=== PATIENT | male | born 1965 | race Caucasian/White ===

== ENCOUNTER 2016-12-18 17:41 | Inpatient (IN) | payer MEDICARE, OTHER ==
[~2016-12-18] VITALS: Ht 193 cm; Wt 204.4 kg
--- NOTE | 2016-12-18 18:06 | ED.REPORT ---
HPI-General Illness Date of Service Dec 18, 2016 ED Provider: Dr. Chris Cotto 51 year old male with a history of COPD, CHF and HTN who presents to the ER via EMS due to increasing weakness and lower extremity edema. About 1 month ago the patient stopped taking his Lasix. After 2 weeks of not taking this, he started to take double his dose in an attempt to decrease the edema. Pt has had no change in symptoms since he did this. Additionally, in the last 2 days the patient complains of worsening lower extremity weakness, SOB and a few small black stools. Pt denies any CP. Nursing Notes Stated Complaint: WEAKNESS Chief Complaint: Respiratory Complaints Nursing Notes Reviewed: Yes Allergies: Coded Allergies: No Known Allergies (Unverified , 12/18/16) Scheduled Torsemide (Torsemide) 20 Mg Tablet 60 MG PO QAM Scheduled PRN Albuterol Neb Soln (Albuterol Neb Soln) 2.5 Mg/3 Ml Vial.neb 3 ML INHALATION Q4 PRN PRN For Shortness of Breath Albuterol Sulfate (Ventolin HFA Inhaler) 200 Puff/18 Gm Inhaler 1-2 PUFFS INHALATION Q4 PRN PRN For Shortness of Breath Metoprolol Tartrate (Metoprolol Tartrate) 25 Mg Tablet 25 MG PO DAILY PRN PRN HTN/tachycardia General Time Seen by MD: 18:05 Chief Complaint Breathing problem, Other (Lower extremity edema) Hx Obtained From: Patient, EMS Arrived By: Ambulance Sudden in Onset?: No Onset Occurred: More than a week ago... Symptom Duration: Since onset Severity: Current: No pain currently Associated with: Reports: Shortness of breath, Denies: Chest pain, Fever Pertinent Negative: Relieved by nothing Past Medical History Past Medical History Reports: COPD, Congestive heart failure, Hypertension Past Surgical History None Smoking History Former Smoker (states he quit 10/2016) Social History Other Social History: Review of Systems Full Review of Systems Constitutional: Denies: Fever Respiratory: Reports: Shortness of breath Cardiovascular: Reports: Edema, Denies: Chest pain GI: Reports: Melena, Denies: Abdominal pain Complete sys rev & neg: except as marked. Physical Exam Vital Signs Vital Signs Date Time Temp Pulse Resp B/P Pulse Ox O2 Delivery O2 Flow Rate FiO2 12/18/16 19:38 102 18 90 Nasal Cannula 2 12/18/16 18:08 36.8 105 18 110/73 92 Nasal Cannula 4 Initial VS: Reviewed Head / Eyes: Atraumatic, Normocephalic, PERRL ENT: Conjunctiva normal, No scleral icterus Psychiatric: Mood/affect normal, Behavior normal, Normal thought content General/Constitutional: Awake, Alert Appearance / Presentation: Positive: Pale (generalized) Vesicles to posterior pharynx Neck: Full range of motion Neck Vascular: Positive: JVD moderate Wheezing / Retractions: Positive: Wheezing expiratory (faint) Tachypneic Wheezing throughout hypoxic on RA at 84% Cardiovascular: Heart rate NL, Regular rhythm, Heart sounds NL Abdomen: Obese abdomen. Anasarca- edematous from toes to abdomen. Skin: Warm, Dry Neurologic: Oriented X3, Speech NL, No motor deficits Interpretation & Diagnostics Lab Results Interpretation Result Diagram: 12/19/16 0442 12/19/16 1325 Test 12/18/16 18:20 12/18/16 18:40 D-Dimer 7.8mg/L (<0.50) Hemoglobin A1c 5.9% (4.8-5.6) Troponin T < 0.010ug/L (0.0-0.011) Pro-B-Type Natriuretic Peptide 20311yk/mL (0-121) Hold [place] Top Tube Received (Received) General Lab Results Interp 1: Labs reviewed Pulse Oximetry Interpretation Pulse Oximetry: Pulse Ox low (92), On nasal cannula (4L) ECG Interpretation ECG Interpretation: 1st degree heart block No ST elevation or depression Time: 18:46 Interpreted by: ED physician Normal ECG Interpretation: Normal sinus rhythm Rhythm / Conduction: Tachycardia (105), Poor R wave progression Rhythm Strip Interpretation : Time: 18:46 Rhythm Strip Interpretation: Interpreted by me, Rate (105), Sinus tachycardia X-Ray Chest Interpretation Chest Xray Interpretation: IMPRESSION: Probable right lower lobe infiltrate with small effusion. Dictated by: Can Santana M.D. on 12/18/2016 at 19:03 View: Portable, 1 view Interpretation / Wet Read by: Interpret - Radiologist US Focused Lower Ext Venous Negative for DVT bilat Re-Eval/Medical Decision Med Decision/Clinical Course Very pleasant 51 year old male with a number of chronic diseases presents acutely ill. He is short of breath, hypoxic and has impressive leg edema. He was found to have diffuse wheeze as well. His current active problems list based on history and diagnostics. 1. Pneumonia with hypoxia: will rx with Rocephin and Zithromax for CAP. Oxygen has helped. 2.COPD with exacerbation: continue nebs and consider bipap 3.Renal insufficiency: Stand pat for now. Electrolytes look good. Avoid nephrotoxic agents. 4.CHF: needs and echo and probably IV lasix. Plan for PCU admission and speciality consultation. Time of Eval: 19:32 Re-Evaluation/Progress Note: Updated pt of labs, ECG and imaging results. Recommended admission. Pt understands and agrees with plan. All questions addressed. Consultation : Referral / Consult Name: Biju Montes De Oca MD Consulted With: Hospitalist Call Returned at: 19:32 Brim Pouncing Machine Operator: Will see patient, Agrees with eval, Agrees with plan, Accepts admit Counseled Regarding: Diagnosis, Lab results, Need for admission Discharge & Departure Primary Impression: Pneumonia Pneumonia type: due to unspecified organism Laterality: right Lung location : lower lobe of lung Qualified Code: J18.9 - Pneumonia, unspecified organism Additional Impressions: Hypoxia Acute exacerbation of chronic obstructive pulmonary disease (COPD) Acute renal insufficiency Anasarca Congestive cardiac failure Congestive heart failure type: unspecified congestive heart failure type Congestive heart failure chronicity: unspecified congestive heart failure chronicity Qualified Code: I50.9 - Heart failure, unspecified Disposition: ADMITTED TO HOSPITAL Discharge Condition All VS Reviewed: Yes Referrals: OTHER,PHYSICIAN (PCP) Montse Emerson MD Crit Care Except Billable Proc Time Spent: 30-74 minutes Services Performed: Patient management by me, Time spent at bedside, Reviewing test results, Reviewing imaging, Discussing patient care, Documentation in record Scribe Attestation Portions of this note were transcribed by Jane Harman. I, (Dr. Cotto) personally performed the history, physical exam and medical decision-making; I reviewed and confirmed the accuracy of the information in the transcribed note. Signed by: Jane Harman. Андрей, 12/18/2016, 2003 copies to: Montse Emerson MD, Todd P DO Dec 18, 2016 18:06 Jane Harman Dec 18, 2016 19:08 US Focused Lower Ext Venous Negative for DVT bilat Re-Eval/Medical Decision Time of Eval: 19:32 Re-Evaluation/Progress Note: Updated pt of labs, ECG and imaging results. Recommended admission. Pt understands and agrees with plan. All questions addressed. Consultation : Referral / Consult Name: Biju Montes De Oca MD Consulted With: Hospitalist Call Returned at: 19:32 Brim Pouncing Machine Operator: Will see patient, Agrees with eval, Agrees with plan, Accepts admit Counseled Regarding: Diagnosis, Lab results, Need for admission Discharge & Departure Primary Impression: Pneumonia Pneumonia type: due to unspecified organism Laterality: right Lung location : lower lobe of lung Qualified Code: J18.9 - Pneumonia, unspecified organism Additional Impressions: Hypoxia Acute exacerbation of chronic obstructive pulmonary disease (COPD) Acute renal insufficiency Anasarca Disposition: ADMITTED TO HOSPITAL Discharge Condition All VS Reviewed: Yes Referrals: OTHER,PHYSICIAN (PCP) Montse Emerson MD Crit Care Except Billable Proc Time Spent: 30-74 minutes Services Performed: Patient management by me, Time spent at bedside, Reviewing test results, Reviewing imaging, Discussing patient care, Documentation in record Scribe Attestation Portions of this note were transcribed by Jane Felton I (Dr. Cotto) personally performed the history, physical exam and medical decision-making; I reviewed and confirmed the accuracy of the information in the transcribed note. Signed by: Jane Chiang, 12/18/20162003 copies to: Montse Emerson MD, Todd P DO Dec 18, 2016 18:06 Jane Harman Dec 18, 2016 19:08 Discharge Condition All VS Reviewed: Yes Referrals: OTHER,PHYSICIAN (PCP) Montse Emerson MD Crit Care Except Billable Proc Time Spent: 30-74 minutes Services Performed: Patient management by me, Time spent at bedside, Reviewing test results, Reviewing imaging, Discussing patient care, Documentation in record Scribe Attestation Portions of this note were transcribed by Jane Felton I (Dr. Cotto) personally performed the history, physical exam and medical decision-making; I reviewed and confirmed the accuracy of the information in the transcribed note. Signed by: Jane Chiang, 12/18/20162003 copies to: Montse Emerson MD, Todd P DO Dec 18, 2016 18:06 Jane Harman Dec 18, 2016 19:08
[2016-12-18 18:08] VITALS: BP 110/73; PULSE 105; RESP 18; O2SAT 92
[2016-12-18 18:37] LABS: Mean Corpuscular Hemoglobin 27.4 pg (27.0-35.0); Mean Corpuscular Volume 90.4 fL (81-100)
--- NOTE | 2016-12-18 19:06 | DRSVH ---
PROCEDURE: X-RAY CHEST ONE VIEW, PORTABLE ([id number]) INDICATIONS: SOB TECHNIQUE: One view of the chest was acquired. COMPARISON: [facility], CR, CHEST 1VW (PORTABLE), 05/24/2014, 19:01. FINDINGS: Surgical changes and devices: hydraulics teacher leads are seen over the chest. Lungs and pleura: There is thought to be a small right-sided effusion and some patchy density at the right base suggestive of pneumonia. Left lung is grossly clear. Mediastinum: Mediastinal contours appear normal. Heart size is normal. Bones and chest wall: No suspicious bony lesions. Overlying soft tissues appear unremarkable. IMPRESSION: Probable right lower lobe infiltrate with small effusion. Dictated by: Can Santana M.D. on 12/18/2016 at 19:03 Approved by: Can Santana M.D. on 12/18/2016 at 19:04
[2016-12-18] MEDS ORDERED: Albuterol-Ipratropium 3 mL Inhalation Solution NEB ONE ×2 (19:20→19:25)
[2016-12-18] MEDS ORDERED: cefTRIAXone Inj 2,000 MG in Dextrose 5% Minibag Plus 50 ML IV ONE (19:25)
[2016-12-18] MEDS ORDERED: 0.9% Sodium Chloride 500 ML IV ONE (19:25)
[2016-12-18 19:38] VITALS: PULSE 102; RESP 18; O2SAT 90
[2016-12-18] MEDS ORDERED: TORS20TA3 PO (20:26)
[2016-12-18] MEDS ORDERED: METO25TA6 PO (20:26)
[2016-12-18] MEDS ORDERED: ALBU2.5V4 INHALATION (20:26)
[2016-12-18] MEDS ORDERED: ALBU18HF INHALATION (20:26)
[2016-12-18] MEDS ORDERED: Ondansetron 2 mg/mL 2 mL Inj IVPUSH PRN (20:40)
[2016-12-18] MEDS ORDERED: Polyethylene Glycol (PEG) 17 Gm Powder PO PRN (20:40)
[2016-12-18] MEDS ORDERED: Alum-Mag Hydrox-Simeth 30 mL Suspension PO PRN (20:40)
[2016-12-18] MEDS: Albuterol-Ipratropium 3 mL Inhalation Solution NEB SCH (21:10)
[2016-12-18] MEDS ORDERED: MethylprednisoLONE Sodium Succinate 62.5 mg/mL 2 mL Inj IVPUSH ONE (21:10)
[2016-12-18 21:20] VITALS: BP 127/86; PULSE 108; RESP 18; O2SAT 92
[2016-12-18 21:22] LABS: BASOPHILS % (AUTO) 0.1 % (0-3); EOSINOPHILS % (AUTO) 0.3 % (0-5); MONOCYTES % (AUTO) 12.9 % (4-12); Mean Corpuscular Hemoglobin 27.9 pg (27.0-35.0); Mean Corpuscular Volume 89.5 fL (81-100); NEUTROPHILS % (AUTO) 77.9 % (40-74); Platelet Count 124 bil/L (150-400)
[2016-12-18 21:52] VITALS: BP 127/89; RESP 18; O2SAT 87
--- NOTE | 2016-12-18 22:00 | DRSVH ---
PROCEDURE: US VENOUS LEG DUPLEX BILATERAL INDICATIONS: massive leg swelling, elevated ddimer TECHNIQUE: Real-time imaging, as well as color and pulse Doppler interrogation, were performed of the deep veins of both legs from the inguinal ligament to the popliteal fossa. COMPARISON: None. FINDINGS: The deep veins are normally compressible, and free of intraluminal thrombus. Color and pu lse Doppler demonstrate normal phasic intravascular flow. There is normal augmentation response to d istal compression maneuver. IMPRESSION: No evidence for deep venous thrombosis is found in the left lower extremity with this du plex venous Doppler study. No evidence for deep venous thrombosis is found in the right lower extremity with this duplex venous Doppler study. Dictated by: Can Santana M.D. on 12/18/2016 at 21:58 Approved by: Can Santana M.D. on 12/18/2016 at 21:58
[2016-12-18] MEDS: 0.9% Sodium Chloride 1,000 ML IV SCH (22:10)
[2016-12-18] MEDS: Azithromycin Inj 500 MG in Dextrose 5% w/Vial Mate 250 ML IV SCH (22:17)
--- NOTE | 2016-12-18 22:37 | PCM.HPMED ---
Subjective Date of Service Dec 18, 2016 Primary Provider: Admitting Physician: Biju Montes De Oca MD Primary Care Physician: Montse Emerson MD Attending Physician: Biju Montes De Oca MD Chief Complaint: Worsening shortness of breath and weakness History of Present Illness: 51-year-old male patient with a history of COPD and congestive heart failure presented to the ER with complaint of worsening dyspnea and weakness. Patient reports that over the past 4 weeks he has been noticing increasing edema in his lower extremities and worsening shortness of breath. He states that he began doubling the dose of his torsemide in an effort to decrease the edema and improve his shortness of breath with no effect. Patient reports that he continued to become weaker and at one point stopped eating because he was too weak to get up. He states that his shortness of breath continued to worsen even with minimal exercise such as going to the restroom. Patient denies having supplemental oxygen at home. Patient reports a productive cough with clear sputum, that is worse than baseline. He also reports worsening shortness of breath, sore throat, myalgias and decreased urination. Patient also reports hesitancy of urination and decreased output of urination. Patient denies any fevers, chills, nausea, vomiting, diarrhea. Vitals in the ER temperature 36.8, pulse 105, respiratory rate 18, blood pressure 110/73, pulse ox 92 on nasal cannula 4 L Review of Systems: A comprehensive review of systems was conducted with the patient and found to be negative except as above in the History of Present Illness. Allergies Coded Allergies: No Known Allergies (Unverified , 12/18/16) Home Medications Torsemide Albuterol Propranolol PMH COPD Congestive heart failure GERD Lower extremity edema History of collapsed/punctured lung at 21 years old Surgical History Bilateral knee surgery Family History Noncontributory Social History Hx Alcohol Use: No Hx Substance Use: No Hx Tobacco Use: Yes Smoking Status: Former Smoker (quit 3-1/2 months ago, smoked for 31 years, up to 2 packs per day) Years of Smokin Living Arrangement: Alone Exam Vital Signs Vital Sign - Last Date Time Temp Pulse Resp B/P Pulse Ox O2 Delivery O2 Flow Rate FiO2 12/18/16 19:38 102 18 90 Nasal Cannula 2 12/18/16 18:08 36.8 110/73 Exam General: Obese.Mild distress, well-developed, well-nourished, appropriately interactive HEENT: Nasal canula in place. Vesicular rash noted along oropharynx. Cobblestoning as well. Normocephalic, atraumatic. External ears without defect. Pupils equal, round, and reactive to light and accommodation. Moist conjunctivae. Oropharynx with moist mucosa. Neck: Supple with full range of motion.No lymphadenopathy Cardiovascular: Regular rate and rhythm with no murmurs, rubs, or gallops appreciated Pulmonary: Crackles in the bilateral bases. End-expiratory wheezes heard diffusely bilaterally. Pt sitting in tripod position. With conversational dyspnea at times. Abdomen: Obese. Pitting edema in the abdomen to the level of the umbilicus. Bowel tones present. Soft, nontender. Extremities: Pitting edema( 2+) bilateral lower extremities. Unable to palpate pulses due to edema. Skin: Normal temperature, turgor, and texture; no rash, ulcers, or subcutaneous nodules appreciated. Psychiatric: Normal mood and affect. Alert and oriented to person, place, and time. Lab and Diagnostics Result Diagram: 12/18/16181912/18/161819 X-Rays, CTs and MRIs PROCEDURE: X-RAY CHEST ONE VIEW, PORTABLE ([id number]) INDICATIONS: SOB TECHNIQUE: One view of the chest was acquired. COMPARISON: [facility], , CHEST 1VW (PORTABLE), 05/24/2014, 19: 01. FINDINGS: Surgical changes and devices: rack worker leads are seen over the chest. Lungs and pleura: There is thought to be a small right-sided effusion and some patchy density at the right base suggestive of pneumonia. Left lung is grossly clear. Mediastinum: Mediastinal contours appear normal. Heart size is normal. Bones and chest wall: No suspicious bony lesions. Overlying soft tissues appear unremarkable. IMPRESSION: Probable right lower lobe infiltrate with small effusion. Dictated by: Can Santana M.D. on 12/18/2016 at 19:03 Approved by: Can Santana M.D. on 12/18/2016 at 19:04 Additional Diagnostics: DateTimeAnalyzed 01:44:00 -_ pH ____7.227 - 7.350 7.450 pCO2 103 -mmHg 35.0 45.0 pO2 ___73.2__ -mmHg 69.0 116 HCO3- ___41.5__ -mmol/L 22.0 26.0 ABE ____8.6__ -mmol/L -2.0 2.0 tHb ___15.8__ -g/dL O2Hb ___87.1__ -% COHb ____1.9__ -% MetHb ____0.9__ -% sO2 ___89.6__ -% 25.0 FIO2 ___34.0__ -% Drawn By MK - Date/Time Notified____ 01:48:00 -_ Oxygen Device 1 __CANNULA - Notified By MK - Notified Whom _Dr Davidson - B 764 -mmHg tO2 ___19.3__ -Vol% Emeka test _Positive - Assessment & Plan Acute on chronic respiratory failure with hypoxia, present on admission, ongoing -Differential diagnosis includes COPD exacerbation, Community acquired pneumonia , CHF exacerbation -Unclear etiology at this time. -Patient is requiring supplemental oxygen which he does not require at home -Pt became somnolent, ABG obtained demonstrating pCO2 of 103 -Pt started on BiPAP Possible COPD exacerbation present on admission, ongoing -COPD exacerbation is possible given increased sputum production and worsening of cough and new supplemental oxygen requirement -Patient to be treated with 3 days of azithromycin -Dual nebs every 4 while awake, albuterol nebulizers every 2 when necessary -Supplemental oxygen, with O2 goals of 88-92% -125 mg of Solu-Medrol administered to the patient -Continue to monitor Possible Community acquired pneumonia, present on admission, ongoing -Patient has a leukocytosis of 14.5, neutrophil percentage 77.9 -Chest x-ray done in the ER demonstrating right lower lobe infiltrate -Patient treated with 2 g ceftriaxone in the ER, we will continue with this antibiotic -Procalcitonin 0.29 -Legionella and strep pneumoniae urine antigens pending -Consider viral PCR -Blood cultures ordered but taken after administration of ceftriaxone Possible CHF exacerbation, present on admission, ongoing -BNP in the ER 12,223 -Patient has significant lower extremity edema and anasarca up to the umbilicus -Lung exam demonstrating crackles in the bases -Echo ordered for the morning -Not administering diuretics currently due to patient's acute kidney injury, see below Acute kidney injury, present on admission, ongoing -Currently BUN of 98 and Creatinine of 2.12 We have no comparison records available and thus cannot determine chronicity Patient has reported decreased urine output over the past few days We are providing gentle hydration with NS at 100 mils per hour Continue to monitor Consider nephrology referral if not improving Transaminitis, present on admission, ongoing -No previous records for comparison -AST 300, ALT 256, T bili 3.6, alkaline phosphatase 119 -Continue to evaluate with a.m. labs Vesicular rash present on admission, ongoing -Vesicular rash noted on oropharynx, rapid strep test ordered Acutely elevated d-dimer, present on admission, ongoing -Patient has d-dimer of 7.8 -Ultrasound bilateral lower extremities ordered in the ER, no results currently Morbid obesity, present on admission, ongoing -BMI 61 -Heart healthy diet ordered PCP: Montse Emerson at [facility] in [place] CODE STATUS : Full code VTE Prophylaxis: Sub-Q Heparin (Unfractionated) Resuscitation Status: CPR: Attempt Resuscitation Attending Statement The patient was seen and examined together with Dr. Davidson on 12/18 and I agree with the history, exam and plan as outlined in the note above. copies to: Montse Emerson MD, Tara L DO Dec 18, 2016 22:12 Biju Montes De Oca MD Dec 18, 2016 22:52
[2016-12-18 22:42] LABS: APPEARANCE,URINE CLEAR (CLEAR,HAZY); COLOR,URINE DARK YELLOW (YELLOW); OCCULT BLOOD,URINE NEGATIVE (NEGATIVE)
[2016-12-18 22:57] LABS: ICTOTEST,URINE POSITIVE (Negative)
[2016-12-19] VITALS (15 sets, daily range): BP systolic 107–132; BP diastolic 73–85; PULSE 78–111; RESP 18–23; O2SAT 87–92
[2016-12-19] MEDS: Heparin 5,000 Unit/mL Inj SUBQ SCH ×3 (01:31→16:30)
--- NOTE | 2016-12-19 01:48 | ABG ---
DateTimeAnalyzed 01:44:00 -_ pH ____7.227 - 7.350 7.450 pCO2 103 -mmHg 35.0 45.0 pO2 ___73.2__ -mmHg 69.0 116 HCO3- ___41.5__ -mmol/L 22.0 26.0 ABE ____8.6__ -mmol/L -2.0 2.0 tHb ___15.8__ -g/dL O2Hb ___87.1__ -% COHb ____1.9__ -% MetHb ____0.9__ -% sO2 ___89.6__ -% 25.0 FIO2 ___34.0__ -% Drawn By MK - Date/Time Notified____ 01:48:00 -_ Oxygen Device 1 __CANNULA - Notified By MK - Notified Whom _Dr Nairs - B 764 -mmHg tO2 ___19.3__ -Vol% Emeka test _Positive -
--- NOTE | 2016-12-19 02:14 | NUR ---
Admit Pt arrived on unit at 2144 on [facility]. Pt ambulated to scale and bed using SBA. Pt A&Ox3, talkative and cooperative with care. Pt states his legs are very weak. agreeable to using call light for assistance to get OOB. VSS, denies pain. On 4L O2 NC, placed on tele and CPOx. IVF started, ABX administered.
--- NOTE | 2016-12-19 02:17 | NUR ---
LOC Change RN into room at 0130. Pt very difficult to arouse using loud voice and calling name. Sternal rub gets groggy response. Pt mumbles answers to questions, does not make eye contact, eyes unfocused. Call to laundry laborer. VS stable. Call to MD, orders received for ABG check. Reveals O2 level of 103, pt placed on Bipap per MD at bedside. Addendum: 12/19/16 at 0543 by MICHAEL VENTURA RN pCO2 level of 103
--- NOTE | 2016-12-19 04:24 | ABG ---
DateTimeAnalyzed 04:19:00 -_ pH ____7.341 - 7.350 7.450 pCO2 ___79.8__ -mmHg 35.0 45.0 pO2 ___62.2__ -mmHg 69.0 116 HCO3- ___42.0__ -mmol/L 22.0 26.0 ABE ___12.3__ -mmol/L -2.0 2.0 tHb ___14.9__ -g/dL O2Hb ___85.4__ -% COHb ____2.3__ -% MetHb ____0.9__ -% sO2 ___88.2__ -% 25.0 FIO2 ___35.0__ -% CPAP ___18.0__ -cmH2O PEEP ____8.0__ -cmH2O Set_RR ___18.0__ -b/min Drawn By AF - Date/Time Notified____ 04:23:00 -_ Oxygen Device 1 ____BIPAP - Notified By AF - Notified Whom _Sarah RN - B 764 -mmHg tO2 ___17.9__ -Vol% OrderingPhysicianInitials mf - Emeka test _Positive -
[2016-12-19 04:56] LABS: BASOPHILS % (AUTO) 0 % (0-3); EOSINOPHILS % (AUTO) 0.1 % (0-5); MONOCYTES % (AUTO) 2.4 % (4-12); Mean Corpuscular Hemoglobin 27.2 pg (27.0-35.0); Mean Corpuscular Volume 86.1 fL (81-100); NEUTROPHILS % (AUTO) 93.5 % (40-74); Platelet Count 136 bil/L (150-400)
[2016-12-19] MEDS: Albuterol-Ipratropium 3 mL Inhalation Solution NEB SCH ×4 (08:19→20:09)
[2016-12-19] MEDS: 0.9% Sodium Chloride 1,000 ML IV SCH (09:29)
[2016-12-19] MEDS ORDERED: Furosemide 10 mg/mL 4 mL Inj IVPUSH ONE (09:30)
--- NOTE | 2016-12-19 09:56 | ABG ---
DateTimeAnalyzed 09:50:00 -_ pH ____7.406 - 7.350 7.450 pCO2 ___67.9__ -mmHg 35.0 45.0 pO2 ___75.0__ -mmHg 69.0 116 HCO3- ___41.8__ -mmol/L 22.0 26.0 ABE ___13.7__ -mmol/L -2.0 2.0 tHb ___14.8__ -g/dL O2Hb ___91.5__ -% COHb ____2.2__ -% MetHb ____0.8__ -% sO2 ___94.3__ -% 25.0 FIO2 ___40.0__ -% CPAP ___20.0__ -cmH2O PEEP ____8.0__ -cmH2O Set_RR ___20.0__ -b/min Drawn By NB - Date/Time Notified____ 09:56:00 -_ Oxygen Device 1 ____BIPAP - Notified By nb - Notified Whom ___Dr. Price - B 763 -mmHg tO2 ___19.0__ -Vol% Emeka test _Positive -
--- NOTE | 2016-12-19 11:55 | DRSVH ---
[facility] [address] [place] [place] [address] Echocardiogram Report Name: KEN NORMAN TStudy Date : 12/19/2016 Height: 76 in Hospital Exam Location: [facility] Weight: 440 lb Gender: Male BSA: 3.1 m2 : 1965 Age: 51 yrs BP: 119/73 mmHg Reason For Study: CHF Ordering Physician: HOSPITALIST [facility] Performed By: Enrique Gooden Referring Physician: Montse Emerson Interpretation Summary Left ventricular systolic function is likely mildly reduced with the ejection fraction grossly estimated to be 45 +/- 5% without obvious focal wall motion abnormalities noted although poor endocardial definition reduces the sensitivity for the detection of such. However, there is a flattened septum consistent with a probable right ventricular pressure overload condition and a significant dyssynchronous contraction pattern, consistent with a conduction abnormality. The left ventricle is grossly normal in size and diastolic function could not be accurately assessed due to tachycardia. The right ventricle is moderate to severely dilated and right ventricular systolic function is moderate to severely reduced with a probable thrombus noted in the right ventricular apex entrapped by the moderator band, seen by use of echo contrast, and measuring approximately 2.5 cm x 3.0 cm. Right ventricular systolic pressure is at least 30 mmHg plus the clinically estimated CVP and likely is significantly higher based on other echo findings, but the weakTR jet limits the accuracy of the estimate on this exam. The left atrial size is normal and the right atrium is moderately dilated. There is mild tricuspid regurgitation but no other significant valvular heart disease. There is a small to moderate loculated pericardial effusion predominantly posteriorly but there are no echocardiographic or Doppler indications for cardiac tamponade. Procedure: A two-dimensional transthoracic echocardiogram with color flow and Doppler was performed. The study quality was technically difficult. There is no prior echocardiogram noted for this patient. A contrast injection of Definity was performed to improve assessment of LV function. The subcostal views were not obtained due to body habitus. The suprasternal notch views were difficult to obtain and are suboptimal in quality. The patient was in normal sinus rhythm during the exam. Left Ventricle: The left ventricle is normal in size. There is normal left ventricular wall thickness. Left ventricular systolic function is mildly reduced. Left ventricular ejection fraction is estimated to be 45 +/- 5%. There are no obvious focal wall motion abnormalities noted but poor endocardial definition reduces the sensitivity for the detection of such. Flattened septum is consistent with RV pressure overload. There is a significant dyssynchronous contraction pattern, consistent with a conduction abnormality. Diastolic function could not be accurately assessed due to tachycardia. Right Ventricle: The right ventricle is moderate to severely dilated. There is a probable thrombus noted in the right ventricular apex entrapped by the moderator band, seen by use of echo contrast, measuring approximately 2.5 cm x 3.0 cm. Right ventricular systolic function is moderate to severely reduced. Atria: The left atrial size is normal. The right atrium is moderately dilated. The interatrial septum is intact with no evidence for an atrial septal defect. Mitral Valve: The mitral valve is not well visualized. The mitral valve is grossly normal. There is trace mitral regurgitation. Aortic Valve: The aortic valve is not well visualized. The aortic valve is grossly normal. There is no aortic valve stenosis. No aortic regurgitation is present. Tricuspid Valve: The tricuspid valve is normal in structure and function. There is mild tricuspid regurgitation. Right ventricular systolic pressure is estimated to be at least 30 mmHg plus the clinically estimated CVP which cannot be estimated on this exam. Pulmonic Valve: The pulmonic valve is not well seen, but is grossly normal. There is no pulmonic valvular regurgitation. There is no other significant valvular heart disease. Great Vessels: The aortic root is normal size. The ascending aorta could not be visualized. The pulmonary artery is normal size. The inferior vena cava was not visualized. Pericardium/ Pleura There is a moderate loculated pericardial effusion. There are no echocardiographic or Doppler indications for cardiac tamponade. There is no pleural effusion. MMode/2D Measurements & Calculations LVIDd: 5.2 cm LA dimension: 4.2 cm RA long axis Ao root diam LVIDs: 4.0 cm FS: 22.6 % LA A2 area: 22.3 cm RA area Aortic Jxn EPSS: 0.35 cm LA A4 area: 21.4 cm : 2.3 cm IVSd: 1.0 cm LA length (vol): 5.9 cm : 30.8 cm LVPWd: 0.94 cm LA vol: 68.2 ml RA vol LA vol index : 135.ml RA : 22.0 ml/m2 : 43.6 mm2 LV mathias. diameter/BSA LV sys. diameter/BSA RVD2 (mid) (cm/m^2): 1.7 (cm/m^2): 1.3 : 5.0 cm Doppler Measurements & Calculations Ao V2 max MV E max nathan MV E/A: 65.4 TR max nathan : 118.4 cm/sec : 100.9 cm/sec Med Peak E' Nathan : 275.6 cm/sec Ao max PG MV A max nathan TR max PG : 5.6 mmHg : 1.5 cm/sec E/E' med: 19.2 : 30.4 mmHg Ao mean PG PA V2 max : 3.4 mmHg : 95.1 cm/sec PA mean PG PA Accel Time : 0.07 sec MV dec time Ao V2 mean PA V2 mean : 0.09 sec : 88.1 cm/sec : 60.2 cm/sec Ao V2 VTI: 20.0 cm PA pr(Accel) : 46.6 mmHg Reading Physician:11:53 AM
[2016-12-19] MEDS ORDERED: Heparin 1,000 Units/mL 10 mL DVT/PE Bolus Inj IVPUSH PRN (12:15)
[2016-12-19] MEDS ORDERED: Heparin 5,000 Unit/mL Inj IVPUSH ONE (12:15)
[2016-12-19] MEDS: Heparin 25K Unit/500mL 0.45 NS 25,000 UNIT in IV Premix 1 EACH IV SCH (13:23)
--- NOTE | 2016-12-19 13:54 | CONS ---
[address] [address] CONSULTATION REPORT PATIENT: KEN NORMAN : 1965 MR#: [id number] ADMIT: 12/18/2016 JOB ID: [id number] DATE OF SERVICE: 12/19/2016 PULMONARY CRITICAL CARE CONSULTATION NOTE: The patient is a 51-year-old man seen in consultation at the request of Dr. Lam Thrasher for right ventricular failure and possible right ventricular thrombus. HISTORY OF PRESENT ILLNESS: The patient is a 51-year-old man with a 30-40 pack year recent smoking history who presented to the hospital with worsening generalized weakness, shortness of breath. He is morbidly obese with a BMI over 50. He was reportedly hospitalized at [facility] in [place] with respiratory issues four years ago and started on torsemide at that time. He is supposed to take 60 mg daily but says that he sometimes misses this due to financial reasons. He has been taking it regularly recently until a few weeks ago. He developed worsening lower extremity edema at that point and his torsemide was "not working." He tried taking double the dose but it still was not working. After that he stopped taking it since it was not helping and his edema progressively worsened. He also had a cough that is stable, shortness of breath that also got worse over the last few weeks to the point that he could barely walk across the room to the bathroom without having to pause. He has had worsening generalized weakness in the last two weeks to the point that he could barely pick himself up off the toilet. He had some wheezing but no chest pain, palpitations. He had one episode of dizziness on standing from a sitting position but no other syncope or lightheadedness. He presented to the emergency department yesterday and was found to have an abnormal blood gas with pH of 7.2, pCO2 of 100 and placed on BiPAP. He also had a creatinine of 2.3 at that time. He has been on BiPAP since yesterday and his repeat blood gas this morning showed a normal pH and pCO2 in the 60s. When off the BiPAP, he is requiring about 6 L of oxygen to maintain sats above 90. He denies any history of blood clots. PAST MEDICAL HISTORY: 1. Hypertension. 2. Hospitalized at [facility] in [place] four years ago for respiratory issues and started on diuretics. 3. Morbid obesity. FAMILY HISTORY: Does not know. He is adopted. SOCIAL HISTORY: Smoked 1-1/2 packs a day for about 30 years and quit smoking August 2016. He has previously worked in a warehouse, manual labor. REVIEW OF SYSTEMS: As described above in HPI, positive for shortness of breath, generalized weakness, cough, wheezing, lower extremity edema. Negative for fever, chills, chest pain, palpitations, abdominal pain, nausea, vomiting, skin rashes, joint pain or swelling, dizziness or lightheadedness, lymphadenopathy, visual problems, etc. PHYSICAL EXAMINATION: Vital signs reviewed. T-max 36.3, pulse 96, respirations 22, BP 107/76, sats 91% on 40% BiPAP. General: Morbidly obese gentleman lying in bed. Alert, oriented, appropriately answering questions. Neck: No cervical lymphadenopathy. HEENT: Oral mucosa is moist. No ulcers or thrush. Pupils are equal. Chest: Clear to auscultation. No wheezes or crackles. Heart: Regular rate and rhythm but very difficult to hear. He does have 3+ bilateral lower extremity edema. Abdomen nontender. No organomegaly palpable. Extremities: No cyanosis or clubbing. Skin: No rashes. LABORATORIES: Reviewed. WBC down to 10.9 from 14.5, hemoglobin 14.7, platelets 136. Chemistry reviewed and shows BUN 98, unchanged compared to yesterday. Creatinine down to 1.7 from 2.1 yesterday. AST of 202, ALT of 201, total bilirubin of 3.1. Procalcitonin 0.3. ProBNP 12,200. Troponin T of less than 0.01. IMAGING: Chest x-ray reviewed. Chest x-ray shows possible right lower lobe infiltrate plus-minus effusion. Arterial blood gas on admission shows pH 7.22, pCO2 of 103, pO2 of 73, bicarbonate of 41. This morning at 9 p.m. the blood gas shows pH of 7.4, pCO2 of 67, pO2 of 75, bicarbonate of 41. Echocardiogram done this morning shows EF mildly reduced around 45%-50% without obvious focal wall motion abnormality. There is a flattened septum consistent with RV pressure overload. Significant dyssynchronous contraction pattern. Diastolic function could not be assessed accurately. Right ventricle is moderate to severely dilated and systolic function is moderate to severely reduced with probable thrombus noted in the RV apex. This was seen by the use of echo contrast and measured approximately 2.5 x 3 cm. RVSP estimated 30 mm plus CVP. Turzj-ti-eytaoeio loculated pericardial effusion posteriorly. No indications of tamponade. ASSESSMENT AND RECOMMENDATIONS: 1. Obesity hypoventilation syndrome. 2. Probable right ventricular thrombus. 3. Cor pulmonale and decompensated right heart failure. 4. Acute on chronic kidney injury. This super morbid obese gentleman with BMI of 53 is presenting with acute on chronic hypercarbic respiratory failure and decompensated right heart failure with probable right ventricular thrombus on echo. His creatinine today is 1.7 down from 2.1 yesterday but BUN remains almost 100. His blood gas shows significant improvement in hypercarbia with BiPAP and his pH is now normal. Of biggest concern right now is the right ventricular thrombus. We are going to start him on a heparin drip for this. Ideally I would like to see if there is any evidence of large PE associated with this. His D-dimer is elevated but with his creatinine we decided to hold off on doing a CT with contrast at this point. He has a lower extremity duplex that shows no DVT. Nephrology is seeing him and recommended repeating a creatinine now and if significantly improved. We could even do the CT pulmonary angiogram tonight. With regards to the primary team's question about a thrombectomy, frankly I am not aware of right ventricular thrombectomy as an option for treatment in this circumstance. On a brief review of literature, all I found was that RV thrombus with PE is associated with a higher mortality. Regardless the RV thrombus at this point was described as "probable" and we do not have confirmation of a pulmonary embolism either. Certainly all of his symptoms could be explained by decompensated, untreated obesity hypoventilation syndrome and cor pulmonale. At this point the final plan is to continue with the heparin drip for anticoagulation. Plan on getting a CT pulmonary angiogram, when acceptable, based on his renal function. Once we have this information, we could probably start diuresis with a Lasix drip based on my conversation with Nephrology. I am not here tomorrow but please contact me for any urgent questions regarding this patient. I will see him again on Wednesday.
--- NOTE | 2016-12-19 16:04 | DRSVH ---
PROCEDURE: CT ANGIO CHEST PULMONARY EMBOLISM ([id number]) INDICATIONS: possible PE, elevated d-dimer, dyspnea TECHNIQUE: After the administration of intravenous contrast, 2 mm thick sections acquired from the pulmonary api jeremy to the posterior costophrenic angles. 3-dimensional maximum intensity projection (MIP) coronal a nd sagittal reformats were then acquired through the thorax. For radiation dose reduction, the follo wing was used: automated exposure control, adjustment of mA and/or kV according to patient size. COMPARISON: [facility], CR, XR CHEST 1VW (PORTABLE), 12/18/2016, 18:26. FINDINGS: Image quality: Excellent. Pulmonary arteries: Pulmonary arteries are normal in size, and demonstrate no intraluminal filling d efects to suggest central pulmonary embolism. Lungs and pleura: Lungs are abnormal with a pneumonia pattern at the right lower lobe, with adjacent small pleural effusion. No pleural significant left-sided effusions or pneumothorax. Central and p eripheral airways are patent. Mediastinum: Heart size is normal, without pericardial effusion. No mediastinal or hilar adenopathy . Thoracic aorta is normal in caliber and enhancement. Esophagus is normal in caliber, without hiat al hernia. Bones and chest wall: No suspicious bony lesions. Ribs and thoracic spine appear intact throughout. Thyroid gland appears normal where well visualized. No axillary or supraclavicular adenopathy. Abdomen: Visualized upper abdominal solid organs appear normal in the early arterial phase of enhanc ement. IMPRESSION: 1. No pulmonary embolus seen. 2. Right lower lobe pneumonia pattern 3. Small right pleural effusion. Dictated by: Eladio Garcia M.D. on 12/19/2016 at 16:00 Approved by: Eladio Garcia M.D. on 12/19/2016 at 16:03
--- NOTE | 2016-12-19 16:35 | CONS ---
[address] [address] CONSULTATION REPORT PATIENT: KEN NORMAN : 1965 MR#: [id number] ADMIT: 12/18/2016 JOB ID: [id number] DATE OF SERVICE: 12/19/2016 REQUESTING PHYSICIAN: Dr. Thrasher REASON FOR CONSULTATION: Management of abnormal kidney function. CHIEF COMPLAINT: Shortness of breath. HISTORY OF PRESENT ILLNESS: This is a 51-year-old, male with significant past medical history of morbid obesity, hypertension, COPD, tobacco abuse, obesity hypoventilation syndrome, who presented to the emergency department with a complaint of shortness of breath and lower extremity swelling. The patient does have history of chronic lower extremity swelling in which he takes torsemide daily. However, the patient recently has not been compliant with the medication. He stated that he missed taking medication, especially over the past couple of weeks. The patient has noticed worsening lower extremity swelling over the past four weeks with dyspnea on exertion. The patient reported that he tried to double the dose of the torsemide, however he did not get a good response with the medication. The patient reports worsening shortness of breath, malaise, decreased urine output. The patient does not have any fever or chills. No nausea, vomiting, or diarrhea. He came to the emergency department for further investigation. His initial vitals were temperature of 36.8, pulse of 105, respiratory of 18, blood pressure 110/73, O2 sat 94% on 4 L nasal cannula. His initial BUN and creatinine were 98 and 2.12 respectively. His proBNP was over 12,000. He received diuretics x1 day this morning. So far he has made 675 mL. He remains having lower extremity swelling, however he is well rested at the moment. He is on the nasal cannula. The repeat serum creatinine later on today showed a creatinine of 1.52. His D-dimer is elevated at the level of 7.8. Echocardiogram showed ejection fraction of 45%. Moderate to severely dilated right ventricle. Moderate to severely reduced right ventricular systolic function. A probable thrombus noted in the right ventricular apex, measuring approximately 2.5 cm x 3.0 cm. Right ventricular systolic pressure is at least 30 mmHg plus the clinically estimated CVP is significantly higher based on the other echo findings. The patient is not aware of having chronic kidney disease. He takes xrsj-suj-[id number] pain medication, acetaminophen. He does not use any NSAIDs. Renal was consulted to manage on the acute kidney injury. PAST MEDICAL HISTORY: 1. Morbid obesity. 2. Obesity hypoventilation syndrome. 3. Hypertension. 4. CHF. PAST SURGICAL HISTORY: Bilateral knee surgery. SOCIAL HISTORY: The patient is a former smoker. He smoked for 31 years up to two packs per day. ALLERGIES: No known drug allergies. HOME MEDICATIONS: Albuterol, metoprolol, and torsemide. REVIEW OF SYSTEMS: Constitutional: Positive for generalized weakness. No fever, no chills. HEENT: No headaches. No blurred vision. Cardiovascular: No palpitation. No significant chest pain. Pulmonary: Positive for productive cough. No hemoptysis. GI: No nausea, vomiting. : Decreased urine output. Skin: No rashes. No excoriations. Hematology: No active bleeding. No bruises. Infectious: No history of HIV or TB exposure. PHYSICAL EXAMINATION: Vitals: Temperature 36.3, pulse 94, respiratory rate 20, blood pressure 123/80, pulse ox 90% with BiPAP 40%. General appearance: Obese, mild distress. Awake, alert. Cooperative. HEENT: Atraumatic. Moist mucous membranes. PERRLA. No pallor, no jaundice. JVD is difficult to assess due to the thick and short neck. Heart: Regular rhythm. Normal S1, S2. Distant heart sounds. Lungs: Fine crackles at the bases. Expiratory wheezing noted. Poor air entry bilaterally. Abdomen: Soft, obese. Active bowel sounds. Nontender. Nondistended. Extremities: 3+ edema on the lower extremities up to the sacral area. LABORATORY: WBC 10.9, hemoglobin 14.7, sodium 137, potassium 4.8, chloride 85, bicarb 42, BUN 94, creatinine 1.52. D-dimer 7.8. APTT 28.4. UA: Specific gravity 1.020, pH 5.0, 0-2 RBCs, 0-5 WBCs, more than 20 hyaline casts. Urine neutrophilia antigen negative. Lower extremity venous Doppler showed no evidence of deep venous thrombosis. Chest x-ray showed probable right lower lobe infiltrate with small effusion. Echocardiogram showed a probable right thrombus measured 2.5 cm x 3.0 cm, reduced right ventricular systolic function, ejection fraction 45%. ASSESSMENT: 1. Acute kidney injury, unknown baseline creatinine. The etiology is likely related to cardiorenal syndrome. 2. Worsening shortness of breath. 3. Decompensated right-sided heart failure. 4. Probable thrombus in right ventricle. 5. Morbid obesity with hypoventilation syndrome. 6. Chronic obstructive pulmonary disease exacerbation with underlying disease of tobacco abuse. 7. Suspected right-sided pneumonia. PLAN: 1. I have discussed with Dr. Mcadams and Dr. Thrasher. It seems like CTA with PE protocol is absolutely indicated in this patient. Indeed it will change our management, whether he will need thrombolytic agent or not. The patient will be started on the heparin drip treating for probable right thrombus. Fortunately his serum creatinine is now trending down. I agree with Dr. Mcadams to proceed with a CTA to rule out PE. I will put diuretics on hold at this point. We will monitor his volume status and kidney function closely. I would recommend to resume IV diuretics, prefer Lasix drip, treating for cardiorenal syndrome. 2. We will discontinue IV fluids. 3. We will order a kidney sonogram. 4. Avoid nephrotoxins. 5. Adjust medication by GFR. Thank you for the consultation. We will monitor along with you.
--- NOTE | 2016-12-19 16:50 | NUR ---
Social Work: Initial Assessment D: Per EMR review, pt is a 51 year old male admitted for pneumonia, hypoxia. Pt is Medicare with no supplement, LTC insurance or VA benefits. PCP is Montse Emerson MD. NOK Is Carolin Kruse, ex-s/o, . Advanced directives not completed- information provided by CHEMICAL MANAGER. Readmit score not entered at this time. CHEMICAL MANAGER met with pt at bedside. Sw role explained and contact information provided. See initial assessment. Pt lives in an apartment, alone in [place]. Pt states he is I with ADLs and owns no DME. Pt has never had HH or Skilled rehab. Pt continues to drive however has found it increasingly difficult due to his morbid obesity. Pt states that he has noticed a decline in his ability to ambulate and has resulted in some near falls. Pt has considered the need for DME however states that he does not own any due to finances. CHEMICAL MANAGER reviewed possible needs at discharge with pt considering his recent decline in functional mobility. Pt is guarded about going to skilled rehab and would like to discharge home with home health and some DME. Pt is willing to participate with PT when appropriate for formal recommendations. Pt provided with HH and SNF Choice List to review. Pt has no preference for HH at this time. A: Pt who was previously living I at home, alone. P: Evolving; CHEMICAL MANAGER to request PT evaluation when pt is medically appropriate for assessment. CHEMICAL MANAGER to follow pt closely as pt will, at minimum, require assistance acquiring DME and arranging home health; CHEMICAL MANAGER to r/o need for SNF and pt's respiratory needs. KENDRICK Sidhu Addendum: 12/19/16 at 1658 by BUTCH HERRMANN Amended: Links added.
[2016-12-19] MEDS: Furosemide Inj 100 MG in 0.9% Sodium Chloride 90 ML IVPUSH SCH (18:23)
--- NOTE | 2016-12-19 18:31 | NUR ---
improved LOC patient was discontinued from BiPAP this afternoon after speaking with pulmonology. changed to NC at 4L/min. Pulmonology instructed that patient be put back on BiPAP at night while sleeping. patient has remained alert and oriented on NC maintaining O2 sat 88-92% throughout the afternoon/evening. continue to monitor.
--- NOTE | 2016-12-19 19:34 | PCM.PNMED ---
Subjective Date of Service Dec 19, 2016 Subjective 51-year-old male patient with a history of COPD and congestive heart failure presented to the ER with complaint of worsening dyspnea and weakness. This morning, Mr. Kruse continues to have some dyspnea, weakness, and leg swelling. His dyspnea has improved. He is more tired than usual and has been napping more often today. He does not have fever, chills, chest pain, or abdominal pain. Exam Vital Signs Vital Sign - Last Date Time Temp Pulse Resp B/P Pulse Ox O2 Delivery O2 Flow Rate FiO2 12/19/16 12:31 94 20 123/80 90 BiPAP 40 12/19/16 07:43 36.3 12/19/16 01:49 4.00 Intake and Output 12/18/16 12/18/16 12/19/16 Cumulative From/Thru 15:00 23:00 07:00 12/18/16 18:08 - 12/19/16 05:56 Intake Total 500 ml 1301 ml 1801 ml Output Total 675 ml 675 ml Balance 500 ml 626 ml 1126 ml Intake Oral 400 ml 400 ml IV Total 500 ml 901 ml 1401 ml Output Urine Total 675 ml 675 ml # Bowel Movements 0 0 Exam General: Obese. No acute distress, well-developed, well-nourished, appropriately interactive HEENT: Nasal canula in place. Vesicular rash noted along oropharynx. Cobblestoning as well. Normocephalic, atraumatic. External ears without defect. Pupils equal, round, and reactive to light and accommodation. Moist conjunctivae. Oropharynx with moist mucosa. Neck: Supple with full range of motion.No lymphadenopathy Cardiovascular: Regular rate and rhythm with no murmurs, rubs, or gallops appreciated Pulmonary: Crackles in the bilateral bases. End-expiratory wheezes heard diffusely bilaterally. BiPAP in place. Abdomen: Obese. Pitting edema in the abdomen to the level of the umbilicus. Bowel tones present. Soft, nontender. Extremities: Pitting edema( 2+) bilateral lower extremities. Unable to palpate pulses due to edema. Skin: Normal temperature, turgor, and texture; no rash, ulcers, or subcutaneous nodules appreciated. Psychiatric: Normal mood and affect. Alert and oriented to person, place, and time. IVs and Medications Medications Reviewed: Medications were reviewed in detail Lab and Diagnostics Result Diagram: 2/25/17 0442 12/19/16 1325 X-Rays, CTs and MRIs PROCEDURE: X-RAY CHEST ONE VIEW, PORTABLE IMPRESSION: Probable right lower lobe infiltrate with small effusion. Approved by: Can Santana M.D. on 12/18/2016 at 19:04 PROCEDURE: CT ANGIO CHEST PULMONARY EMBOLISM IMPRESSION: 1. No pulmonary embolus seen. 2. Right lower lobe pneumonia pattern 3. Small right pleural effusion. Approved by: Eladio Garcia M.D. on 12/19/2016 at 16:03 Cardiac Echo Impressions Echocardiogram Report Interpretation Summary Left ventricular systolic function is likely mildly reduced with the ejection fraction grossly estimated to be 45 +/- 5% without obvious focal wall motion abnormalities noted although poor endocardial definition reduces the sensitivity for the detection of such. However, there is a flattened septum consistent with a probable right ventricular pressure overload condition and a significant dyssynchronous contraction pattern, consistent with a conduction abnormality. The left ventricle is grossly normal in size and diastolic function could not be accurately assessed due to tachycardia. The right ventricle is moderate to severely dilated and right ventricular systolic function is moderate to severely reduced with a probable thrombus noted in the right ventricular apex entrapped by the moderator band, seen by use of echo contrast, and measuring approximately 2.5 cm x 3.0 cm. Right ventricular systolic pressure is at least 30 mmHg plus the clinically estimated CVP and likely is significantly higher based on other echo findings, but the weakTR jet limits the accuracy of the estimate on this exam. The left atrial size is normal and the right atrium is moderately dilated. There is mild tricuspid regurgitation but no other significant valvular heart disease. There is a small to moderate loculated pericardial effusion predominantly posteriorly but there are no echocardiographic or Doppler indications for cardiac tamponade. Reading Physician:11:53 AM Additional Diagnostics DateTimeAnalyzed 09:50:00 -_ pH ____7.406 - 7.350 7.450 pCO2 ___67.9__ -mmHg 35.0 45.0 pO2 ___75.0__ -mmHg 69.0 116 HCO3- ___41.8__ -mmol/L 22.0 26.0 ABE ___13.7__ -mmol/L -2.0 2.0 tHb ___14.8__ -g/dL O2Hb ___91.5__ -% COHb ____2.2__ -% MetHb ____0.8__ -% sO2 ___94.3__ -% 25.0 FIO2 ___40.0__ -% CPAP ___20.0__ -cmH2O PEEP ____8.0__ -cmH2O Set_RR ___20.0__ -b/min Drawn By NB - Date/Time Notified____ 09:56:00 -_ Oxygen Device 1 ____BIPAP - Notified By nb - Notified Whom ___Dr. Price - B 763 -mmHg tO2 ___19.0__ -Vol% Emeka test _Positive - Assessment & Plan 1. Probable thrombus in right ventricle, acute, present on admission. Active. -Right ventricular apex entrapped by the moderator band, seen by use of echo contrast, and measuring approximately 2.5 cm x 3.0 cm -Consider contacting radiologist tomorrow to discuss if the thrombus would to be visible on CT scan -Pulmonology was consulted. Her time and recommendations were appreciated. -Heparin drip per protocol 2. Acute on chronic respiratory failure with hypoxia, present on admission, improving -Differential diagnosis includes COPD exacerbation, Community acquired pneumonia , and CHF exacerbation or is multifactorial and a combination of all three -Patient is requiring supplemental oxygen which he does not require at home -ABG obtained demonstrating pCO2 of 103, which has improved today to 67.9 -Pt started on BiPAP and will continue BiPAP at night -CT chest angiogram was negative for a pulmonary embolism 3. Possible COPD exacerbation present on admission, ongoing -COPD exacerbation is possible given increased sputum production and worsening of cough and new supplemental oxygen requirement -Patient to be treated with 3 days of azithromycin -Dual nebs every 4 while awake, albuterol nebulizers every 2 when necessary -Supplemental oxygen, with O2 goals of 88-92% -125 mg of Solu-Medrol administered to the patient -Continue to monitor 4. Possible Community acquired pneumonia, present on admission, ongoing -Patient had leukocytosis of 14.5, neutrophil percentage 77.9. Improved WBC 10.9 but neutrophil percentage 93.5% -Chest x-ray done in the ER demonstrating right lower lobe infiltrate and chest CT re-demonstrated right lower lobe infiltrate -Procalcitonin 0.36 -Legionella and strep pneumoniae urine antigens negative -Viral PCR negative -Blood cultures ordered but taken after administration of ceftriaxone -Patient treated with 2 g ceftriaxone in the ER, we will continue with this antibiotic. Azithromycin as above 5. Acute systolic CHF exacerbation, present on admission, ongoing -BNP in the ER 12,223 -Patient has significant lower extremity edema and anasarca up to the umbilicus -Lung exam demonstrating crackles in the bases -Echocardiogram as above, EF 40-50% -Lasix drip at 5 mg/h started 6. Acute kidney injury, present on admission, ongoing -Initially BUN of 98 and Creatinine of 2.12, today BUN 84, creatinine 1.5 to -We have no comparison records available and thus cannot determine chronicity. Records from [facility] in [place] requested but their are office is not open until Wednesday. -Patient has reported decreased urine output over the past few days -Discontinued normal saline -Nephrology consulted and following. Their time and recommendations are appreciated 7. Transaminitis, present on admission, ongoing -No previous records for comparison -AST 300, ALT 256, T bili 3.6, alkaline phosphatase 119 initially. Today, mild improvement. -Continue to evaluate with a.m. labs 8. Vesicular rash present on admission, ongoing -Vesicular rash noted on oropharynx, rapid strep test negative -Consider doing a viral swab if no improvement 9. Acutely elevated d-dimer, present on admission, ongoing -Patient has d-dimer of 7.8 -Ultrasound bilateral lower extremities ordered in the ER, no DVT -Chest CT angiogram shows no pulmonary embolism. -Echocardiogram shows thrombus in right ventricle 10. Morbid obesity, present on admission, ongoing -BMI 61 -Likely contributing to a chronic hypoventilation -Heart healthy diet ordered PCP: Montse Emerson at [facility] in [place] CODE STATUS : Full code VTE Prophylaxis: Sub-Q Heparin (Unfractionated) Resuscitation Status: CPR: Attempt Resuscitation Attending Statement The patient was seen and examined together with Dr. Duran on 12/19/2016 and I agree with the history, exam and plan as outlined in the note above. . Lisa Duran DO Dec 19, 2016 14:30 Lam Thrasher MD Dec 20, 2016 08:44
[2016-12-19] MEDS: cefTRIAXone Inj 2,000 MG in Dextrose 5% Minibag Plus 50 ML IV SCH (20:43)
[2016-12-19] MEDS ORDERED: Heparin 5,000 Unit/mL Inj IVPUSH PRN (21:32)
[2016-12-19] MEDS: Azithromycin Inj 500 MG in Dextrose 5% w/Vial Mate 250 ML IV SCH (21:48)
[2016-12-20] VITALS (14 sets, daily range): BP systolic 121–132; BP diastolic 74–84; PULSE 92–115; RESP 16–23; O2SAT 89–98
[2016-12-20] MEDS: Heparin 25K Unit/500mL 0.45 NS 25,000 UNIT in IV Premix 1 EACH IV SCH ×3 (00:30→22:10)
[2016-12-20 04:12] LABS: BASOPHILS % (AUTO) 0 % (0-3); EOSINOPHILS % (AUTO) 0 % (0-5); MONOCYTES % (AUTO) 11.8 % (4-12); Mean Corpuscular Hemoglobin 27.7 pg (27.0-35.0); Mean Corpuscular Volume 89.7 fL (81-100); NEUTROPHILS % (AUTO) 83.9 % (40-74); Platelet Count 87 bil/L (150-400)
--- NOTE | 2016-12-20 05:25 | NUR ---
BiPap/Agitation Pt placed on bipap for sleep, tolerated well maintaining sats 88-92% majority of night. One sustained dip to 85%, call to RT, pt woken up. Pt required multiple stimuli and mild sternal rub to awaken, was then drowsy but oriented. Pt awakens agitated multiple times during the night with urgent need to urinate. Pt complains that he has been waiting for help but no one comes, although he does not use the call light, despite multiple reminders. Pt uses the urinal with 1PA.
[2016-12-20] MEDS: Albuterol-Ipratropium 3 mL Inhalation Solution NEB SCH ×4 (08:03→20:53)
--- NOTE | 2016-12-20 09:20 | DRSVH ---
PROCEDURE: US RENAL SONOGRAM INDICATIONS: SHARMILA, decreased urine output TECHNIQUE: Real-time scanning was performed of the kidneys and bladder, with image documentation. COMPARISON: None. FINDINGS: Detail of findings limited because of body size. Kidneys: Kidneys are normal in size. Right kidney measures 11.0 cm long; left kidney measures 11.2 cm long. Right renal cortical thickness is 1.4 cm; left renal cortical thickness is 1.2 cm. . Bladder: Pre-void bladder volume is 138 mL. Post-void residual is 10.4 mL. Pre-void images demonst rate no intraluminal masses or stones. Miscellaneous: No free pelvic fluid. IMPRESSION: Detail limited because of body habitus. There is no hydronephrosis. There is no significa nt postvoid residual. Dictated by: Can Santana M.D. on 12/20/2016 at 9:16 Approved by: Can Santana M.D. on 12/20/2016 at 9:18
[2016-12-20] MEDS: Furosemide Inj 100 MG in 0.9% Sodium Chloride 90 ML IVPUSH SCH (10:38)
[2016-12-20] MEDS ORDERED: Potassium Chloride 20 mEq SR Tablet PO ONE (13:35)
--- NOTE | 2016-12-20 13:39 | PCM.PNMED ---
Subjective Date of Service Dec 20, 2016 Subjective CTA PE protocol was done yesterday, showed no acute PE, (+) RLL PNA. Serum cr 1.38, remains overloaded, LE swelling, SOB. Exam Vital Signs Vital Sign - Last Date Time Temp Pulse Resp B/P Pulse Ox O2 Delivery O2 Flow Rate FiO2 12/20/16 12:38 104 20 94 OxyMask 6.00 12/20/16 11:55 36.9 129/77 12/20/16 03:30 40 Intake and Output 12/19/16 12/19/16 12/20/16 Cumulative From/Thru 15:00 23:00 07:00 12/18/16 18:08 - 12/20/16 06:38 Intake Total 1311 ml 1342 ml 4454 ml Output Total 2075 ml 1465 ml 4215 ml Balance -764 ml -123 ml 239 ml Intake Oral 596 ml 400 ml 1396 ml IV Total 715 ml 942 ml 3058 ml Output Urine Total 2075 ml 1465 ml 4215 ml # Bowel Movements 0 Exam General appearance: Obese, mild distress. Awake, alert. Cooperative. HEENT: Atraumatic. Moist mucous membranes. PERRLA. No pallor, no jaundice. JVD is difficult to assess due to the thick and short neck. Heart: Regular rhythm. Normal S1, S2. Distant heart sounds. Lungs: Fine crackles at the bases. Poor air entry bilaterally. Abdomen: Soft, obese. Active bowel sounds. Nontender. Nondistended. Extremities: 3+ edema on the lower extremities up to the sacral area. Lab and Diagnostics Result Diagram: 12/20/16 0401 12/20/16 0401 X-Rays, CTs and MRIs PROCEDURE: X-RAY CHEST ONE VIEW, PORTABLE IMPRESSION: Probable right lower lobe infiltrate with small effusion. Approved by: Can Santana M.D. on 12/18/2016 at 19:04 PROCEDURE: CT ANGIO CHEST PULMONARY EMBOLISM IMPRESSION: 1. No pulmonary embolus seen. 2. Right lower lobe pneumonia pattern 3. Small right pleural effusion. Approved by: Eladio Garcia M.D. on 12/19/2016 at 16:03 Cardiac Echo Impressions Echocardiogram Report Interpretation Summary Left ventricular systolic function is likely mildly reduced with the ejection fraction grossly estimated to be 45 +/- 5% without obvious focal wall motion abnormalities noted although poor endocardial definition reduces the sensitivity for the detection of such. However, there is a flattened septum consistent with a probable right ventricular pressure overload condition and a significant dyssynchronous contraction pattern, consistent with a conduction abnormality. The left ventricle is grossly normal in size and diastolic function could not be accurately assessed due to tachycardia. The right ventricle is moderate to severely dilated and right ventricular systolic function is moderate to severely reduced with a probable thrombus noted in the right ventricular apex entrapped by the moderator band, seen by use of echo contrast, and measuring approximately 2.5 cm x 3.0 cm. Right ventricular systolic pressure is at least 30 mmHg plus the clinically estimated CVP and likely is significantly higher based on other echo findings, but the weakTR jet limits the accuracy of the estimate on this exam. The left atrial size is normal and the right atrium is moderately dilated. There is mild tricuspid regurgitation but no other significant valvular heart disease. There is a small to moderate loculated pericardial effusion predominantly posteriorly but there are no echocardiographic or Doppler indications for cardiac tamponade. Reading Physician:11:53 AM Additional Diagnostics DateTimeAnalyzed 09:50:00 -_ pH ____7.406 - 7.350 7.450 pCO2 ___67.9__ -mmHg 35.0 45.0 pO2 ___75.0__ -mmHg 69.0 116 HCO3- ___41.8__ -mmol/L 22.0 26.0 ABE ___13.7__ -mmol/L -2.0 2.0 tHb ___14.8__ -g/dL O2Hb ___91.5__ -% COHb ____2.2__ -% MetHb ____0.8__ -% sO2 ___94.3__ -% 25.0 FIO2 ___40.0__ -% CPAP ___20.0__ -cmH2O PEEP ____8.0__ -cmH2O Set_RR ___20.0__ -b/min Drawn By NB - Date/Time Notified____ 09:56:00 -_ Oxygen Device 1 ____BIPAP - Notified By nb - Notified Whom ___Dr. Price - B 763 -mmHg tO2 ___19.0__ -Vol% Emeka test _Positive - Assessment & Plan 1. Acute kidney injury, unknown baseline creatinine. The etiology is likely related to cardiorenal syndrome. 2. Decompensated right-sided heart failure. 3. Probable thrombus in right ventricle. 4. Morbid obesity with hypoventilation syndrome. 5. Chronic obstructive pulmonary disease exacerbation with underlying disease of tobacco abuse. 6. Suspected right-sided pneumonia. PLAN: 1. Increase lasix gtt 10 mg/hr, add metolazone 5 mg PO x1. 2. Continue heparin gtt. 3. Daily BMP, Mg, PO4. 4. Avoid nephrotoxins. 5. Daily weight, 2 gm Na per day. VTE Prophylaxis: Sub-Q Heparin (Unfractionated) Resuscitation Status: CPR: Attempt Resuscitation Kiki Flaherty MD Dec 20, 2016 13:38
--- NOTE | 2016-12-20 13:59 | NUR ---
Social Work: Continued Discharge Planning D: Pt discussed with MD. Pt will likely require a Trilogy machine at time of discharge and is requesting [employer] provide initial referral to [facility] to begin this process. [employer] spoke with Marcia Cam with [facility] who states that she can come today to begin this process. Pt continues to require high oxygen needs and shows limited insight into his 02 needs. [employer] requested PT order for pt to further assess ambulatory needs. MD signed script for FWW in anticipation pt will require FWW at d/c. A: Pt who is from home, alone. P: Evolving; [employer] to follow up with PT and MD recommendations to determine pt's discharge needs. R/o HH versus SNF and DME needs. KENDRICK Sidhu
[2016-12-20] MEDS ORDERED: Glucose 40% Oral Gel 15 Gm Tube PO PRN (14:40)
[2016-12-20 15:42] LABS: INR 1.25 ratio
--- NOTE | 2016-12-20 16:50 | PCM.PHAPRO ---
Progress Date of Service: Dec 20, 2016 Worsening shortness of breath and weakness Dx: thrombus right ventricle PMH: COPD, CHF, CAP, HTN DDI: ceftriaxone, azithromycin INR goal 2-3 INR 1.25 (below goal) give warfarin 5mg tonight draw INR AM labs on 12/21 per pharmacy Lance Walker PharmD Lance Walker Dec 20, 2016 16:50
--- NOTE | 2016-12-20 16:58 | PCM.PNMED ---
Subjective Date of Service Dec 20, 2016 Subjective Overnight: Patient was on Bipap for sleep, up and agitated multiple times over the night but otherwise uneventful. Today: He denies any shortness of breath and feels at his baseline at rest, but reports continuing shortness of breath on exertion. He reports mild chest pain with a cough, which is nonproductive, as well as wheezing. Denies fevers, chills , N/V/D. Exam Vital Signs Vital Sign - Last Date Time Temp Pulse Resp B/P Pulse Ox O2 Delivery O2 Flow Rate FiO2 12/20/16 16:25 115 20 96 OxyMask 6.00 12/20/16 15:58 36.7 128/77 12/20/16 03:30 40 Intake and Output 12/19/16 12/19/16 12/20/16 Cumulative From/Thru 14:59 22:59 06:59 12/18/16 18:08 - 12/20/16 06:38 Intake Total 1311 ml 1342 ml 4454 ml Output Total 2075 ml 1465 ml 4215 ml Balance -764 ml -123 ml 239 ml Intake Oral 596 ml 400 ml 1396 ml IV Total 715 ml 942 ml 3058 ml Output Urine Total 2075 ml 1465 ml 4215 ml # Bowel Movements 0 Exam General: Morbidly obese. No acute distress, well-developed, well-nourished, appropriately interactive HEENT: Nasal canula in place. Normocephalic, atraumatic. External ears without defect. Pupils equal, round, and reactive to light and accommodation. Moist conjunctivae. Neck: Supple with full range of motion.No lymphadenopathy Cardiovascular: Regular rate and rhythm with no murmurs, rubs, or gallops appreciated Pulmonary: End-expiratory wheezes heard diffusely bilaterally. Abdomen: Obese. Pitting edema in the abdomen to the level of the umbilicus. Bowel tones present. Soft, nontender. Extremities: Pitting edema( 2+) bilateral lower extremities. Unable to palpate pulses due to edema. Skin: Normal temperature, turgor, and texture; no rash, ulcers, or subcutaneous nodules appreciated. Psychiatric: Normal mood and affect. Alert and oriented to person, place, and time. Lab and Diagnostics Result Diagram: 12/20/16 0401 12/20/16 0401 X-Rays, CTs and MRIs PROCEDURE: X-RAY CHEST ONE VIEW, PORTABLE IMPRESSION: Probable right lower lobe infiltrate with small effusion. Approved by: Can Santana M.D. on 12/18/2016 at 19:04 PROCEDURE: CT ANGIO CHEST PULMONARY EMBOLISM IMPRESSION: 1. No pulmonary embolus seen. 2. Right lower lobe pneumonia pattern 3. Small right pleural effusion. Approved by: Eladio Garcia M.D. on 12/19/2016 at 16:03 Cardiac Echo Impressions Echocardiogram Report Interpretation Summary Left ventricular systolic function is likely mildly reduced with the ejection fraction grossly estimated to be 45 +/- 5% without obvious focal wall motion abnormalities noted although poor endocardial definition reduces the sensitivity for the detection of such. However, there is a flattened septum consistent with a probable right ventricular pressure overload condition and a significant dyssynchronous contraction pattern, consistent with a conduction abnormality. The left ventricle is grossly normal in size and diastolic function could not be accurately assessed due to tachycardia. The right ventricle is moderate to severely dilated and right ventricular systolic function is moderate to severely reduced with a probable thrombus noted in the right ventricular apex entrapped by the moderator band, seen by use of echo contrast, and measuring approximately 2.5 cm x 3.0 cm. Right ventricular systolic pressure is at least 30 mmHg plus the clinically estimated CVP and likely is significantly higher based on other echo findings, but the weakTR jet limits the accuracy of the estimate on this exam. The left atrial size is normal and the right atrium is moderately dilated. There is mild tricuspid regurgitation but no other significant valvular heart disease. There is a small to moderate loculated pericardial effusion predominantly posteriorly but there are no echocardiographic or Doppler indications for cardiac tamponade. Reading Physician:11:53 AM Additional Diagnostics DateTimeAnalyzed 09:50:00 -_ pH ____7.406 - 7.350 7.450 pCO2 ___67.9__ -mmHg 35.0 45.0 pO2 ___75.0__ -mmHg 69.0 116 HCO3- ___41.8__ -mmol/L 22.0 26.0 ABE ___13.7__ -mmol/L -2.0 2.0 tHb ___14.8__ -g/dL O2Hb ___91.5__ -% COHb ____2.2__ -% MetHb ____0.8__ -% sO2 ___94.3__ -% 25.0 FIO2 ___40.0__ -% CPAP ___20.0__ -cmH2O PEEP ____8.0__ -cmH2O Set_RR ___20.0__ -b/min Drawn By NB - Date/Time Notified____ 09:56:00 -_ Oxygen Device 1 ____BIPAP - Notified By nb - Notified Whom ___Dr. Thrasher - B 763 -mmHg tO2 ___19.0__ -Vol% Emeka test _Positive - Assessment & Plan 1. Probable thrombus in right ventricle, acute, present on admission. Active. -Echo showed thrombus in right ventricular apex, measuring approximately 2.5 cm x 3.0 cm. Likely secondary to right heart failure and pulmonary hypertension. CT angio was negative for PE. -Pulmonology was consulted. Their time and recommendations were appreciated. -Heparin drip per protocol 2. Acute on chronic respiratory failure with hypoxia, present on admission, improving -Secondary to COPD, obesity hypoventilation, obstructive sleep apnea, and pulmonary hypertension. Patient requires nocturnal and daytime PRN volume ventilation. BiPAP is insufficient due to severity of COPD and obesity hypoventilation, which are the primary causes of his hypercapnic respiratory failure. Per Dr. Mcadams, Trilogy is recommended. -Patient is requiring supplemental oxygen which he does not require at home -Will assess for Trilogy 3. Possible COPD exacerbation present on admission, ongoing -COPD exacerbation is possible given increased sputum production and worsening of cough and new supplemental oxygen requirement -Azithromycin 250 mg PO daily for 3 more days. -Duoneb q4 while awake, albuterol nebulizers q2 PRN -Supplemental oxygen, with O2 goals of 88-92% -125 mg of Solu-Medrol administered to the patient -Continue to monitor 4. Possible Community acquired pneumonia, present on admission, ongoing -Patient had leukocytosis of 14.5, neutrophil percentage 77.9. Improved WBC 10.9 but neutrophil percentage 93.5% -Chest x-ray done in the ER demonstrating right lower lobe infiltrate and chest CT re-demonstrated right lower lobe infiltrate -Procalcitonin 0.36 --> 0.22 -Legionella and strep pneumoniae urine antigens negative -Viral PCR negative -Blood cultures ordered but taken after administration of ceftriaxone -Continue Ceftriaxone IV. Azithromycin as above 5. Acute systolic CHF exacerbation, present on admission, ongoing -BNP in the ER 12,223 -Patient has significant lower extremity edema and anasarca up to the umbilicus -Lung exam demonstrating crackles in the bases -Echocardiogram as above, EF 40-50% -Daily weights -Na restriction to 2 g daily -Lasix drip increased to 10 mg/hr -Metolazone 5 mg once -Carvedilol 3.125 mg BID -Start HONEY inhibitor tomorrow if BP permits 6. Acute kidney injury, present on admission, ongoing -Likely secondary to CHF exacerbation. Discontinued fluids, will diurese accordingly. -We have no comparison records available and thus cannot determine chronicity. Records from [facility] in [place] requested but their are office is not open until Wednesday. -Patient has reported decreased urine output over the past few days -Diuresis as above, per Dr. Arechiga -Nephrology consulted and following. Their time and recommendations are appreciated 7. Transaminitis, present on admission, ongoing -No previous records for comparison -AST 300, ALT 256, T bili 3.6, alkaline phosphatase 119 initially. Today, mild improvement. -Continue to evaluate with a.m. labs 8. Vesicular rash present on admission, ongoing -Vesicular rash noted on oropharynx, rapid strep test negative -Consider doing a viral swab if no improvement 9. Acutely elevated d-dimer, present on admission, ongoing -Patient has d-dimer of 7.8 -Ultrasound bilateral lower extremities ordered in the ER, no DVT -Chest CT angiogram shows no pulmonary embolism. -Echocardiogram shows thrombus in right ventricle 10. Morbid obesity, present on admission, ongoing -BMI 61 -Likely contributing to a chronic hypoventilation -Heart healthy diet ordered VTE Prophylaxis: Sub-Q Heparin (Unfractionated) Resuscitation Status: CPR: Attempt Resuscitation Attending Statement The patient was seen and examined together with Dr. Jenkins on 12/20/2016 and I agree with the history, exam and plan as outlined in the note above. . Alphonso Jenkins Dec 20, 2016 16:58 Lam Thrasher MD Jan 02, 2017 17:10
--- NOTE | 2016-12-20 17:08 | NUR ---
[facility]
--- NOTE | 2016-12-20 17:29 | NUR ---
O2 Patient repeatedly removing oxymask to eat/drink/take a break. Patient SpO2 drops to 70s-low 80s when not wearing mask. 6L NC applied to patient, patient more compliant and SpO2 maintaining in the low 90s.
[2016-12-20] MEDS: Insulin LISPRO 300 Unit/3 mL Inj SUBQ SCH ×2 (17:44→21:17)
[2016-12-20] MEDS: cefTRIAXone Inj 2,000 MG in Dextrose 5% Minibag Plus 50 ML IV SCH (21:17)
[2016-12-21] VITALS (16 sets, daily range): BP systolic 50–122; BP diastolic 31–75; PULSE 73–111; RESP 16–24; O2SAT 88–96
[2016-12-21] MEDS: Furosemide Inj 100 MG in 0.9% Sodium Chloride 90 ML IVPUSH SCH ×2 (02:34→13:35)
[2016-12-21 04:05] LABS: BASOPHILS % (AUTO) 0 % (0-3); EOSINOPHILS % (AUTO) 0.1 % (0-5); MONOCYTES % (AUTO) 13.6 % (4-12); Mean Corpuscular Hemoglobin 27.3 pg (27.0-35.0); Mean Corpuscular Volume 91.6 fL (81-100)
[2016-12-21 04:16] LABS: INR 1.19 ratio
--- NOTE | 2016-12-21 06:57 | NUR ---
Respiratory/IV Sites/Heparin/Lasix Pt was asked about home O2 usage and the pt said that they had been sent home with 7L O2 NC but that the pt would get a headache so the pt then went down to 5L NC. Pt said that his "docs" wanted him to find the "sweet spot" when using O2 at home. Pt said that he goes between 4L-5L O2 NC when at home depending on whether or not 5L gives him a headache. Pt was able to be titrated down from 6L NC to the pt's baseline home O2 of 4L NC with SpO2 91-94%. Pt continues to bend arm where 2 PIV sites are running causing a distal occlusion of the heparin drip. Pt says that he would like us to get a new site that is preferably not in his dominant arm and not in a place where arm/hand positioning would cause the distal occlusion alarm to go off. Pt's heparin PTT draw did decrease to 58.2 and the heparin dose had to be increased by 1 unit to 12units/kg/hr and the pt will not require another PTT heparin lab draw. The next PTT lab draw has already been scheduled for 1130 this afternoon. Pt's Lasix drip has now been increased from 5ml/hr to 10ml/hr. Pt's output of urine overnight was 3620ml and the pt's weight decreased by 3.1kg from daily weight recorded on 12/20/2016. The pt's daily weight for 12/21/2016 is currently 195.2kg.
[2016-12-21] MEDS: Insulin LISPRO 300 Unit/3 mL Inj SUBQ SCH ×4 (08:22→22:00)
[2016-12-21 08:24] LABS: Magnesium 2.1 mg/dL (1.6-2.6); Phosphorus 3.1 mg/dL (2.5-4.9)
[2016-12-21] MEDS: Albuterol-Ipratropium 3 mL Inhalation Solution NEB SCH ×4 (09:14→20:45)
[2016-12-21] MEDS: Heparin 25K Unit/500mL 0.45 NS 25,000 UNIT in IV Premix 1 EACH IV SCH ×2 (10:15→22:53)
--- NOTE | 2016-12-21 11:28 | ABG ---
DateTimeAnalyzed 11:21:00 -_ pH ____7.395 - pCO2 ___86.1__ -mmHg pO2 ___78.3__ -mmHg HCO3- ___51.6__ -mmol/L ABE ___21.2__ -mmol/L tHb ___14.1__ -g/dL O2Hb ___92.8__ -% COHb ____2.3__ -% MetHb ____0.8__ -% sO2 ___95.8__ -% FIO2 ___45.0__ -% Drawn By MT - Date/Time Notified____ 11:28:00 -_ Notified By MT - Notified Whom __[place] - B 750 -mmHg tO2 ___18.4__ -Vol% Emeka test N/A -
--- NOTE | 2016-12-21 13:04 | PCM.PNMED ---
Subjective Date of Service Dec 21, 2016 Subjective Patient was seen today and his chart was thoroughly reviewed. Patient came in with a ventricular thrombus and what appeared to be acute kidney injury which has since resolved. He does have a history of morbid exogenous obesit, COPD, right-sided congestive heart failure, and chronic CO2 retention. He denies a history of any previous diabetes. He is currently being evaluated for this today. Since admission his renal function has improved and his elevated liver function studies are also improved. In the last 24 hours his insulin 30-62 and 2865 out and this morning in the first 8 hours he started he had 3620 out. He states that his breathing is a bit better but still has some dyspnea with exertion. He remains orthopneic but denies any chest pain nausea or vomiting. This morning his sodium is 140, potassium 3.7, chloride of 87, bicarbonate 44, BUN and creatinine were 60 and 0.88. Blood gas was obtained and found that his PCO2 was 86 with a pH 7.39 and a calculated bicarbonate of 51. Exam Vital Signs Vital Sign - Last Date Time Temp Pulse Resp B/P Pulse Ox O2 Delivery O2 Flow Rate FiO2 12/21/16 12:00 37.0 102 20 114/72 90 Nasal Cannula 3.00 12/21/16 00:20 40 Intake and Output 12/20/16 12/20/16 12/21/16 Cumulative From/Thru 15:00 23:00 07:00 12/18/16 18:08 - 12/21/16 05:49 Intake Total 1920 ml 1467 ml 7841 ml Output Total 1400 ml 3620 ml 9235 ml Balance 520 ml -2153 ml -1394 ml Intake Oral 1360 ml 918 ml 3674 ml IV Total 560 ml 549 ml 4167 ml Output Urine Total 1400 ml 3620 ml 9235 ml # Bowel Movements 0 Exam HEENT examination is remarkable for mildly pale sclera. Neck is supple without adenopathy or thyromegaly. He does have some mild to moderate venous distention at 90. His body habitus is quite large and a limited pulmonary and cardiovascular exam was obtained due to his large size. His lungs showed what appeared to be some bibasilar rales and his heart sounds were present. Abdomen remains pendulous and distended. It is non-tense is no tenderness rebound guarding masses noted. Extremities showed some mild lower extremity edema. Lab and Diagnostics Result Diagram: 12/21/16 0827 12/21/16 0349 X-Rays, CTs and MRIs PROCEDURE: X-RAY CHEST ONE VIEW, PORTABLE IMPRESSION: Probable right lower lobe infiltrate with small effusion. Approved by: Can Santana M.D. on 12/18/2016 at 19:04 PROCEDURE: CT ANGIO CHEST PULMONARY EMBOLISM IMPRESSION: 1. No pulmonary embolus seen. 2. Right lower lobe pneumonia pattern 3. Small right pleural effusion. Approved by: Eladio Garcia M.D. on 12/19/2016 at 16:03 Cardiac Echo Impressions Echocardiogram Report Interpretation Summary Left ventricular systolic function is likely mildly reduced with the ejection fraction grossly estimated to be 45 +/- 5% without obvious focal wall motion abnormalities noted although poor endocardial definition reduces the sensitivity for the detection of such. However, there is a flattened septum consistent with a probable right ventricular pressure overload condition and a significant dyssynchronous contraction pattern, consistent with a conduction abnormality. The left ventricle is grossly normal in size and diastolic function could not be accurately assessed due to tachycardia. The right ventricle is moderate to severely dilated and right ventricular systolic function is moderate to severely reduced with a probable thrombus noted in the right ventricular apex entrapped by the moderator band, seen by use of echo contrast, and measuring approximately 2.5 cm x 3.0 cm. Right ventricular systolic pressure is at least 30 mmHg plus the clinically estimated CVP and likely is significantly higher based on other echo findings, but the weakTR jet limits the accuracy of the estimate on this exam. The left atrial size is normal and the right atrium is moderately dilated. There is mild tricuspid regurgitation but no other significant valvular heart disease. There is a small to moderate loculated pericardial effusion predominantly posteriorly but there are no echocardiographic or Doppler indications for cardiac tamponade. Reading Physician:11:53 AM Additional Diagnostics DateTimeAnalyzed 09:50:00 -_ pH ____7.406 - 7.350 7.450 pCO2 ___67.9__ -mmHg 35.0 45.0 pO2 ___75.0__ -mmHg 69.0 116 HCO3- ___41.8__ -mmol/L 22.0 26.0 ABE ___13.7__ -mmol/L -2.0 2.0 tHb ___14.8__ -g/dL O2Hb ___91.5__ -% COHb ____2.2__ -% MetHb ____0.8__ -% sO2 ___94.3__ -% 25.0 FIO2 ___40.0__ -% CPAP ___20.0__ -cmH2O PEEP ____8.0__ -cmH2O Set_RR ___20.0__ -b/min Drawn By NB - Date/Time Notified____ 09:56:00 -_ Oxygen Device 1 ____BIPAP - Notified By nb - Notified Whom ___Dr. Price - B 763 -mmHg tO2 ___19.0__ -Vol% Emeka test _Positive - Assessment & Plan Impression #1 acute kidney injury which is resolving #2 cor pulmonale with right -sided congestive heart failure #3 mixed acid-base disorder #4 hypertension with hypertensive heart disease and hypertensive sclerosis Recommendations #1 I would like to hold his diuretics for at least 24-48 hours to give his body a chance to really elaborate Avodart to increase his potassium chloride supplementation and some to help treat his superimposed alkalosis. By treating this I hope we can bring down his carbon dioxide level. VTE Prophylaxis: Sub-Q Heparin (Unfractionated) Resuscitation Status: CPR: Attempt Resuscitation Louis Feliz DO Dec 21, 2016 13:04
--- NOTE | 2016-12-21 14:22 | PCM.PNMED ---
Subjective Date of Service Dec 21, 2016 Subjective 51-year-old male patient with a history of COPD and congestive heart failure presented to the ER with complaint of worsening dyspnea and weakness. Today: He denies any shortness of breath. He has a cough that is non- productive. He would like to start getting out of bed more. He does not have chest pain, fevers, chills, N/V/D. Exam Vital Signs Vital Sign - Last Date Time Temp Pulse Resp B/P Pulse Ox O2 Delivery O2 Flow Rate FiO2 12/21/16 08:14 37.0 108 24 113/75 89 Nasal Cannula 4.00 12/21/16 00:20 40 Intake and Output 12/20/16 12/20/16 12/21/16 Cumulative From/Thru 15:00 23:00 07:00 12/18/16 18:08 - 12/21/16 05:49 Intake Total 1920 ml 1467 ml 7841 ml Output Total 1400 ml 3620 ml 9235 ml Balance 520 ml -2153 ml -1394 ml Intake Oral 1360 ml 918 ml 3674 ml IV Total 560 ml 549 ml 4167 ml Output Urine Total 1400 ml 3620 ml 9235 ml # Bowel Movements 0 Exam General: Morbidly obese. No acute distress, well-developed, well-nourished, appropriately interactive HEENT: Nasal canula in place. Normocephalic, atraumatic. External ears without defect. Pupils equal, round, and reactive to light and accommodation. Moist conjunctivae. Neck: Supple with full range of motion.No lymphadenopathy Cardiovascular: Regular rate and rhythm with no murmurs, rubs, or gallops appreciated Pulmonary: Mild end-expiratory wheezes heard diffusely bilaterally. Abdomen: Obese. Bowel tones present. Soft, nontender. Extremities: Pitting edema( 2+) bilateral lower extremities. Unable to palpate pulses due to edema. Skin: Normal temperature, turgor, and texture; no rash, ulcers, or subcutaneous nodules appreciated. Psychiatric: Normal mood and affect. Alert and oriented to person, place, and time. IVs and Medications Medications Reviewed: Medications were reviewed in detail Lab and Diagnostics Result Diagram: 12/21/16 0349 12/21/16 0349 X-Rays, CTs and MRIs PROCEDURE: X-RAY CHEST ONE VIEW, PORTABLE IMPRESSION: Probable right lower lobe infiltrate with small effusion. Approved by: Can Santana M.D. on 12/18/2016 at 19:04 PROCEDURE: CT ANGIO CHEST PULMONARY EMBOLISM IMPRESSION: 1. No pulmonary embolus seen. 2. Right lower lobe pneumonia pattern 3. Small right pleural effusion. Approved by: Eladio Garcia M.D. on 12/19/2016 at 16:03 Cardiac Echo Impressions Echocardiogram Report Interpretation Summary Left ventricular systolic function is likely mildly reduced with the ejection fraction grossly estimated to be 45 +/- 5% without obvious focal wall motion abnormalities noted although poor endocardial definition reduces the sensitivity for the detection of such. However, there is a flattened septum consistent with a probable right ventricular pressure overload condition and a significant dyssynchronous contraction pattern, consistent with a conduction abnormality. The left ventricle is grossly normal in size and diastolic function could not be accurately assessed due to tachycardia. The right ventricle is moderate to severely dilated and right ventricular systolic function is moderate to severely reduced with a probable thrombus noted in the right ventricular apex entrapped by the moderator band, seen by use of echo contrast, and measuring approximately 2.5 cm x 3.0 cm. Right ventricular systolic pressure is at least 30 mmHg plus the clinically estimated CVP and likely is significantly higher based on other echo findings, but the weakTR jet limits the accuracy of the estimate on this exam. The left atrial size is normal and the right atrium is moderately dilated. There is mild tricuspid regurgitation but no other significant valvular heart disease. There is a small to moderate loculated pericardial effusion predominantly posteriorly but there are no echocardiographic or Doppler indications for cardiac tamponade. Reading Physician:11:53 AM Additional Diagnostics DateTimeAnalyzed 11:21:00 -_ pH ____7.395 - pCO2 ___86.1__ -mmHg pO2 ___78.3__ -mmHg HCO3- ___51.6__ -mmol/L ABE ___21.2__ -mmol/L tHb ___14.1__ -g/dL O2Hb ___92.8__ -% COHb ____2.3__ -% MetHb ____0.8__ -% sO2 ___95.8__ -% FIO2 ___45.0__ -% Drawn By MT - Date/Time Notified____ 11:28:00 -_ Notified By MT - Notified Whom __[place] - B 750 -mmHg tO2 ___18.4__ -Vol% Emeka test N/A - Assessment & Plan 51-year-old male patient with a history of COPD and congestive heart failure presented to the ER with complaint of worsening dyspnea and weakness. #. Acute systolic CHF exacerbation, present on admission, ongoing -BNP in the ER 12,223 -Patient has significant lower extremity edema and anasarca up to the umbilicus -Lung exam demonstrating crackles in the bases -Echocardiogram as above, EF 40-50% -Daily weights -Na restriction to 2 g daily -Lasix drip discontinued -Metolazone 5 mg once -Carvedilol 3.125 mg BID increased today to 6.25 mg BID due to persistent sinus tach -Started lisinopril 10 mg once daily #. Acute on chronic respiratory failure with hypoxia, present on admission, improving -Secondary to COPD, obesity hypoventilation, obstructive sleep apnea, and pulmonary hypertension. Patient requires nocturnal and daytime PRN volume ventilation. BiPAP is insufficient due to severity of COPD and obesity hypoventilation, which are the primary causes of his hypercapnic respiratory failure. Per Dr. Mcadams, Trilogy is recommended. -Patient is requiring supplemental oxygen which he does not require at home -Venous blood gas shows continued retained CO2 -Will arrange Trilogy prior to discharge #. Possible COPD exacerbation present on admission, ongoing -COPD exacerbation is possible given increased sputum production and worsening of cough and new supplemental oxygen requirement -Azithromycin 250 mg PO daily for 3 more days. Stopped yesterday 12/20. -Duoneb q4 while awake, albuterol nebulizers q2 PRN -Supplemental oxygen, with O2 goals of 88-92% -125 mg of Solu-Medrol administered to the patient -Continue to monitor #. Possible Community acquired pneumonia, present on admission, ongoing -Patient had leukocytosis of 14.5, neutrophil percentage 77.9. Improved WBC 10.9 but neutrophil percentage 93.5% -Chest x-ray done in the ER demonstrating right lower lobe infiltrate and chest CT re-demonstrated right lower lobe infiltrate -Procalcitonin 0.36 --> 0.22, will reassess tomorrow -Legionella and strep pneumoniae urine antigens negative -Viral PCR negative -Blood cultures ordered but taken after administration of ceftriaxone -Continue Ceftriaxone IV. Azithromycin dcd as above #. Initially suspected thrombus in right ventricle, acute, present on admission. Active. -Most likely secondary to chronic cor pulmonale. Based on pt's outpatient records, he does not have history of atrial fibrillation. -Echo showed thrombus in right ventricular apex, measuring approximately 2.5 cm x 3.0 cm. Likely secondary to right heart failure and pulmonary hypertension. CT angio was negative for PE and thrombus not clearly seen . -Pulmonology was consulted. Their time and recommendations were appreciated. -Heparin drip per protocol -Started on warfarin yesterday with pharmacy dosing. -Patient may need a work-up for an underlying malignancy as an outpatient. #. Sinus tachycardia, acute, present on admission. Active. -Patient reports being on propranolol for a fast heart rate. His outside records do not mention atrial fibrillation or any arrhythmia. He was on metoprolol tartrate 25 mg BID as of April 2016. -TSH within normal limits -Carvedilol as above. #. Acute kidney injury, present on admission, ongoing -Likely secondary to CHF exacerbation. -Patient has reported decreased urine output prior to admission for a few days -Nephrology consulted and following. Their time and recommendations are appreciated -Hold diuretics -Potassium chloride 20 meq BID started today, per nephrology #. Transaminitis, present on admission, improving -No previous records for comparison -AST 300, ALT 256, T bili 3.6, alkaline phosphatase 119 initially. Today, mild improvement. -Continue to evaluate with a.m. labs -Consider abdominal ultrasound if worsens #. Vesicular rash present on admission, ongoing -Vesicular rash noted on oropharynx, rapid strep test negative -Consider doing a viral swab if no improvement #. Acutely elevated d-dimer, present on admission, ongoing -Patient has d-dimer of 7.8 -Ultrasound bilateral lower extremities ordered in the ER, no DVT -Chest CT angiogram shows no pulmonary embolism. -Echocardiogram shows thrombus in right ventricle #. Morbid obesity, present on admission, ongoing -BMI 61 -Likely contributing to a chronic hypoventilation -Heart healthy diet ordered Disposition: Likely patient will need placement to SNF for continued rehabilitation for strengthening and mobility. He will likely be discharged to SNF in the next 2-3 days pending SNF placement, therapeutic INR on warfarin, and continued improvement of respiratory status and kidney function. VTE Prophylaxis: Sub-Q Heparin (Unfractionated) Resuscitation Status: CPR: Attempt Resuscitation Attending Statement The patient was seen and examined together with Dr. Duran on 12/21/2016 and I agree with the history, exam and plan as outlined in the note above. . Lisa Duran DO Dec 21, 2016 08:33 Wayne Fleming MD Dec 21, 2016 19:43
--- NOTE | 2016-12-21 14:57 | NUR ---
Evaluation completed. Please go to "Notes" then click on "Assessments and Notes" (bottom left corner of screen). Then select appropriate discipline tab on top of screen.
[2016-12-21] MEDS: Potassium Chloride 20 mEq SR Tablet PO SCH ×2 (15:28→22:17)
--- NOTE | 2016-12-21 15:29 | PCM.PHAPRO ---
Progress Worsening shortness of breath and weakness warfarin dosing Indication: RV thrombus home dose NA Significant Comorbidities: Acute on chronic respiratory failure with hypoxia Possible COPD exacerbation Possible Community acquired pneumonia Acute systolic CHF exacerbation Acute kidney injury-resolved Transaminitis, hyperbilirubinemia and elevated baseline INR Hypoalbuminemia-present on admission-may reflect diminished protein nutrition Morbid obesity-BMI 61 Date -Dec 21-Dec 22-Nov 25-Dec 2-Dec 3-Dec 4-Dec 5-Dec 6-Dec 7-Dec 30-Dec 31-Jan 01-Dec INR 1.25 1.19 INR change -0.06 Warf Dose 5mg 5mg/d a/ CHF, elevated baseline prothrombin time and low serum proteins argue for lowered empiric dosing p/ Continue 5mg/day, anticipate INR ramp tomorrow Leonel Diaz S Pharm D Dec 21, 2016 15:29
--- NOTE | 2016-12-21 16:04 | NUR ---
Social Work Note: Continued Discharge Planning Data& Assessment: Per pt is not medically ready for discharge at this time. SW met with pt at bedside to discuss discharge planning. Per PT, pt requires SNF at time of discharge. SW provided pt with SNF list for preferences. Pt is motivated to discharge home with home health. Pt agreed to review the list and decide his preferences for both Home Health and SNF and we can see how his strength and mobility is closer to time of discharge. SW to follow up with pt regarding SNF and HH preferences. SW confirmed with [facility] [employer] that authorization for [facility] has been obtained and pt is current with [facility] for oxygen needs at home. SW to notify [facility] and [facility] when pt is medially ready for discharge. Pt denies any other needs at this time. Pt denies any other needs at this time. SW to continue to follow. Plan: Anticipated discharge home with home health vs. SNF depending on strength and mobility closer to [place]. SW to follow up with pt regarding SNF and HH preferences. Authorization obtained for [facility]. Home Oxygen through [facility]. Pt denies any other needs at this time. Pt denies any other needs at this time. SW to continue to follow. KENDRICK Hopkins
--- NOTE | 2016-12-21 18:22 | NUR ---
Hep gtt Pt on heparin DVT protocol running at 12units/Kg/Hr, both PTT results within goal today, next PTT ordered with am labs. Pt had dark brown, continent BM today, guaiac sample collected and sent to lab.
[2016-12-21] MEDS ORDERED: 0.9% Sodium Chloride 100 ML ONE (22:07)
[2016-12-21] MEDS: cefTRIAXone Inj 2,000 MG in Dextrose 5% Minibag Plus 50 ML IV SCH (22:17)
[2016-12-21] MEDS ORDERED: 0.9% Sodium Chloride 500 ML ONE (23:56)
[2016-12-22] VITALS (17 sets, daily range): BP systolic 69–126; BP diastolic 36–66; PULSE 68–92; RESP 14–21; O2SAT 89–97
[2016-12-22] MEDS ORDERED: 0.9% Sodium Chloride 1,000 ML ONE (00:55)
[2016-12-22] MEDS ORDERED: Glucagon 1 mg/mL Inj IV ONE ×2 (02:05→03:25)
[2016-12-22] MEDS: Norepineph 8,000 mCg/250 mL NS 8,000 MCG in IV Premix 1 EACH IV SCH ×2 (04:02→19:37)
[2016-12-22] MEDS ORDERED: Norepinephrine 8,000 mCg/250 mL NS Premix IV ONE (04:04)
[2016-12-22 04:18] LABS: BASOPHILS % (AUTO) 0 % (0-3); EOSINOPHILS % (AUTO) 0.5 % (0-5); MONOCYTES % (AUTO) 14.7 % (4-12); Mean Corpuscular Hemoglobin 27.3 pg (27.0-35.0); Mean Corpuscular Volume 93.9 fL (81-100); NEUTROPHILS % (AUTO) 79.1 % (40-74); Platelet Count 84 bil/L (150-400)
[2016-12-22 04:47] LABS: Magnesium 1.9 mg/dL (1.6-2.6); Phosphorus 3.9 mg/dL (2.5-4.9)
[2016-12-22 04:57] LABS: INR 1.18 ratio
--- NOTE | 2016-12-22 05:42 | ABG ---
DateTimeAnalyzed 05:37:00 -_ pH ____7.303 - 7.350 7.450 pCO2 103 -mmHg 35.0 45.0 pO2 ___70.6__ -mmHg 69.0 116 HCO3- ___49.6__ -mmol/L 22.0 26.0 ABE ___17.6__ -mmol/L -2.0 2.0 tHb ___14.3__ -g/dL O2Hb ___90.2__ -% COHb ____2.0__ -% MetHb ____0.8__ -% sO2 ___92.8__ -% 25.0 FIO2 ___45.0__ -% Drawn By MM - Date/Time Notified____ 05:42:00 -_ Notified By MM - Notified Whom RN - B 755 -mmHg tO2 ___18.2__ -Vol% Emeka test N/A -
--- NOTE | 2016-12-22 06:44 | NUR ---
Transfer to CCU Pt transferred to CCU from PSY[facility]AT[facility]IC during the night. Pt became hypotensive and dyspneic. CCU nurses x3 and MD/Resident MD at bedside to evaluate patient. Pt had MAP of 40, narrow pulse pressure, JVD, muffled heart tones. Bedside ultrasound performed by resident MD to evaluate for cardiac tamponade. Call placed to Cardiology. Decision made to give 1.5L NS Bolus. With no response patient was given a total of 10mg of Glucogon IVP; also with little to no effect. Decision made to place patient on Levophed to maintain MAP. Levophed gtt started at minimum dose of 0.01mcg/kg/minute and eventually titrated up to 0.02mcg/kg/minute. Roper placed per MD order for strict I&O. Limited ECHO ordered to more thoroughly evaluate for tamponade/worsening pericardial effusion. Presence of order was discussed with UA, Special Procedures Technologist and was passed along to Day RN. BIPAP changed per ABG results and is now at Rate of 22, FiO2 55%. Resident informed throughout the process.
[2016-12-22 07:03] LABS: APPEARANCE,URINE HAZY (CLEAR,HAZY); COLOR,URINE DARK YELLOW (YELLOW)
[2016-12-22 07:04] LABS: ICTOTEST,URINE POSITIVE (Negative); OCCULT BLOOD,URINE NEGATIVE (NEGATIVE); PH,URINE 5.5 (5.0-8.0); UROBILINOGEN,URINE NORMAL (NORMAL)
[2016-12-22] MEDS ORDERED: Sodium Chloride LOK Flush 10 mL Syringe IVFLUSH PRN ×2 (07:40)
[2016-12-22] MEDS: Insulin LISPRO 300 Unit/3 mL Inj SUBQ SCH ×4 (08:00→20:08)
--- NOTE | 2016-12-22 08:00 | PCM.PHAPRO ---
Progress Worsening shortness of breath and weakness warfarin dosing Indication: RV thrombus home dose NA Significant Comorbidities: Acute on chronic respiratory failure with hypoxia Possible COPD exacerbation Possible Community acquired pneumonia Acute systolic CHF exacerbation Acute kidney injury-resolved Transaminitis, hyperbilirubinemia and elevated baseline INR Hypoalbuminemia-present on admission-may reflect diminished protein nutrition Morbid obesity-BMI 61 Date -Dec 21-Dec 22-Nov 25-Dec 2-Dec 3-Dec 4-Dec 5-Dec 6-Dec 7-Dec 8-Dec 31-Jan 01-Dec INR 1.25 1.19 1.18 INR change -0.06 Warf Dose 5mg 5mg/d 7.5MG a/ CHF, elevated baseline prothrombin time and low serum proteins argue for lowered empiric dosing p/ Increase to 7.5mg today, anticipate INR ramp tomorrow Leonel Diaz S Pharm D Dec 22, 2016 08:00
[2016-12-22] MEDS: Albuterol-Ipratropium 3 mL Inhalation Solution NEB SCH ×4 (08:01→20:17)
[2016-12-22] MEDS: Heparin 25K Unit/500mL 0.45 NS 25,000 UNIT in IV Premix 1 EACH IV SCH ×2 (09:37→19:37)
[2016-12-22] MEDS: Potassium Chloride 20 mEq SR Tablet PO SCH ×2 (09:37→19:47)
--- NOTE | 2016-12-22 09:54 | NUR ---
NUTRITION ASSESSMENT: ASSESS: Pt is a 51yo M admitted for pneumonia and hypoxia. He was transferred to the CCU overnight due to pt becoming hypotensive and dyspneic. Per morning rounds, he is also more somnolent. Requiring BIPAP. Prior to CCU transfer he was tolerating Heart Healthy diet well at 100% of most meals. PMHX: COPD, CHF, GERD, LE edema LABS: Reviewed. Cl 88, Bun 58, Plan Examiner 1.32, Glu 117, AST 67, AT 85, alb 2.4 MEDS: Reviewed. Coumadin, Insulin GI: BMx1 12/21 SKIN: Kam 18 CURRENT WTS: 195.2kg, BMI 52.4kg/m2. Admit wt: 199kg, Adj BW: 113.9kg, IBW: 91.8kg DIET: Heart Healthy, PO 100% EST. NEEDS: BMI Kcals: 2505-2850kca/day (22-25kcal/kg adjBW) Pro: 95-110g/day (1.0-1.2g/kg IBW) NUTRITION DIAGNOSIS: 1.) Increased nutrient needs related to chronic disease as evidence by Pt with COPD. NUTRITION INTERVENTION: 1.) Continue current diet. Will monitor PO tolerance/POC now that pt is more somnolent MONITOR / EVAL: PO, wt, GI, labs, POC, nutrition status. Will continue to monitor per moderate nutrition risk guidelines
--- NOTE | 2016-12-22 10:50 | DRSVH ---
PROCEDURE: X-RAY CHEST ONE VIEW, PORTABLE ([id number]) INDICATIONS: dyspnea TECHNIQUE: One view of the chest was acquired. COMPARISON: [facility], CR, XR CHEST 1VW (PORTABLE), 12/18/2016, 18:26. [facility], CT, CT ANGIO CHEST PE, 12/19/2016, 15:29. FINDINGS: Surgical changes and devices: None. Lungs and pleura: Small basilar pleural effusions present. Bibasilar airspace opacities are noted. No pneumothorax. Mediastinum: Mediastinal contours appear normal. Heart size is enlarged. Bones and chest wall: No suspicious bony lesions. Overlying soft tissues appear unremarkable. IMPRESSION: 1. Cardiomegaly redemonstrated. 2. Bibasilar pleural effusions and airspace opacities consistent with compressive atelectasis versus pneumonia which has increased on the left. Dictated by: Chalino Miller RRA Interpreted: Cayla Marmolejo MD on 12/22/2016 at 10:46 Transcribed by: AMAIRANI on 12/22/2016 at 10:50 Approved by: Cayla Marmolejo M.D. on 12/22/2016 at 17:23
--- NOTE | 2016-12-22 11:13 | PCM.PNMED ---
Subjective Date of Service Dec 22, 2016 Subjective Events of the last 18 hours and reviewed. It appears the patient has had some transient intravascular volume depletion which has subsequently led to hypotension. With the ongoing diuresis may have aggravated metabolic alkalosis which should turn has caused him to retain more CO2. His blood pressures better this morning. His intake for the last 24 hours is 4675 in and 7145 out. His sodium is 140, potassium 3.7, chloride 88 bicarbonate 44 BUN and creatinine were 58 and 1.32. His creatinine yesterday was 0.88. Patient is resting relatively comfortably and denies any worsening of his breathing problems, chest pain, or cough. Exam Vital Signs Vital Sign - Last Date Time Temp Pulse Resp B/P Pulse Ox O2 Delivery O2 Flow Rate FiO2 12/22/16 08:06 92 14 94 Nasal Cannula 4.00 12/22/16 08:00 37.5 95/56 12/22/16 05:51 55 Intake and Output 12/21/16 12/21/16 12/22/16 Cumulative From/Thru 15:00 23:00 07:00 12/18/16 18:08 - 12/22/16 05:22 Intake Total 3208 ml 2192 ml 75684 ml Output Total 3525 ml 225 ml 13513 ml Balance -317 ml 1967 ml 256 ml Intake Oral 2520 ml 100 ml 6294 ml IV Total 688 ml 2092 ml 6947 ml Output Urine Total 3525 ml 225 ml 30310 ml # Bowel Movements 1 0 1 Exam Lungs continued to show some bibasilar rales. Heart sounds are distant due to the patient's body habitus. Abdomen once again is pendulous with diminished bowel sounds. The abdomen is nontender and there is no evidence of any masses. Extremities continued continued to show moderate pitting edema up to the mid thigh region bilaterally. Lab and Diagnostics Result Diagram: 12/22/16 0344 12/22/16 0344 X-Rays, CTs and MRIs PROCEDURE: X-RAY CHEST ONE VIEW, PORTABLE IMPRESSION: Probable right lower lobe infiltrate with small effusion. Approved by: Can Santana M.D. on 12/18/2016 at 19:04 PROCEDURE: CT ANGIO CHEST PULMONARY EMBOLISM IMPRESSION: 1. No pulmonary embolus seen. 2. Right lower lobe pneumonia pattern 3. Small right pleural effusion. Approved by: Eladio Garcia M.D. on 12/19/2016 at 16:03 Cardiac Echo Impressions Echocardiogram Report Interpretation Summary Left ventricular systolic function is likely mildly reduced with the ejection fraction grossly estimated to be 45 +/- 5% without obvious focal wall motion abnormalities noted although poor endocardial definition reduces the sensitivity for the detection of such. However, there is a flattened septum consistent with a probable right ventricular pressure overload condition and a significant dyssynchronous contraction pattern, consistent with a conduction abnormality. The left ventricle is grossly normal in size and diastolic function could not be accurately assessed due to tachycardia. The right ventricle is moderate to severely dilated and right ventricular systolic function is moderate to severely reduced with a probable thrombus noted in the right ventricular apex entrapped by the moderator band, seen by use of echo contrast, and measuring approximately 2.5 cm x 3.0 cm. Right ventricular systolic pressure is at least 30 mmHg plus the clinically estimated CVP and likely is significantly higher based on other echo findings, but the weakTR jet limits the accuracy of the estimate on this exam. The left atrial size is normal and the right atrium is moderately dilated. There is mild tricuspid regurgitation but no other significant valvular heart disease. There is a small to moderate loculated pericardial effusion predominantly posteriorly but there are no echocardiographic or Doppler indications for cardiac tamponade. Reading Physician:11:53 AM Additional Diagnostics DateTimeAnalyzed 11:21:00 -_ pH ____7.395 - pCO2 ___86.1__ -mmHg pO2 ___78.3__ -mmHg HCO3- ___51.6__ -mmol/L ABE ___21.2__ -mmol/L tHb ___14.1__ -g/dL O2Hb ___92.8__ -% COHb ____2.3__ -% MetHb ____0.8__ -% sO2 ___95.8__ -% FIO2 ___45.0__ -% Drawn By MT - Date/Time Notified____ 11:28:00 -_ Notified By MT - Notified Whom __[place] - B 750 -mmHg tO2 ___18.4__ -Vol% Emeka test N/A - Assessment & Plan Impression #1 acute kidney injury which appears to be multifactorial from transient intravascular volume depletion and hypovolemia. #2 mixed acid base disorder Recommendations #1 I would like to continue to give him chloride in the form of potassium chloride in an attempt to correct his underlying alkalosis. We do need to continue to follow his fluid status, intake and output, and lab values. In a few days once his body equilibrates we can start back on diuresis. VTE Prophylaxis: Sub-Q Heparin (Unfractionated) VTE Mechanical Devices: Intermittant Pneumatic CD Resuscitation Status: CPR: Attempt Resuscitation Louis Feliz DO Dec 22, 2016 11:13
[2016-12-22] MEDS ORDERED: Lactated Ringer's 1,000 ML IV ONE ×2 (12:40→12:45)
--- NOTE | 2016-12-22 12:53 | DRSVH ---
PROCEDURE: X-RAY PICC LINE PLACEMENT BY NURSE ([id number]) INDICATIONS: IV access for pressor use COMPARISON: None. FINDINGS: PICC was placed by the intravenous therapy team from the left side. Fluoroscopic spot omar m demonstrates tip projected over the lower SVC. IMPRESSION: Tip of PICC projected over the lower SVC . Dictated by: Chalino MORTON Interpreted: Cayla Marmolejo MD on 12/22/2016 at 12:52 Transcribed by: AMAIRANI on 12/22/2016 at 12:53 Approved by: Cayla Marmolejo M.D. on 12/22/2016 at 17:29
--- NOTE | 2016-12-22 13:32 | PCM.PNMED ---
Subjective Date of Service Dec 22, 2016 Subjective 51-year-old male patient with a history of COPD, congestive heart failure, and hyperventilation secondary to obesity presented to the ER with complaint of worsening dyspnea and weakness. Overnight: Mr. Kruse was hypotensive and received IV fluids, glucagon x 2, and then started on norepinephrine. He was also placed on BiPAP again. This morning, he reports that he does not feel more short of breath but has increased fatigue. He does not have chest pain or abdominal pain. He does not feel more weak than before or lightheaded. Exam Vital Signs Vital Sign - Last Date Time Temp Pulse Resp B/P Pulse Ox O2 Delivery O2 Flow Rate FiO2 12/22/16 12:09 94 21 77/39 94 40 12/22/16 08:06 Nasal Cannula 4.00 12/22/16 08:00 37.5 Intake and Output 12/21/16 12/21/16 12/22/16 Cumulative From/Thru 15:00 23:00 07:00 12/18/16 18:08 - 12/22/16 05:22 Intake Total 3208 ml 2192 ml 25036 ml Output Total 3525 ml 225 ml 99014 ml Balance -317 ml 1967 ml 256 ml Intake Oral 2520 ml 100 ml 6294 ml IV Total 688 ml 2092 ml 6947 ml Output Urine Total 3525 ml 225 ml 44830 ml # Bowel Movements 1 0 1 Exam General: Morbidly obese. Drowsy. No acute distress, well-developed, well- nourished HEENT: BiPAP in place. Normocephalic, atraumatic. External ears without defect. Pupils equal, round, and reactive to light and accommodation. Moist conjunctivae. Neck: Mild JVD. Supple with full range of motion.No lymphadenopathy Cardiovascular: Distant heart sounds secondary to body habitus with tachycardia and regular rhythm with no murmurs, rubs, or gallops appreciated Pulmonary: Mild end-expiratory wheezes heard on the right lung base. Abdomen: Obese. Bowel tones present. Soft, nontender. Extremities: Pitting edema( 2+) bilateral lower extremities up to thigh. Unable to palpate pulses due to edema. Skin: Normal temperature, turgor, and texture; no rash, ulcers, or subcutaneous nodules appreciated. Psychiatric: Normal mood and affect. Alert and oriented to person, place, and time. IVs and Medications Medications Reviewed: Medications were reviewed in detail Lab and Diagnostics Result Diagram: 12/22/16 0344 12/22/16 0344 X-Rays, CTs and MRIs PROCEDURE: X-RAY CHEST ONE VIEW, PORTABLE IMPRESSION: Probable right lower lobe infiltrate with small effusion. Approved by: Can Santana M.D. on 12/18/2016 at 19:04 PROCEDURE: CT ANGIO CHEST PULMONARY EMBOLISM IMPRESSION: 1. No pulmonary embolus seen. 2. Right lower lobe pneumonia pattern 3. Small right pleural effusion. Approved by: Eladio Garcia M.D. on 12/19/2016 at 16:03 ADDENDUM: Please note, a filling defect is visualized within the subsegmental branches of the right lower lobe pulmonary artery suspicious for occlusive pulmonary embolus. This finding was discussed with Dr. Duran at 9:35 AM on 12/22/16. Dictated by: Rena Chowdhury M.D. on 12/22/2016 at 9:38 Approved by: Rena Chowdhury M.D. on 12/22/2016 at 9:39 PROCEDURE: X-RAY CHEST ONE VIEW, PORTABLE IMPRESSION: 1. Cardiomegaly redemonstrated. 2. Bibasilar pleural effusions and airspace opacities consistent with compressive atelectasis versus pneumonia which has increased on the left. Dictated by: Chalino Miller [facility] Interpreted: Cayla Marmolejo MD on 12/22/2016 at 10: 46 Transcribed by: AMAIRANI on 12/22/2016 at 10:50 Cardiac Echo Impressions Echocardiogram Report Interpretation Summary Left ventricular systolic function is likely mildly reduced with the ejection fraction grossly estimated to be 45 +/- 5% without obvious focal wall motion abnormalities noted although poor endocardial definition reduces the sensitivity for the detection of such. However, there is a flattened septum consistent with a probable right ventricular pressure overload condition and a significant dyssynchronous contraction pattern, consistent with a conduction abnormality. The left ventricle is grossly normal in size and diastolic function could not be accurately assessed due to tachycardia. The right ventricle is moderate to severely dilated and right ventricular systolic function is moderate to severely reduced with a probable thrombus noted in the right ventricular apex entrapped by the moderator band, seen by use of echo contrast, and measuring approximately 2.5 cm x 3.0 cm. Right ventricular systolic pressure is at least 30 mmHg plus the clinically estimated CVP and likely is significantly higher based on other echo findings, but the weakTR jet limits the accuracy of the estimate on this exam. The left atrial size is normal and the right atrium is moderately dilated. There is mild tricuspid regurgitation but no other significant valvular heart disease. There is a small to moderate loculated pericardial effusion predominantly posteriorly but there are no echocardiographic or Doppler indications for cardiac tamponade. Reading Physician:11:53 AM Additional Diagnostics DateTimeAnalyzed 05:37:00 -_ pH ____7.303 - 7.350 7.450 pCO2 103 -mmHg 35.0 45.0 pO2 ___70.6__ -mmHg 69.0 116 HCO3- ___49.6__ -mmol/L 22.0 26.0 ABE ___17.6__ -mmol/L -2.0 2.0 tHb ___14.3__ -g/dL O2Hb ___90.2__ -% COHb ____2.0__ -% MetHb ____0.8__ -% sO2 ___92.8__ -% 25.0 FIO2 ___45.0__ -% Drawn By MM - Date/Time Notified____ 05:42:00 -_ Notified By MM - Notified Whom RN - B 755 -mmHg tO2 ___18.2__ -Vol% Emeka test N/A - Assessment & Plan #. Hypotension, acute. Active -Likely, secondary to volume depletion (decreased preload) from IV furosemide with additional anti-hypertensives yesterday in combination with his chronic right sided heart failure. Repeat echocardiogram did not show worsening pericardial effusion. -discussed with cardiology ,todays echo doesn't show acute/new right heart strain,patient not a candidate for thrombolysis -Hold carvedilol, lisinopril, and diuretics at this time -Norepinephrine drip -IV fluid resuscitation, may do 500 mL bolus of lactated ringers up to 2 or 2.5 L if patient becomes hypotensive -HONEY wraps around bilateral legs to increase preload -Continue to monitor # acute pulmonary embolism,poa -seen on second review of prior CTA by radiologist -continue AC with heparin bridging and warfarin -unlikely today's hypotension is caused by new showers of PE given no acute right heart failure on echo #. Acute on chronic systolic congestive heart failure, present on admission, ongoing -Contributing to above -Echocardiogram as above, EF 40-50%, right ventricle systolic function is moderate to severely reduced -BNP in the ER 12,223, decreased to 4985. -Patient has significant lower extremity edema and anasarca up to the umbilicus -Carvedilol, lisinopril, and diuretics on hold as above -Once hemodynamically stable, consider alternating furosemide and acetazolamide for diuretics. #. Acute on chronic respiratory failure with hypoxia, present on admission, active. -Secondary to COPD, obesity hypoventilation, obstructive sleep apnea, and pulmonary hypertension. Patient requires nocturnal and daytime PRN volume ventilation. BiPAP is insufficient due to severity of COPD and obesity hypoventilation, which are the primary causes of his hypercapnic respiratory failure. Per Dr. Mcadams, Trilogy is recommended. -Patient is requiring supplemental oxygen which he does not require at home -Venous blood gas shows continued retained CO2 -Trilogy has been arranged prior to discharge -Continue BiPAP today #. Pulmonary embolism, acute, active. -CT angiogram shows pulmonary embolism -Continue bridge to warfarin #Pericardial effusion, chronicity unknown, active. -Differential diagnosis includes but not limited to infection, post-AR, uremia, malignancy, or idiopathic -TSH within normal limits yesterday -Cardiology consulted and following. Their time and recommendations are appreciated. #. Possible COPD exacerbation present on admission, ongoing -COPD exacerbation is possible given increased sputum production and worsening of cough and new supplemental oxygen requirement -Azithromycin 250 mg PO daily resumed 12/21/16 -Duoneb q4h while awake, albuterol nebulizers q2h PRN -Supplemental oxygen, with O2 goals of 88-92% -125 mg of Solu-Medrol administered to the patient -Continue to monitor #. Acute kidney injury, present on admission, ongoing -Likely secondary to CHF exacerbation. -Patient has reported decreased urine output prior to admission for a few days -Nephrology consulted and following. Their time and recommendations are appreciated -Hold diuretics -Potassium chloride 20 meq BID, per nephrology #. Possible Community acquired pneumonia, present on admission, ongoing -Patient had leukocytosis of 14.5, neutrophil percentage 77.9. WBC 14.6 but neutrophil percentage 79.1% -Chest x-ray done in the ER demonstrating right lower lobe infiltrate and chest CT re-demonstrated right lower lobe infiltrate -Procalcitonin 0.36 --> 0.18, will reassess tomorrow -Legionella and strep pneumoniae urine antigens negative -Viral PCR negative -Blood cultures ordered but taken after administration of ceftriaxone -Continue Ceftriaxone IV and azithromycin PO #. Possible thrombus in right ventricle, acute, present on admission. Active. -Most likely secondary to chronic cor pulmonale. Based on pt's outpatient records, he does not have history of atrial fibrillation. -Echo showed probable thrombus in right ventricular apex, measuring approximately 2.5 cm x 3.[address] angio thrombus was not clearly seen. It is possible that the thrombus viewed on echocardiogram was an artifact. -Pulmonology was consulted. Their time and recommendations were appreciated. -Heparin drip per protocol -Started on warfarin on 12/21/16 with pharmacy dosing. -Patient may need a work-up for an underlying malignancy as an outpatient. #. Sinus tachycardia, acute, present on admission. Improved. -Patient reported being on propranolol for a fast heart rate. His outside records do not mention atrial fibrillation or any arrhythmia. He was on metoprolol tartrate 25 mg BID as of April 2016. -Carvedilol as above. #. Transaminitis, present on admission, improving -No previous records for comparison -Likely secondary to hepatic congestion from decompensation of CHF or possible fatty liver -AST 300, ALT 256, T bili 3.6, alkaline phosphatase 119 initially. Today, mild improvement. -Continue to evaluate with a.m. labs -Consider abdominal ultrasound if worsens #. Vesicular rash present on admission, ongoing -Vesicular rash noted on oropharynx, rapid strep test negative -Consider doing a viral swab if no improvement #. Acutely elevated d-dimer, present on admission, ongoing -Patient has d-dimer of 7.8 -Ultrasound bilateral lower extremities ordered in the ER, no DVT -Chest CT angiogram shows pulmonary embolism. -Echocardiogram shows thrombus in right ventricle #. Morbid obesity, present on admission, ongoing -BMI 61 -Likely contributing to a chronic hypoventilation -Heart healthy diet ordered VTE Prophylaxis: Sub-Q Heparin (Unfractionated) VTE Mechanical Devices: Intermittant Pneumatic CD Resuscitation Status: CPR: Attempt Resuscitation Attending Statement The patient was seen and examined together with Dr. Duran on 12/22/2016 and I agree with the history, exam and plan as outlined in the note above. . Lisa Duran DO Dec 22, 2016 13:12 Wayne Fleming MD Dec 22, 2016 18:46
--- NOTE | 2016-12-22 15:20 | PROG NOTE ---
[address] [address] PROGRESS NOTE PATIENT: KEN NORMAN : 1965 MR#: [id number] ADMIT: 12/18/2016 JOB ID: [id number] DATE: 12/22/2016 PULMONARY CRITICAL CARE PROGRESS NOTE: The patient is a 51-year-old man with morbid obesity, obesity hypoventilation syndrome admitted with decompensated heart failure. INTERVAL HISTORY: The patient was transferred to the ICU yesterday evening for hypotension. This appeared to occur after doses of his carvedilol and lisinopril had been increased yesterday. He had also been on a Lasix drip for about 48 hours which was just stopped yesterday. He received almost 2 L of fluid overnight and has been on norepinephrine at a low dose. He has also been on BiPAP. REVIEW OF SYSTEMS: He has some shortness of breath but denies chest pain, fevers, chills. PHYSICAL EXAMINATION: Vital signs reviewed. Temperature 36.2, pulse 85, respirations 18, BP as low as 77/39, sats 94% on 40% FiO2 on BiPAP. General: Morbidly obese. He seems lethargic, not really answering questions all the time, sleeping a lot. Chest is clear to auscultation. LABORATORIES: Reviewed. WBC still elevated at 14.6, hemoglobin 13.8, platelets 84, unchanged. Chemistry shows creatinine is up to 1.32 from 0.88 yesterday. Chloride is 88. Serum bicarbonate is 44. BUN is 58. Procalcitonin is 0.18. ProBNP is 4900, down from 12,000. Intake and output shows that his weight is down to 195 kg from 199 kg on admission. IMAGING: Chest x-ray done today shows bilateral pleural effusions and cardiomegaly. A chest CT done on December 19 reviewed and while initially was read as no pulmonary embolism, on the second review today by a radiologist, they did find a probable segmental pulmonary embolism in the right lower lobe airway. There is also a somewhat loculated small right-sided pleural effusion. There is an area of atelectasis versus consolidation adjacent to the right pleural effusion at the very base of the lungs. There is no evidence of RV thrombus despite the possibility of that indicated on echocardiogram from December 19. Arterial blood gas: Last arterial blood gas shows pH 7.303, pCO2 of 103, pO2 of 70 and bicarbonate of 49.6 from 5:30 a.m. today. ASSESSMENT AND RECOMMENDATIONS: 1. Hypotension, shock. 2. Acute on chronic hypoxic hypercarbic respiratory failure. 3. Obesity hypoventilation syndrome. 4. Decompensated heart failure. 5. Right lower lobe segmental pulmonary embolism. This complex 51-year-old gentleman is admitted with multiple cardiorespiratory issues as above. With regards to his hypotension, I think this is most likely due to diuresis in combination with increasing his antihypertensives. He is quite preload dependent with his right heart failure and I suspect this is what precipitated the hypotension and he will probably remain on pressors until the effects of these meds wear off. He is on 0.05 mcg of norepinephrine right now. We gave him a liter of lactated Ringer's and this seemed to help his blood pressure. We are going to place an arterial catheter to more closely monitor his blood pressure accurately. With regard to diuresis, obviously will hold off for now. We will have to reassess at a later point and see if we should consider Diamox or acetazolamide instead of furosemide given the effects on his bicarbonate and, therefore, his pCO2. We did make arrangements for Trilogy and this is in progress. He meets criteria because of obesity hypoventilation syndrome. We spoke with Cardiology who reviewed a repeat stat echo and this does not show any change in his previously seen posterior pericardial effusion requiring intervention. He is on heparin drip for his right lower lobe PE. I am not really confident that there is a right ventricular thrombus. In fact it appears that this is most likely artifact. Regardless he will need anticoagulation for his pulmonary embolism at this point. The patient is a FULL CODE. CRITICAL CARE TIME: 60 minutes.
--- NOTE | 2016-12-22 16:31 | NUR ---
REBEKAH Verbal Consent KENDRICK Hopkins
--- NOTE | 2016-12-22 16:35 | NUR ---
Tolerating bipap while asleep, 3L/NC while awake. Sinus rhythm on tele, requiring Levophed for BP support. Arterial line placed, PICC placed today, ECHO done. Has received 2 liters LR with no change in BP. BMs X2 large/soft. UOP brisk, dark luis. Taking heart healthy diet with good appetite. Generalized pitting edema. Afebrile. Heparin gtt per DVT protocol, next ptt in a.m. Has been on phone visiting, no visitors otherwise.
--- NOTE | 2016-12-22 16:46 | PCM.PROC ---
Procedure Note Date of Service: Dec 22, 2016 Pre Procedure Diagnosis: Hypovolemic shock Post Procedure Diagnosis: Hypovolemic shock Procedure: Right Arterial Line Provider and Pilot Boat Captain: Jaun Reeves DO (resident) Desiree Mcadams MD (attending) Indication for Procedure: Shock on pressure support Procedure Details: A time-out was completed verifying correct patient, procedure, site, positioning , and special equipment if applicable. Allens test was performed to ensure adequate perfusion. The patients right wrist was prepped and draped in sterile fashion. 1% Lidocaine was used to anesthetize the area. An arterial line was introduced into the radial artery. The catheter was threaded over the guide wire and the needle was removed with appropriate pulsatile blood return. The catheter was then dressed in place with a sterile dressing. Perfusion to the extremity distal to the point of catheter insertion was checked and found to be adequate. Dr. Desiree Mcadams was present for the entire procedure. Estimated Blood Loss: 3cc The patient tolerated the procedure well and there were no complications. Attending Statement I was present for and supervised this procedure. Date of service 12/22/16 Desiree Mcadams M.D. Pulmonary and Critical Care medicine Pager [phone] Jaun Reeves DO Dec 22, 2016 16:45 Desiree Mcadams MD Dec 23, 2016 08:10
--- NOTE | 2016-12-22 16:50 | ABG ---
DateTimeAnalyzed 16:44:00 -_ pH ____7.360 - pCO2 ___86.0__ -mmHg pO2 ___51.8__ -mmHg HCO3- ___47.4__ -mmol/L ABE ___16.9__ -mmol/L tHb ___15.0__ -g/dL O2Hb ___82.8__ -% COHb ____2.3__ -% MetHb ____0.8__ -% sO2 ___85.4__ -% FIO2 ___50.0__ -% Pressure_Support ___16.0__ -cmH2O PEEP ____5.0__ -cmH2O Drawn By MT - Date/Time Notified____ 16:49:00 -_ Oxygen Device 1 ____BIPAP - Notified By MT - Notified Whom Fry - B 761 -mmHg tO2 ___17.5__ -Vol% Emeka test N/A -
--- NOTE | 2016-12-22 18:17 | PCM.CHPCAR ---
Consult Subjective Date of service Dec 22, 2016 Date of admit Dec 18, 2016 at 20:12 Provider Requesting Consult Primary Care Physician Primary Care Provider: Montse Emerson MD Chief Complaint SOB History of Present Illness Mr. Kruse is a 51-year-old gentleman with past medical history COPD (not on home O2), CHF and HTN who presented to the ED 5 days ago with increasing shortness of breath, weakness and lower extremity edema. Approximately one month ago patient discontinued taking his torsemide 60 mg daily secondary to financial concerns. After noticing an increasing amount of lower extremity edema he began to take double his diuretic dose without effect. During this time he also had become increasingly weak, lethargic SOB which affected him to the point where he was unable to walk across the room or get up even to eat. Patient also reported a productive cough during this time period with mostly clear sputum (though does endorse some blood streaks in phlegm). Also states Sx of sore throat, myalgias and decreased urination. Patient denied any fever chills nausea vomiting or diarrhea, denied any chest pain that felt cardiac in nature or palpitations. Patient is morbidly obese with BMI of 53 with a 30-40 pack year recent smoking history. Echocardiogram showed EF 45% with no focal wall motion abnormalities though probable right ventricular pressure overload and the synchronous contraction pattern. Severe right ventricular dilation with probable thrombus found in the right ventricular apex was entrapped by the moderator band. His thrombus measured 2.5 x 3 cm. Echo also showed a small to moderate loculated pericardial effusion predominantly posteriorly but no reported echocardiographic or Doppler indications for cardiac tamponade. Subsequent concerns for pulmonary embolism and initial CT angiogram showed no evidence of PE and right lower lobe pneumonia pattern with small right pleural effusion. However repeat evaluation of CT showed a filling defect visualized in the right lower lobe pulmonary artery which was suspicious for an occlusive pulmonary emboli. On admit patient was diuresed with Lasix however yesterday ABG showed increase in bicarbonate and Lasix was discontinued. Patient remained hypertensive, Coreg was increased and lisinopril was started Overnight became hypotensive and did not respond to fluid bolus or beta frank reversal with glucagon. Levophed was initiated with stabilization of pressures. Patient upgraded to ICU status where he remains today with pressor support. Cardiology asked to consult secondary to pericardial effusion seen on initial ECHO which has an unknown chronicity or source at this time. Repeat limited echo today showed no progression of pericardial effusion. Pertinent past medical history: COPD Congestive heart failure GERD Lower extremity edema History of collapsed/punctured lung at 21 years old Surgical history: Bilateral knee surgery Family history: Patient denies contributory family history Social history: Denies EtOH use Denies substance use Endorses tobacco use 2 packs per day 31 years (quit 3.5 months ago) Review of Systems Review of Systems REVIEW OF SYSTEMS Constitutional: Denies Chills, Fever, Sweats. Endorses weakness Eyes: Denies Blurred Vision, Pain, Redness, Vision Changes ENT: Endorses Throat pain Neck: Denies Mass, Pain, Swelling Cardiovascular: Denies Chest Pain, Irregular Heart Rate, Palpitations. Endorses SOB on exertion and while laying flat. Respiratory: Endorses productive cough with occasional flecks of blood. Gastrointestinal: Denies Abdominal Pain, Bright red blood in stool, Change in Appetite, Constipation, Diarrhea, Heartburn, Nausea, Vomiting. Endorses recent history of small black stools. Genitourinary: Pain with urination secondary to catheter in place Skin: Denies any abnormal skin lesions. Neurological: Denies Change in LOC, Change in Speech, Confusion, Double Vision , Endorses some dizziness when moving from sitting to standing, generalized weakness and lower extremity weakness. Hematologic: Denies Abnormal Bleeding, Bruising [facility] Bedside Blood Glucose: 117 Scheduled Torsemide (Torsemide) 20 Mg Tablet 60 MG PO QAM (Reported) Scheduled PRN Albuterol Neb Soln (Albuterol Neb Soln) 2.5 Mg/3 Ml Vial.neb 3 ML INHALATION Q4 PRN PRN For Shortness of Breath (Reported) Albuterol Sulfate (Ventolin HFA Inhaler) 200 Puff/18 Gm Inhaler 1-2 PUFFS INHALATION Q4 PRN PRN For Shortness of Breath (Reported) Metoprolol Tartrate (Metoprolol Tartrate) 25 Mg Tablet 25 MG PO DAILY PRN PRN HTN/tachycardia (Reported) Current Inpatient Medications Current Medications Insulin Human Lispro Nutritional Dose to be given pr... [facility] SUBQ Last administered on 12/21/16 08:22; Admin Dose 1 UNIT; Start 12/20/16 at 17:30 Azithromycin 250 mg DAILY PO Last administered on 12/22/16 09:33; Admin Dose 250 MG; Start 12/21/16 at 08:30 Carvedilol 3.125 mg BIDWM PO Last administered on 12/21/16 08:20; Admin Dose 3.125 MG; Start 12/20/16 at 17:30; Stop 12/21/16 at 10:25; Status DC Pharmacy Consult 1 ea DAILY@17 XX Last administered on 12/21/16 17:21; Admin Dose 1 EA; Start 12/20/16 at 17:00 Carvedilol 6.25 mg BIDWM PO Last administered on 12/21/16 13:33; Admin Dose 3.125 MG; Start 12/21/16 at 10:25; Stop 12/22/16 at 07:02; Status DC Lisinopril 10 mg DAILY PO Last administered on 12/21/16 13:34; Admin Dose 10 MG ; Start 12/21/16 at 10:25; Stop 12/22/16 at 07:13; Status DC Potassium Chloride 20 meq BID PO Last administered on 12/22/16 09:37; Admin Dose 20 MEQ; Start 12/21/16 at 13:05 Warfarin Sodium 5 mg 5 mg DAILY@17 PO Last administered on 12/21/16 17:21; Admin Dose 5 MG; Start 12/21/16 at 17:00 Norepinephrine/ Premix 250 ml @ 3.66 mls/hr Q24H IV Last administered on 04:02; Admin Dose 3.66 MLS/HR; Start 12/22/16 at 04:02 Carvedilol 3.125 mg BIDWM PO; Start 12/22/16 at 08:00; Stop 12/22/16 at 08:00; Status DC Allergies: Coded Allergies: No Known Allergies (Unverified , 12/18/16) Social History Hx Alcohol Use: NoHx Substance Use: NoHx Tobacco Use: Yes Smoking Status: Former Smoker (quit 3-1/2 months ago, smoked for 31 years, up to 2 packs per day) Years of Smokin Living Arrangement: Alone Exam Vital Signs Vital Sign - Last Date Time Temp Pulse Resp B/P Pulse Ox O2 Delivery O2 Flow Rate FiO2 12/22/16 08:06 92 14 94 Nasal Cannula 4.00 12/22/16 08:00 37.5 95/56 12/22/16 05:51 55 Intake and Output 12/21/16 12/21/16 12/22/16 Cumulative From/Thru 15:00 23:00 07:00 12/18/16 18:08 - 12/22/16 05:22 Intake Total 3208 ml 2192 ml 96336 ml Output Total 3525 ml 225 ml 46236 ml Balance -317 ml 1967 ml 256 ml Intake Oral 2520 ml 100 ml 6294 ml IV Total 688 ml 2092 ml 6947 ml Output Urine Total 3525 ml 225 ml 71102 ml # Bowel Movements 1 0 1 Objective General: Morbidly obese male in no acute distress, appropriately interactive sitting up in bed with nasal cannula in place. HEENT: Normocephalic, atraumatic. External ears without defect. Pupils equal, round, and reactive to light and accommodation. Neck: Supple with full range of motion. No jugular venous distension difficult to appreciate secondary to body habitus. Cardiovascular: Regular rate and rhythm with no murmurs, rubs, or gallops appreciated, difficult to appreciate secondary to body habitus Pulmonary: Difficult to appreciate secondary to body habitus, no audible wheezes , diminished lung sounds in Right lobe. Increased respiratory effort with no use of accessory muscles. Abdomen: Obese, Soft nontender to palp x 4 quadrants. Pitting edema to the level of umbilicus. Extremities: Pitting edema throughout lower extremities extending past waistline. Neurological: Cranial nerves grossly intact. Psychiatric: Normal mood and affect. Alert and oriented to person, place, and time. Lab and Diagnostics Result Diagram: 12/22/16 0344 12/22/16 0344 X-Rays, CTs and MRIs X-RAY CHEST ONE VIEW, PORTABLE IMPRESSION: Probable right lower lobe infiltrate with small effusion. CT ANGIO CHEST PULMONARY EMBOLISM IMPRESSION: 1. No pulmonary embolus seen. 2. Right lower lobe pneumonia pattern 3. Small right pleural effusion. ADDENDUM: Please note, a filling defect is visualized within the subsegmental branches of the right lower lobe pulmonary artery suspicious for occlusive pulmonary embolus. Additional Diagnostics: US VENOUS LEG DUPLEX BILATERAL IMPRESSION: No evidence for deep venous thrombosis is found in the left lower extremity with this duplex venous Doppler study. No evidence for deep venous thrombosis is found in the right lower extremity with this duplex venous Doppler study. US RENAL SONOGRAM IMPRESSION: Detail limited because of body habitus. There is no hydronephrosis. There is no significant postvoid residual. Assessment & Plan Assessment 51 year old male with past medical history of CHF, COPD, HTN and morbid obesity admitted for COPD/CHF exacerbation, currently being treated for PE, volume overload, possible pneumonia and hemodynamic instability # Decompensated heart failure. Pt non compliant with diuretic medications which may have led to his admission. ECHO showed EF of 45% Control of Pt's volume status remains elusive. Initially patient was aggressively diuresed with IV Lasix, weight dropped by almost 5 kg in a 3 day period. Diuretics were discontinued secondary to acid base imbalances. He subsequently received an increase in Carvedilol and was started on Lisinopril. PT became hypotensive overnight with minimal response to fluid bolus and beta frank reversal agents. To control his pressure he was started on Levophed. Currently Pt reports no CP though has significant bilateral lower extremity edema and anasarca. - After Pt's hemodynamic state normalizes conservative diuresis may be continued , secondary to volume dependant right heart failure which. - Hold rate control medication - Hold BP medication - Stop diuretic #. Right lower lobe segmental PE secondary to probable thrombus in right ventricle, secondary to chronic cor pulmonale or DVT -Echo showed thrombus in right ventricular apex, measuring approximately 2.5 cm x 3.0 cm. Likely secondary to right heart failure and pulmonary hypertension. CT angio showed probable PE -Heparin drip per protocol with bridge to warfarin. # Mixed Acid Base disorder. Pt's underling COPD and chronic CO2 retention led to a high serum bicarb which was exacerbated with aggressive diuresis and subsequently developing SHARMILA and subsequent contraction alkalosis. - Pt currently receiving bolus IV fluids and potassium chloride to correct underlying alkalosis. - Continue BiPAP # Pericardial Effusion, unknown etiology but differential includes infection, post-MD (ECG shows probable Hx of MD), uremia, malignancy. - BUN/Cr 58/1.32 making excluding NSAID administration at this time -TSH normal - Repeat ECHO did not show any worsening of effusion. - Repeat limited ECHO in 2-3 days. \ - Recommend out patient workup for malignancy # Elevated Liver function tests (AST 300, ALT 256) most likely due to hepatic congestion from decompensated CHF or given Pt's habitus and lifestyle possibly due to fatty liver. - No previous records for comparison - Consider US for further diagnostic evaluation - Continue to monitor with repeat labs, last value 12/22/2016 (AST 67, ALT 85) #. COPD exacerbation vs CAP. Pt has had increased sputum production prior to hospital admission, On admit Pt had a WBC count 14.5 with neutrophil percentage 77.9 and has remained elevated throughout stay - Pt has received one time dose of Solumedrol 125mg. - Legionella and strep pneumoniae urine antigens negative Procalcitonin has also remained elevated throughout admission. - Pt currently receiving Azithromycin and Ceftriaxone #. Sinus tachycardia which has been ongoing since admission. Etiologies include PE, infection and CHF exacerbation. Pt states he was on beta blockade prior to admission. Outside records do not mention atrial fibrillation or any arrhythmia. -Carvedilol held secondary to hemodynamic instability. VTE Prophylaxis: Sub-Q Heparin (Unfractionated) VTE Mechanical Devices: Intermittant Pneumatic CD Resuscitation Status: CPR: Attempt Resuscitation ALECIA NOLEN DO Dec 22, 2016 10:39
[2016-12-22 18:27] LABS: BASOPHILS % (AUTO) 0.1 % (0-3); EOSINOPHILS % (AUTO) 0.8 % (0-5); Mean Corpuscular Hemoglobin 27.2 pg (27.0-35.0)
[2016-12-22 18:32] LABS: MONOCYTES % (AUTO) 13.8 % (4-12); Mean Corpuscular Volume 93.1 fL (81-100); NEUTROPHILS % (AUTO) 79.8 % (40-74); Platelet Count 133 bil/L (150-400)
[2016-12-22] MEDS ORDERED: Albumin 25% 25 GM in IV Premix 1 EACH IV SCH (18:50)
[2016-12-22] MEDS ORDERED: Albumin 25% 25 GM in IV Premix 1 EACH IV ONE (18:50)
[2016-12-22 19:15] LABS: Phosphorus 3.5 mg/dL (2.5-4.9)
[2016-12-22] MEDS ORDERED: 0.9% Sodium Chloride 250 ML ONE (19:34)
[2016-12-22] MEDS: DOBUTamine 500 mg/250 D5W 500,000 MCG in IV Premix 1 EACH IV SCH (19:37)
[2016-12-22] MEDS: Lactated Ringer's 1,000 ML IV SCH (19:44)
[2016-12-22] MEDS: cefTRIAXone Inj 2,000 MG in Dextrose 5% Minibag Plus 50 ML IV SCH (19:44)
[2016-12-23] VITALS (11 sets, daily range): BP systolic 102–132; BP diastolic 51–83; PULSE 92–110; RESP 16–24; O2SAT 88–95
[2016-12-23 03:28] LABS: BASOPHILS % (AUTO) 0.1 % (0-3); MONOCYTES % (AUTO) 14.3 % (4-12); Mean Corpuscular Hemoglobin 27.2 pg (27.0-35.0); Mean Corpuscular Volume 93.9 fL (81-100); NEUTROPHILS % (AUTO) 79.4 % (40-74); Platelet Count 136 bil/L (150-400)
--- NOTE | 2016-12-23 04:52 | ABG ---
DateTimeAnalyzed 04:47:00 -_ pH ____7.305 - 7.350 7.450 pCO2 104 -mmHg 35.0 45.0 pO2 ___79.9__ -mmHg 69.0 116 HCO3- ___50.3__ -mmol/L 22.0 26.0 ABE ___17.9__ -mmol/L -2.0 2.0 tHb ___14.9__ -g/dL O2Hb ___92.4__ -% COHb ____2.2__ -% MetHb ____0.8__ -% sO2 ___95.3__ -% 25.0 FIO2 ___50.0__ -% CPAP ___16.0__ -cmH2O PEEP ____6.0__ -cmH2O Set_RR ___16.0__ -b/min Drawn By MK - Date/Time Notified____ 04:52:00 -_ Oxygen Device 1 ____BIPAP - Notified By MK - Notified Whom Michael Garcia RN - B 763 -mmHg tO2 ___19.4__ -Vol% Emeka test _Positive -
[2016-12-23] MEDS ORDERED: cefTRIAXone Inj 2,000 MG in Dextrose 5% Minibag Plus 50 ML IV SCH (04:59)
[2016-12-23] MEDS: Norepineph 8,000 mCg/250 mL NS 8,000 MCG in IV Premix 1 EACH IV SCH ×2 (05:03→10:30)
--- NOTE | 2016-12-23 06:01 | NUR ---
Dobutamine/BIPAP-ABGs At start of shift, it was passed along in report that Dobutamine had not been started due to parameters for tachycardia given with order. Dr. Saeed spoke to in person regarding this and was alright holding this medication since the patient is maintaining a heart rate of 90-100bpm. Pt wore his BIPAP for the majority of the shift. Several short periods where the patient insisted on not wearing the mask so he could visit with his family as well as once during the night when he had said, "I've had enough of this mask." Morning ABG shows worsening hypercapnia. RT changed BIPAP settings to IPAP 20/EPAP 10 and Rate of 20 with Fio2 unchanged at 50%. Pt educated multiple times regarding the importance of wearing the mask and its purpose in his recovery/well-being. Several times patient mentioned he feels that he is a burden to staff and that he doesn't want to be a bother. Pt educated as to his condition and the seriousness of it at this time. Levophed gtt at 0.045mcg/kg/minute. Heparin gtt for DVT protocol remains unchanged at 12units/kg (47.8ml/hour) with this AM's PTT therapeutic. Next draw scheduled for tomorrow morning. LR at 80ml/hour.
[2016-12-23] MEDS: Heparin 25K Unit/500mL 0.45 NS 25,000 UNIT in IV Premix 1 EACH IV SCH ×2 (06:13→17:17)
[2016-12-23] MEDS: Insulin LISPRO 300 Unit/3 mL Inj SUBQ SCH ×4 (08:00→22:00)
[2016-12-23 08:11] LABS: INR 1.28 ratio
[2016-12-23] MEDS: Albuterol-Ipratropium 3 mL Inhalation Solution NEB SCH ×4 (08:11→20:24)
--- NOTE | 2016-12-23 09:08 | DRSVH ---
PROCEDURE: X-RAY CHEST ONE VIEW, PORTABLE ([id number]) INDICATIONS: dyspnea TECHNIQUE: One view of the chest was acquired. COMPARISON: [facility], CR, XR CHEST 1VW (PORTABLE), 12/22/2016, 7:13. FINDINGS: Surgical changes and devices: Left PICC has been placed tip projecting over the mid to lower SVC. Lungs and pleura: No pleural effusions or pneumothorax. Persistent bibasilar airspace opacities and small pleural effusions unchanged. Mediastinum: Mediastinal contours appear normal. Heart size is normal. Bones and chest wall: No suspicious bony lesions. Overlying soft tissues appear unremarkable. IMPRESSION: Placement of left PICC otherwise no change from prior exam. Dictated by: Chalino Miller A Interpreted: Radha Galeano MD on 12/23/2016 at 9:07 Transcribed by: STACY on 12/23/2016 at 9:08 Approved by: Radha Galeano MD, PhD on 12/23/2016 at 17:16
[2016-12-23] MEDS: Potassium Chloride 20 mEq SR Tablet PO SCH ×2 (09:43→20:28)
--- NOTE | 2016-12-23 10:08 | PCM.PHAPRO ---
Progress SOB warfarin dosing Indication: RV thrombus home dose NA Significant Comorbidities: Acute on chronic respiratory failure with hypoxia Possible COPD exacerbation Possible Community acquired pneumonia Acute systolic CHF exacerbation Acute kidney injury-resolved Transaminitis, hyperbilirubinemia and elevated baseline INR Hypoalbuminemia-present on admission-may reflect diminished protein nutrition Morbid obesity-BMI 61 Date -Dec 21-Dec 22-Nov 25-Dec 2-Dec 3-Dec 4-Dec 5-Dec 6-Dec 7-Dec 30-Dec 31-Jan 01-Dec INR 1.25 1.19 1.18 1.28 INR change -0.06 Warf Dose 5mg 5mg/d 5MG 6MG a/ CHF, elevated baseline prothrombin time and low serum proteins argue for lowered empiric dosingm giwever INR ramp weak p/ Modest and somewhat intuitive dose increase to 6mg/d Leonel Diaz Pharm D Dec 23, 2016 10:08
--- NOTE | 2016-12-23 10:10 | PCM.PNCARD ---
Subjective Date of service Dec 23, 2016 Chief Complaint SOB History of Present Illness Mr. Kruse is a 51-year-old gentleman with past medical history COPD (not on home O2), CHF and HTN who presented to the ED 5 days ago with increasing shortness of breath, weakness and lower extremity edema. Approximately one month ago patient discontinued taking his torsemide 60 mg daily secondary to financial concerns. After noticing an increasing amount of lower extremity edema he began to take double his diuretic dose without effect. During this time he also had become increasingly weak, lethargic SOB which affected him to the point where he was unable to walk across the room or get up even to eat. Patient also reported a productive cough during this time period with mostly clear sputum (though does endorse some blood streaks in phlegm). Also states Sx of sore throat, myalgias and decreased urination. Patient denied any fever chills nausea vomiting or diarrhea, denied any chest pain that felt cardiac in nature or palpitations. Patient is morbidly obese with BMI of 53 with a 30-40 pack year recent smoking history. Echocardiogram showed EF 45% with no focal wall motion abnormalities though probable right ventricular pressure overload and the synchronous contraction pattern. Severe right ventricular dilation with probable thrombus found in the right ventricular apex was entrapped by the moderator band. His thrombus measured 2.5 x 3 cm. Echo also showed a small to moderate loculated pericardial effusion predominantly posteriorly but no reported echocardiographic or Doppler indications for cardiac tamponade. Subsequent concerns for pulmonary embolism and initial CT angiogram showed no evidence of PE and right lower lobe pneumonia pattern with small right pleural effusion. However repeat evaluation of CT showed a filling defect visualized in the right lower lobe pulmonary artery which was suspicious for an occlusive pulmonary emboli. On admit patient was diuresed with Lasix however yesterday ABG showed increase in bicarbonate and Lasix was discontinued. Patient remained hypertensive, Coreg was increased and lisinopril was started Overnight became hypotensive and did not respond to fluid bolus or beta frank reversal with glucagon. Levophed was initiated with stabilization of pressures. Patient upgraded to ICU status where he remains today with pressor support. Cardiology asked to consult secondary to pericardial effusion seen on initial ECHO which has an unknown chronicity or source at this time. Repeat limited echo today showed no progression of pericardial effusion. Pertinent past medical history: COPD Congestive heart failure GERD Lower extremity edema History of collapsed/punctured lung at 21 years old Surgical history: Bilateral knee surgery Family history: Patient denies contributory family history Social history: Denies EtOH use Denies substance use Endorses tobacco use 2 packs per day 31 years (quit 3.5 months ago) Subjective: Patient reports no discomfort continues stating he feels fine and does not have a full understanding of why everybody keeps saying that he is so sick. After explaining further to patient about his current medical state he does agree that he needs treatment for his pulmonary embolus though denies any other comorbidities that may be affecting his current health status. He reports no chest pain, no difficulty breathing, no difficulty urinating, no headaches no visual disturbances no fevers or chills no abdominal pain. Overnight patient removed his BiPAP secondary to discomfort. He remained in sinus rhythm on telemetry with continued blood pressure support with Levophed. Exam Vital Signs Vital Sign - Last Date Time Temp Pulse Resp B/P Pulse Ox O2 Delivery O2 Flow Rate FiO2 12/23/16 08:12 98 21 112/54 93 50 12/23/16 03:27 36.1 BiPAP 12/22/16 08:06 4.00 Intake and Output 12/22/16 12/22/16 12/23/16 Cumulative From/Thru 15:00 23:00 07:00 12/18/16 18:08 - 12/23/16 05:55 Intake Total 3456 ml 1751 ml 30283 ml Output Total 1200 ml 1850 ml 20009 ml Balance 2256 ml -99 ml 2413 ml Intake Oral 720 ml 100 ml 7114 ml IV Total 2736 ml 1651 ml 87847 ml Output Urine Total 1200 ml 1850 ml 63359 ml # Bowel Movements 2 0 3 Additional Information: General: Morbidly obese male laying in bed with BiPAP in place in no acute distress, appropriately interactive. HEENT: Normocephalic, atraumatic. External ears without defect. Pupils equal, round, and reactive to light and accommodation. Neck: Full range of motion. No jugular venous distension though difficult to appreciate secondary to body habitus and BiPAP device in place. Cardiovascular: Regular rate and rhythm with no murmurs, rubs, or gallops appreciated, difficult to appreciate secondary to body habitus and BiPAP device Pulmonary: Difficult to appreciate secondary to body habitus and BiPAP device, no audible wheezes, diminished lung sounds in Right lobe. No use of accessory muscles. Abdomen: Obese, Soft nontender to palp x 4 quadrants. Pitting edema to the level of umbilicus. Extremities: Pitting edema throughout lower extremities extending past waistline. Neurological: Cranial nerves grossly intact. Psychiatric: Normal mood and affect. Alert and oriented to person, place, and time. Lab and Diagnostics Result Diagram: 12/23/1631412/23/16314 X-Rays, CTs and MRIs X-Rays, CTs and MRIs X-RAY CHEST ONE VIEW, PORTABLE IMPRESSION: Probable right lower lobe infiltrate with small effusion. CT ANGIO CHEST PULMONARY EMBOLISM IMPRESSION: 1. No pulmonary embolus seen. 2. Right lower lobe pneumonia pattern 3. Small right pleural effusion. ADDENDUM: Please note, a filling defect is visualized within the subsegmental branches of the right lower lobe pulmonary artery suspicious for occlusive pulmonary embolus. Additional Diagnostics: US VENOUS LEG DUPLEX BILATERAL IMPRESSION: No evidence for deep venous thrombosis is found in the left lower extremity with this duplex venous Doppler study. No evidence for deep venous thrombosis is found in the right lower extremity with this duplex venous Doppler study. Additional Diagnostics: US RENAL SONOGRAM: IMPRESSION: Detail limited because of body habitus. There is no hydronephrosis. There is no significant postvoid residual. Echocardiogram: Interpretation Summary Left ventricular systolic function is likely mildly reduced with the ejection fraction grossly estimated to be 45 +/- 5% without obvious focal wall motion abnormalities noted although poor endocardial definition reduces the sensitivity for the detection of such. However, there is a flattened septum consistent with a probable right ventricular pressure overload condition and a significant dyssynchronous contraction pattern, consistent with a conduction abnormality. The left ventricle is grossly normal in size and diastolic function could not be accurately assessed due to tachycardia. The right ventricle is moderate to severely dilated and right ventricular systolic function is moderate to severely reduced with a probable thrombus noted in the right ventricular apex entrapped by the moderator band, seen by use of echo contrast, and measuring approximately 2.5 cm x 3.0 cm. Right ventricular systolic pressure is at least 30 mmHg plus the clinically estimated CVP and likely is significantly higher based on other echo findings, but the weakTR jet limits the accuracy of the estimate on this exam. The left atrial size is normal and the right atrium is moderately dilated. There is mild tricuspid regurgitation but no other significant valvular heart disease. There is a small to moderate loculated pericardial effusion predominantly posteriorly but there are no echocardiographic or Doppler indications for cardiac tamponade. Assessment & Plan Assessment 51 year old male with past medical history of CHF, COPD, HTN and morbid obesity admitted for COPD/CHF exacerbation, currently being treated for PE, volume overload, possible pneumonia and hemodynamic instability # Decompensated heart failure. Pt non compliant with diuretic medications which may have led to his admission. ECHO showed EF of 45% Control of Pt's volume status remains elusive. Initially patient was aggressively diuresed with IV Lasix, weight dropped by almost 5 kg in a 3 day period. Diuretics were discontinued secondary to acid base imbalances. He subsequently received an increase in Carvedilol and was started on Lisinopril. PT became hypotensive overnight with minimal response to fluid bolus and beta frank reversal agents. To control his pressure he remains on Levophed. Currently Pt reports no CP though has significant bilateral lower extremity edema and anasarca. - After Pt's hemodynamic state normalizes conservative diuresis may be continued , secondary to volume dependant right heart failure which. - Hold rate control medication - Hold BP medication - Stop diuretic - Continue with conservative IV fluid administration. Patient's urine output approximately 1800 mL last 24 hours and has received 3-4 L of fluid over the last 24 hours #. Right lower lobe segmental PE secondary to probable thrombus in right ventricle, secondary to chronic cor pulmonale or DVT -Echo showed thrombus in right ventricular apex, measuring approximately 2.5 cm x 3.0 cm. Likely secondary to right heart failure and pulmonary hypertension. CT angio showed probable PE -Heparin drip per protocol with bridge to warfarin. # Mixed Acid Base disorder. Pt's underling COPD and chronic CO2 retention led to a high serum bicarb which was exacerbated with aggressive diuresis and subsequently developing SHARMILA and subsequent contraction alkalosis. ABGs from this morning showed a continuing metabolic acidosis, pH of 7.305, CO2 104 bicarbonate of 53 this should improve as kidney function has normalized (Cr. 0.68) and Pt should be start to show compensation in the next 24 hours. He had been satting in the high 90s on BiPAP with FiO2 50%, this will be titrated down to 40% to keep saturations in the 88-92% range. - Pt currently receiving conservative IV fluids 80ml/hr and potassium chloride to correct underlying alkalosis. - Continue BiPAP # Pericardial Effusion, unknown etiology but differential includes infection, post-TX (ECG shows probable Hx of TX), uremia, malignancy. - BUN/Cr 58/1.32 making excluding NSAID administration at this time -TSH normal - Repeat ECHO did not show any worsening of effusion. - Repeat limited ECHO in 2-3 days. - Recommend out patient workup for malignancy # Elevated Liver function tests (AST 300, ALT 256) most likely due to hepatic congestion from decompensated CHF or given Pt's habitus and lifestyle possibly due to fatty liver. - No previous records for comparison - Consider US for further diagnostic evaluation - Continue to monitor with repeat labs, last value 12/22/2016 (AST 67, ALT 85) #. COPD exacerbation vs CAP. Pt has had increased sputum production prior to hospital admission, On admit Pt had a WBC count 14.5 with neutrophil percentage 77.9 and has remained elevated throughout stay - Pt has received one time dose of Solumedrol 125mg. - Legionella and strep pneumoniae urine antigens negative Procalcitonin has also remained elevated throughout admission, and continues to elevate. - Pt currently receiving Zosyn and Ceftriaxone - Fungal blood cultures pending #. Sinus tachycardia which has been ongoing since admission. Etiologies include PE, infection and CHF exacerbation. Pt states he was on beta blockade prior to admission. Outside records do not mention atrial fibrillation or any arrhythmia. - Carvedilol held secondary to hemodynamic instability. - Continue to treat underlying cause and monitor hemodynamic stability Problems: VTE Prophylaxis: Sub-Q Heparin (Unfractionated) VTE Mechanical Devices: Intermittant Pneumatic CD Resuscitation Status: CPR: Attempt Resuscitation ALECIA NOLEN DO Dec 23, 2016 10:09
[2016-12-23] MEDS: Lactated Ringer's 1,000 ML IV SCH ×2 (10:17→21:58)
[2016-12-23] MEDS: Piperacillin-Tazo 3.375 Gm Inj 3.375 GM in Dextrose 5% Minibag Plus 50 ML IV SCH ×2 (10:36→17:14)
[2016-12-23] MEDS: DOBUTamine 500 mg/250 D5W 500,000 MCG in IV Premix 1 EACH IV SCH (11:21)
--- NOTE | 2016-12-23 11:31 | CONS ---
[address] [address] CONSULTATION REPORT PATIENT: KEN NORMAN : 1965 MR#: [id number] ADMIT: 12/18/2016 JOB ID: [id number] DATE OF SERVICE: 12/22/2016 HISTORY OF PRESENT ILLNESS: This patient was seen and discussed with the resident. History is outlined in the resident's note. ASSESSMENT AND PLAN: This gentleman possibly has a right lower lobe pulmonary embolism. There was suspicion of a filling defect noted on his RV. This was not confirmed on his CT. CT seems to showed filling of his RV. Unfortunately, he is not a candidate for OJVANNA. The patient will end up getting intubated if we try and attempted a JOVANNA to better evaluate the right ventricle. At this point, the best course of action would be continued anticoagulation for pulmonary embolism. With regards to the etiology of his pulmonary embolism it could be secondary to his sedentary status, morbid obesity. Underlying malignancy is certainly a concern in a heavy smoker. He has a pericardial effusion which is stable currently. There is no evidence of any tamponade on echocardiography. I would like to repeat a limited echo in a few days, especially given the patient's pulmonary embolism which is requiring anticoagulation, his pericardial effusion will need to be monitored very closely. At this point, there is no apparent etiology for his pericardial effusion and it is likely viral. However AYANNA , RF etc should be ordered_. We will be happy to follow the patient along with you. CHARLY
--- NOTE | 2016-12-23 11:31 | PROG NOTE ---
[address] [address] PROGRESS NOTE PATIENT: KEN NORMAN : 1965 MR#: [id number] ADMIT: 12/18/2016 JOB ID: [id number] DATE: 12/23/2016 PULMONARY CRITICAL CARE NOTE: The patient is a 51-year-old man with obesity hypoventilation syndrome, cor pulmonale, admitted with decompensated right heart failure and respiratory failure. INTERVAL HISTORY: He feels about the same. No change in breathing. He has some cough that is productive but not a lot of sputum with it. Denies any fevers, chills. REVIEW OF SYSTEMS: As above. PHYSICAL EXAMINATION: Vital signs reviewed. Temperature 36.1, pulse 97, respirations 16, BP 112/54, sats 93% on 50% FiO2. Intake and output: He is net 4 L positive with good urine output. General: Morbidly obese gentleman lying in bed, on BiPAP alternating with nasal cannula oxygen. Chest is clear. He is more alert today compared to yesterday. LABORATORIES: Reviewed. WBC is up to 16 from 14. Chemistry notable for BUN down to 44 from 50, bicarbonate going up to 47. Creatinine stable. Procalcitonin is up to 0.66 from 0.18. Cultures: No growth. IMAGING: Chest x-ray reviewed, unchanged right basilar infiltrate. No other abnormalities. Arterial blood gas today shows worsening acidosis pH of 7.3, pO2 79, pCO2 of 104, bicarbonate of 50. ASSESSMENT AND RECOMMENDATIONS: 1. Acute on chronic hypoxic hypercarbic respiratory failure. 2. Obesity hypoventilation syndrome. 3. Decompensated right heart failure. 4. Right lower lobe segmental pulmonary embolism. 5. Right lower lobe pneumonia. 6. Suspected septic shock. Complex 51-year-old gentleman presenting with obesity hypoventilation, right heart failure. There was a question of a right ventricular thrombus which currently seems highly unlikely based on the absence of any abnormality on a contrast CT. The CT that was initially read as no PE subsequently was read as a small segmental right lower lobe pulmonary embolism. I think his current hypotension which is persisting, is potentially due to septic shock from right lower lobe healthcare associated pneumonia. He is still on a very low dose of norepinephrine, almost weaned off. This is persisting despite volume resuscitation and stopping his antihypertensives. His procalcitonin has gone up as has his white count. He has a new, slightly increasing infiltrate in his right lower lobe. I think given all this we have no choice but to broaden his antibiotics for healthcare associated pneumonia. We stopped ceftriaxone and started Zosyn instead. Will continue azithromycin for a five day course and then stop it. Continue to try to wean off norepinephrine. His renal function and other parameters seem improved but his respiratory acidosis is slightly worse. We made some changes to his BiPAP; namely, reducing his FiO2 and increasing the I Pap to E Pap difference to correct his acidosis. Continue heparin drip for right lower lobe pulmonary embolism. He remains in ICU at this point. CRITICAL CARE TIME: 60 minutes.
--- NOTE | 2016-12-23 11:48 | PCM.PNMED ---
Subjective Date of Service Dec 23, 2016 Subjective 51-year-old male patient with a history of COPD, congestive heart failure, and hyperventilation secondary to obesity presented to the ER with complaint of worsening dyspnea and weakness. Overnight: Mr. Kruse took off his BiPAP while he had visitors and when he was uncomfortable with the mask. He was not started on dobutamine last night. Today, he reports that has a cough and is short of breath when the BiPAP is off . He does not have chest pain or abdominal pain. He feels drowsy intermittently. Exam Vital Signs Vital Sign - Last Date Time Temp Pulse Resp B/P Pulse Ox O2 Delivery O2 Flow Rate FiO2 12/23/16 08:12 98 21 112/54 93 50 12/23/16 03:27 36.1 BiPAP 12/22/16 08:06 4.00 Intake and Output 12/22/16 12/22/16 12/23/16 Cumulative From/Thru 15:00 23:00 07:00 12/18/16 18:08 - 12/23/16 05:55 Intake Total 3456 ml 1751 ml 72947 ml Output Total 1200 ml 1850 ml 16810 ml Balance 2256 ml -99 ml 2413 ml Intake Oral 720 ml 100 ml 7114 ml IV Total 2736 ml 1651 ml 21394 ml Output Urine Total 1200 ml 1850 ml 25060 ml # Bowel Movements 2 0 3 Exam General: Morbidly obese. Awake and alert. No acute distress, well-developed, well-nourished HEENT: BiPAP in place. Normocephalic, atraumatic. External ears without defect. Pupils equal, round, and reactive to light and accommodation. Moist conjunctivae. Neck: Mild JVD. Supple with full range of motion.No lymphadenopathy Cardiovascular: Distant heart sounds secondary to body habitus with tachycardia and regular rhythm with no murmurs, rubs, or gallops appreciated Pulmonary: Mild end-expiratory wheezes heard on the right lung base. Abdomen: Obese. Pitting edema up to the umbilicus. Bowel tones present. Soft, nontender. Extremities: Pitting edema( 2+) bilateral lower extremities up to thigh. Unable to palpate pulses due to edema. Skin: Normal temperature, turgor, and texture; no rash, ulcers, or subcutaneous nodules appreciated. Psychiatric: Normal mood and affect. Alert and oriented to person, place, and time. IVs and Medications Medications Reviewed: Medications were reviewed in detail Lab and Diagnostics Result Diagram: 12/23/1631412/23/16314 X-Rays, CTs and MRIs PROCEDURE: X-RAY CHEST ONE VIEW, PORTABLE IMPRESSION: Probable right lower lobe infiltrate with small effusion. Approved by: Can Santana M.D. on 12/18/2016 at 19:04 PROCEDURE: CT ANGIO CHEST PULMONARY EMBOLISM IMPRESSION: 1. No pulmonary embolus seen. 2. Right lower lobe pneumonia pattern 3. Small right pleural effusion. Approved by: Eladio Garcia M.D. on 12/19/2016 at 16:03 ADDENDUM: Please note, a filling defect is visualized within the subsegmental branches of the right lower lobe pulmonary artery suspicious for occlusive pulmonary embolus. This finding was discussed with Dr. Duran at 9:35 AM on 12/22/16. Dictated by: Rena Chowdhury M.D. on 12/22/2016 at 9:38 Approved by: Rena Chowdhury M.D. on 12/22/2016 at 9:39 PROCEDURE: X-RAY CHEST ONE VIEW, PORTABLE IMPRESSION: 1. Cardiomegaly redemonstrated. 2. Bibasilar pleural effusions and airspace opacities consistent with compressive atelectasis versus pneumonia which has increased on the left. Dictated by: Chalino Miller [facility] Interpreted: Cayla Marmolejo MD on 12/22/2016 at 10: 46 Transcribed by: AMAIRANI on 12/22/2016 at 10:50 Cardiac Echo Impressions Echocardiogram Report Interpretation Summary Left ventricular systolic function is likely mildly reduced with the ejection fraction grossly estimated to be 45 +/- 5% without obvious focal wall motion abnormalities noted although poor endocardial definition reduces the sensitivity for the detection of such. However, there is a flattened septum consistent with a probable right ventricular pressure overload condition and a significant dyssynchronous contraction pattern, consistent with a conduction abnormality. The left ventricle is grossly normal in size and diastolic function could not be accurately assessed due to tachycardia. The right ventricle is moderate to severely dilated and right ventricular systolic function is moderate to severely reduced with a probable thrombus noted in the right ventricular apex entrapped by the moderator band, seen by use of echo contrast, and measuring approximately 2.5 cm x 3.0 cm. Right ventricular systolic pressure is at least 30 mmHg plus the clinically estimated CVP and likely is significantly higher based on other echo findings, but the weakTR jet limits the accuracy of the estimate on this exam. The left atrial size is normal and the right atrium is moderately dilated. There is mild tricuspid regurgitation but no other significant valvular heart disease. There is a small to moderate loculated pericardial effusion predominantly posteriorly but there are no echocardiographic or Doppler indications for cardiac tamponade. Reading Physician:11:53 AM Additional Diagnostics DateTimeAnalyzed 05:37:00 -_ pH ____7.303 - 7.350 7.450 pCO2 103 -mmHg 35.0 45.0 pO2 ___70.6__ -mmHg 69.0 116 HCO3- ___49.6__ -mmol/L 22.0 26.0 ABE ___17.6__ -mmol/L -2.0 2.0 tHb ___14.3__ -g/dL O2Hb ___90.2__ -% COHb ____2.0__ -% MetHb ____0.8__ -% sO2 ___92.8__ -% 25.0 FIO2 ___45.0__ -% Drawn By MM - Date/Time Notified____ 05:42:00 -_ Notified By MM - Notified Whom RN - B 755 -mmHg tO2 ___18.2__ -Vol% Emeka test N/A - Assessment & Plan 51-year-old male patient with a history of COPD, congestive heart failure, and hyperventilation secondary to obesity presented to the ER with complaint of worsening dyspnea and weakness. #. Acute on chronic respiratory failure with hypercapnea and hypoxia, present on admission, active. -Secondary to chronic conditions of COPD, obesity hypoventilation, obstructive sleep apnea, and pulmonary hypertension. Acutely, patient has a pulmonary embolism and right lower lobe pneumonia, which is exacerbating his chronic respiratory failure. Patient requires nocturnal and daytime PRN volume ventilation. BiPAP is insufficient due to severity of COPD and obesity hypoventilation, which are the primary causes of his chronic hypercapnic respiratory failure and respiratory acidosis. Trilogy is recommended. -Patient is requiring supplemental oxygen which he does not require at home.currently on BIPAP -Venous blood gas shows continues to show retained CO2 -Trilogy has been arranged prior to discharge -Continue BiPAP today with decreased FiO2 #Probable acute septic shock due to HCAP . Active. -Met criteria with HR >90, WBC 14.5, hypotension and continued hypotension despite adequate fluid resuscitation on 12/22/2016. Source of infection right lower lobe pneumonia. -Continue lactated ringers at 80 mL/h -Continue azithromycin -Switch ceftriaxone to IV piperacillin/tazobactam today # HCAP -worsening respiratory status,leukocytosis and increasing infiltrate -antibiotics broadened to zosyn and azithromycin #. Acute on chronic systolic congestive heart failure, present on admission, ongoing -Contributing to above -Echocardiogram as above, EF 40-50%, right ventricle systolic function is moderate to severely reduced -BNP in the ER 12,223, decreased to 4985. -Patient has significant lower extremity edema and anasarca up to the umbilicus -Carvedilol, lisinopril, and diuretics on hold -Once hemodynamically stable, consider alternating furosemide and acetazolamide for diuretics. #. Initial Hypotension, acute, not present on admission. Improving. -Likely, secondary to volume depletion (decreased preload) from IV furosemide with additional anti-hypertensives and acute sepsis in combination with his chronic right sided heart failure. Repeat echocardiogram did not show worsening pericardial effusion. -Initially thought due to BP meds and diuretics but persists after fluid given and meds held .likely due to septic shock due to HCAP -discussed with cardiology ,yesterday's echo doesn't show acute/new right heart strain,patient not a candidate for thrombolysis -Hold carvedilol, lisinopril, and diuretics at this time -Norepinephrine drip -IV fluid resuscitation, may do 500 mL bolus of lactated ringers up to 2 or 2.5 L if patient becomes hypotensive -SCDs in place to increase preload -Continue to monitor # acute pulmonary embolism,poa -seen on second review of prior CTA by radiologist -continue AC with heparin bridging and warfarin -unlikely hypotension on 12/22/16 was caused by new showers of PE given no acute right heart failure on echo -Continue bridge to warfarin #. Possible Community acquired versus healthcare associated pneumonia, present on admission, ongoing -Patient had leukocytosis of 14.5, neutrophil percentage 77.9. WBC 14.6 but neutrophil percentage 79.1% -Chest x-ray done in the ER demonstrating right lower lobe infiltrate and chest CT re-demonstrated right lower lobe infiltrate -Procalcitonin 0.36 --> 0.18, will reassess tomorrow -Legionella and strep pneumoniae urine antigens negative -Viral PCR negative -Blood cultures ordered but taken after administration of ceftriaxone -Piperacillin/tazobactam IV and azithromycin PO #Pericardial effusion, chronicity unknown, active. -Differential diagnosis includes but not limited to infection, post-[place], uremia, malignancy, or idiopathic -TSH within normal limits yesterday -Cardiology consulted and following. Their time and recommendations are appreciated. #. Acute kidney injury, present on admission, ongoing -Likely secondary to CHF exacerbation. -Patient has reported decreased urine output prior to admission for a few days -Nephrology consulted and following. Their time and recommendations are appreciated -Hold diuretics -Potassium chloride 20 meq BID, per nephrology #. Possible thrombus in right ventricle, acute, present on admission. Active. -Most likely secondary to chronic cor pulmonale. Based on pt's outpatient records, he does not have history of atrial fibrillation. -Echo showed probable thrombus in right ventricular apex, measuring approximately 2.5 cm x 3.[address] angio thrombus was not clearly seen. It is possible that the thrombus viewed on echocardiogram was an artifact. -Pulmonology was consulted. Their time and recommendations were appreciated. -Heparin drip per protocol -Started on warfarin on 12/21/16 with pharmacy dosing. -Patient may need a work-up for an underlying malignancy as an outpatient. #.Possible COPD exacerbation present on admission, ongoing -COPD exacerbation is possible given increased sputum production and worsening of cough and new supplemental oxygen requirement -Azithromycin 250 mg PO daily resumed 12/21/16 -Duoneb q4h while awake, albuterol nebulizers q2h PRN -Supplemental oxygen, with O2 goals of 88-92% -125 mg of Solu-Medrol administered to the patient -Continue to monitor #. Sinus tachycardia, acute, present on admission. Improved. -Patient reported being on propranolol for a fast heart rate. His outside records do not mention atrial fibrillation or any arrhythmia. He was on metoprolol tartrate 25 mg BID as of April 2016. -Secondary to acute pulmonary embolism and sepsis -Carvedilol as above. #. Transaminitis, present on admission, improving -No previous records for comparison -Likely secondary to hepatic congestion from decompensation of CHF, hypoperfusion to liver, or possible fatty liver -AST 300, ALT 256, T bili 3.6, alkaline phosphatase 119 initially. Today, continued improvement. -Continue to evaluate with a.m. labs -Consider abdominal ultrasound if worsens #. Vesicular rash present on admission, ongoing -Vesicular rash noted on oropharynx, rapid strep test negative -Consider doing a viral swab if no improvement #. Acutely elevated d-dimer, present on admission, ongoing -Patient had d-dimer of 7.8 -Ultrasound bilateral lower extremities ordered in the ER, no DVT -Chest CT angiogram shows pulmonary embolism. -Echocardiogram shows probable thrombus in right ventricle #. Morbid obesity, present on admission, ongoing -BMI 61 -Likely contributing to a chronic hypoventilation -Heart healthy diet ordered disposition:remains critical in CCU VTE Prophylaxis: Sub-Q Heparin (Unfractionated) VTE Mechanical Devices: Intermittant Pneumatic CD Resuscitation Status: CPR: Attempt Resuscitation Attending Statement patient was seen and examined with Dr Duran on 12/23/16,I agree with the history ,exam ,assessment and plan as outlined above Lisa Duran DO Dec 23, 2016 11:48 Wayne Fleming MD Dec 23, 2016 22:54
--- NOTE | 2016-12-23 12:44 | PCM.PNMED ---
Subjective Date of Service Dec 23, 2016 Subjective Pt's SHARMILA has resolved, cuuretly the major issues are respiratory. We will sign off, please contact us is any changes or problems Exam Vital Signs Vital Sign - Last Date Time Temp Pulse Resp B/P Pulse Ox O2 Delivery O2 Flow Rate FiO2 12/23/16 12:05 110 20 91 OxyMask 10.00 12/23/16 08:12 112/54 50 12/23/16 03:27 36.1 Intake and Output 12/22/16 12/22/16 12/23/16 Cumulative From/Thru 15:00 23:00 07:00 12/18/16 18:08 - 12/23/16 05:55 Intake Total 3456 ml 1751 ml 65749 ml Output Total 1200 ml 1850 ml 88443 ml Balance 2256 ml -99 ml 2413 ml Intake Oral 720 ml 100 ml 7114 ml IV Total 2736 ml 1651 ml 27440 ml Output Urine Total 1200 ml 1850 ml 04798 ml # Bowel Movements 2 0 3 Lab and Diagnostics Result Diagram: 12/23/16 0315 12/23/16 0315 X-Rays, CTs and MRIs PROCEDURE: X-RAY CHEST ONE VIEW, PORTABLE IMPRESSION: Probable right lower lobe infiltrate with small effusion. Approved by: Can Santana M.D. on 12/18/2016 at 19:04 PROCEDURE: CT ANGIO CHEST PULMONARY EMBOLISM IMPRESSION: 1. No pulmonary embolus seen. 2. Right lower lobe pneumonia pattern 3. Small right pleural effusion. Approved by: Eladio Garcia M.D. on 12/19/2016 at 16:03 ADDENDUM: Please note, a filling defect is visualized within the subsegmental branches of the right lower lobe pulmonary artery suspicious for occlusive pulmonary embolus. This finding was discussed with Dr. Duran at 9:35 AM on 12/22/16. Dictated by: Rena Chowdhury M.D. on 12/22/2016 at 9:38 Approved by: Rena Chowdhury M.D. on 12/22/2016 at 9:39 PROCEDURE: X-RAY CHEST ONE VIEW, PORTABLE IMPRESSION: 1. Cardiomegaly redemonstrated. 2. Bibasilar pleural effusions and airspace opacities consistent with compressive atelectasis versus pneumonia which has increased on the left. Dictated by: Chalino Miller [facility] Interpreted: Cayla Marmolejo MD on 12/22/2016 at 10: 46 Transcribed by: AMAIRANI on 12/22/2016 at 10:50 Cardiac Echo Impressions Echocardiogram Report Interpretation Summary Left ventricular systolic function is likely mildly reduced with the ejection fraction grossly estimated to be 45 +/- 5% without obvious focal wall motion abnormalities noted although poor endocardial definition reduces the sensitivity for the detection of such. However, there is a flattened septum consistent with a probable right ventricular pressure overload condition and a significant dyssynchronous contraction pattern, consistent with a conduction abnormality. The left ventricle is grossly normal in size and diastolic function could not be accurately assessed due to tachycardia. The right ventricle is moderate to severely dilated and right ventricular systolic function is moderate to severely reduced with a probable thrombus noted in the right ventricular apex entrapped by the moderator band, seen by use of echo contrast, and measuring approximately 2.5 cm x 3.0 cm. Right ventricular systolic pressure is at least 30 mmHg plus the clinically estimated CVP and likely is significantly higher based on other echo findings, but the weakTR jet limits the accuracy of the estimate on this exam. The left atrial size is normal and the right atrium is moderately dilated. There is mild tricuspid regurgitation but no other significant valvular heart disease. There is a small to moderate loculated pericardial effusion predominantly posteriorly but there are no echocardiographic or Doppler indications for cardiac tamponade. Reading Physician:11:53 AM Additional Diagnostics DateTimeAnalyzed 05:37:00 -_ pH ____7.303 - 7.350 7.450 pCO2 103 -mmHg 35.0 45.0 pO2 ___70.6__ -mmHg 69.0 116 HCO3- ___49.6__ -mmol/L 22.0 26.0 ABE ___17.6__ -mmol/L -2.0 2.0 tHb ___14.3__ -g/dL O2Hb ___90.2__ -% COHb ____2.0__ -% MetHb ____0.8__ -% sO2 ___92.8__ -% 25.0 FIO2 ___45.0__ -% Drawn By MM - Date/Time Notified____ 05:42:00 -_ Notified By MM - Notified Whom RN - B 755 -mmHg tO2 ___18.2__ -Vol% Emeka test N/A - Assessment & Plan 51-year-old male patient with a history of COPD, congestive heart failure, and hyperventilation secondary to obesity presented to the ER with complaint of worsening dyspnea and weakness. #. Acute on chronic respiratory failure with hypoxia, present on admission, active. -Secondary to chronic conditions of COPD, obesity hypoventilation, obstructive sleep apnea, and pulmonary hypertension. Acutely, patient has a pulmonary embolism and right lower lobe pneumonia, which is exacerbating his chronic respiratory failure. Patient requires nocturnal and daytime PRN volume ventilation. BiPAP is insufficient due to severity of COPD and obesity hypoventilation, which are the primary causes of his chronic hypercapnic respiratory failure and respiratory acidosis. Trilogy is recommended. -Patient is requiring supplemental oxygen which he does not require at home -Venous blood gas shows continues to show retained CO2 -Trilogy has been arranged prior to discharge -Continue BiPAP today with decreased FiO2 #Acute septic shock. Active. -Met criteria with HR >90, WBC 14.5, hypotension and continued hypotension despite adequate fluid resuscitation on 12/22/2016. Source of infection right lower lobe pneumonia. -Continue lactated ringers at 80 mL/h -Continue azithromycin -Switch ceftriaxone to IV piperacillin/tazobactam today #. Acute on chronic systolic congestive heart failure, present on admission, ongoing -Contributing to above -Echocardiogram as above, EF 40-50%, right ventricle systolic function is moderate to severely reduced -BNP in the ER 12,223, decreased to 4985. -Patient has significant lower extremity edema and anasarca up to the umbilicus -Carvedilol, lisinopril, and diuretics on hold -Once hemodynamically stable, consider alternating furosemide and acetazolamide for diuretics. #. Hypotension, acute, not present on admission. Improving. -Likely, secondary to volume depletion (decreased preload) from IV furosemide with additional anti-hypertensives and acute sepsis in combination with his chronic right sided heart failure. Repeat echocardiogram did not show worsening pericardial effusion. -discussed with cardiology ,yesterday's echo doesn't show acute/new right heart strain,patient not a candidate for thrombolysis -Hold carvedilol, lisinopril, and diuretics at this time -Norepinephrine drip -IV fluid resuscitation, may do 500 mL bolus of lactated ringers up to 2 or 2.5 L if patient becomes hypotensive -SCDs in place to increase preload -Continue to monitor # acute pulmonary embolism,poa -seen on second review of prior CTA by radiologist -continue AC with heparin bridging and warfarin -unlikely hypotension on 12/22/16 was caused by new showers of PE given no acute right heart failure on echo -Continue bridge to warfarin #. Possible Community acquired pneumonia, present on admission, ongoing -Patient had leukocytosis of 14.5, neutrophil percentage 77.9. WBC 14.6 but neutrophil percentage 79.1% -Chest x-ray done in the ER demonstrating right lower lobe infiltrate and chest CT re-demonstrated right lower lobe infiltrate -Procalcitonin 0.36 --> 0.18, will reassess tomorrow -Legionella and strep pneumoniae urine antigens negative -Viral PCR negative -Blood cultures ordered but taken after administration of ceftriaxone -Zosyn IV and azithromycin PO #Pericardial effusion, chronicity unknown, active. -Differential diagnosis includes but not limited to infection, post-[place], uremia, malignancy, or idiopathic -TSH within normal limits yesterday -Cardiology consulted and following. Their time and recommendations are appreciated. #. Acute kidney injury, present on admission, ongoing -Likely secondary to CHF exacerbation. -Patient has reported decreased urine output prior to admission for a few days -Nephrology consulted and following. Their time and recommendations are appreciated -Hold diuretics -Potassium chloride 20 meq BID, per nephrology #. Possible thrombus in right ventricle, acute, present on admission. Active. -Most likely secondary to chronic cor pulmonale. Based on pt's outpatient records, he does not have history of atrial fibrillation. -Echo showed probable thrombus in right ventricular apex, measuring approximately 2.5 cm x 3.[address] angio thrombus was not clearly seen. It is possible that the thrombus viewed on echocardiogram was an artifact. -Pulmonology was consulted. Their time and recommendations were appreciated. -Heparin drip per protocol -Started on warfarin on 12/21/16 with pharmacy dosing. -Patient may need a work-up for an underlying malignancy as an outpatient. #.Possible COPD exacerbation present on admission, ongoing -COPD exacerbation is possible given increased sputum production and worsening of cough and new supplemental oxygen requirement -Azithromycin 250 mg PO daily resumed 12/21/16 -Duoneb q4h while awake, albuterol nebulizers q2h PRN -Supplemental oxygen, with O2 goals of 88-92% -125 mg of Solu-Medrol administered to the patient -Continue to monitor #. Sinus tachycardia, acute, present on admission. Improved. -Patient reported being on propranolol for a fast heart rate. His outside records do not mention atrial fibrillation or any arrhythmia. He was on metoprolol tartrate 25 mg BID as of April 2016. -Secondary to acute pulmonary embolism and sepsis -Carvedilol as above. #. Transaminitis, present on admission, improving -No previous records for comparison -Likely secondary to hepatic congestion from decompensation of CHF, hypoperfusion to liver, or possible fatty liver -AST 300, ALT 256, T bili 3.6, alkaline phosphatase 119 initially. Today, continued improvement. -Continue to evaluate with a.m. labs -Consider abdominal ultrasound if worsens #. Vesicular rash present on admission, ongoing -Vesicular rash noted on oropharynx, rapid strep test negative -Consider doing a viral swab if no improvement #. Acutely elevated d-dimer, present on admission, ongoing -Patient had d-dimer of 7.8 -Ultrasound bilateral lower extremities ordered in the ER, no DVT -Chest CT angiogram shows pulmonary embolism. -Echocardiogram shows probable thrombus in right ventricle #. Morbid obesity, present on admission, ongoing -BMI 61 -Likely contributing to a chronic hypoventilation -Heart healthy diet ordered VTE Prophylaxis: Sub-Q Heparin (Unfractionated) VTE Mechanical Devices: Intermittant Pneumatic CD Resuscitation Status: CPR: Attempt Resuscitation Louis Feliz DO Dec 23, 2016 12:44
--- NOTE | 2016-12-23 14:36 | NUR ---
Social Work Note: Continued Discharge Planning Data& Assessment: Pt remains Bipap dependent at this time in CCU. SW met with pt at bedside to assess for any unmet needs and attempt to engage pt in discharge planning again. Pt again explained he would like to not make any decisions or provide potential preferences for SNF's until he is farther along in his care. Pt did agree to continue looking at the SNF list but emphasized he is determined to go home with home health. Pt is unsure of a home health preference at this time as well. SW to continue to engage pt in conversations surrounding DC planning and obtain preferences for SNF's and Home Health to begin the referral process. Pt denies any other needs at this time. SW to continue to follow. Plan: Anticipated discharge home with home health vs. SNF. SW to continue to engage pt in conversations surrounding DC planning and obtain preferences for SNF's and Home Health to begin the referral process. Pt denies any other needs at this time. SW to continue to follow. KENDRICK Hopkins
--- NOTE | 2016-12-23 18:11 | NUR ---
Hemodynamics/Oxygenation.. remains on low dose Norepi gtt. Attempt made to wean and pt was off pressor at one point but B/P drifted to the 80's syst with MAPS in the 50's. Gtt restarted and B/P is back to baseline. Has alternated between bipap while sleeping and oymask while awake and nasal cannula for eating meals. If pt pulls O2 off Spo2 will drop to the 80's if on Room Air. Is asymptomatic with Spo2 that low, and states he will sometimes have Spo2 drops to the 60's at home and does fine. Is coughing up yellow blood streaked sputum.. spec sent to lab. Cardiac viability MRI cannot be completed per MRI personnel due to pt's size/wt. They advise maybe persuing [facility] or [facility] to do this procedure as they may have an appropriate scanner for this type of pt. Dr Reeves given this info.
[2016-12-23] MEDS: Famotidine Inj 20 MG in IV Premix 1 EACH IV SCH (20:28)
[2016-12-24] VITALS (14 sets, daily range): BP systolic 106–138; BP diastolic 47–68; PULSE 107–128; RESP 14–24; O2SAT 90–96
[2016-12-24] MEDS: Piperacillin-Tazo 3.375 Gm Inj 3.375 GM in Dextrose 5% Minibag Plus 50 ML IV SCH ×3 (00:49→16:42)
[2016-12-24] MEDS: Heparin 25K Unit/500mL 0.45 NS 25,000 UNIT in IV Premix 1 EACH IV SCH ×2 (03:17→15:38)
[2016-12-24] MEDS: DOBUTamine 500 mg/250 D5W 500,000 MCG in IV Premix 1 EACH IV SCH ×2 (04:26→19:14)
--- NOTE | 2016-12-24 05:20 | ABG ---
DateTimeAnalyzed 05:13:00 -_ pH ____7.326 - 7.350 7.450 pCO2 ___95.1__ -mmHg 35.0 45.0 pO2 ___78.3__ -mmHg 69.0 116 HCO3- ___48.3__ -mmol/L 22.0 26.0 ABE ___17.3__ -mmol/L -2.0 2.0 tHb ___14.0__ -g/dL O2Hb ___92.7__ -% COHb ____2.0__ -% MetHb ____0.8__ -% sO2 ___95.4__ -% 25.0 FIO2 ___40.0__ -% Drawn By MK - Date/Time Notified____ 05:19:00 -_ Liter_Flow ____6.0__ -L/min Oxygen Device 1 __CANNULA - Notified By MK - Notified Whom gavin dew RN - B 765 -mmHg tO2 ___18.3__ -Vol% Emeka test _Positive -
[2016-12-24 05:27] LABS: BASOPHILS % (AUTO) 0 % (0-3); EOSINOPHILS % (AUTO) 1.6 % (0-5); MONOCYTES % (AUTO) 10.7 % (4-12); Mean Corpuscular Hemoglobin 27.2 pg (27.0-35.0); Mean Corpuscular Volume 93.7 fL (81-100); NEUTROPHILS % (AUTO) 81.6 % (40-74); Platelet Count 134 bil/L (150-400)
[2016-12-24 05:49] LABS: INR 0.89 ratio
[2016-12-24 05:55] LABS: Phosphorus 2.6 mg/dL (2.5-4.9)
[2016-12-24] MEDS: Insulin LISPRO 300 Unit/3 mL Inj SUBQ SCH ×4 (07:15→22:00)
[2016-12-24] MEDS: Famotidine Inj 20 MG in IV Premix 1 EACH IV SCH ×2 (07:35→19:40)
[2016-12-24] MEDS: Albuterol-Ipratropium 3 mL Inhalation Solution NEB SCH ×4 (09:32→20:14)
[2016-12-24] MEDS: Potassium Chloride 20 mEq SR Tablet PO SCH ×2 (09:35→19:40)
[2016-12-24] MEDS: Lactated Ringer's 1,000 ML IV SCH ×2 (09:40→19:40)
--- NOTE | 2016-12-24 14:43 | PCM.PNMED ---
Subjective Date of Service Dec 24, 2016 Subjective 51-year-old male patient with a history of COPD, congestive heart failure, and hyperventilation secondary to obesity presented to the ER with complaint of worsening dyspnea and weakness. Overnight, he removed his BiPAP intermittently and is now on oxygen by nasal cannula this morning. Today, he continues to have intermittent dyspnea, cough, and fatigue. He does not have any chest pain, abdominal pain. or nausea/vomiting. Exam Vital Signs Vital Sign - Last Date Time Temp Pulse Resp B/P Pulse Ox O2 Delivery O2 Flow Rate FiO2 12/24/16 12:18 110 21 111/64 90 40 12/24/16 09:30 BiPAP 12/24/16 08:00 36.6 7.00 Intake and Output 12/23/16 12/23/16 12/24/16 Cumulative From/Thru 15:00 23:00 07:00 12/18/16 18:08 - 12/24/16 06:30 Intake Total 1767 ml 12713 ml Output Total 1700 ml 63887 ml Balance 67 ml 2480 ml Intake Oral 7114 ml IV Total 1767 ml 01412 ml Output Urine Total 1700 ml 64034 ml # Bowel Movements 3 Exam General: Morbidly obese. Awake and alert. No acute distress, well-developed, well-nourished HEENT: Nasal cannula in place.. Normocephalic, atraumatic. External ears without defect. Pupils equal, round, and reactive to light and accommodation. Moist conjunctivae. Neck: Mild JVD. Supple with full range of motion.No lymphadenopathy Cardiovascular: Distant heart sounds secondary to body habitus with tachycardia and regular rhythm with no murmurs, rubs, or gallops appreciated Pulmonary: Mild end-expiratory wheezes heard on the right lung base. Abdomen: Obese. Pitting edema up to the umbilicus. Bowel tones present. Soft, nontender. Extremities: Pitting edema( 2+) bilateral lower extremities up to thigh. Unable to palpate pulses due to edema. Skin: Normal temperature, turgor, and texture; no rash, ulcers, or subcutaneous nodules appreciated. Psychiatric: Normal mood and affect. Alert and oriented to person, place, and time. IVs and Medications Medications Reviewed: Medications were reviewed in detail Lab and Diagnostics Result Diagram: 12/24/1651412/24/16514 X-Rays, CTs and MRIs PROCEDURE: X-RAY CHEST ONE VIEW, PORTABLE IMPRESSION: Probable right lower lobe infiltrate with small effusion. Approved by: Can Santana M.D. on 12/18/2016 at 19:04 PROCEDURE: CT ANGIO CHEST PULMONARY EMBOLISM IMPRESSION: 1. No pulmonary embolus seen. 2. Right lower lobe pneumonia pattern 3. Small right pleural effusion. Approved by: Eladio Garcia M.D. on 12/19/2016 at 16:03 ADDENDUM: Please note, a filling defect is visualized within the subsegmental branches of the right lower lobe pulmonary artery suspicious for occlusive pulmonary embolus. This finding was discussed with Dr. Duran at 9:35 AM on 12/22/16. Dictated by: Rena Chowdhury M.D. on 12/22/2016 at 9:38 Approved by: Rena Chowdhury M.D. on 12/22/2016 at 9:39 PROCEDURE: X-RAY CHEST ONE VIEW, PORTABLE IMPRESSION: 1. Cardiomegaly redemonstrated. 2. Bibasilar pleural effusions and airspace opacities consistent with compressive atelectasis versus pneumonia which has increased on the left. Dictated by: Chalino Miller RRA Interpreted: Cayla Marmolejo MD on 12/22/2016 at 10: 46 Transcribed by: AMAIRANI on 12/22/2016 at 10:50 Cardiac Echo Impressions Echocardiogram Report Interpretation Summary Left ventricular systolic function is likely mildly reduced with the ejection fraction grossly estimated to be 45 +/- 5% without obvious focal wall motion abnormalities noted although poor endocardial definition reduces the sensitivity for the detection of such. However, there is a flattened septum consistent with a probable right ventricular pressure overload condition and a significant dyssynchronous contraction pattern, consistent with a conduction abnormality. The left ventricle is grossly normal in size and diastolic function could not be accurately assessed due to tachycardia. The right ventricle is moderate to severely dilated and right ventricular systolic function is moderate to severely reduced with a probable thrombus noted in the right ventricular apex entrapped by the moderator band, seen by use of echo contrast, and measuring approximately 2.5 cm x 3.0 cm. Right ventricular systolic pressure is at least 30 mmHg plus the clinically estimated CVP and likely is significantly higher based on other echo findings, but the weakTR jet limits the accuracy of the estimate on this exam. The left atrial size is normal and the right atrium is moderately dilated. There is mild tricuspid regurgitation but no other significant valvular heart disease. There is a small to moderate loculated pericardial effusion predominantly posteriorly but there are no echocardiographic or Doppler indications for cardiac tamponade. Reading Physician:11:53 AM Additional Diagnostics DateTimeAnalyzed 05:13:00 -_ pH ____7.326 - 7.350 7.450 pCO2 ___95.1__ -mmHg 35.0 45.0 pO2 ___78.3__ -mmHg 69.0 116 HCO3- ___48.3__ -mmol/L 22.0 26.0 ABE ___17.3__ -mmol/L -2.0 2.0 tHb ___14.0__ -g/dL O2Hb ___92.7__ -% COHb ____2.0__ -% MetHb ____0.8__ -% sO2 ___95.4__ -% 25.0 FIO2 ___40.0__ -% Drawn By MK - Date/Time Notified____ 05:19:00 -_ Liter_Flow ____6.0__ -L/min Oxygen Device 1 __CANNULA - Notified By MK - Notified Whom gavin dew RN - B 765 -mmHg tO2 ___18.3__ -Vol% Emeka test _Positive - Assessment & Plan 51-year-old male patient with a history of COPD, congestive heart failure, and hyperventilation secondary to obesity presented to the ER with complaint of worsening dyspnea and weakness. #. Acute on chronic respiratory failure with hypercapnea and hypoxia, present on admission, active. -Secondary to chronic conditions of COPD, obesity hypoventilation, obstructive sleep apnea, and pulmonary hypertension. Acutely, patient has a pulmonary embolism and right lower lobe pneumonia, which is exacerbating his chronic respiratory failure. Patient requires nocturnal and daytime PRN volume ventilation. BiPAP is insufficient due to severity of COPD and obesity hypoventilation, which are the primary causes of his chronic hypercapnic respiratory failure and respiratory acidosis. Trilogy is recommended. -Patient is requiring supplemental oxygen which he does not require at home.currently on BIPAP -Venous blood gas shows continues to show retained CO2 but improved this morning -Trilogy has been arranged prior to discharge -Continue BiPAP per pulmonology #Probable acute septic shock due to HCAP . Active. -Met criteria with HR >90, WBC 14.5, hypotension and continued hypotension despite adequate fluid resuscitation on 12/22/2016. Source of infection right lower lobe pneumonia. -Continue lactated ringers at 80 mL/h -Continue azithromycin -Switch ceftriaxone to IV piperacillin/tazobactam on 12/23/16 # HCAP -worsening respiratory status,leukocytosis and increasing infiltrate -antibiotics broadened to zosyn and azithromycin #. Acute on chronic systolic congestive heart failure, present on admission, ongoing -Contributing to above -Echocardiogram as above, EF 40-50%, right ventricle systolic function is moderate to severely reduced -BNP in the ER 12,223, decreased to 4985. -Patient has significant lower extremity edema and anasarca up to the umbilicus -Lisinopril and diuretics on hold -Once hemodynamically stable, consider alternating furosemide and acetazolamide for diuretics. -Resume carvedilol 3.125 mg BID tomorrow morning as long as blood pressure is stable #. Initial Hypotension, acute, not present on admission. Improving. -Initially thought due to BP meds and diuretics but persists after fluid given and meds held .likely due to septic shock due to HCAP. Repeat echocardiogram did not show worsening pericardial effusion. -discussed with cardiology ,yesterday's echo doesn't show acute/new right heart strain,patient not a candidate for thrombolysis -Hold lisinopril and diuretics at this time -Norepinephrine drip discontinued -IV fluid resuscitation, may do 500 mL bolus of lactated ringers up to 2 or 2.5 L if patient becomes hypotensive -SCDs in place to increase preload -Continue to monitor -Lactated ringer's at 80 mL/h # acute pulmonary embolism,poa -seen on second review of prior CTA by radiologist -continue AC with heparin bridging and warfarin -unlikely hypotension on 12/22/16 was caused by new showers of PE given no acute right heart failure on echo -Continue bridge to warfarin #. Possible Community acquired versus healthcare associated pneumonia, present on admission, ongoing -Patient had leukocytosis of 14.5, neutrophil percentage 77.9. initially -Chest x-ray done in the ER demonstrating right lower lobe infiltrate and chest CT re-demonstrated right lower lobe infiltrate -Procalcitonin 0.36 --> 0.18, will reassess tomorrow -Legionella and strep pneumoniae urine antigens negative -Viral PCR negative -Blood cultures ordered but taken after administration of ceftriaxone -Piperacillin/tazobactam IV and azithromycin PO #Pericardial effusion, chronicity unknown, active. -Differential diagnosis includes but not limited to infection, post-FL, uremia, malignancy, or idiopathic -TSH within normal limits yesterday -Cardiology consulted and following. Their time and recommendations are appreciated. #. Acute kidney injury, present on admission, ongoing -Likely secondary to CHF exacerbation. -Patient has reported decreased urine output prior to admission for a few days -Nephrology consulted and following. Their time and recommendations are appreciated -Hold diuretics -Potassium chloride 20 meq BID, per nephrology #. Possible thrombus in right ventricle, acute, present on admission. Active. -Most likely secondary to chronic cor pulmonale. Based on pt's outpatient records, he does not have history of atrial fibrillation. -Echo showed probable thrombus in right ventricular apex, measuring approximately 2.5 cm x 3.[address] angio thrombus was not clearly seen. It is possible that the thrombus viewed on echocardiogram was an artifact. -Pulmonology was consulted. Their time and recommendations were appreciated. -Heparin drip per protocol -Started on warfarin on 12/21/16 with pharmacy dosing. -Patient may need a work-up for an underlying malignancy as an outpatient. #.Possible COPD exacerbation present on admission, ongoing -COPD exacerbation is possible given increased sputum production and worsening of cough and new supplemental oxygen requirement -Azithromycin 250 mg PO daily resumed 12/21/16 -Duoneb q4h while awake, albuterol nebulizers q2h PRN -Supplemental oxygen, with O2 goals of 88-92% -125 mg of Solu-Medrol administered to the patient -Continue to monitor #. Sinus tachycardia, acute, present on admission. Improved. -Patient reported being on propranolol for a fast heart rate. His outside records do not mention atrial fibrillation or any arrhythmia. He was on metoprolol tartrate 25 mg BID as of April 2016. -Secondary to acute pulmonary embolism and sepsis -Carvedilol as above. #. Transaminitis, present on admission, improving -No previous records for comparison -Likely secondary to hepatic congestion from decompensation of CHF, hypoperfusion to liver, or possible fatty liver -AST 300, ALT 256, T bili 3.6, alkaline phosphatase 119 initially. Today, continued improvement. -Continue to evaluate with a.m. labs -Consider abdominal ultrasound if worsens #. Vesicular rash present on admission, ongoing -Vesicular rash noted on oropharynx, rapid strep test negative #. Morbid obesity, present on admission, ongoing -BMI 61 -Likely contributing to a chronic hypoventilation -Heart healthy diet ordered #. Positive fecal occult blood test. -Patient is on anticoagulation for pulmonary embolism -Monitor hemoglobin and hematocrit disposition:remains in CCU but can transition to PCCU with telemetry VTE Prophylaxis: Sub-Q Heparin (Unfractionated) VTE Mechanical Devices: Intermittant Pneumatic CD Resuscitation Status: CPR: Attempt Resuscitation Attending Statement The patient was seen and examined together with Dr. Duran on 12/24/2016 and I agree with the history, exam and plan as outlined in the note above. Lisa Duran DO Dec 24, 2016 14:43 Wayne Fleming MD Dec 24, 2016 18:54 Lisa Duran DO Dec 24, 2016 14:43
--- NOTE | 2016-12-24 16:07 | PCM.PHAPRO ---
Progress SOB warfarin dosing Indication: RV thrombus home dose NA Significant Comorbidities: Acute on chronic respiratory failure with hypoxia Possible COPD exacerbation Possible Community acquired pneumonia Acute systolic CHF exacerbation Acute kidney injury-resolved Transaminitis, hyperbilirubinemia and elevated baseline INR Hypoalbuminemia-present on admission-may reflect diminished protein nutrition Morbid obesity-BMI 61 Date -Dec 21-Dec 22-Nov 1-Dec 2-Dec 3-Dec 4-Dec 5-Dec 6-Dec 7-Dec 8-Dec 9-Jan 01-Dec INR 1.25 1.19 1.18 1.28 0.89 INR change -0.06 Warf Dose 5mg 5mg/d 5MG 6MG 6mg o/ INR 0.89, dose charted as given, no vitK or FFP given a/ INR unreliable p/ Continue 6mg and recheck INR in am Leonel Diaz Pharm D Dec 24, 2016 16:07
--- NOTE | 2016-12-24 18:13 | PROG NOTE ---
[address] [address] PROGRESS NOTE PATIENT: KEN NORMAN : 1965 MR#: [id number] ADMIT: 12/18/2016 JOB ID: [id number] DATE: 12/24/2016 PULMONARY CRITICAL CARE PROGRESS NOTE: This the patient is a 51-year-old man with obesity hypoventilation syndrome admitted with acute on chronic right heart failure and respiratory failure. INTERVAL HISTORY: He was finally weaned off of vasopressors this morning. Seems irritable this morning. Was wearing BiPAP intermittently last night because it was uncomfortable. Still some shortness of breath and productive cough. REVIEW OF SYSTEMS: Denies fevers, chills. PHYSICAL EXAMINATION: Vital signs reviewed. Temperature 36.6, pulse 112, respirations 14, BP 111/64, sats 92% on 6 L nasal cannula. General: Super morbid obese gentleman lying in bed, appears somewhat irritable. Chest: Clear. LABORATORIES: Reviewed. WBC 14 from 16 yesterday. Chemistry also reviewed and shows creatinine 0.68, stable. ASSESSMENT: 1. Septic shock. 2. Right lower lobe healthcare associated pneumonia. 3. Right lower lobe segmental pulmonary embolism. 4. Decompensated right heart failure. 5. Obesity hypoventilation syndrome. 6. Acute on chronic hypoxic hypercarbic respiratory failure. RECOMMENDATIONS: He has been weaned off of pressors and I think this is because of antibiotic therapy. Currently he is on azithromycin and Zosyn. Procalcitonin came down a little bit to 0.5 from 0.66 yesterday. He finds BiPAP extremely uncomfortable and I think this is because of the high IPAP of 20 cm. I decreased it to 12/6 and I am hoping he will wear it tonight. I strongly encouraged him to. He remains on heparin drip for his PE. Cardiology apparently recommended an MRI of his heart but he is too large to have this done here. I am not really sure if this is urgent. At this point I would try to optimize his overall medical status and see if we could consider a repeat echo to reassess the possibility of RV thrombus which seems less and less likely. 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 CRITICAL CARE TIME: 40 minutes.
--- NOTE | 2016-12-24 18:48 | NUR ---
Hemodynamics... Pt remains off norepi and B/P has been stable throughout shift. Was able to work with PT and stand at the bedside and amena activity well.
[2016-12-24] MEDS: Norepineph 8,000 mCg/250 mL NS 8,000 MCG in IV Premix 1 EACH IV SCH (19:14)
[2016-12-25] VITALS (16 sets, daily range): BP systolic 114–138; BP diastolic 66–77; PULSE 106–122; RESP 18–26; O2SAT 89–98
[2016-12-25] MEDS: Heparin 25K Unit/500mL 0.45 NS 25,000 UNIT in IV Premix 1 EACH IV SCH ×2 (00:37→22:08)
[2016-12-25] MEDS: Piperacillin-Tazo 3.375 Gm Inj 3.375 GM in Dextrose 5% Minibag Plus 50 ML IV SCH ×3 (00:37→17:50)
--- NOTE | 2016-12-25 04:05 | ABG ---
DateTimeAnalyzed 03:57:26 -_ pH ____7.392 - pCO2 ___83.9__ -mmHg pO2 ___57.7__ -mmHg HCO3- ___51.1__ -mmol/L ABE ___22.8__ -mmol/L tHb ___14.4__ -g/dL O2Hb ___87.4__ -% COHb ____2.2__ -% MetHb ____0.0__ -% sO2 ___89.4__ -% FIO2 ___44.0__ -% Drawn By MM - Date/Time Notified____ 04:05:00 -_ Spontaneous_RR 22 -b/min Liter_Flow ____6.00_ -L/min Oxygen Device 1 __CANNULA - Notified Whom RN - B 755 -mmHg K+ ____4.4__ -mmol/L tO2 ___17.7__ -Vol% Emeka test N/A -
[2016-12-25 04:23] LABS: BASOPHILS % (AUTO) 0.1 % (0-3); EOSINOPHILS % (AUTO) 1.1 % (0-5); MONOCYTES % (AUTO) 8.7 % (4-12); Mean Corpuscular Hemoglobin 26.9 pg (27.0-35.0); Mean Corpuscular Volume 94.1 fL (81-100); NEUTROPHILS % (AUTO) 85.7 % (40-74); Platelet Count 189 bil/L (150-400)
[2016-12-25 04:39] LABS: INR 1.37 ratio
--- NOTE | 2016-12-25 06:01 | NUR ---
SpO2 Pt used BIPAP most of night, and especially when asleep. Will wake up and request Oxymask/NC 6-7L. SOB with exertion (bedpan for BM), but recovered fairly well. Care ongoing
[2016-12-25] MEDS: Albuterol-Ipratropium 3 mL Inhalation Solution NEB SCH ×4 (07:45→19:37)
[2016-12-25] MEDS: Insulin LISPRO 300 Unit/3 mL Inj SUBQ SCH ×4 (08:00→19:42)
[2016-12-25] MEDS: Famotidine Inj 20 MG in IV Premix 1 EACH IV SCH ×2 (08:49→19:42)
--- NOTE | 2016-12-25 10:27 | DRSVH ---
PROCEDURE: X-RAY CHEST ONE VIEW, PORTABLE ([id number]) INDICATIONS: cough, acute on chronic respiratory failure TECHNIQUE: One view of the chest was acquired. COMPARISON: [facility], CR, XR CHEST 1VW (PORTABLE), 12/23/2016, 5:47. FINDINGS: Surgical changes and devices: None. Lungs and pleura: Interstitium is prominent and mild edema is suspected and no significant change in mid/basilar patchy air space opacities. Mediastinum: Mediastinal contours appear normal. Heart size is enlarged. Bones and chest wall: No suspicious bony lesions. Overlying soft tissues appear unremarkable. IMPRESSION: Edema and/or pneumonia involving the lung bases similar to prior exam. Dictated by: Chalino Miller RRA Interpreted: Rena Chowdhury MD on 12/25/2016 at 10:26 Transcribed by: ULISES on 12/25/2016 at 10:26 Approved by: Rena Chowdhury M.D. on 12/25/2016 at 13:41
[2016-12-25] MEDS ORDERED: Furosemide 10 mg/mL 2 mL Inj IVPUSH SCH (10:50)
[2016-12-25] MEDS ORDERED: DEXTROSE 5% IV ONE (11:00)
[2016-12-25] MEDS ORDERED: ACETAZOLAMIDE IV ONE (11:00)
--- NOTE | 2016-12-25 11:14 | NUR ---
NUTRITION FOLLOW-UP: ASSESS: 51 YO male with obesity hypoventilation syndrome admitted with acute on chronic right heart failure and respiratory failure. He was transferred to CCU due to hypotension and dyspnea with septic shock and right lower lobe segmental pulmonary embolism. He is currently tolerating BiPAP and was transferred out of CCU this morning. Per pulmonology, he will likely require a Trilogy at discharge. PMHX: COPD, CHF, GERD, LE edema LABS: Chloride 91, CO2 40, Cr 0.63, Glu 160, Total 1.3, ALT 49, alb 2.9. MEDS:Reviewed. Coumadin, Insulin, Lasix. GI: BM x 1 today. SKIN: Kam 21. WT:208.1 kg, BMI 55.0 kg/m2. Admit wt: 199kg, Adj BW: 113.9kg, IBW: 91.8kg DIET: Heart Healthy, PO 100% consistently. EST. NEEDS: BMI Kcals: 2505-2850kca/day (22-25kcal/kg adjBW) Pro: 95-110g/day (1.0-1.2g/kg IBW) NUTRITION DIAGNOSIS: 1) Increased nutrient needs related to chronic disease as evidence by history of COPD - PERSISTS. NUTRITION INTERVENTION: 1) No intervention at this time. MONITOR / EVAL: PO, wt, GI, labs, POC, nutrition status. Will continue to monitor per low nutrition risk guidelines.
--- NOTE | 2016-12-25 11:37 | PCM.PNMED ---
Subjective Date of Service Dec 25, 2016 Subjective 51-year-old male patient with a history of COPD, congestive heart failure, and hyperventilation secondary to obesity presented to the ER with complaint of worsening dyspnea and weakness. This morning, he states that he is no longer coughing. He would like to stop wearing the BiPAP. He does not have chest pain, dyspnea, or abdominal pain. He does not have diarrhea. Exam Vital Signs Vital Sign - Last Date Time Temp Pulse Resp B/P Pulse Ox O2 Delivery O2 Flow Rate FiO2 12/25/16 08:30 112 12/25/16 08:00 36.9 21 130/77 98 BiPAP 40 12/25/16 04:35 7.00 Intake and Output 12/24/16 12/24/16 12/25/16 Cumulative From/Thru 15:00 23:00 07:00 12/18/16 18:08 - 12/25/16 05:58 Intake Total 1886 ml 1914 ml 02096 ml Output Total 950 ml 1050 ml 91734 ml Balance 936 ml 864 ml 4280 ml Intake Oral 580 ml 420 ml 8114 ml IV Total 1306 ml 1494 ml 21719 ml Output Urine Total 950 ml 1050 ml 23028 ml # Bowel Movements 1 1 5 Exam General: Morbidly obese. Awake and alert. No acute distress, well-developed, well-nourished HEENT: BiPAP in place.. Normocephalic, atraumatic. External ears without defect. Pupils equal, round, and reactive to light and accommodation. Moist conjunctivae. Neck: Mild JVD. Supple with full range of motion.No lymphadenopathy Cardiovascular: Distant heart sounds secondary to body habitus with tachycardia and regular rhythm with no murmurs, rubs, or gallops appreciated Pulmonary: Mild end-expiratory wheezes heard on the right lung base. Abdomen: Obese. Pitting edema up to the umbilicus. Bowel tones present. Soft, nontender. Extremities: Pitting edema( 3+) bilateral lower extremities up to thigh. Unable to palpate pulses due to edema. Skin: Normal temperature, turgor, and texture; no rash, ulcers, or subcutaneous nodules appreciated. Psychiatric: Normal mood and affect. Alert and oriented to person, place, and time. IVs and Medications Medications Reviewed: Medications were reviewed in detail Lab and Diagnostics Result Diagram: 3/3/17 0400 3/3/17 0400 X-Rays, CTs and MRIs PROCEDURE: X-RAY CHEST ONE VIEW, PORTABLE IMPRESSION: Probable right lower lobe infiltrate with small effusion. Approved by: Can Santana M.D. on 12/18/2016 at 19:04 PROCEDURE: CT ANGIO CHEST PULMONARY EMBOLISM IMPRESSION: 1. No pulmonary embolus seen. 2. Right lower lobe pneumonia pattern 3. Small right pleural effusion. Approved by: Eladio Garcia M.D. on 12/19/2016 at 16:03 ADDENDUM: Please note, a filling defect is visualized within the subsegmental branches of the right lower lobe pulmonary artery suspicious for occlusive pulmonary embolus. This finding was discussed with Dr. Duran at 9:35 AM on 12/22/16. Dictated by: Rena Chowdhury M.D. on 12/22/2016 at 9:38 Approved by: Rena Chowdhury M.D. on 12/22/2016 at 9:39 PROCEDURE: X-RAY CHEST ONE VIEW, PORTABLE IMPRESSION: 1. Cardiomegaly redemonstrated. 2. Bibasilar pleural effusions and airspace opacities consistent with compressive atelectasis versus pneumonia which has increased on the left. Dictated by: Chalino Miller RRA Interpreted: Cayla Marmolejo MD on 12/22/2016 at 10: 46 Transcribed by: AMAIRANI on 12/22/2016 at 10:50 Cardiac Echo Impressions Echocardiogram Report Interpretation Summary Left ventricular systolic function is likely mildly reduced with the ejection fraction grossly estimated to be 45 +/- 5% without obvious focal wall motion abnormalities noted although poor endocardial definition reduces the sensitivity for the detection of such. However, there is a flattened septum consistent with a probable right ventricular pressure overload condition and a significant dyssynchronous contraction pattern, consistent with a conduction abnormality. The left ventricle is grossly normal in size and diastolic function could not be accurately assessed due to tachycardia. The right ventricle is moderate to severely dilated and right ventricular systolic function is moderate to severely reduced with a probable thrombus noted in the right ventricular apex entrapped by the moderator band, seen by use of echo contrast, and measuring approximately 2.5 cm x 3.0 cm. Right ventricular systolic pressure is at least 30 mmHg plus the clinically estimated CVP and likely is significantly higher based on other echo findings, but the weakTR jet limits the accuracy of the estimate on this exam. The left atrial size is normal and the right atrium is moderately dilated. There is mild tricuspid regurgitation but no other significant valvular heart disease. There is a small to moderate loculated pericardial effusion predominantly posteriorly but there are no echocardiographic or Doppler indications for cardiac tamponade. Reading Physician:11:53 AM Additional Diagnostics DateTimeAnalyzed 03:57:26 -_ pH ____7.392 - pCO2 ___83.9__ -mmHg pO2 ___57.7__ -mmHg HCO3- ___51.1__ -mmol/L ABE ___22.8__ -mmol/L tHb ___14.4__ -g/dL O2Hb ___87.4__ -% COHb ____2.2__ -% MetHb ____0.0__ -% sO2 ___89.4__ -% FIO2 ___44.0__ -% Drawn By MM - Date/Time Notified____ 04:05:00 -_ Spontaneous_RR 22 -b/min Liter_Flow ____6.00_ -L/min Oxygen Device 1 __CANNULA - Notified Whom RN - B 755 -mmHg K+ ____4.4__ -mmol/L tO2 ___17.7__ -Vol% Emeka test N/A - Assessment & Plan 51-year-old male patient with a history of COPD, congestive heart failure, and hyperventilation secondary to obesity presented to the ER with complaint of worsening dyspnea and weakness. #. Acute on chronic respiratory failure with hypercapnea and hypoxia, present on admission, active. -Secondary to chronic conditions of COPD, obesity hypoventilation, obstructive sleep apnea, and pulmonary hypertension. Acutely, patient has a pulmonary embolism and right lower lobe pneumonia, which is exacerbating his chronic respiratory failure. Patient requires nocturnal and daytime PRN volume ventilation. BiPAP is insufficient due to severity of COPD and obesity hypoventilation, which are the primary causes of his chronic hypercapnic respiratory failure and respiratory acidosis. Trilogy is recommended. -Patient is requiring supplemental oxygen which he does not require at home.currently on BIPAP -Venous blood gas shows continues to show retained CO2 but improved this morning -Trilogy has been arranged prior to discharge -Continue BiPAP per pulmonology #Probable acute septic shock due to HCAP . Resolved -Met criteria with HR >90, WBC 14.5, hypotension and continued hypotension despite adequate fluid resuscitation on 12/22/2016. Source of infection right lower lobe pneumonia. -Stop lactated ringers at 80 mL/h -Continue azithromycin -Switch ceftriaxone to IV piperacillin/tazobactam on 12/23/16 # HCAP -worsening respiratory status,leukocytosis and increasing infiltrate -antibiotics broadened to zosyn and azithromycin #. Acute on chronic systolic congestive heart failure, present on admission, ongoing -Contributing to above -Echocardiogram as above, EF 40-50%, right ventricle systolic function is moderate to severely reduced -BNP in the ER 12,223, decreased to 4985. -Patient has significant lower extremity edema and anasarca up to the umbilicus -Lisinopril on hold -Continue furosemide 20 mg IV daily and gave acetazolamide 250 mg IV once today. -Resume carvedilol 3.125 mg BID today -Monitor blood pressure, daily I&0s, and weights #. Initial Hypotension, acute, not present on admission. Improving. -Initially thought due to BP meds and diuretics but persists after fluid given and meds held .likely due to septic shock due to HCAP. Repeat echocardiogram did not show worsening pericardial effusion. -discussed with cardiology ,yesterday's echo doesn't show acute/new right heart strain,patient not a candidate for thrombolysis -Hold lisinopril and diuretics at this time -Norepinephrine drip discontinued -IV fluid resuscitation, may do 500 mL bolus of lactated ringers up to 2 or 2.5 L if patient becomes hypotensive -SCDs in place to increase preload -Continue to monitor -Lactated ringer's at 80 mL/h stopped today # acute pulmonary embolism,poa -seen on second review of prior CTA by radiologist -continue AC with heparin bridging and warfarin -unlikely hypotension on 12/22/16 was caused by new showers of PE given no acute right heart failure on echo -Continue bridge to warfarin #. Possible Community acquired versus healthcare associated pneumonia, present on admission, ongoing -Patient had leukocytosis of 14.5, neutrophil percentage 77.9. initially -Chest x-ray done in the ER demonstrating right lower lobe infiltrate and chest CT re-demonstrated right lower lobe infiltrate -Procalcitonin 0.36 --> 0.29, will reassess tomorrow -Legionella and strep pneumoniae urine antigens negative -Viral PCR negative -Blood cultures ordered but taken after administration of ceftriaxone -Piperacillin/tazobactam IV and azithromycin PO #Pericardial effusion, chronicity unknown, active. -Differential diagnosis includes but not limited to infection, post-MT, uremia, malignancy, or idiopathic -TSH within normal limits yesterday -Cardiology consulted. Their time and recommendations are appreciated. -Echocardiogram limited today to reassess pericardial effusion #. Acute kidney injury, present on admission, ongoing -Likely secondary to CHF exacerbation. -Patient has reported decreased urine output prior to admission for a few days -Nephrology consulted and following. Their time and recommendations are appreciated -Potassium chloride 20 meq BID stopped today #. Possible thrombus in right ventricle, acute, present on admission. Active. -Most likely secondary to chronic cor pulmonale. Based on pt's outpatient records, he does not have history of atrial fibrillation. -Echo showed probable thrombus in right ventricular apex, measuring approximately 2.5 cm x 3.[address] angio thrombus was not clearly seen. It is possible that the thrombus viewed on echocardiogram was an artifact. -Pulmonology was consulted. Their time and recommendations were appreciated. -Heparin drip per protocol -Started on warfarin on 12/21/16 with pharmacy dosing. -Patient may need a work-up for an underlying malignancy as an outpatient. #.Possible COPD exacerbation present on admission, ongoing -COPD exacerbation is possible given increased sputum production and worsening of cough and new supplemental oxygen requirement -Azithromycin 250 mg PO daily resumed 12/21/16 -Duoneb q4h while awake, albuterol nebulizers q2h PRN -Supplemental oxygen, with O2 goals of 88-92% -125 mg of Solu-Medrol administered to the patient -Continue to monitor #. Sinus tachycardia, acute, present on admission. Improved. -Patient reported being on propranolol for a fast heart rate. His outside records do not mention atrial fibrillation or any arrhythmia. He was on metoprolol tartrate 25 mg BID as of April 2016. -Secondary to acute pulmonary embolism and sepsis -Carvedilol as above. #. Transaminitis, present on admission, improving -No previous records for comparison -Likely secondary to hepatic congestion from decompensation of CHF, hypoperfusion to liver, or possible fatty liver -AST 300, ALT 256, T bili 3.6, alkaline phosphatase 119 initially. Today, continued improvement. -Continue to evaluate with a.m. labs -Consider abdominal ultrasound or other imaging if worsens #. Morbid obesity, present on admission, ongoing -BMI 61 -Likely contributing to a chronic hypoventilation -Heart healthy diet ordered #. Positive fecal occult blood test. -Patient is on anticoagulation for pulmonary embolism -Monitor hemoglobin and hematocrit disposition: PCC with telemetry for continued antibiotics and blood pressure monitoring VTE Prophylaxis: Sub-Q Heparin (Unfractionated) VTE Mechanical Devices: Intermittant Pneumatic CD Resuscitation Status: CPR: Attempt Resuscitation Attending Statement The patient was seen and examined together with Dr. Duran on 12/25/2016 and I agree with the history, exam and plan as outlined in the note above. Lias Duran DO Dec 25, 2016 10:54 Wayne Fleming MD Dec 25, 2016 16:30
--- NOTE | 2016-12-25 13:39 | DRSVH ---
[facility] [address] [place] [place] [address] Echocardiogram Report Name: KEN NORMAN TStudy Date : 12/25/2016 Height: 76 in Hospital Exam Location: [facility] Weight: 459 lb Gender: Male BSA: 3.2 m2 : 1965 Age: 51 yrs BP: 138/70 mmHg Reason For Study: PERICARDIAL EFFUSION Ordering Physician: HOSPITALIST LAKESHIAerformed By: Enrique Gooden Referring Physician: Daphne MILLS Interpretation Summary There is a small to moderate pericardial effusion noted. There are no echocardiographic or Doppler indications for cardiac tamponade. The right ventricle is moderate to severely dilated. Right ventricular systolic function is moderately reduced. Right ventricular systolic function has increased since previous exam. A possible thrombus continues to be noted in the right ventricular apex measuring approximately 2.4 cm x 2.6. This is slightly smaller than the echo from 12/19/16. The right ventricular systolic pressure is estimated at 48 mmHg assuming a right atrial pressure of 15 mm Hg. Procedure: A two-dimensional transthoracic echocardiogram with color flow and Doppler was performed in limited views only. The study quality was technically difficult. Comparison is made with the echocardiogram of 12/22/16. A contrast injection of Definity was performed to improve assessment of LV function. The patient was in normal sinus rhythm during the exam. The patient had a heart rate of 107-113 beats per minute. Left Ventricle: The left ventricle is normal in size. There is normal left ventricular wall thickness. Regional wall motion abnormalities cannot be excluded due to limited visualization. Right Ventricle: The right ventricle is moderate to severely dilated. Right ventricular systolic function is moderately reduced. Right ventricular systolic function has increased since previous exam. A possible thrombus continues to be noted in the right ventricular apex measuring approximately 2.4 cm x 2.6. This is slightly smaller than the echo from 12/19/16. Atria: The left atrial size is normal. The right atrium is moderately dilated. Mitral Valve: The mitral valve is not well visualized. The mitral valve is grossly normal. The mitral valve chordae are thickened and/or calcified. Tricuspid Valve: The tricuspid valve is not well visualized, but is grossly normal. There is mild tricuspid regurgitation. The right ventricular systolic pressure is estimated at 48 mmHg assuming a right atrial pressure of 15 mm Hg. Great Vessels: The ascending aorta is normal in size. The IVC is dilated (diameter is greater than 2.1 cm) and it collapses less than 50% with a sniff. This suggests a high right atrial pressure of 15 mm Hg. The IVC has a measurement of 37 mm. Pericardium/ Pleura There is a small to moderate pericardial effusion noted. There are no echocardiographic or Doppler indications for cardiac tamponade. There is a large right-sided pleural effusion. MMode/2D Measurements & Calculations LVIDd: 5.2 cm RA long axis asc Aorta LVIDs: 3.7 cm LA A2 area: 21.9 cm Diam: 2.6 cm FS: 28.1 % LA A4 area: 22.6 cm RA area IVSd: 0.95 cm LA length (vol): 5.8 cm LVPWd: 1.0 cm LA vol: 72.1 ml : 30.8 cm LA vol index RA vol : 128.ml RA IVC diam: 3.7 cm : 40.7 mm2 LV mathias. diameter/BSA LV sys. diameter/BSA RVD1 (basal) RVD2 (mid) (cm/m^2): 1.7 (cm/m^2): 1.2 : 6.0 cm Doppler Measurements & Calculations MV E max nathan MV E/A: 208.1 TR max nathan MV V2 mean : 126.8 cm/sec Med Peak E' Nathan : 285.7 cm/sec : 79.7 cm/sec MV A max nathan TR max PG MV mean PG : 0.61 cm/sec E/E' med: 12.1 : 32.7 mmHg MV V2 VTI MV dec time : 0.10 sec Reading Physician:JEANIE
[2016-12-25] MEDS: DOBUTamine 500 mg/250 D5W 500,000 MCG in IV Premix 1 EACH IV SCH (14:36)
--- NOTE | 2016-12-25 15:20 | NUR ---
Social Work: Continued Discharge Planning D: Pt discussed in am rounds. Pt is not medically stable for discharge at this time and is expected to require skilled rehab at time of discharge. W[employer]HOU[employer] ASSOCIATE DRIVER met with pt at bedside to review discharge recommendations with him and discuss options. SNF CHOICE LIST PROVIDED. Pt's preference is for [facility] [place] [facility] [place]. W[employer]HOU[employer]OCIATE DRIVER spoke with [facility] who will provide referrals. PPW on chart. PASSR Completed and on Chart A: Pt who will likely require skilled rehab at time of discharge for increased strengthening and functional mobility improvement. P: Anticipate pt to discharge to skilled rehab; Preference is for [facility] with [facility] [place] as a backup. Both are reviewing. KENDRICK Sidhu
--- NOTE | 2016-12-25 15:55 | PCM.PHAPRO ---
Progress SOB Indication: RV thrombus home dose NA Significant Comorbidities: Acute on chronic respiratory failure with hypoxia Possible COPD exacerbation Possible Community acquired pneumonia Acute systolic CHF exacerbation Acute kidney injury-resolved Transaminitis, hyperbilirubinemia and elevated baseline INR Hypoalbuminemia-present on admission-may reflect diminished protein nutrition Morbid obesity-BMI 61 Date -Dec 21-Dec 22-Nov 1-Dec 2-Dec 3-Dec 4-Dec 5-Dec 6-Dec 7-Dec 8-Dec 9-Dec 10-Dec INR 1.25 1.19 1.18 1.28 0.89 1.37 INR change -0.06 Warf Dose 5mg 5mg/d 5MG 6MG 6mg 7.5mg a/ Surprisingly weak INR trend considering comorbid conditions suggesting lower dose strategy. Reviewed MAR - doses have been charted as given. p/ Increase dose to 7.5mg/d and follow Leonel Diaz Pharm D Dec 25, 2016 15:55
--- NOTE | 2016-12-25 17:48 | NUR ---
[facility] cannot accept the pt due his obesity
--- NOTE | 2016-12-25 18:23 | NUR ---
Transfer.. Pt has not required bipap this shift. Has been on the nasal cannula 6 liters and amena this well. Is impulsive though and will pull cannula off intermittently. Pt is totally asymptomatic despite spo2 dropping to 69 on room air. Enc to keep O2 on and use I/S. Was up with PT and amena activity well. Was made PCC status this am and will now transfer to 2026 as bed is available.
[2016-12-26] VITALS (16 sets, daily range): BP systolic 106–123; BP diastolic 74–87; PULSE 103–119; RESP 16–26; O2SAT 89–97
[2016-12-26] MEDS: Piperacillin-Tazo 3.375 Gm Inj 3.375 GM in Dextrose 5% Minibag Plus 50 ML IV SCH ×3 (00:41→16:37)
[2016-12-26] MEDS: Norepineph 8,000 mCg/250 mL NS 8,000 MCG in IV Premix 1 EACH IV SCH (05:03)
[2016-12-26 05:32] LABS: BASOPHILS % (AUTO) 0.1 % (0-3); EOSINOPHILS % (AUTO) 1.8 % (0-5); MONOCYTES % (AUTO) 9.1 % (4-12); Mean Corpuscular Hemoglobin 27.5 pg (27.0-35.0); Mean Corpuscular Volume 93.1 fL (81-100); NEUTROPHILS % (AUTO) 85.5 % (40-74); Platelet Count 196 bil/L (150-400)
[2016-12-26 05:47] LABS: INR 2.04 ratio
[2016-12-26] MEDS: DOBUTamine 500 mg/250 D5W 500,000 MCG in IV Premix 1 EACH IV SCH (06:01)
--- NOTE | 2016-12-26 07:32 | NUR ---
Respiratory Pt denies SOB throughout. SPO2=88-91 on 5L NC. Pt utilizing BiPAP 40% FIO2 over NOC. Pt tolerated well. Pt slept approx 9 hrs. Heparin infusing and managed per DVT protocol. Next PTT at 1100. Remain tahcycardic but asymptomatic. Remainder of VSS. No overt complications noted.
[2016-12-26] MEDS: Albuterol-Ipratropium 3 mL Inhalation Solution NEB SCH ×4 (07:48→20:24)
[2016-12-26] MEDS: Insulin LISPRO 300 Unit/3 mL Inj SUBQ SCH ×2 (08:30→20:07)
[2016-12-26] MEDS ORDERED: Furosemide 10 mg/mL 2 mL Inj IVPUSH SCH (08:30)
--- NOTE | 2016-12-26 08:40 | NUR ---
patient found on 4lpm nasal cannula with oxygen saturation of 79%. he had increased work of breathing, accessory muscle use, and struggling to get a deep breath. he was given a nebulizer tx and placed on 7 lpm oxymask with no improvement in his breathing, although his oxygen saturation was adequate. he was then placed on bipap for sob, ipap and epap increased to meet pt's needs. he is currently on bipap IPAP 18 EPAP 8 amd 40% oxygen. he is resting comfortably and no longer appears to be struggling to catch his breath. will closely monitor.
[2016-12-26] MEDS ORDERED: 0.9% Sodium Chloride 250 ML ONE (09:18)
[2016-12-26] MEDS: Famotidine Inj 20 MG in IV Premix 1 EACH IV SCH ×2 (10:06→20:07)
--- NOTE | 2016-12-26 13:03 | PCM.PNMED ---
Subjective Date of Service Dec 26, 2016 Subjective 51-year-old male patient with a history of COPD, congestive heart failure, and hyperventilation secondary to obesity presented to the ER with complaint of worsening dyspnea and weakness. Today, he states that he feels like he cannot take deep breaths and requested to be back on BiPAP. He does not have chest pain, cough, or abdominal pain. He reports continued leg swelling and abdominal swelling. Exam Vital Signs Vital Sign - Last Date Time Temp Pulse Resp B/P Pulse Ox O2 Delivery O2 Flow Rate FiO2 12/26/16 12:36 36.4 115 22 123/87 96 BiPAP 12/26/16 11:04 40 12/26/16 08:01 7.00 Intake and Output 12/25/16 12/25/16 12/26/16 Cumulative From/Thru 14:59 22:59 06:59 12/18/16 18:08 - 12/26/16 06:05 Intake Total 2226 ml 1370 ml 70085 ml Output Total 2150 ml 1300 ml 28255 ml Balance 76 ml 70 ml 4426 ml Intake Oral 1112 ml 600 ml 9826 ml IV Total 1114 ml 770 ml 75263 ml Output Urine Total 2150 ml 1300 ml 85497 ml # Bowel Movements 1 0 6 Exam General: Morbidly obese. Awake and alert with BiPAP in place. No acute distress , well-developed, well-nourished HEENT: BiPAP in place.. Normocephalic, atraumatic. External ears without defect. Pupils equal, round, and reactive to light and accommodation. Moist conjunctivae. Neck: Mild JVD. Supple with full range of motion.No lymphadenopathy Cardiovascular: Distant heart sounds secondary to body habitus with tachycardia and regular rhythm with no murmurs, rubs, or gallops appreciated Pulmonary: Mild end-expiratory wheezes heard on the right lung base. Abdomen: Obese. Pitting edema up to the umbilicus. Bowel tones present. Soft, nontender. Extremities: Pitting edema( 2+) bilateral lower extremities up to thigh. Unable to palpate pulses due to edema. Skin: Normal temperature, turgor, and texture; no rash, ulcers, or subcutaneous nodules appreciated. Psychiatric: Normal mood and affect. Alert and oriented to person, place, and time. IVs and Medications Medications Reviewed: Medications were reviewed in detail Lab and Diagnostics Result Diagram: 12/26/16 0515 12/26/16 0515 X-Rays, CTs and MRIs PROCEDURE: X-RAY CHEST ONE VIEW, PORTABLE IMPRESSION: Probable right lower lobe infiltrate with small effusion. Approved by: Can Santana M.D. on 12/18/2016 at 19:04 PROCEDURE: CT ANGIO CHEST PULMONARY EMBOLISM IMPRESSION: 1. No pulmonary embolus seen. 2. Right lower lobe pneumonia pattern 3. Small right pleural effusion. Approved by: Eladio Garcia M.D. on 12/19/2016 at 16:03 ADDENDUM: Please note, a filling defect is visualized within the subsegmental branches of the right lower lobe pulmonary artery suspicious for occlusive pulmonary embolus. This finding was discussed with Dr. Duran at 9:35 AM on 12/22/16. Dictated by: Rena Chowdhury M.D. on 12/22/2016 at 9:38 Approved by: Rena Chowdhury M.D. on 12/22/2016 at 9:39 PROCEDURE: X-RAY CHEST ONE VIEW, PORTABLE IMPRESSION: 1. Cardiomegaly redemonstrated. 2. Bibasilar pleural effusions and airspace opacities consistent with compressive atelectasis versus pneumonia which has increased on the left. Dictated by: Chalino Miller RR Interpreted: Cayla Marmolejo MD on 12/22/2016 at 10: 46 Transcribed by: AMAIRANI on 12/22/2016 at 10:50 Cardiac Echo Impressions Echocardiogram Report Interpretation Summary Left ventricular systolic function is likely mildly reduced with the ejection fraction grossly estimated to be 45 +/- 5% without obvious focal wall motion abnormalities noted although poor endocardial definition reduces the sensitivity for the detection of such. However, there is a flattened septum consistent with a probable right ventricular pressure overload condition and a significant dyssynchronous contraction pattern, consistent with a conduction abnormality. The left ventricle is grossly normal in size and diastolic function could not be accurately assessed due to tachycardia. The right ventricle is moderate to severely dilated and right ventricular systolic function is moderate to severely reduced with a probable thrombus noted in the right ventricular apex entrapped by the moderator band, seen by use of echo contrast, and measuring approximately 2.5 cm x 3.0 cm. Right ventricular systolic pressure is at least 30 mmHg plus the clinically estimated CVP and likely is significantly higher based on other echo findings, but the weakTR jet limits the accuracy of the estimate on this exam. The left atrial size is normal and the right atrium is moderately dilated. There is mild tricuspid regurgitation but no other significant valvular heart disease. There is a small to moderate loculated pericardial effusion predominantly posteriorly but there are no echocardiographic or Doppler indications for cardiac tamponade. Reading Physician:11:53 AM Echocardiogram Report Interpretation Summary There is a small to moderate pericardial effusion noted. There are no echocardiographic or Doppler indications for cardiac tamponade. The right ventricle is moderate to severely dilated. Right ventricular systolic function is moderately reduced. Right ventricular systolic function has increased since previous exam. A possible thrombus continues to be noted in the right ventricular apex measuring approximately 2.4 cm x 2.6. This is slightly smaller than the echo from 12/19/16. The right ventricular systolic pressure is estimated at 48 mmHg assuming a right atrial pressure of 15 mm Hg. Reading Physician: PM Additional Diagnostics DateTimeAnalyzed 03:57:26 -_ pH ____7.392 - pCO2 ___83.9__ -mmHg pO2 ___57.7__ -mmHg HCO3- ___51.1__ -mmol/L ABE ___22.8__ -mmol/L tHb ___14.4__ -g/dL O2Hb ___87.4__ -% COHb ____2.2__ -% MetHb ____0.0__ -% sO2 ___89.4__ -% FIO2 ___44.0__ -% Drawn By MM - Date/Time Notified____ 04:05:00 -_ Spontaneous_RR 22 -b/min Liter_Flow ____6.00_ -L/min Oxygen Device 1 __CANNULA - Notified Whom RN - B 755 -mmHg K+ ____4.4__ -mmol/L tO2 ___17.7__ -Vol% Emeka test N/A - Assessment & Plan 51-year-old male patient with a history of COPD, congestive heart failure, and hyperventilation secondary to obesity presented to the ER with complaint of worsening dyspnea and weakness. #. Acute on chronic respiratory failure with hypercapnea and hypoxia, present on admission, active. -Secondary to chronic conditions of COPD, obesity hypoventilation, obstructive sleep apnea, and pulmonary hypertension. Acutely, patient has a pulmonary embolism and right lower lobe pneumonia, which is exacerbating his chronic respiratory failure. Patient requires nocturnal and daytime PRN volume ventilation. BiPAP is insufficient due to severity of COPD and obesity hypoventilation, which are the primary causes of his chronic hypercapnic respiratory failure and respiratory acidosis. Trilogy is recommended. -Patient is requiring supplemental oxygen which he does not require at home.currently on BIPAP -Venous blood gas shows continues to show retained CO2 but improved this morning -Trilogy has been arranged prior to discharge -Continue BiPAP as needed #Probable acute septic shock due to HCAP . Resolved -Met criteria with HR >90, WBC 14.5, hypotension and continued hypotension despite adequate fluid resuscitation on 12/22/2016. Source of infection right lower lobe pneumonia. WBC continues to be elevated. -Stop lactated ringers at 80 mL/h -Continue azithromycin -Switch ceftriaxone to IV piperacillin/tazobactam on 12/23/16 # HCAP -worsening respiratory status,leukocytosis and increasing infiltrate -antibiotics broadened to zosyn and azithromycin #. Acute on chronic systolic congestive heart failure, present on admission, ongoing -Contributing to above -Echocardiogram as above, EF 40-50%, right ventricle systolic function is moderate to severely reduced -BNP in the ER 12,223, decreased to 4985. -Patient has significant lower extremity edema and anasarca up to the umbilicus -Lisinopril on hold but resume lisinopril 10 mg once daily at bedtime tomorrow if blood pressure will tolerate -Furosemide 40 mg IV daily. Monitor serum bicarb level and if increases consider giving a dose of acetazolamide instead of furosemide for that day. -Stop carvedilol and switch to metoprolol tartrate 25 mg BID for better heart rate control and less blood pressure control -Monitor blood pressure, daily I&0s, and weights #. Hypotension, acute, not present on admission. Improving. -Initially thought due to BP meds and diuretics but persists after fluid given and meds held .likely due to septic shock due to HCAP. Repeat echocardiogram did not show worsening pericardial effusion. -discussed with cardiology, second echo doesn't show acute/new right heart strain, patient not a candidate for thrombolysis -Norepinephrine drip discontinued -IV fluid resuscitation, may do 500 mL bolus of lactated ringers up to 2 or 2.5 L if patient becomes hypotensive -SCDs in place to increase preload -Continue to monitor # acute pulmonary embolism,poa -seen on second review of prior CTA by radiologist -continue AC with heparin bridging and warfarin -unlikely hypotension on 12/22/16 was caused by new showers of PE given no acute right heart failure on echo -Discontinue heparin today as warfarin is now therapeutic #. Possible Community acquired versus healthcare associated pneumonia, present on admission, ongoing -Patient had leukocytosis of 14.5, neutrophil percentage 77.9. initially -Chest x-ray done in the ER demonstrating right lower lobe infiltrate and chest CT re-demonstrated right lower lobe infiltrate -Procalcitonin 0.36 --> 0.29, will reassess tomorrow -Legionella and strep pneumoniae urine antigens negative -Viral PCR negative -Blood cultures ordered but taken after administration of ceftriaxone -Piperacillin/tazobactam IV and azithromycin PO #Pericardial effusion, chronicity unknown, active. -Differential diagnosis includes but not limited to infection, post-UT, uremia, malignancy, or idiopathic -Stable on repeat echocardiogram, no signs of cardiac tamponade -TSH within normal limits -Cardiac MRI cannot be performed here but if continued concern, can be done as an outpatient in [place] #. Acute kidney injury, present on admission, resolved. -Likely secondary to CHF exacerbation. -Patient has reported decreased urine output prior to admission for a few days -Nephrology consulted and following. Their time and recommendations were appreciated #. Possible thrombus in right ventricle, acute, present on admission. Active. -Most likely secondary to chronic cor pulmonale. Based on pt's outpatient records, he does not have history of atrial fibrillation. -Initial Echo showed probable thrombus in right ventricular apex, measuring approximately 2.5 cm x 3.[address] angio thrombus was not clearly seen. It is possible that the thrombus viewed on echocardiogram was an artifact but again visualized on Echo on 12/25/16. -Pulmonology was consulted. Their time and recommendations were appreciated. -Started on warfarin on 12/21/16 with pharmacy dosing. -Patient may need a work-up for an underlying malignancy as an outpatient. #.Possible COPD exacerbation present on admission, ongoing -COPD exacerbation is possible given increased sputum production and worsening of cough and new supplemental oxygen requirement -Azithromycin 250 mg PO daily resumed 12/21/16 -Duoneb q4h while awake, albuterol nebulizers q2h PRN -Supplemental oxygen, with O2 goals of 88-92% -125 mg of Solu-Medrol administered to the patient -Continue to monitor #. Sinus tachycardia, acute, present on admission. Improved. -Patient reported being on propranolol for a fast heart rate. His outside records do not mention atrial fibrillation or any arrhythmia. He was on metoprolol tartrate 25 mg BID as of April 2016. -Secondary to acute pulmonary embolism and sepsis -Metoprolol as above #. Transaminitis, present on admission, improving -No previous records for comparison -Likely secondary to hepatic congestion from decompensation of CHF, hypoperfusion to liver, or possible fatty liver -AST 300, ALT 256, T bili 3.6, alkaline phosphatase 119 initially. Today, continued improvement. -Continue to evaluate with a.m. labs -Consider abdominal ultrasound or other imaging if worsens #. Morbid obesity, present on admission, ongoing -BMI 61 -Likely contributing to a chronic hypoventilation -Heart healthy diet ordered and discussed with patient about portion control rather than skipping meals #. Positive fecal occult blood test. -Patient is on anticoagulation for pulmonary embolism -Monitor hemoglobin and hematocrit disposition: [facility] with telemetry for continued antibiotics and blood pressure monitoring. Patient will likely be discharged to a SNF for continued rehabilitation VTE Prophylaxis: Sub-Q Heparin (Unfractionated) VTE Mechanical Devices: Intermittant Pneumatic CD Resuscitation Status: CPR: Attempt Resuscitation Attending Statement The patient was seen and examined together with Dr. Duran on 12/26/2016 and I agree with the history, exam and plan as outlined in the note above. Lisa Duran DO Dec 26, 2016 13:03 Wayne Fleming MD Dec 26, 2016 17:01
[2016-12-26] MEDS: Albuterol 2.5 mg/3 mL Inhalation Solution NEB PRN (13:04)
--- NOTE | 2016-12-26 14:42 | PCM.PHAPRO ---
Progress Date of Service: Dec 26, 2016 Warfarin dosing -Dec 21-Dec 22-Nov 25-Dec 24-Dec 3-Dec 26-Dec 1.25 1.19 1.18 1.28 1.37 2.04 -0.06 -0.01 0.1 #VALUE! #VALUE! 0.67 5mg 5mg 5mg 6mg 6mg 7.5mg 2.5mg Lam Scherer Dec 26, 2016 14:42
--- NOTE | 2016-12-26 17:55 | NUR ---
Resp/Activity/Diet/Skin Patient a/o x 3, denies pain or nausea but has noted sob at rest and with activity. Patient on bipap most of the shift, but on oxymask @ 9 L at rest, sat 88-91%. Patient has not taken in any fluids or food this shift, r/t sob. Patient oob x 2 amena fair. [employer] patent luis uop. Patient has redness in groins and buttock, calmoseptine applied. VSS, tele ST 100-110's. Will cont to monitor.
[2016-12-26] MEDS: Nystatin 100,000 Unit/Gm 15 Gm Powder TOPICAL SCH (20:08)
[2016-12-27] VITALS (17 sets, daily range): BP systolic 100–128; BP diastolic 58–74; PULSE 101–124; RESP 18–24; O2SAT 90–94
[2016-12-27] MEDS: Piperacillin-Tazo 3.375 Gm Inj 3.375 GM in Dextrose 5% Minibag Plus 50 ML IV SCH ×3 (00:53→16:56)
[2016-12-27 05:27] LABS: BASOPHILS % (AUTO) 0.1 % (0-3); EOSINOPHILS % (AUTO) 1.1 % (0-5); Mean Corpuscular Hemoglobin 27.1 pg (27.0-35.0); Mean Corpuscular Volume 91.7 fL (81-100); NEUTROPHILS % (AUTO) 84.3 % (40-74); Platelet Count 234 bil/L (150-400)
--- NOTE | 2016-12-27 05:36 | NUR ---
Respiratory Pt on BiPAP at 40% with SpO2 at 96% so pt was titrated down to 25% with Sp02 at 92%. Pt did have to be increased to Fi02 35%. Pt is a CO2 retainer so sats need to be between 88%-92%. Pt is currently on BiPAP at 35% FiO2 with SpO2 91%. Will continue to monitor pt's O2 sats and titrate supplemental O2 needs PRN. When pt is not on BiPAP pt was titrated down from 9L oxymask to 6L oxymask with SpO2 89-93%.
[2016-12-27 05:51] LABS: INR 2.84 ratio
--- NOTE | 2016-12-27 07:36 | DRSVH ---
PROCEDURE: X-RAY CHEST ONE VIEW, PORTABLE ([id number]) INDICATIONS: 51 year-old male with cough. TECHNIQUE: One view of the chest was acquired. COMPARISON: [facility], CR, XR CHEST 1VW (PORTABLE), 12/25/2016, 5:27. [facility], CR, XR CHEST 1VW (PORTABLE), 12/23/2016, 5:47. [facility], CR, XR CHEST 1VW (BALTAZAR BLE), 12/22/2016, 7:13. FINDINGS: Surgical changes and devices: None. Lungs and pleura: No pleural effusions or pneumothorax. Asymmetric right lower lung air space opacit ies have increased. Left lung remains clear. Mediastinum: Mediastinal contours appear normal. Moderate cardiomegaly is unchanged. Bones and chest wall: No suspicious bony lesions. Overlying soft tissues appear unremarkable. IMPRESSION: 1. Interval increased right lower lung atelectasis and/or pneumonia. 2. Moderate cardiomegaly as before. Dictated by: Wong Walker M.D. on 12/27/2016 at 7:33 Approved by: Wong Walker M.D. on 12/27/2016 at 7:35
[2016-12-27] MEDS: Famotidine Inj 20 MG in IV Premix 1 EACH IV SCH ×2 (08:22→20:33)
[2016-12-27] MEDS: Nystatin 100,000 Unit/Gm 15 Gm Powder TOPICAL SCH ×2 (08:23→20:34)
[2016-12-27] MEDS: Insulin LISPRO 300 Unit/3 mL Inj SUBQ SCH ×2 (08:30→20:30)
[2016-12-27] MEDS: Furosemide 10 mg/mL 2 mL Inj IVPUSH SCH (08:31)
[2016-12-27] MEDS: Albuterol-Ipratropium 3 mL Inhalation Solution NEB SCH ×4 (08:39→20:48)
--- NOTE | 2016-12-27 12:59 | PCM.PNMED ---
Subjective Date of Service Dec 27, 2016 Subjective He feels he is slowly improving. He still had a lot of dyspnea today with exertion getting up to the bathroom. No chest pain. Dry cough. He has no nausea or abdominal pain. He still is left scrotal edema and a lot of lower leg edema. Exam Vital Signs Vital Sign - Last Date Time Temp Pulse Resp B/P Pulse Ox O2 Delivery O2 Flow Rate FiO2 12/27/16 12:28 37.0 124 22 100/58 90 OxyMask 6.00 12/27/16 05:39 35 Intake and Output 12/26/16 12/26/16 12/27/16 Cumulative From/Thru 15:00 23:00 07:00 12/18/16 18:08 - 12/27/16 05:42 Intake Total 315 ml 347 ml 70587 ml Output Total 1100 ml 750 ml 03042 ml Balance -785 ml -403 ml 3238 ml Intake Oral 0 ml 200 ml 84903 ml IV Total 315 ml 147 ml 98145 ml Output Urine Total 1100 ml 750 ml 37683 ml # Bowel Movements 1 7 Exam Alert and oriented 3. Fluent speech. No distress. Anicteric sclera. Neck is supple. Lungs are clear with somethebases Heart is regular without murmur, gallop or rub. Abdomen is distended but nontender.Patient has pronounced scrotal edema. Both legs are quite edematous at 3-4+.Good radial pulses. No skin rash or lesions. IVs and Medications Medications Reviewed: Medications were reviewed in detail Lab and Diagnostics Result Diagram: 12/27/16 0515 12/27/16 05 X-Rays, CTs and MRIs PROCEDURE: X-RAY CHEST ONE VIEW, PORTABLE IMPRESSION: Probable right lower lobe infiltrate with small effusion. Approved by: Can Santana M.D. on 12/18/2016 at 19:04 PROCEDURE: CT ANGIO CHEST PULMONARY EMBOLISM IMPRESSION: 1. No pulmonary embolus seen. 2. Right lower lobe pneumonia pattern 3. Small right pleural effusion. Approved by: Eladio Garcia M.D. on 12/19/2016 at 16:03 ADDENDUM: Please note, a filling defect is visualized within the subsegmental branches of the right lower lobe pulmonary artery suspicious for occlusive pulmonary embolus. This finding was discussed with Dr. Duran at 9:35 AM on 12/22/16. Dictated by: Rena Chowdhury M.D. on 12/22/2016 at 9:38 Approved by: Rena Chowdhury M.D. on 12/22/2016 at 9:39 PROCEDURE: X-RAY CHEST ONE VIEW, PORTABLE IMPRESSION: 1. Cardiomegaly redemonstrated. 2. Bibasilar pleural effusions and airspace opacities consistent with compressive atelectasis versus pneumonia which has increased on the left. Dictated by: Chalino Miller [facility] Interpreted: Cayla Marmolejo MD on 12/22/2016 at 10: 46 Transcribed by: AMAIRANI on 12/22/2016 at 10:50 Cardiac Echo Impressions Echocardiogram Report Interpretation Summary Left ventricular systolic function is likely mildly reduced with the ejection fraction grossly estimated to be 45 +/- 5% without obvious focal wall motion abnormalities noted although poor endocardial definition reduces the sensitivity for the detection of such. However, there is a flattened septum consistent with a probable right ventricular pressure overload condition and a significant dyssynchronous contraction pattern, consistent with a conduction abnormality. The left ventricle is grossly normal in size and diastolic function could not be accurately assessed due to tachycardia. The right ventricle is moderate to severely dilated and right ventricular systolic function is moderate to severely reduced with a probable thrombus noted in the right ventricular apex entrapped by the moderator band, seen by use of echo contrast, and measuring approximately 2.5 cm x 3.0 cm. Right ventricular systolic pressure is at least 30 mmHg plus the clinically estimated CVP and likely is significantly higher based on other echo findings, but the weakTR jet limits the accuracy of the estimate on this exam. The left atrial size is normal and the right atrium is moderately dilated. There is mild tricuspid regurgitation but no other significant valvular heart disease. There is a small to moderate loculated pericardial effusion predominantly posteriorly but there are no echocardiographic or Doppler indications for cardiac tamponade. Reading Physician:11:53 AM Echocardiogram Report Interpretation Summary There is a small to moderate pericardial effusion noted. There are no echocardiographic or Doppler indications for cardiac tamponade. The right ventricle is moderate to severely dilated. Right ventricular systolic function is moderately reduced. Right ventricular systolic function has increased since previous exam. A possible thrombus continues to be noted in the right ventricular apex measuring approximately 2.4 cm x 2.6. This is slightly smaller than the echo from 12/19/16. The right ventricular systolic pressure is estimated at 48 mmHg assuming a right atrial pressure of 15 mm Hg. Reading Physician: PM Additional Diagnostics DateTimeAnalyzed 03:57:26 -_ pH ____7.392 - pCO2 ___83.9__ -mmHg pO2 ___57.7__ -mmHg HCO3- ___51.1__ -mmol/L ABE ___22.8__ -mmol/L tHb ___14.4__ -g/dL O2Hb ___87.4__ -% COHb ____2.2__ -% MetHb ____0.0__ -% sO2 ___89.4__ -% FIO2 ___44.0__ -% Drawn By MM - Date/Time Notified____ 04:05:00 -_ Spontaneous_RR 22 -b/min Liter_Flow ____6.00_ -L/min Oxygen Device 1 __CANNULA - Notified Whom RN - B 755 -mmHg K+ ____4.4__ -mmol/L tO2 ___17.7__ -Vol% Emeka test N/A - Assessment & Plan 51-year-old male patient with a history of COPD, congestive heart failure, and hyperventilation secondary to obesity presented to the ER with complaint of worsening dyspnea and weakness. #. Acute on chronic respiratory failure with hypercapnea and hypoxia, present on admission, active. -Secondary to chronic conditions of COPD, obesity hypoventilation, obstructive sleep apnea, and pulmonary hypertension. Acutely, patient has a pulmonary embolism and right lower lobe pneumonia, which is exacerbating his chronic respiratory failure. Patient requires nocturnal and daytime PRN volume ventilation. BiPAP is insufficient due to severity of COPD and obesity hypoventilation, which are the primary causes of his chronic hypercapnic respiratory failure and respiratory acidosis. Trilogy is recommended. -Patient is requiring supplemental oxygen which he does not require at home.currently on BIPAP -Venous blood gas shows continues to show retained CO2 but improved this morning -Trilogy has been arranged prior to discharge -Continue BiPAP as needed Plan for today is to continue diuresis with IV Lasix and antibiotics. #Probable acute septic shock due to HCAP . Resolved -Met criteria with HR >90, WBC 14.5, hypotension and continued hypotension despite adequate fluid resuscitation on 12/22/2016. Source of infection right lower lobe pneumonia. WBC continues to be elevated. -Stop lactated ringers at 80 mL/h -Continue azithromycin -Switch ceftriaxone to IV piperacillin/tazobactam on 12/23/16 # HCAP -worsening respiratory status,leukocytosis and increasing infiltrate -antibiotics broadened to zosyn and azithromycin Patient's leukocytosis persists. The plan for this to continue antibiotics. #. Acute on chronic systolic congestive heart failure, present on admission, ongoing -Contributing to above -Echocardiogram as above, EF 40-50%, right ventricle systolic function is moderate to severely reduced -BNP in the ER 12,223, decreased to 4985. -Patient has significant lower extremity edema and anasarca up to the umbilicus -Lisinopril on hold but resume lisinopril 10 mg once daily at bedtime tomorrow if blood pressure will tolerate -Furosemide 40 mg IV daily. Monitor serum bicarb level and if increases consider giving a dose of acetazolamide instead of furosemide for that day. -Stop carvedilol and switch to metoprolol tartrate 25 mg BID for better heart rate control and less blood pressure control -Monitor blood pressure, daily I&0s, and weights The plan for today is to continue metoprolol 25 twice a day and continue diuresis as patient is grossly fluid overloaded and still quite dyspneic. We will introduce an HONEY inhibitor next 1 or 2 days. #. Hypotension, acute, not present on admission. Resolved. -Initially thought due to BP meds and diuretics but persists after fluid given and meds held .likely due to septic shock due to HCAP. Repeat echocardiogram did not show worsening pericardial effusion. -discussed with cardiology, second echo doesn't show acute/new right heart strain, patient not a candidate for thrombolysis -Norepinephrine drip discontinued -Continue to monitor # acute pulmonary embolism,poa -seen on second review of prior CTA by radiologist -continue AC with heparin bridging and warfarin -unlikely hypotension on 12/22/16 was caused by new showers of PE given no acute right heart failure on echo -Discontinue heparin today as warfarin is now therapeutic #Pericardial effusion, chronicity unknown, active. -Differential diagnosis includes but not limited to infection, post-MT, uremia, malignancy, or idiopathic -Stable on repeat echocardiogram, no signs of cardiac tamponade -TSH within normal limits -Cardiac MRI cannot be performed here but if continued concern, can be done as an outpatient in [place] #. Acute kidney injury, present on admission, resolved. -Likely secondary to CHF exacerbation. -Patient has reported decreased urine output prior to admission for a few days -Nephrology consulted and following. Their time and recommendations were appreciated #. Possible thrombus in right ventricle, acute, present on admission. Active. -Most likely secondary to chronic cor pulmonale. Based on pt's outpatient records, he does not have history of atrial fibrillation. -Initial Echo showed probable thrombus in right ventricular apex, measuring approximately 2.5 cm x 3.[address] angio thrombus was not clearly seen. It is possible that the thrombus viewed on echocardiogram was an artifact but again visualized on Echo on 12/25/16. -Pulmonology was consulted. Their time and recommendations were appreciated. -Started on warfarin on 12/21/16 with pharmacy dosing. -Patient may need a work-up for an underlying malignancy as an outpatient. #.Possible COPD exacerbation present on admission, ongoing -COPD exacerbation is possible given increased sputum production and worsening of cough and new supplemental oxygen requirement -Azithromycin 250 mg PO daily resumed 12/21/16 -Duoneb q4h while awake, albuterol nebulizers q2h PRN -Supplemental oxygen, with O2 goals of 88-92% -125 mg of Solu-Medrol administered to the patient -Continue to monitor #. Sinus tachycardia, acute, present on admission. Improved. -Patient reported being on propranolol for a fast heart rate. His outside records do not mention atrial fibrillation or any arrhythmia. He was on metoprolol tartrate 25 mg BID as of April 2016. -Secondary to acute pulmonary embolism and sepsis -Metoprolol as above #. Transaminitis, present on admission, improving -No previous records for comparison -Likely secondary to hepatic congestion from decompensation of CHF, hypoperfusion to liver, or possible fatty liver -AST 300, ALT 256, T bili 3.6, alkaline phosphatase 119 initially. Today, continued improvement. -Continue to evaluate with a.m. labs -Consider abdominal ultrasound or other imaging if worsens #. Morbid obesity, present on admission, ongoing -BMI 61 -Likely contributing to a chronic hypoventilation -Heart healthy diet ordered and discussed with patient about portion control rather than skipping meals #. Positive fecal occult blood test. -Patient is on anticoagulation for pulmonary embolism -Monitor hemoglobin and hematocrit disposition: [facility] with telemetry for continued antibiotics and blood pressure monitoring. Patient will likely be discharged to a SNF for continued rehabilitation Pain Evaluation: Adequate Pain Control VTE Prophylaxis: Sub-Q Heparin (Unfractionated) VTE Mechanical Devices: Intermittant Pneumatic CD Resuscitation Status: CPR: Attempt Resuscitation Time spent 40 minutes Emeka Hines MD Dec 27, 2016 12:59
--- NOTE | 2016-12-27 14:26 | PCM.PHAPRO ---
Progress Date of Service: Dec 27, 2016 Warfarin dosing A/ Patient's INR is therapeutic at 2.84 but is rising very sharply the last two days. P/ A further reduced dose of Warfarin 1mg will be given today and yesterday's reduced dose should reflect on the INR tomorrow. Reevaluate then. Lam Scherer Dec 27, 2016 14:26
--- NOTE | 2016-12-27 19:13 | NUR ---
Resp/Activity/Roper Patient a/o x 3, c/o pain on buttock and paz areas r/t redness and skin irritation. Patient encouraged to get oob or change position but unable for long periods r/t resp. Patient on bipap for approx 4 hrs and then on oxymask @ 6-9 Lfor rest of shift, sat 88-93%. Tele ST 110-130's. Patient oob x 1 with physical therapy, amb in room [facility]. Pateint had BM x 1 this shift. Roper discontinued at 1100, patient voiding small amts luis uop with staff assist. Patient voicing concerns about decreased uop and cont to have pitting edema from waist down. WQill cont to monitor.
[2016-12-28] VITALS (15 sets, daily range): BP systolic 87–122; BP diastolic 49–81; PULSE 11–124; RESP 17–21; O2SAT 90–96
[2016-12-28] MEDS: Piperacillin-Tazo 3.375 Gm Inj 3.375 GM in Dextrose 5% Minibag Plus 50 ML IV SCH ×3 (01:09→17:01)
[2016-12-28 07:00] LABS: INR 1.86 ratio
--- NOTE | 2016-12-28 07:46 | NUR ---
Respiratory Pt's BiPAP settings had to be increased from FiO2 35% to FiO2 40% to keep pt SpO2 89-91%. Pt was able to tolerate the BiPAP for approximately 4 hours at a time with breaks in between where the pt used 6-8L oxymask. When on the oxymask pt had times where he would desat to low 80s but then recover and be back into the upper 80s-93%.
[2016-12-28] MEDS: Albuterol-Ipratropium 3 mL Inhalation Solution NEB SCH ×4 (08:13→19:51)
[2016-12-28] MEDS: Insulin LISPRO 300 Unit/3 mL Inj SUBQ SCH ×2 (08:30→19:55)
[2016-12-28] MEDS: Famotidine Inj 20 MG in IV Premix 1 EACH IV SCH ×2 (08:38→19:51)
[2016-12-28] MEDS: Furosemide 10 mg/mL 2 mL Inj IVPUSH SCH (08:40)
[2016-12-28] MEDS: Nystatin 100,000 Unit/Gm 15 Gm Powder TOPICAL SCH ×2 (08:41→19:52)
[2016-12-28] MEDS ORDERED: 0.9% Sodium Chloride 250 ML ONE (08:50)
[2016-12-28] MEDS: Albuterol 2.5 mg/3 mL Inhalation Solution NEB PRN ×2 (10:21→14:45)
[2016-12-28] MEDS ORDERED: Heparin 5,000 Unit/mL Inj IVPUSH PRN (11:35)
[2016-12-28] MEDS: Heparin 25K Unit/500mL 0.45 NS 25,000 UNIT in IV Premix 1 EACH IV SCH ×2 (12:34→19:33)
--- NOTE | 2016-12-28 15:13 | PCM.PNMED ---
Subjective Date of Service Dec 28, 2016 Subjective Patient slowly improving today. Using BiPAP at times during the night with FiO2 of 0.4. Currently on oxygen mask saturating low 90s at 7 L.. Patient states that he is rarely getting out of bed, rarely using the incentive spirometer or Acapella valve, but is working with physical therapy. Discussed physical therapy reveals the patient is only walking about 15 feet. Patient has concerned about the edema in his legs. Exam Vital Signs Vital Sign - Last Date Time Temp Pulse Resp B/P Pulse Ox O2 Delivery O2 Flow Rate FiO2 12/28/16 13:36 37.1 122 20 122/78 92 OxyMask 7.00 12/28/16 08:26 40 Intake and Output 12/27/16 12/27/16 12/28/16 Cumulative From/Thru 15:00 23:00 07:00 12/18/16 18:08 - 12/28/16 04:50 Intake Total 1535 ml 200 ml 92638 ml Output Total 1460 ml 425 ml 23728 ml Balance 75 ml -225 ml 3088 ml Intake Oral 1400 ml 200 ml 24888 ml IV Total 135 ml 43556 ml Output Urine Total 1460 ml 425 ml 74325 ml # Voids 1 4 5 # Bowel Movements 1 0 8 Exam General: Morbidly obese. Awake and alert with BiPAP in place. No acute distress HEENT: BiPAP in place.. PERRLA Neck: supple Cardiovascular: RRR but distant Pulmonary: CTA with intermittent wheezing in bases Abdomen: Obese. Bowel tones present. Soft, nontender. Extremities: Pitting edema bilateral lower extremities up to thigh. Skin: no rashes Psychiatric: Normal mood and affect. Alert and oriented to person, place, and time. neuro: sensation intact throughout IVs and Medications Medications Reviewed: Medications were reviewed in detail Lab and Diagnostics Result Diagram: 12/28/16 0615 12/27/16 0515 X-Rays, CTs and MRIs PROCEDURE: X-RAY CHEST ONE VIEW, PORTABLE IMPRESSION: Probable right lower lobe infiltrate with small effusion. Approved by: Can Santana M.D. on 12/18/2016 at 19:04 PROCEDURE: CT ANGIO CHEST PULMONARY EMBOLISM IMPRESSION: 1. No pulmonary embolus seen. 2. Right lower lobe pneumonia pattern 3. Small right pleural effusion. Approved by: Eladio Garcia M.D. on 12/19/2016 at 16:03 ADDENDUM: Please note, a filling defect is visualized within the subsegmental branches of the right lower lobe pulmonary artery suspicious for occlusive pulmonary embolus. This finding was discussed with Dr. Duran at 9:35 AM on 12/22/16. Dictated by: Rena Chowdhury M.D. on 12/22/2016 at 9:38 Approved by: Rena Chowdhury M.D. on 12/22/2016 at 9:39 PROCEDURE: X-RAY CHEST ONE VIEW, PORTABLE IMPRESSION: 1. Cardiomegaly redemonstrated. 2. Bibasilar pleural effusions and airspace opacities consistent with compressive atelectasis versus pneumonia which has increased on the left. Dictated by: Chalino MORTON Interpreted: Cayla Marmolejo MD on 12/22/2016 at 10: 46 Transcribed by: AMAIRANI on 12/22/2016 at 10:50 Cardiac Echo Impressions Echocardiogram Report Interpretation Summary Left ventricular systolic function is likely mildly reduced with the ejection fraction grossly estimated to be 45 +/- 5% without obvious focal wall motion abnormalities noted although poor endocardial definition reduces the sensitivity for the detection of such. However, there is a flattened septum consistent with a probable right ventricular pressure overload condition and a significant dyssynchronous contraction pattern, consistent with a conduction abnormality. The left ventricle is grossly normal in size and diastolic function could not be accurately assessed due to tachycardia. The right ventricle is moderate to severely dilated and right ventricular systolic function is moderate to severely reduced with a probable thrombus noted in the right ventricular apex entrapped by the moderator band, seen by use of echo contrast, and measuring approximately 2.5 cm x 3.0 cm. Right ventricular systolic pressure is at least 30 mmHg plus the clinically estimated CVP and likely is significantly higher based on other echo findings, but the weakTR jet limits the accuracy of the estimate on this exam. The left atrial size is normal and the right atrium is moderately dilated. There is mild tricuspid regurgitation but no other significant valvular heart disease. There is a small to moderate loculated pericardial effusion predominantly posteriorly but there are no echocardiographic or Doppler indications for cardiac tamponade. Reading Physician:11:53 AM Echocardiogram Report Interpretation Summary There is a small to moderate pericardial effusion noted. There are no echocardiographic or Doppler indications for cardiac tamponade. The right ventricle is moderate to severely dilated. Right ventricular systolic function is moderately reduced. Right ventricular systolic function has increased since previous exam. A possible thrombus continues to be noted in the right ventricular apex measuring approximately 2.4 cm x 2.6. This is slightly smaller than the echo from 12/19/16. The right ventricular systolic pressure is estimated at 48 mmHg assuming a right atrial pressure of 15 mm Hg. Reading Physician: JEANIE Additional Diagnostics DateTimeAnalyzed 03:57:26 -_ pH ____7.392 - pCO2 ___83.9__ -mmHg pO2 ___57.7__ -mmHg HCO3- ___51.1__ -mmol/L ABE ___22.8__ -mmol/L tHb ___14.4__ -g/dL O2Hb ___87.4__ -% COHb ____2.2__ -% MetHb ____0.0__ -% sO2 ___89.4__ -% FIO2 ___44.0__ -% Drawn By MM - Date/Time Notified____ 04:05:00 -_ Spontaneous_RR 22 -b/min Liter_Flow ____6.00_ -L/min Oxygen Device 1 __CANNULA - Notified Whom RN - B 755 -mmHg K+ ____4.4__ -mmol/L tO2 ___17.7__ -Vol% Emeka test N/A - Assessment & Plan 51-year-old male patient with a history of COPD, congestive heart failure, and hyperventilation secondary to obesity presented to the ER with complaint of worsening dyspnea and weakness. Acute on chronic respiratory failure with hypercapnea and hypoxia, present on admission, active. - Secondary to chronic conditions of COPD, obesity hypoventilation, obstructive sleep apnea, and pulmonary hypertension. Acutely, patient has a pulmonary embolism and right lower lobe pneumonia, - Patient requires nocturnal and daytime BiPAP; Trilogy is recommended. Not on home O2 previously - Trilogy has been arranged prior to discharge - Continue BiPAP as needed - Continue diuresis with IV Lasix 40mg daily IV Probable acute septic shock due to HCAP . Resolved -Met criteria with HR >90, WBC 14.5, hypotension and continued hypotension despite adequate fluid resuscitation on 12/22/2016. Source of infection right lower lobe pneumonia. WBC continues to be elevated. -Stop lactated ringers at 80 mL/h -Continue azithromycin -Switch ceftriaxone to IV piperacillin/tazobactam on 12/23/16 HCAP; poa; ongoing - antibiotics broadened to zosyn and azithromycin; discontinue tomorrow - Leukocytosis persists for now, not on steroids Acute on chronic systolic Left congestive heart failure and severe dilation of RV, present on admission, ongoing - Echocardiogram as above, EF 40-50%, right ventricle systolic function is moderate to severely reduced - Patient has significant lower extremity edema and anasarca up to the umbilicus - Restart lisinopril 10mg daily - Furosemide 40 mg IV daily. Monitor serum bicarb level and if increases consider giving a dose of acetazolamide instead of furosemide for that day. - carvedilol stopped and switched to metoprolol tartrate 25 mg BID for better heart rate control and less blood pressure control Hypotension, acute, not present on admission. Resolved. -Initially thought due to BP meds and diuretics but persists after fluid given and meds held .likely due to septic shock due to HCAP. Repeat echocardiogram did not show worsening pericardial effusion. -discussed with cardiology, second echo doesn't show acute/new right heart strain, patient not a candidate for thrombolysis -Norepinephrine drip discontinued -Continue to monitor acute pulmonary embolism and possible RV thrombus, poa; resolving - seen on second review of prior CTA by radiologist - continue Hep gtt with heparin bridging and warfarin - Discontinue heparin today once warfarin is again therapeutic - Started on warfarin on 12/21/16 with pharmacy dosing. - Patient may need a work-up for an underlying malignancy as an outpatient. Pericardial effusion, chronicity unknown, stable -Differential diagnosis includes but not limited to infection, post-[place], uremia, malignancy, or idiopathic -Stable on repeat echocardiogram, no signs of cardiac tamponade - TSH normal Acute kidney injury, present on admission, resolved. -Likely secondary to CHF exacerbation. -Patient has reported decreased urine output prior to admission for a few days -Nephrology consulted and following. Their time and recommendations were appreciated Possible COPD exacerbation present on admission, ongoing -COPD exacerbation is possible given increased sputum production and worsening of cough and new supplemental oxygen requirement -Azithromycin 250 mg PO daily resumed 12/21/16 -Duoneb q4h while awake, albuterol nebulizers q2h PRN -Supplemental oxygen, with O2 goals of 88-92% -125 mg of Solu-Medrol administered to the patient -Continue to monitor Sinus tachycardia, acute, present on admission. stable -Patient reported being on propranolol for a fast heart rate. His outside records do not mention atrial fibrillation or any arrhythmia. He was on metoprolol tartrate 25 mg BID as of April 2016. -Secondary to acute pulmonary embolism and sepsis -Metoprolol as above Transaminitis, present on admission, resolved -No previous records for comparison -Likely secondary to hepatic congestion from decompensation of CHF, hypoperfusion to liver, or possible fatty liver -Continue to evaluate with a.m. labs Morbid obesity, present on admission, ongoing -BMI 61 -Likely contributing to a chronic hypoventilation -Heart healthy diet ordered and discussed with patient about portion control rather than skipping meals Positive fecal occult blood test. -Patient is on anticoagulation for pulmonary embolism -Monitor hemoglobin and hematocrit Dispo: Patient continues to need diuresis will require 2-3 more days before serious consideration to discharge. VTE Prophylaxis: Sub-Q Heparin (Unfractionated) VTE Mechanical Devices: Intermittant Pneumatic CD Resuscitation Status: CPR: Attempt Resuscitation Time spent 35 minutes Attending Statement Patient was seen and examined with house staff. Agree with all attached documentation. Jaun Reeves DO Dec 28, 2016 15:13 Emeka Hines MD Dec 29, 2016 07:15 -No previous records for comparison -Likely secondary to hepatic congestion from decompensation of CHF, hypoperfusion to liver, or possible fatty liver -AST 300, ALT 256, T bili 3.6, alkaline phosphatase 119 initially. Today, continued improvement. -Continue to evaluate with a.m. labs -Consider abdominal ultrasound or other imaging if worsens #. Morbid obesity, present on admission, ongoing -BMI 61 -Likely contributing to a chronic hypoventilation -Heart healthy diet ordered and discussed with patient about portion control rather than skipping meals #. Positive fecal occult blood test. -Patient is on anticoagulation for pulmonary embolism -Monitor hemoglobin and hematocrit disposition: [facility] with telemetry for continued antibiotics and blood pressure monitoring. Patient will likely be discharged to a SNF for continued rehabilitation VTE Prophylaxis: Sub-Q Heparin (Unfractionated) VTE Mechanical Devices: Intermittant Pneumatic CD Resuscitation Status: CPR: Attempt Resuscitation Jaun Reeves DO Dec 28, 2016 15:13
[2016-12-28 16:12] LABS: INR 1.95 ratio
--- NOTE | 2016-12-28 19:14 | NUR ---
Lasix/edema Lasix administered this a.m. Pt. voiding small amounts very frequently. Edema seems unchanged from start of shift. Will continue to monitor
[2016-12-29] VITALS (13 sets, daily range): BP systolic 81–100; BP diastolic 43–62; PULSE 106–118; RESP 16–25; O2SAT 85–97
[2016-12-29] MEDS: Piperacillin-Tazo 3.375 Gm Inj 3.375 GM in Dextrose 5% Minibag Plus 50 ML IV SCH ×3 (01:53→16:58)
[2016-12-29] MEDS: Heparin 25K Unit/500mL 0.45 NS 25,000 UNIT in IV Premix 1 EACH IV SCH (02:44)
[2016-12-29 03:37] LABS: BASOPHILS % (AUTO) 0.3 % (0-3); EOSINOPHILS % (AUTO) 2.1 % (0-5); MONOCYTES % (AUTO) 12.7 % (4-12); Mean Corpuscular Hemoglobin 26.8 pg (27.0-35.0); NEUTROPHILS % (AUTO) 75.5 % (40-74); Platelet Count 214 bil/L (150-400)
[2016-12-29] MEDS: Albuterol 2.5 mg/3 mL Inhalation Solution NEB PRN ×2 (03:43→03:45)
[2016-12-29 04:05] LABS: Magnesium 2.1 mg/dL (1.6-2.6); Phosphorus 3.8 mg/dL (2.5-4.9)
--- NOTE | 2016-12-29 07:36 | NUR ---
Respiratory Pt was titrated down to 30% FiO2 on BiPAP to maintain pt in the SpO2 range of 88-94%. When not on BiPAP pt was able to tolerate being on 6L NC and remain in the SpO2 range of 89-93%. Pt was able to expectorate a sputum sample and the sample was sent to the lab. Pt had said that the day doctor wanted the pt to get a sample if he could and so a specimen cup was left on the pt's bedside table which he coughed his sample into. The sputum was thin and rothman in color with what looked like one cindy red streak in it.
--- NOTE | 2016-12-29 08:07 | DRSVH ---
PROCEDURE: X-RAY CHEST ONE VIEW, PORTABLE ([id number]) INDICATIONS: SHORT OF BREATH TECHNIQUE: One view of the chest was acquired. COMPARISON: [facility], CR, XR CHEST 1VW (PORTABLE), 12/27/2016, 5:13. FINDINGS: Surgical changes and devices: None. Lungs and pleura: No pleural effusions or pneumothorax. Asymmetric right lower lung air space opacit ies are stable. Left lung remains clear. Mediastinum: Mediastinal contours appear normal. Moderate cardiomegaly is unchanged. Bones and chest wall: No suspicious bony lesions. Overlying soft tissues appear unremarkable. IMPRESSION: 1. Right lower lung atelectasis versus pneumonia and/or asymmetric edema with no significant change. 2. Moderate cardiomegaly redemonstrated. Dictated by: Chalino MOTRON Interpreted: Cayla Marmolejo MD on 12/29/2016 at 8:05 Transcribed by: AMAIRANI on 12/29/2016 at 8:06 Approved by: Cayla Marmolejo M.D. on 12/31/2016 at 16:05
[2016-12-29] MEDS: Insulin LISPRO 300 Unit/3 mL Inj SUBQ SCH ×2 (08:30→20:30)
[2016-12-29] MEDS: Albuterol-Ipratropium 3 mL Inhalation Solution NEB SCH ×4 (08:51→20:40)
[2016-12-29] MEDS ORDERED: Albumin 25% 50 GM in IV Premix 1 EACH IV ONE (09:25)
[2016-12-29] MEDS: Famotidine Inj 20 MG in IV Premix 1 EACH IV SCH ×2 (09:49→20:38)
[2016-12-29] MEDS: Nystatin 100,000 Unit/Gm 15 Gm Powder TOPICAL SCH ×2 (09:52→20:42)
--- NOTE | 2016-12-29 10:39 | PCM.PHAPRO ---
Progress Date of Service: Dec 29, 2016 Warfarin dosing A/ INR is nearly therapeutic at 1.95. Anticipate therapeutic range tomorrow and IV heparin can be d/c'ed P/ 5mg warfarin today and reevaluate tomorrow. Lam Scherer Dec 29, 2016 10:39
--- NOTE | 2016-12-29 11:26 | PCM.PNMED ---
Subjective Date of Service Dec 29, 2016 Subjective Patient remains about the same as it was yesterday. It makes on rinses and physical therapy. Diuresis yesterday was only 1100 mL. Patient is eating and talking appropriately. Continues to bring up some sputum occasionally but denies fever, chills, nausea, vomiting, hacking cough. Exam Vital Signs Vital Sign - Last Date Time Temp Pulse Resp B/P Pulse Ox O2 Delivery O2 Flow Rate FiO2 12/29/16 11:10 112 12/29/16 09:50 20 100/62 94 OxyMask 7.00 12/29/16 08:08 36.5 12/29/16 03:59 35 Intake and Output 12/28/16 12/28/16 12/29/16 Cumulative From/Thru 15:00 23:00 07:00 12/18/16 18:08 - 12/29/16 05:39 Intake Total 100 ml 1506 ml 200 ml 35029 ml Output Total 770 ml 125 ml 85407 ml Balance 100 ml 736 ml 75 ml 3999 ml Intake Oral 790 ml 200 ml 81774 ml IV Total 100 ml 716 ml 93093 ml Output Urine Total 770 ml 125 ml 82859 ml # Voids 5 # Bowel Movements 1 0 9 Exam General: Morbidly obese. Awake and alert with BiPAP in place. No acute distress HEENT: BiPAP in place.. PERRLA Neck: supple Cardiovascular: RRR but distant Pulmonary: CTA with intermittent wheezing in bases Abdomen: Obese. Bowel tones present. Soft, nontender. Extremities: Pitting edema bilateral lower extremities up to thigh. Skin: no rashes Psychiatric: Normal mood and affect. Alert and oriented to person, place, and time. neuro: sensation intact throughout IVs and Medications Medications Reviewed: Medications were reviewed in detail Lab and Diagnostics Result Diagram: 12/29/1631412/29/16314 X-Rays, CTs and MRIs PROCEDURE: X-RAY CHEST ONE VIEW, PORTABLE IMPRESSION: Probable right lower lobe infiltrate with small effusion. Approved by: Can Santana M.D. on 12/18/2016 at 19:04 PROCEDURE: CT ANGIO CHEST PULMONARY EMBOLISM IMPRESSION: 1. No pulmonary embolus seen. 2. Right lower lobe pneumonia pattern 3. Small right pleural effusion. Approved by: Eladio Garcia M.D. on 12/19/2016 at 16:03 ADDENDUM: Please note, a filling defect is visualized within the subsegmental branches of the right lower lobe pulmonary artery suspicious for occlusive pulmonary embolus. This finding was discussed with Dr. Duran at 9:35 AM on 12/22/16. Dictated by: Rena Chowdhury M.D. on 12/22/2016 at 9:38 Approved by: Rena Chowdhury M.D. on 12/22/2016 at 9:39 PROCEDURE: X-RAY CHEST ONE VIEW, PORTABLE IMPRESSION: 1. Cardiomegaly redemonstrated. 2. Bibasilar pleural effusions and airspace opacities consistent with compressive atelectasis versus pneumonia which has increased on the left. Dictated by: Chalino Miller [facility] Interpreted: Cayla Marmolejo MD on 12/22/2016 at 10: 46 Transcribed by: AMAIRANI on 12/22/2016 at 10:50 Cardiac Echo Impressions Echocardiogram Report Interpretation Summary Left ventricular systolic function is likely mildly reduced with the ejection fraction grossly estimated to be 45 +/- 5% without obvious focal wall motion abnormalities noted although poor endocardial definition reduces the sensitivity for the detection of such. However, there is a flattened septum consistent with a probable right ventricular pressure overload condition and a significant dyssynchronous contraction pattern, consistent with a conduction abnormality. The left ventricle is grossly normal in size and diastolic function could not be accurately assessed due to tachycardia. The right ventricle is moderate to severely dilated and right ventricular systolic function is moderate to severely reduced with a probable thrombus noted in the right ventricular apex entrapped by the moderator band, seen by use of echo contrast, and measuring approximately 2.5 cm x 3.0 cm. Right ventricular systolic pressure is at least 30 mmHg plus the clinically estimated CVP and likely is significantly higher based on other echo findings, but the weakTR jet limits the accuracy of the estimate on this exam. The left atrial size is normal and the right atrium is moderately dilated. There is mild tricuspid regurgitation but no other significant valvular heart disease. There is a small to moderate loculated pericardial effusion predominantly posteriorly but there are no echocardiographic or Doppler indications for cardiac tamponade. Reading Physician:11:53 AM Echocardiogram Report Interpretation Summary There is a small to moderate pericardial effusion noted. There are no echocardiographic or Doppler indications for cardiac tamponade. The right ventricle is moderate to severely dilated. Right ventricular systolic function is moderately reduced. Right ventricular systolic function has increased since previous exam. A possible thrombus continues to be noted in the right ventricular apex measuring approximately 2.4 cm x 2.6. This is slightly smaller than the echo from 12/19/16. The right ventricular systolic pressure is estimated at 48 mmHg assuming a right atrial pressure of 15 mm Hg. Reading Physician: JEANIE Additional Diagnostics DateTimeAnalyzed 03:57:26 -_ pH ____7.392 - pCO2 ___83.9__ -mmHg pO2 ___57.7__ -mmHg HCO3- ___51.1__ -mmol/L ABE ___22.8__ -mmol/L tHb ___14.4__ -g/dL O2Hb ___87.4__ -% COHb ____2.2__ -% MetHb ____0.0__ -% sO2 ___89.4__ -% FIO2 ___44.0__ -% Drawn By MM - Date/Time Notified____ 04:05:00 -_ Spontaneous_RR 22 -b/min Liter_Flow ____6.00_ -L/min Oxygen Device 1 __CANNULA - Notified Whom RN - B 755 -mmHg K+ ____4.4__ -mmol/L tO2 ___17.7__ -Vol% Emeka test N/A - Assessment & Plan 51-year-old male patient with a history of COPD, congestive heart failure, and hyperventilation secondary to obesity presented to the ER with complaint of worsening dyspnea and weakness. Acute on chronic respiratory failure with hypercapnea and hypoxia, present on admission, active. - Secondary to chronic conditions of COPD, obesity hypoventilation, obstructive sleep apnea, and pulmonary hypertension. Acutely, patient has a pulmonary embolism and right lower lobe pneumonia, - Patient requires nocturnal and daytime BiPAP; Trilogy is recommended. Not on home O2 previously - Trilogy has been arranged prior to discharge - Continue BiPAP as needed - Increase IV Lasix 60mg daily IV AND ADDING 25mg PO CHLORTHALIDONE Probable acute septic shock due to HCAP . Resolved -Met criteria with HR >90, WBC 14.5, hypotension and continued hypotension despite adequate fluid resuscitation on 12/22/2016. Source of infection right lower lobe pneumonia. WBC continues to be elevated. -Stop lactated ringers at 80 mL/h -Continue azithromycin -Switch ceftriaxone to IV piperacillin/tazobactam on 12/23/16 HCAP; poa; ongoing - antibiotics broadened to zosyn and azithromycin; discontinue tomorrow - Leukocytosis resolving Acute on chronic systolic Left congestive heart failure and severe dilation of RV, present on admission, ongoing - Echocardiogram as above, EF 40-50%, right ventricle systolic function is moderate to severely reduced - Patient has significant lower extremity edema and anasarca up to the umbilicus - Restart lisinopril 10mg daily - Furosemide 40 mg IV daily. Monitor serum bicarb level and if increases consider giving a dose of acetazolamide instead of furosemide for that day. - carvedilol stopped and switched to metoprolol tartrate 25 mg BID for better heart rate control and less blood pressure control Hypotension, acute, not present on admission. Resolved. -Initially thought due to BP meds and diuretics but persists after fluid given and meds held .likely due to septic shock due to HCAP. Repeat echocardiogram did not show worsening pericardial effusion. -discussed with cardiology, second echo doesn't show acute/new right heart strain, patient not a candidate for thrombolysis -Norepinephrine drip discontinued -Continue to monitor acute pulmonary embolism and possible RV thrombus, poa; resolving - seen on second review of prior CTA by radiologist - continue Hep gtt with heparin bridging and warfarin - Discontinue heparin today once warfarin is again therapeutic - Started on warfarin on 12/21/16 with pharmacy dosing. - Patient may need a work-up for an underlying malignancy as an outpatient. Pericardial effusion, chronicity unknown, stable -Differential diagnosis includes but not limited to infection, post-[place], uremia, malignancy, or idiopathic -Stable on repeat echocardiogram, no signs of cardiac tamponade - TSH normal Acute kidney injury, present on admission, resolved. -Likely secondary to CHF exacerbation. -Patient has reported decreased urine output prior to admission for a few days -Nephrology consulted and following. Their time and recommendations were appreciated Possible COPD exacerbation present on admission, ongoing -COPD exacerbation is possible given increased sputum production and worsening of cough and new supplemental oxygen requirement -Azithromycin 250 mg PO daily resumed 12/21/16 -Duoneb q4h while awake, albuterol nebulizers q2h PRN -Supplemental oxygen, with O2 goals of 88-92% -125 mg of Solu-Medrol administered to the patient -Continue to monitor Sinus tachycardia, acute, present on admission. stable -Patient reported being on propranolol for a fast heart rate. His outside records do not mention atrial fibrillation or any arrhythmia. He was on metoprolol tartrate 25 mg BID as of April 2016. -Secondary to acute pulmonary embolism and sepsis -Metoprolol as above Transaminitis, present on admission, resolved -No previous records for comparison -Likely secondary to hepatic congestion from decompensation of CHF, hypoperfusion to liver, or possible fatty liver -Continue to evaluate with a.m. labs Morbid obesity, present on admission, ongoing -BMI 61 -Likely contributing to a chronic hypoventilation -Heart healthy diet ordered and discussed with patient about portion control rather than skipping meals Positive fecal occult blood test. -Patient is on anticoagulation for pulmonary embolism -Monitor hemoglobin and hematocrit Dispo: Increasing aggressiveness of diuresis today. They are aware of the patient appears to be in overdiuresis. Likely discharge her tomorrow VTE Prophylaxis: Sub-Q Heparin (Unfractionated) VTE Mechanical Devices: Intermittant Pneumatic CD Resuscitation Status: CPR: Attempt Resuscitation Time spent 40 minutes Attending Statement Patient seen and examined with housestaff. Agree with all attached documentation. Jaun Reeves DO Dec 29, 2016 11:26 Emeka Hines MD Jan 01, 2017 09:55
[2016-12-29] MEDS: Albumin 25% 25 GM in IV Premix 1 EACH IV SCH (18:25)
--- NOTE | 2016-12-29 18:44 | NUR ---
Activity/Hep gtt/uop/skin/Hypotension Patient a/o x 4, denied pain except on buttock with movement r/t skin breakdown, wound care eval ordered per MD. Patient oob amb to bathroom x 1 with walker and one person assist, sob at rest and with activity. O2 2 6-9 L sats 86-92%. Patient using bipap for naps approx 4 hrs this shift. Hep gtt discontinued per md orders. Patient had min uop, bladder scan 0 ml pvr. 4+ pitting edema from waist down. SBP 70-100's, MD notified and new order parameters given. Will cont to monitor.
[2016-12-30] VITALS (15 sets, daily range): BP systolic 82–109; BP diastolic 48–93; PULSE 109–115; RESP 15–26; O2SAT 92–97
[2016-12-30] MEDS: Piperacillin-Tazo 3.375 Gm Inj 3.375 GM in Dextrose 5% Minibag Plus 50 ML IV SCH ×2 (00:41→09:05)
[2016-12-30] MEDS: Albumin 25% 25 GM in IV Premix 1 EACH IV SCH ×3 (01:31→16:09)
[2016-12-30 06:29] LABS: BASOPHILS % (AUTO) 0.2 % (0-3); EOSINOPHILS % (AUTO) 2.8 % (0-5); Mean Corpuscular Hemoglobin 26.8 pg (27.0-35.0); Mean Corpuscular Volume 92.3 fL (81-100); NEUTROPHILS % (AUTO) 72.3 % (40-74); Platelet Count 198 bil/L (150-400)
[2016-12-30 06:32] LABS: INR 1.27 ratio
--- NOTE | 2016-12-30 07:19 | NUR ---
UOP/Hypotension UOP minimal tonight, pt noted to be somewhat incontinent on bed and only put out 125mL in urinal. PVR 0mL SBP 80s most of night, MD notified. No c/o pain, tele STach 100s-110s
[2016-12-30] MEDS: Albuterol-Ipratropium 3 mL Inhalation Solution NEB SCH ×4 (08:14→20:38)
[2016-12-30] MEDS ORDERED: Furosemide 10 mg/mL 2 mL Inj IVPUSH SCH (08:30)
[2016-12-30] MEDS: Insulin LISPRO 300 Unit/3 mL Inj SUBQ SCH ×2 (08:30→20:30)
[2016-12-30] MEDS ORDERED: 0.9% Sodium Chloride 250 ML ONE (08:37)
[2016-12-30] MEDS: Famotidine Inj 20 MG in IV Premix 1 EACH IV SCH ×2 (08:54→20:19)
--- NOTE | 2016-12-30 09:03 | NUR ---
Gave access and faxed facehseet to Lyn Pope per [employer]TEGRITY ANALYST
[2016-12-30] MEDS: Nystatin 100,000 Unit/Gm 15 Gm Powder TOPICAL SCH ×2 (09:06→20:20)
--- NOTE | 2016-12-30 10:31 | NUR ---
NUTRITION FOLLOW-UP: ASSESS: 51 YO male with obesity hypoventilation syndrome admitted with acute on chronic right heart failure and respiratory failure. Continues to require BIPAP on and off. He continues to have pitting edema from waist down and decreased urine output. Pt's wt is up 13kg from admit. He is on a heart healthy diet with good PO at 100% of most meals. WC has been consulted for skin breakdown on buttock PMHX: COPD, CHF, GERD, LE edema LABS: Reviewed. Cl 92, CO2 37, Bun 32, Superintendent Refuse Disposal 1.59, Glu 108, t. bili 1.3, AST 58, ALT 45, Alb 3.3 MEDS: Reviewed. Coumadin, Insulin, Lasix. GI: BMx1 12/30 SKIN: Kam 18. WC consult pending CURRENT WT: 212 kg, BMI 57 kg/m2. Admit wt: 199kg, Adj BW: 118kg, IBW: 91.8kg DIET: Heart Healthy, PO 100% consistently. EST. NEEDS: BMI (based off admit wt) Kcals: 2595-2950kca/day (22-25kcal/kg adjBW) Pro: 95-110g/day (1.0-1.2g/kg IBW) NUTRITION DIAGNOSIS: 1) Increased nutrient needs related to chronic disease as evidence by history of COPD and possible wound- PERSISTS. NUTRITION INTERVENTION: 1) No intervention at this time. MONITOR / EVAL: PO, wt, GI, labs, POC, nutrition status. Will continue to monitor per moderate nutrition risk guidelines.
[2016-12-30 11:21] LABS: INR 1.32 ratio
--- NOTE | 2016-12-30 11:48 | NUR ---
Social Work Note: Continued Discharge Planning Data& Assessment: Per MD pt is not medically ready for discharge at this time. SW met with pt at bedside to discus discharge planning. [facility] is still reviewing pt at this time. Pt is agreeable for referrals to be sent out to [facility] and [facility] as well. Pt explained his preference is for [facility]. Pt will be getting a Trilogy Machine through [facility] at time of discharge, authorization obtained. Pt denies any other needs at this time. SW to continue to follow if any needs arise. Plan: Anticipated discharge to SNF pending acceptance. Lyn Moro, [facility] and [facility] reviewing pt at this time. Pt denies any other needs at this time. SW to continue to follow if any needs arise. KENDRICK Hopkins
[2016-12-30] MEDS ORDERED: Heparin 5,000 Unit/mL Inj IVPUSH PRN (12:00)
--- NOTE | 2016-12-30 12:05 | PCM.CONPHA ---
Subjective Date of Service: Dec 30, 2016 Warfarin dosing Reason for Pharmacy Consult: Anticoagulation Management Objective Vital Signs Date Time Temp Pulse Resp B/P Pulse Ox O2 Delivery O2 Flow Rate FiO2 12/30/16 11:23 115 12/30/16 11:10 116 21 94 35 12/30/16 08:40 Supplement Oxygen CPAP/BIPAP 12/30/16 08:38 36.5 110 24 95/93 94 BiPAP 12/30/16 08:14 116 16 93 35 12/30/16 04:22 36.5 109 20 88/52 93 BiPAP 12/30/16 04:03 111 12/30/16 00:03 37.0 109 18 84/52 92 BiPAP 35 12/30/16 00:00 108 15 93 35 12/29/16 20:56 112 16 90 35 12/29/16 20:30 Supplement Oxygen CPAP/BIPAP 12/29/16 20:28 37.0 114 18 93/51 91 BiPAP 30 12/29/16 16:28 36.7 113 20 81/43 97 OxyMask 6.00 12/29/16 12:29 37.0 106 18 91/53 91 Room Air 12/29/16 12:24 106 22 92 35 Intake and Output 12/28/16 12/29/16 12/30/16 00:00 00:00 00:00 Intake Total 1882 ml 1806 ml 3306 ml Output Total 2210 ml 1195 ml 395 ml Balance -328 ml 611 ml 2911 ml Weight (Kilograms): 212.400 Height (Feet): 6 Height (Inches): 4.00 Test 12/18/16 18:20 12/18/16 18:40 12/18/16 22:19 12/18/16 23:10 D-Dimer 7.8mg/L (<0.50) Troponin T < 0.010ug/L (0.0-0.011) Hold [place] Top Tube Received (Received) Urine Legionella pneumophilia Ag Negative (Negative) Ammonia 44ug/dL (18-53) Test 12/19/16 04:42 12/20/16 04:01 12/21/16 03:49 12/22/16 03:44 Triglycerides Level 133mg/dL (0-149) Cholesterol Level 126mg/dL (100-199) LDL Cholesterol, Calculated 94.400mg/dL (0-99) VLDL Cholesterol 26.600mg/dL HDL Cholesterol 5mg/dL (>39) Cholesterol/HDL Ratio 25.20 (0.0-4.4) Hemoglobin A1c 6.6% (4.8-5.6) Thyroid Stimulating Hormone (TSH) 2.620uIU/mL (0.450-4.500) Hematology Comments Test 12/22/16 06:30 12/22/16 07:40 12/22/16 18:50 12/29/16 03:15 Urine Color Dark yellow (YELLOW) Urine Appearance Hazy (CLEAR,HAZY) Urine pH 5.5 (5.0-8.0) Urine Specific [place] 1.025 (1.003-1.035) Urine Protein Negativemg/dL (NEG,TRACE) Urine Glucose (UA) Negativemg/dL (NEGATIVE) Urine Ketones Negativemg/dL (NEGATIVE) Urine Occult Blood Negative (NEGATIVE) Urine Nitrite Negative (NEGATIVE) Urine Bilirubin Moderate (NEGATIVE) Urine Ictotest Positive (Negative) Urine Urobilinogen Normalmg/dL (NORMAL) Urine Leukocyte Esterase Negative (NEGATIVE) Urine RBC 0-2/hpf (0-2) Urine WBC 0-5/hpf (0-5) Urine Epithelial Cells Occasional/hpf (NONE-MOD) Urine Crystals None seen (NONE SEEN) Urine Bacteria Few/hpf (NONE-FEW) Urine Hyaline Casts 5/20/lpf (NONE) Urine Granular Casts None seen (NONE SEEN) Urine Waxy Casts None seen (NONE SEEN) Urine Red Blood Cell Casts None seen (NONE SEEN) Urine White Blood Cell Casts None seen (NONE SEEN) Urine Mucus Present (None Seen) Urine Trichomonas None seen (NONE SEEN) Urine Yeast None (NONE SEEN) Urinalysis Comment None Urine Culture Reflexed Not indicated Hold Urine Received (Received) Lactic Acid Level 0.9mmol/L (0.4-2.0) Pro-B-Type Natriuretic Peptide 4985pg/mL (0-121) Fungal Antibodies <31pg/mL (.) Phosphorus Level 3.8mg/dL (2.5-4.9) Magnesium Level 2.1mg/dL (1.6-2.6) Procalcitonin 0.19ng/mL (0.00-0.08) Test 12/30/16 04:55 12/30/16 06:17 12/30/16 10:57 White Blood Count 13.4th/mm3 (3.8-10.1) Red Blood Count 4.26mil/mm3 (4.40-5.80) Hemoglobin 11.4g/dL (13.8-17.2) Hematocrit 39.3% (41.0-50.0) Mean Corpuscular Volume 92.3fL (81-100) Mean Corpuscular Hemoglobin 26.8pg (27.0-35.0) Mean Corpuscular Hemoglobin Concent 29.0% (32.0-37.0) Red Cell Distribution Width 18.7% (12.3-15.4) Platelet Count 198bil/L (150-400) Neutrophils (%) (Auto) 72.3% (40-74) Lymphocytes (%) (Auto) 10.6% (14-46) Monocytes (%) (Auto) 14.0% (4-12) Eosinophils (%) (Auto) 2.8% (0-5) Basophils (%) (Auto) 0.2% (0-3) Activated Partial Thromboplast Time 30.3sec (22.8-33.0) Sodium Level 139mEq/L (134-144) Potassium Level 4.2mEq/L (3.5-5.2) Chloride Level 92mEq/L (97-108) Carbon Dioxide Level 37mmol/L (18-29) Blood Urea Nitrogen 32mg/dL (6-24) Creatinine 1.59mg/dL (0.76-1.27) Estimat Glomerular Filtration Rate 49mL/min (>59) Glucose Level 108mg/dL (60-99) Calcium Level 9.5mg/dL (8.5-10.1) Total Bilirubin 1.3mg/dL (0.0-1.2) Aspartate Amino Transf (AST/SGOT) 58U/L (0-50) Alanine Aminotransferase (ALT/SGPT) 45U/L (0-44) Alkaline Phosphatase 122U/L (25-150) Total Protein 6.2g/dL (6.4-8.4) Albumin 3.3g/dL (3.4-5.0) Hold Blue Top Tube Received (Received) Prothrombin Time 14.2sec (8.1-12.5) Prothromb Time International Ratio 1.32ratio Assessment/Plan Assessment/Plan Assessment: * Patient is needing warfarin management for a right ventricle thrombus. * Patient received warfarin 5 mg on 12/29/16 after the INR improved to 1.95. * Patient's INR goal range: 2-3 * Patient's INR on 12/30/16: 1.27 * Given the drastic drop of the INR from 12/29/16 to today, a repeat INR was drawn to verify the first result. * Patient's redrawn INR on 12/30/16: 1.32 * Patient's INR has dropped substantially. This was likely due to a combination of CHF and liver issues. Plan: * Since the INR dropped that much and was verified by a second lab draw, the warfarin will be increased to 7.5 mg on 12/30/16 and will be reevaluated with the PT/INR on 12/31/16. * Since the INR has dropped that far below the INR goal range, the patient will also be restarted on the heparin drip immediately. * Will continue to follow. George Baker Dec 30, 2016 12:05
[2016-12-30] MEDS: Heparin 25K Unit/500mL 0.45 NS 25,000 UNIT in IV Premix 1 EACH IV SCH ×2 (13:14→20:29)
--- NOTE | 2016-12-30 13:58 | PCM.PNMED ---
Subjective Date of Service Dec 30, 2016 Subjective Patient continues to do well overnight. When BiPAP at night. Patient is somewhat restless and agitated medical course is not been smooth. Continue to try to diuresis yesterday with new sharmila development. Exam Vital Signs Vital Sign - Last Date Time Temp Pulse Resp B/P Pulse Ox O2 Delivery O2 Flow Rate FiO2 12/30/16 12:43 36.9 113 16 97/58 95 BiPAP 12/30/16 11:10 35 12/29/16 16:28 6.00 Intake and Output 12/29/16 12/29/16 12/30/16 Cumulative From/Thru 15:00 23:00 07:00 12/18/16 18:08 - 12/30/16 06:20 Intake Total 974 ml 2132 ml 200 ml 73316 ml Output Total 270 ml 91207 ml Balance 974 ml 1862 ml 200 ml 7035 ml Intake Oral 1400 ml 200 ml 42013 ml IV Total 974 ml 732 ml 61873 ml Output Urine Total 270 ml 22303 ml # Voids 1 6 # Bowel Movements 1 1 11 Exam General: Morbidly obese. Awake and alert with BiPAP in place. No acute distress HEENT: PERRLA; patient not on BiPAP Neck: supple Cardiovascular: RRR but distant Pulmonary: CTA with intermittent wheezing in bases Abdomen: Obese. Bowel tones present. Soft, nontender. Extremities: Pitting edema bilateral lower extremities up to hips. Skin: no rashes Psychiatric: Normal mood and affect. Alert and oriented to person, place, and time. neuro: sensation intact throughout IVs and Medications Medications Reviewed: Medications were reviewed in detail Lab and Diagnostics Result Diagram: 12/30/16 0455 12/30/16 0455 X-Rays, CTs and MRIs PROCEDURE: X-RAY CHEST ONE VIEW, PORTABLE IMPRESSION: Probable right lower lobe infiltrate with small effusion. Approved by: Can Santana M.D. on 12/18/2016 at 19:04 PROCEDURE: CT ANGIO CHEST PULMONARY EMBOLISM IMPRESSION: 1. No pulmonary embolus seen. 2. Right lower lobe pneumonia pattern 3. Small right pleural effusion. Approved by: Eladio Garcia M.D. on 12/19/2016 at 16:03 ADDENDUM: Please note, a filling defect is visualized within the subsegmental branches of the right lower lobe pulmonary artery suspicious for occlusive pulmonary embolus. This finding was discussed with Dr. Duran at 9:35 AM on 12/22/16. Dictated by: Rena Chowdhury M.D. on 12/22/2016 at 9:38 Approved by: Rena Chowdhury M.D. on 12/22/2016 at 9:39 PROCEDURE: X-RAY CHEST ONE VIEW, PORTABLE IMPRESSION: 1. Cardiomegaly redemonstrated. 2. Bibasilar pleural effusions and airspace opacities consistent with compressive atelectasis versus pneumonia which has increased on the left. Dictated by: Chalino Miller [facility] Interpreted: Cayla Marmolejo MD on 12/22/2016 at 10: 46 Transcribed by: AMAIRANI on 12/22/2016 at 10:50 Cardiac Echo Impressions Echocardiogram Report Interpretation Summary Left ventricular systolic function is likely mildly reduced with the ejection fraction grossly estimated to be 45 +/- 5% without obvious focal wall motion abnormalities noted although poor endocardial definition reduces the sensitivity for the detection of such. However, there is a flattened septum consistent with a probable right ventricular pressure overload condition and a significant dyssynchronous contraction pattern, consistent with a conduction abnormality. The left ventricle is grossly normal in size and diastolic function could not be accurately assessed due to tachycardia. The right ventricle is moderate to severely dilated and right ventricular systolic function is moderate to severely reduced with a probable thrombus noted in the right ventricular apex entrapped by the moderator band, seen by use of echo contrast, and measuring approximately 2.5 cm x 3.0 cm. Right ventricular systolic pressure is at least 30 mmHg plus the clinically estimated CVP and likely is significantly higher based on other echo findings, but the weakTR jet limits the accuracy of the estimate on this exam. The left atrial size is normal and the right atrium is moderately dilated. There is mild tricuspid regurgitation but no other significant valvular heart disease. There is a small to moderate loculated pericardial effusion predominantly posteriorly but there are no echocardiographic or Doppler indications for cardiac tamponade. Reading Physician:11:53 AM Echocardiogram Report Interpretation Summary There is a small to moderate pericardial effusion noted. There are no echocardiographic or Doppler indications for cardiac tamponade. The right ventricle is moderate to severely dilated. Right ventricular systolic function is moderately reduced. Right ventricular systolic function has increased since previous exam. A possible thrombus continues to be noted in the right ventricular apex measuring approximately 2.4 cm x 2.6. This is slightly smaller than the echo from 12/19/16. The right ventricular systolic pressure is estimated at 48 mmHg assuming a right atrial pressure of 15 mm Hg. Reading Physician: PM Additional Diagnostics DateTimeAnalyzed 03:57:26 -_ pH ____7.392 - pCO2 ___83.9__ -mmHg pO2 ___57.7__ -mmHg HCO3- ___51.1__ -mmol/L ABE ___22.8__ -mmol/L tHb ___14.4__ -g/dL O2Hb ___87.4__ -% COHb ____2.2__ -% MetHb ____0.0__ -% sO2 ___89.4__ -% FIO2 ___44.0__ -% Drawn By MM - Date/Time Notified____ 04:05:00 -_ Spontaneous_RR 22 -b/min Liter_Flow ____6.00_ -L/min Oxygen Device 1 __CANNULA - Notified Whom RN - B 755 -mmHg K+ ____4.4__ -mmol/L tO2 ___17.7__ -Vol% Emeka test N/A - Assessment & Plan 51-year-old male patient with a history of COPD, congestive heart failure, and hyperventilation secondary to obesity presented to the ER with complaint of worsening dyspnea and weakness. He was briefly in the ICU due to severe hypotension thought to be from either sepsis or cardiogenic shock from decrease the patient's required preload due to right heart failure. Patient continues to be difficult to treat due to sensitive renal function. Recurrent Acute Kidney injury; recurrent; ongoing - Likely due to intravascular depletion due to cor pulmonale. - Pt had a bump in cre yesterday and diuresis was attempted without much response. Patient's urine output actually declined. - Chlorthalidone was discontinued, Lasix discontinued today - Recheck a.m. labs - Discussed this case with Dr. Arechiga from nephrology and she will see the patient Acute on presumed chronic Cor pulmonale with systolic left heart failure, present on admission, ongoing - Echocardiogram as above, EF 40-50%, right ventricle systolic function is moderate to severely reduced; current etiology is somewhat unclear although there is significantly elevated right ventricular pressure suggesting pulmonary hypertension due to hypoventilation syndrome and expected untreated SUNDAY. It is hard to identify exact pulmonary artery pressures due to poor study secondary to patient's size - Anasarca up to the umbilicus - Held lisinopril 10mg daily 12/30/16 - Lasix on hold due to sharmila; will wait for nephrology before restarting - carvedilol stopped and switched to metoprolol tartrate 25 mg BID for better heart rate control and less blood pressure control Anasarca secondary to right heart failure; present on admission; ongoing - Patient is currently 13 kg heavier when he first presented. Attempts at diuresis have been either too aggressive or futile with no marked improvement in the last couple days - Nephrology has previously consulted and helped to resolve the earlier SHARMILA - Albumin was attempted but is not proving to be overly useful - Plan for this evening is to have the patient's legs 6 inch Mehdi wraps and to elevate the legs of the patient during the night - Orders will be discussed with nursing Acute on chronic hypercapnic and hypoxic respiratory failure, present on admission, active. - Secondary to chronic conditions of COPD, obesity hypoventilation, obstructive sleep apnea, and pulmonary hypertension. Acutely, patient has a pulmonary embolism and right lower lobe pneumonia, - Patient requires nocturnal and daytime BiPAP; Trilogy is recommended. Not on home O2 previously - Trilogy has been arranged prior to discharge - Continue BiPAP as needed - Lasix was given this morning but discontinued as there is new acute kidney injury Sinus tachycardia, acute, present on admission. stable -Patient reported being on propranolol for a fast heart rate. His outside records do not mention atrial fibrillation or any arrhythmia. He was on metoprolol tartrate 25 mg BID as of April 2016. -Secondary to acute pulmonary embolism and sepsis -Metoprolol as above Transaminitis, present on admission, recurrent -Likely secondary to hepatic congestion from decompensation of CHF, hypoperfusion to liver, or possible fatty liver, with intravascular volume depletion -Continue to evaluate with a.m. labs HCAP; poa; ongoing - antibiotics broadened to zosyn and azithromycin; discontinue today - Leukocytosis resolving Resolved/resolving Problems Probable acute septic vs cardiogenic shock due to HCAP . Resolved -Met criteria with HR >90, WBC 14.5, hypotension and continued hypotension despite adequate fluid resuscitation on 12/22/2016. Source of infection right lower lobe pneumonia. WBC continues to be elevated. Possible cardiogenic due to overdiuresis in patient with cor pulmonale. -Initially continued azithromycin -Switch ceftriaxone to IV piperacillin/tazobactam on 12/23/16; stopped 12/30/16 Possible COPD exacerbation present on admission, resolved -COPD exacerbation is possible given increased sputum production and worsening of cough and new supplemental oxygen requirement -Azithromycin 250 mg PO daily resumed 12/21/16; discontinued -Duoneb q4h while awake, albuterol nebulizers q2h PRN -Supplemental oxygen, with O2 goals of 88-92% -125 mg of Solu-Medrol; discontinued Hypotension, acute, not present on admission. Resolved. -Initially thought due to BP meds and diuretics but persists after fluid given and meds held .likely due to septic shock due to HCAP. Repeat echocardiogram did not show worsening pericardial effusion. -discussed with cardiology, second echo doesn't show acute/new right heart strain, patient not a candidate for thrombolysis -Norepinephrine drip discontinued -Continue to monitor Acute pulmonary embolism and possible RV thrombus, poa; resolving - seen on second review of prior CTA by radiologist - continue Hep gtt with heparin bridging and warfarin - Discontinue heparin today once warfarin is again therapeutic - Started on warfarin on 12/21/16 with pharmacy dosing. - Patient may need a work-up for an underlying malignancy as an outpatient. Pericardial effusion, chronicity unknown, stable -Differential diagnosis includes but not limited to infection, post-MD, uremia, malignancy, or idiopathic -Stable on repeat echocardiogram, no signs of cardiac tamponade - TSH normal Acute kidney injury, present on admission, resolved. -Likely secondary to CHF exacerbation. -Patient has reported decreased urine output prior to admission for a few days -Nephrology consulted and following. Their time and recommendations were appreciated Morbid obesity -BMI 61 -Likely contributing to a chronic hypoventilation -Heart healthy diet ordered and discussed with patient about portion control rather than skipping meals Dispo: Patient is developing cardiorenal syndrome with severe third spacing of fluid. Current goals are remobilization of this fluid both through increased activity, leg wrappings, elevating few the bed in the evening, continue diuresis and fluid management by nephrology. Patient wishes to discuss transfer to [place] at this point may not be a clinical reason why this would benefit the patient. Does have a history of additional admissions at that hospital but currently I have been unable to find those records. VTE Prophylaxis: Sub-Q Heparin (Unfractionated) VTE Mechanical Devices: Intermittant Pneumatic CD Resuscitation Status: CPR: Attempt Resuscitation Attending Statement Pt seen and examined by myself and agree with above plan. Jaun Reeves DO Dec 30, 2016 13:58 Fouzia Morris MD Dec 30, 2016 15:29
--- NOTE | 2016-12-30 14:40 | PCM.PNNEPH ---
Subjective Date of Service Dec 30, 2016 Subjective Patient was last seen by renal service on 12/23. He now has another episode of SHARMILA. Serum creatinine has risen over the past 72 hr. Of note smart was removed on 12/27. Lisinopril add on 12/28. IV albumin given to restore intravascular volume yet he has become more dyspneic and has gained weight. He is complaining of SOB, low urine output and scrotal swelling. BP has been on the low side since the admission. Exam Vital Signs Vital Sign - Last Date Time Temp Pulse Resp B/P Pulse Ox O2 Delivery O2 Flow Rate FiO2 12/30/16 12:43 36.9 113 16 97/58 95 BiPAP 12/30/16 11:10 35 12/29/16 16:28 6.00 Intake and Output 12/29/16 12/29/16 12/30/16 Cumulative From/Thru 15:00 23:00 07:00 12/18/16 18:08 - 12/30/16 06:20 Intake Total 974 ml 2132 ml 200 ml 36732 ml Output Total 270 ml 56187 ml Balance 974 ml 1862 ml 200 ml 7035 ml Intake Oral 1400 ml 200 ml 91588 ml IV Total 974 ml 732 ml 76661 ml Output Urine Total 270 ml 10585 ml # Voids 1 6 # Bowel Movements 1 1 11 Exam General appearance: Obese, mild distress on BiPAP. Awake, alert. Cooperative. HEENT: Atraumatic. Moist mucous membranes. PERRLA. No pallor, no jaundice. Heart: Regular rhythm. Normal S1, S2. Distant heart sounds. Lungs: Fine crackles at the bases. Good air entry. Abdomen: Soft, obese. Active bowel sounds. Nontender. Nondistended. Extremities: 3+ edema on the lower extremities up to the sacral area. : scrotal swelling. Lab and Diagnostics Result Diagram: 12/30/165 12/30/16454 X-Rays, CTs and MRIs PROCEDURE: X-RAY CHEST ONE VIEW, PORTABLE IMPRESSION: Probable right lower lobe infiltrate with small effusion. Approved by: Can Santana M.D. on 12/18/2016 at 19:04 PROCEDURE: CT ANGIO CHEST PULMONARY EMBOLISM IMPRESSION: 1. No pulmonary embolus seen. 2. Right lower lobe pneumonia pattern 3. Small right pleural effusion. Approved by: Eladio Garcia M.D. on 12/19/2016 at 16:03 ADDENDUM: Please note, a filling defect is visualized within the subsegmental branches of the right lower lobe pulmonary artery suspicious for occlusive pulmonary embolus. This finding was discussed with Dr. Duran at 9:35 AM on 12/22/16. Dictated by: Rena Chowdhury M.D. on 12/22/2016 at 9:38 Approved by: Rena Chowdhury M.D. on 12/22/2016 at 9:39 PROCEDURE: X-RAY CHEST ONE VIEW, PORTABLE IMPRESSION: 1. Cardiomegaly redemonstrated. 2. Bibasilar pleural effusions and airspace opacities consistent with compressive atelectasis versus pneumonia which has increased on the left. Dictated by: Chalino MORTON Interpreted: Cayla Marmolejo MD on 12/22/2016 at 10: 46 Transcribed by: AMAIRANI on 12/22/2016 at 10:50 Cardiac Echo Impressions Echocardiogram Report Interpretation Summary Left ventricular systolic function is likely mildly reduced with the ejection fraction grossly estimated to be 45 +/- 5% without obvious focal wall motion abnormalities noted although poor endocardial definition reduces the sensitivity for the detection of such. However, there is a flattened septum consistent with a probable right ventricular pressure overload condition and a significant dyssynchronous contraction pattern, consistent with a conduction abnormality. The left ventricle is grossly normal in size and diastolic function could not be accurately assessed due to tachycardia. The right ventricle is moderate to severely dilated and right ventricular systolic function is moderate to severely reduced with a probable thrombus noted in the right ventricular apex entrapped by the moderator band, seen by use of echo contrast, and measuring approximately 2.5 cm x 3.0 cm. Right ventricular systolic pressure is at least 30 mmHg plus the clinically estimated CVP and likely is significantly higher based on other echo findings, but the weakTR jet limits the accuracy of the estimate on this exam. The left atrial size is normal and the right atrium is moderately dilated. There is mild tricuspid regurgitation but no other significant valvular heart disease. There is a small to moderate loculated pericardial effusion predominantly posteriorly but there are no echocardiographic or Doppler indications for cardiac tamponade. Reading Physician:11:53 AM Echocardiogram Report Interpretation Summary There is a small to moderate pericardial effusion noted. There are no echocardiographic or Doppler indications for cardiac tamponade. The right ventricle is moderate to severely dilated. Right ventricular systolic function is moderately reduced. Right ventricular systolic function has increased since previous exam. A possible thrombus continues to be noted in the right ventricular apex measuring approximately 2.4 cm x 2.6. This is slightly smaller than the echo from 12/19/16. The right ventricular systolic pressure is estimated at 48 mmHg assuming a right atrial pressure of 15 mm Hg. Reading Physician: JEANIE Additional Diagnostics DateTimeAnalyzed 03:57:26 -_ pH ____7.392 - pCO2 ___83.9__ -mmHg pO2 ___57.7__ -mmHg HCO3- ___51.1__ -mmol/L ABE ___22.8__ -mmol/L tHb ___14.4__ -g/dL O2Hb ___87.4__ -% COHb ____2.2__ -% MetHb ____0.0__ -% sO2 ___89.4__ -% FIO2 ___44.0__ -% Drawn By MM - Date/Time Notified____ 04:05:00 -_ Spontaneous_RR 22 -b/min Liter_Flow ____6.00_ -L/min Oxygen Device 1 __CANNULA - Notified Whom RN - B 755 -mmHg K+ ____4.4__ -mmol/L tO2 ___17.7__ -Vol% Emeka test N/A - Plan Impression 1. New onset Acute kidney injury, unknown baseline creatinine. - Serum creatinine has risen over the past 72 hr. - Of note smart was removed on 12/27. Lisinopril add on 12/28. - IV albumin given to restore intravascular volume yet he has become more dyspneic and has gained weight. -DDx CRS, ATN, AIN, obstructive uropathy. 2. Acute on presumed chronic Cor pulmonale with systolic left heart failure 3. Acute pulmonary embolism and possible RV thrombus. 4. Morbid obesity with hypoventilation syndrome. 5. Chronic obstructive pulmonary disease exacerbation with underlying disease of tobacco abuse. PLAN: 1. Reinsert smart catheter. 2. Continue to hold lisinopril. 3. D/c IV alb. 4. restart IV diuretic drip. 5. repeat BNP. 6. UA, urine eosinophils. Plan Kiki Flaherty MD Dec 30, 2016 14:40
[2016-12-30] MEDS ORDERED: Furosemide Inj 100 MG in 0.9% Sodium Chloride 90 ML IV SCH (16:40)
[2016-12-30 16:47] LABS: APPEARANCE,URINE SLIGHTLY CLOUDY (CLEAR,HAZY); COLOR,URINE DARK YELLOW (YELLOW); OCCULT BLOOD,URINE SMALL (NEGATIVE); UROBILINOGEN,URINE NORMAL (NORMAL)
[2016-12-30] MEDS ORDERED: Warfarin 2.5 MG, Warfarin 5 MG PO ONE ×2 (17:00)
--- NOTE | 2016-12-30 18:19 | NUR ---
Wound Care Wound evaluation order received, pt seen at bedside. Obese 51 yo male on a bariatric air bed and bipap machine. Skin assessment significant for extreme case of yeast encompassing his genitalia and buttocks which are beet red but blanchable. This area was washed with a combination of betadine and hydrogen peroxide to help dry these areas out, pt placed in sidelying and it was recommended that a portable fan be placed on his bedside table and directed to blow and circulate air around his involved areas. Will recheck on this patient tomorrow for possible 2nd treatment with betadine hydrogen peroxide wash, shield wipes to be used in the meantime and keep this patient off of his back.
--- NOTE | 2016-12-30 18:47 | NUR ---
Fall/Smart Placed Pt. had a near fall this afternoon at about 1350. Pt. was getting up out of BSC with FWW and gait belt was being used. Pt. ambulated one step when his left leg buckled and he slowly, with assistance, went on left knee. Code lift was called and Pt. was lifted back onto his bed. Pt. has a two new skin tears, one on his right and left knee and tegaderm was place on both of them. Pt. has smart in place that is draining to gravity.
[2016-12-30] MEDS: Furosemide Inj 100 MG in 0.9% Sodium Chloride 90 ML IVPUSH SCH (20:39)
[2016-12-31] VITALS (13 sets, daily range): BP systolic 93–110; BP diastolic 52–68; PULSE 100–119; RESP 16–25; O2SAT 90–97
[2016-12-31 02:51] LABS: BASOPHILS % (AUTO) 0.1 % (0-3); EOSINOPHILS % (AUTO) 2.6 % (0-5); MONOCYTES % (AUTO) 14.2 % (4-12); Mean Corpuscular Volume 92.8 fL (81-100); NEUTROPHILS % (AUTO) 73.4 % (40-74); Platelet Count 189 bil/L (150-400)
[2016-12-31 03:14] LABS: INR 1.43 ratio
[2016-12-31] MEDS: Heparin 25K Unit/500mL 0.45 NS 25,000 UNIT in IV Premix 1 EACH IV SCH ×3 (03:57→22:18)
[2016-12-31] MEDS: Albuterol 2.5 mg/3 mL Inhalation Solution NEB PRN (05:19)
--- NOTE | 2016-12-31 07:49 | NUR ---
Respiratory/UOP/Positioning Pt on BiPAP most of night with sats low to mid 90s. O2 at 35%. Early this morning sats looked to decrease to mid 80s and come back up on their own, sensor and BiPAP checked. RT called to check on settings. MD in room this morning when this was occurring and turned O2 up to 40%, sats maintaining now. Pt put out over 1L luis urine in smart, BP maintained. Pt encouraged to turn side to side to help w/ wounds on bottom, pt preferred to lay on back though voiced understanding of reasoning to turn, pt stated he wanted to sleep and turn later in morning. Pt did sleep w/ legs elevated most of night and early this morning turned to left side.
[2016-12-31] MEDS: Insulin LISPRO 300 Unit/3 mL Inj SUBQ SCH ×2 (08:30→20:10)
[2016-12-31] MEDS: Albuterol-Ipratropium 3 mL Inhalation Solution NEB SCH ×4 (09:14→20:21)
--- NOTE | 2016-12-31 10:02 | DRSVH ---
PROCEDURE: X-RAY CHEST ONE VIEW, PORTABLE ([id number]) INDICATIONS: 51 year-old male with dyspnea. TECHNIQUE: One view of the chest was acquired. COMPARISON: [facility], CR, XR CHEST 1VW (PORTABLE), 12/29/2016, 3:39. [facility], CR, XR CHEST 1VW (PORTABLE), 12/27/2016, 5:13. [facility], CR, XR CHEST 1VW (BALTAZAR BLE), 12/25/2016, 5:27. FINDINGS: Surgical changes and devices: None. Lungs and pleura: There is persistent right lower lung airspace opacity, obscuring portions of the ri ght hemidiaphragm. No pleural effusions or pneumothorax. Mediastinum: Mediastinal contours appear normal. Mild cardiomegaly is unchanged. Bones and chest wall: No suspicious bony lesions. Overlying soft tissues appear unremarkable. IMPRESSION: Persistent right lower lung pneumonia. Dictated by: Wong Walker M.D. on 12/31/2016 at 9:58 Approved by: Wong Walker M.D. on 12/31/2016 at 10:00
[2016-12-31] MEDS: Nystatin 100,000 Unit/Gm 15 Gm Powder TOPICAL SCH ×2 (10:05→20:11)
[2016-12-31] MEDS ORDERED: Potassium Chloride 20 mEq SR Tablet PO ONE (10:30)
--- NOTE | 2016-12-31 10:59 | PCM.PNMED ---
Subjective Date of Service Dec 31, 2016 Subjective History of abdomen patient had Smart placed, legs wrapped, and taken out of the chair position but he is sitting in. Legs were elevated and overnight it appears that there is increase in urine output. Patient also was on Lasix drip by nephrology. Patient was stable overnight and started on BiPAP for the majority. No other overnight issues other than consistent tachycardia which has been present since admission. Exam Vital Signs Vital Sign - Last Date Time Temp Pulse Resp B/P Pulse Ox O2 Delivery O2 Flow Rate FiO2 12/31/16 09:15 115 19 94 40 12/31/16 05:40 36.8 110/66 BiPAP 12/29/16 16:28 6.00 Intake and Output 12/30/16 12/30/16 12/31/16 Cumulative From/Thru 14:59 22:59 06:59 12/18/16 18:08 - 12/31/16 06:21 Intake Total 303 ml 2220 ml 400 ml 67664 ml Output Total 700 ml 1300 ml 47086 ml Balance 303 ml 1520 ml -900 ml 7958 ml Intake Oral 1440 ml 400 ml 28274 ml IV Total 303 ml 780 ml 01627 ml Output Urine Total 700 ml 1300 ml 51160 ml # Voids 6 # Bowel Movements 1 1 13 Exam General: Morbidly obese. Awake and alert with BiPAP in place. No acute distress HEENT: PERRLA Neck: supple Cardiovascular: RRR but distant and difficult to auscultate due to habitus Pulmonary: CTA with intermittent wheezing in bases Abdomen: Obese. Bowel tones present. Soft, nontender. Extremities: Pitting edema bilateral lower extremities up to hips. Skin: no rashes Psychiatric: Normal mood and affect. Alert and oriented to person, place, and time; conversive neuro: sensation intact throughout IVs and Medications Medications Reviewed: Medications were reviewed in detail Lab and Diagnostics Result Diagram: 12/31/169 12/31/16238 X-Rays, CTs and MRIs PROCEDURE: X-RAY CHEST ONE VIEW, PORTABLE IMPRESSION: Probable right lower lobe infiltrate with small effusion. Approved by: Can Santana M.D. on 12/18/2016 at 19:04 PROCEDURE: CT ANGIO CHEST PULMONARY EMBOLISM IMPRESSION: 1. No pulmonary embolus seen. 2. Right lower lobe pneumonia pattern 3. Small right pleural effusion. Approved by: Eladio Garcia M.D. on 12/19/2016 at 16:03 ADDENDUM: Please note, a filling defect is visualized within the subsegmental branches of the right lower lobe pulmonary artery suspicious for occlusive pulmonary embolus. This finding was discussed with Dr. Duran at 9:35 AM on 12/22/16. Dictated by: Rena Chowdhury M.D. on 12/22/2016 at 9:38 Approved by: Rena Chowdhury M.D. on 12/22/2016 at 9:39 PROCEDURE: X-RAY CHEST ONE VIEW, PORTABLE IMPRESSION: 1. Cardiomegaly redemonstrated. 2. Bibasilar pleural effusions and airspace opacities consistent with compressive atelectasis versus pneumonia which has increased on the left. Dictated by: Chalino MORTON Interpreted: Cayla Marmolejo MD on 12/22/2016 at 10: 46 Transcribed by: AMAIRANI on 12/22/2016 at 10:50 Cardiac Echo Impressions Echocardiogram Report Interpretation Summary Left ventricular systolic function is likely mildly reduced with the ejection fraction grossly estimated to be 45 +/- 5% without obvious focal wall motion abnormalities noted although poor endocardial definition reduces the sensitivity for the detection of such. However, there is a flattened septum consistent with a probable right ventricular pressure overload condition and a significant dyssynchronous contraction pattern, consistent with a conduction abnormality. The left ventricle is grossly normal in size and diastolic function could not be accurately assessed due to tachycardia. The right ventricle is moderate to severely dilated and right ventricular systolic function is moderate to severely reduced with a probable thrombus noted in the right ventricular apex entrapped by the moderator band, seen by use of echo contrast, and measuring approximately 2.5 cm x 3.0 cm. Right ventricular systolic pressure is at least 30 mmHg plus the clinically estimated CVP and likely is significantly higher based on other echo findings, but the weakTR jet limits the accuracy of the estimate on this exam. The left atrial size is normal and the right atrium is moderately dilated. There is mild tricuspid regurgitation but no other significant valvular heart disease. There is a small to moderate loculated pericardial effusion predominantly posteriorly but there are no echocardiographic or Doppler indications for cardiac tamponade. Reading Physician:11:53 AM Echocardiogram Report Interpretation Summary There is a small to moderate pericardial effusion noted. There are no echocardiographic or Doppler indications for cardiac tamponade. The right ventricle is moderate to severely dilated. Right ventricular systolic function is moderately reduced. Right ventricular systolic function has increased since previous exam. A possible thrombus continues to be noted in the right ventricular apex measuring approximately 2.4 cm x 2.6. This is slightly smaller than the echo from 12/19/16. The right ventricular systolic pressure is estimated at 48 mmHg assuming a right atrial pressure of 15 mm Hg. Reading Physician: JEANIE Additional Diagnostics DateTimeAnalyzed 03:57:26 -_ pH ____7.392 - pCO2 ___83.9__ -mmHg pO2 ___57.7__ -mmHg HCO3- ___51.1__ -mmol/L ABE ___22.8__ -mmol/L tHb ___14.4__ -g/dL O2Hb ___87.4__ -% COHb ____2.2__ -% MetHb ____0.0__ -% sO2 ___89.4__ -% FIO2 ___44.0__ -% Drawn By MM - Date/Time Notified____ 04:05:00 -_ Spontaneous_RR 22 -b/min Liter_Flow ____6.00_ -L/min Oxygen Device 1 __CANNULA - Notified Whom RN - B 755 -mmHg K+ ____4.4__ -mmol/L tO2 ___17.7__ -Vol% Emeka test N/A - Assessment & Plan 51-year-old male patient with a history of COPD, congestive heart failure, and hyperventilation secondary to obesity presented to the ER with complaint of worsening dyspnea and weakness. He was briefly in the ICU due to severe hypotension thought to be from either sepsis or cardiogenic shock from decrease the patient's required preload due to right heart failure. Patient continues to be difficult to treat due to sensitive renal function. Recurrent Acute Kidney injury; recurrent; improving - Likely due to intravascular depletion due to cor pulmonale and third spacing - Cre decreasing and weight down 1kg. Urine output increased - Per nephrology, pt place on lasix drip and smart placed - Recheck a.m. labs - Dr. Arechiga (nephro) following. appreciate her assistance Acute on presumed chronic Cor pulmonale with systolic left heart failure, present on admission, ongoing - Echocardiogram as above, EF 40-50%, right ventricle systolic function is moderate to severely reduced; current etiology is somewhat unclear although there is significantly elevated right ventricular pressure suggesting pulmonary hypertension due to hypoventilation syndrome and expected untreated SUNDAY. It is hard to identify exact pulmonary artery pressures due to poor study secondary to obesity - Held lisinopril 10mg daily 12/30/16 - Lasix on hold due to kelly; will wait for nephrology before restarting - carvedilol stopped and switched to metoprolol tartrate 25 mg BID for better heart rate control and less blood pressure effect Anasarca secondary to right heart failure; present on admission; ongoing - Patient is now 12 kg heavier then when he first presented. Attempts at diuresis have been either too aggressive or futile; will proceed with caution - Nephrology monitoring urine output and managing insulin drip; appreciate their assistance - Increase compression on leg wraps and extend above the knee. Noticeable improvement in LE edema and urine output Acute on chronic hypercapnic and hypoxic respiratory failure, present on admission, improved from admit - Secondary to chronic conditions of COPD, obesity hypoventilation, obstructive sleep apnea, and pulmonary hypertension. Acutely, patient has a pulmonary embolism and right lower lobe pneumonia, - Patient requires nocturnal and daytime BiPAP; Trilogy is recommended. Not on home O2 previously - Trilogy has been arranged prior to discharge and once close to [place], SW will help to finish paperwork - Continue BiPAP as needed - Lasix drip running - Some concern for pneumonia but patient has had more than adequate coverage over the last 2 weeks with persistent leukocytosis and indeterminant procalcitonin; CXR is improving but has not been able to firmly establish a infiltrate vs CHF - Pt has chronic resp acidosis with compensating metabolic alkalosis that is increasing likely due to diuresis Sinus tachycardia, acute, present on admission. stable -Patient reported being on propranolol for a fast heart rate. His outside records do not mention atrial fibrillation or any arrhythmia. He was on metoprolol tartrate 25 mg BID as of April 2016. -Underlying sinus tachy that is currently exacerbated by pulmonary embolism and probable decreased cardiac output from CHF -Increased metoprolol to 50mg bid with instructions to watch BP Transaminitis, present on admission, resolving -Likely secondary to hepatic congestion from decompensation of CHF, hypoperfusion to liver, or possible fatty liver, with intravascular volume depletion -Continue to evaluate with a.m. labs questionable HCAP; poa; ongoing - antibiotics broadened to zosyn and azithromycin; discontinue today Persistent leukocytosis of unknown significance; poa; ongoing - patient has shown leukocytosis that seems to cycle - procalcitonin indeterminant; other signs of infection also questionable - completed full course of abx with ceftriaxone and azithro, and then full week of zosyn - Continue to follow and monitor for fevers which have been absent so far during this stay Resolved/resolving Problems Probable acute septic vs cardiogenic shock due to HCAP . Resolved -Met criteria with HR >90, WBC 14.5, hypotension and continued hypotension despite adequate fluid resuscitation on 12/22/2016. Source of infection right lower lobe pneumonia. WBC continues to be elevated. Possible cardiogenic due to overdiuresis in patient with cor pulmonale. -Initially continued azithromycin -Switch ceftriaxone to IV piperacillin/tazobactam on 12/23/16; stopped 12/30/16 Possible COPD exacerbation present on admission, resolved -COPD exacerbation is possible given increased sputum production and worsening of cough and new supplemental oxygen requirement -Azithromycin 250 mg PO daily resumed 12/21/16; discontinued -Duoneb q4h while awake, albuterol nebulizers q2h PRN -Supplemental oxygen, with O2 goals of 88-92% -125 mg of Solu-Medrol; discontinued Hypotension, acute, not present on admission. Resolved. -Initially thought due to BP meds and diuretics but persists after fluid given and meds held .likely due to septic shock due to HCAP. Repeat echocardiogram did not show worsening pericardial effusion. -discussed with cardiology, second echo doesn't show acute/new right heart strain, patient not a candidate for thrombolysis -Norepinephrine drip discontinued -Continue to monitor Acute pulmonary embolism and possible RV thrombus, poa; resolving - seen on second review of prior CTA by radiologist - continue Hep gtt with heparin bridging and warfarin - Discontinue heparin today once warfarin is again therapeutic - Started on warfarin on 02/27/17 with pharmacy dosing. - Patient may need a work-up for an underlying malignancy as an outpatient. Pericardial effusion, chronicity unknown, stable -Differential diagnosis includes but not limited to infection, post-PA, uremia, malignancy, or idiopathic -Stable on repeat echocardiogram, no signs of cardiac tamponade - TSH normal Acute kidney injury, present on admission, resolved. -Likely secondary to CHF exacerbation. -Patient has reported decreased urine output prior to admission for a few days -Nephrology consulted and following. Their time and recommendations were appreciated Morbid obesity -BMI 61 -Likely contributing to a chronic hypoventilation -Heart healthy diet ordered and discussed with patient about portion control rather than skipping meals Dispo: Patient is slowly improving with reduction of lower extremity edema. Currently blood pressure is holding. Heart rate is going to be treated more aggressively today. Discussed with Dr. Arechiga and patient will likely need another week in the hospital. [facility] has accepted the patient on ready to discharge. VTE Prophylaxis: Sub-Q Heparin (Unfractionated) VTE Mechanical Devices: Intermittant Pneumatic CD Resuscitation Status: CPR: Attempt Resuscitation Attending Statement Pt seen and examined by myself and agree with above plan. Jaun Reeves DO Dec 31, 2016 10:59 Fouzia Morris MD Dec 31, 2016 15:36
--- NOTE | 2016-12-31 11:41 | PCM.PNNEPH ---
Subjective Date of Service Dec 31, 2016 Subjective somewhat improved, serum creatinine trended. increased UOP with lasix gtt. Exam Vital Signs Vital Sign - Last Date Time Temp Pulse Resp B/P Pulse Ox O2 Delivery O2 Flow Rate FiO2 12/31/16 09:15 115 19 94 40 12/31/16 05:40 36.8 110/66 BiPAP 12/29/16 16:28 6.00 Intake and Output 12/30/16 12/30/16 12/31/16 Cumulative From/Thru 15:00 23:00 07:00 12/18/16 18:08 - 12/31/16 06:21 Intake Total 303 ml 2220 ml 400 ml 57394 ml Output Total 700 ml 1300 ml 42220 ml Balance 303 ml 1520 ml -900 ml 7958 ml Intake Oral 1440 ml 400 ml 66035 ml IV Total 303 ml 780 ml 18161 ml Output Urine Total 700 ml 1300 ml 17773 ml # Voids 6 # Bowel Movements 1 1 13 Exam General appearance: Obese, mild distress on BiPAP. Awake, alert. Cooperative. Obese. HEENT: Atraumatic. Moist mucous membranes. PERRLA. No pallor, no jaundice. Heart: Regular rhythm. Normal S1, S2. Distant heart sounds. Lungs: Fine crackles at the bases. Decreased BS at bases. Abdomen: Soft, obese. Active bowel sounds. Nontender. Nondistended. Extremities: 3+ edema on the lower extremities up to the sacral area. : scrotal swelling, smart cath in place with yellowish urine. Lab and Diagnostics Result Diagram: 12/31/1623812/31/16238 X-Rays, CTs and MRIs PROCEDURE: X-RAY CHEST ONE VIEW, PORTABLE IMPRESSION: Probable right lower lobe infiltrate with small effusion. Approved by: Can Santana M.D. on 12/18/2016 at 19:04 PROCEDURE: CT ANGIO CHEST PULMONARY EMBOLISM IMPRESSION: 1. No pulmonary embolus seen. 2. Right lower lobe pneumonia pattern 3. Small right pleural effusion. Approved by: Eladio Garcia M.D. on 12/19/2016 at 16:03 ADDENDUM: Please note, a filling defect is visualized within the subsegmental branches of the right lower lobe pulmonary artery suspicious for occlusive pulmonary embolus. This finding was discussed with Dr. Duran at 9:35 AM on 12/22/16. Dictated by: Rena Chowdhury M.D. on 12/22/2016 at 9:38 Approved by: Rena Chowdhury M.D. on 12/22/2016 at 9:39 PROCEDURE: X-RAY CHEST ONE VIEW, PORTABLE IMPRESSION: 1. Cardiomegaly redemonstrated. 2. Bibasilar pleural effusions and airspace opacities consistent with compressive atelectasis versus pneumonia which has increased on the left. Dictated by: Chalino Miller [facility] Interpreted: Cayla Marmolejo MD on 12/22/2016 at 10: 46 Transcribed by: AMAIRANI on 12/22/2016 at 10:50 Cardiac Echo Impressions Echocardiogram Report Interpretation Summary Left ventricular systolic function is likely mildly reduced with the ejection fraction grossly estimated to be 45 +/- 5% without obvious focal wall motion abnormalities noted although poor endocardial definition reduces the sensitivity for the detection of such. However, there is a flattened septum consistent with a probable right ventricular pressure overload condition and a significant dyssynchronous contraction pattern, consistent with a conduction abnormality. The left ventricle is grossly normal in size and diastolic function could not be accurately assessed due to tachycardia. The right ventricle is moderate to severely dilated and right ventricular systolic function is moderate to severely reduced with a probable thrombus noted in the right ventricular apex entrapped by the moderator band, seen by use of echo contrast, and measuring approximately 2.5 cm x 3.0 cm. Right ventricular systolic pressure is at least 30 mmHg plus the clinically estimated CVP and likely is significantly higher based on other echo findings, but the weakTR jet limits the accuracy of the estimate on this exam. The left atrial size is normal and the right atrium is moderately dilated. There is mild tricuspid regurgitation but no other significant valvular heart disease. There is a small to moderate loculated pericardial effusion predominantly posteriorly but there are no echocardiographic or Doppler indications for cardiac tamponade. Reading Physician:11:53 AM Echocardiogram Report Interpretation Summary There is a small to moderate pericardial effusion noted. There are no echocardiographic or Doppler indications for cardiac tamponade. The right ventricle is moderate to severely dilated. Right ventricular systolic function is moderately reduced. Right ventricular systolic function has increased since previous exam. A possible thrombus continues to be noted in the right ventricular apex measuring approximately 2.4 cm x 2.6. This is slightly smaller than the echo from 12/19/16. The right ventricular systolic pressure is estimated at 48 mmHg assuming a right atrial pressure of 15 mm Hg. Reading Physician: PM Additional Diagnostics DateTimeAnalyzed 03:57:26 -_ pH ____7.392 - pCO2 ___83.9__ -mmHg pO2 ___57.7__ -mmHg HCO3- ___51.1__ -mmol/L ABE ___22.8__ -mmol/L tHb ___14.4__ -g/dL O2Hb ___87.4__ -% COHb ____2.2__ -% MetHb ____0.0__ -% sO2 ___89.4__ -% FIO2 ___44.0__ -% Drawn By MM - Date/Time Notified____ 04:05:00 -_ Spontaneous_RR 22 -b/min Liter_Flow ____6.00_ -L/min Oxygen Device 1 __CANNULA - Notified Whom RN - B 755 -mmHg K+ ____4.4__ -mmol/L tO2 ___17.7__ -Vol% Emeka test N/A - Plan Impression 1. New onset Acute kidney injury. - smart was reinserted and lasix gtt was resumed. - urine eos, not seen. - slowly improving. 2. Acute on presumed chronic Cor pulmonale with systolic left heart failure 3. Acute pulmonary embolism and possible RV thrombus. 4. Morbid obesity with hypoventilation syndrome. 5. Chronic obstructive pulmonary disease exacerbation with underlying disease of tobacco abuse. 6. Mixed respiratory acidosis and metabolic alkalosis. PLAN: 1. increase lasix to 10mg /hr. 2. keep smart cath for now. Kiki Flaherty MD Dec 31, 2016 11:41
[2016-12-31] MEDS: Furosemide Inj 100 MG in 0.9% Sodium Chloride 90 ML IVPUSH SCH (14:03)
--- NOTE | 2016-12-31 16:54 | NUR ---
Wound Care Rechecked on patient today, pt in sidelying when I entered the room so I am encouraged that we can make some progress. Patient continues to present with significant yeast with excoriated red skin at his buttocks, sacrum, groin and pannus but erythema does appear to be slightly better. I did rewash the areas with hydrogen peroxide and betadine solution and washcloths. Feel we need to keep patient in sidelying to allow these areas to continue to dry. Will recheck on this patient tomorrow.
--- NOTE | 2016-12-31 18:37 | NUR ---
Respiratory/Edema in Lower Extremities Pts. SpO2 was in the mid 70's with BIPAP on coming onto shift. MD came in and adjusted BIPAP settings and issue has resolved. Pt. has not c/o SO with BIPAP on. Pts. lower extremities seemed to have improved slightly showing a decrease in edema. Bilateral lower legs wrapped with HONEY wraps to help push fluids back up the upper body. Pt. has been cooperative with turning side to side taking pressure off his bottom.
[2017-01-01] VITALS (14 sets, daily range): BP systolic 102–109; BP diastolic 59–72; PULSE 110–130; RESP 16–20; O2SAT 85–96
[2017-01-01] MEDS: Furosemide Inj 100 MG in 0.9% Sodium Chloride 90 ML IVPUSH SCH ×3 (00:34→19:41)
[2017-01-01] MEDS: Heparin 25K Unit/500mL 0.45 NS 25,000 UNIT in IV Premix 1 EACH IV SCH ×3 (04:45→19:45)
[2017-01-01 07:08] LABS: BASOPHILS % (AUTO) 0.2 % (0-3); EOSINOPHILS % (AUTO) 2.5 % (0-5); MONOCYTES % (AUTO) 11.4 % (4-12); Mean Corpuscular Hemoglobin 26.8 pg (27.0-35.0); NEUTROPHILS % (AUTO) 74.6 % (40-74); Platelet Count 196 bil/L (150-400)
[2017-01-01 07:37] LABS: Magnesium 1.6 mg/dL (1.6-2.6); Phosphorus 3.5 mg/dL (2.5-4.9)
--- NOTE | 2017-01-01 07:41 | NUR ---
BP/Respiratory/Skin SBP 90s most of night, HS metoprolol held as pt also on Lasix drip, tele remained STach 100s-110s. Pt on BiPAP all shift, O2 40-50% as pt desats on BiPAP only when he sleeps. Pt encouraged to turn throughout night to help heal skin on bottom, pt voiced understanding of this importance but stated he cannot sleep on his side and would turn during day. Legs kept elevated throughout night, high UOP, see I&Os. Pt refused mepilex on nose at this time.
[2017-01-01 07:48] LABS: INR 2.02 ratio
[2017-01-01] MEDS: Albuterol-Ipratropium 3 mL Inhalation Solution NEB SCH ×4 (08:04→23:48)
[2017-01-01] MEDS: Insulin LISPRO 300 Unit/3 mL Inj SUBQ SCH ×2 (08:30→20:30)
--- NOTE | 2017-01-01 08:57 | DRSVH ---
PROCEDURE: X-RAY CHEST ONE VIEW, PORTABLE ([id number]) INDICATIONS: SHORT OF BREATH TECHNIQUE: One view of the chest was acquired. COMPARISON: [facility], CR, XR CHEST 1VW (PORTABLE), 12/31/2016, 5:21. FINDINGS: Surgical changes and devices: None. Lungs and pleura: Interstitium is prominent suggest pulmonary edema. There is airspace opacities at l sandy bases bilaterally and in the right midlung zone. Mediastinum: Mediastinal contours appear normal. Heart size is enlarged. Bones and chest wall: No suspicious bony lesions. Overlying soft tissues appear unremarkable. IMPRESSION: 1. Prominent pulmonary interstitium suggesting CHF. 2. ? Superimposed pneumonia involving the mid right lung and both lung bases. Dictated by: Chalino Miller [facility] Interpreted: Marisol Duarte MD on 01/01/2017 at 8:53 Transcribed by: RAJINDER on 01/01/2017 at 8:57 Approved by: Marisol Duarte M.D. on 01/01/2017 at 17:16
[2017-01-01] MEDS: Nystatin 100,000 Unit/Gm 15 Gm Powder TOPICAL SCH ×2 (09:16→23:33)
[2017-01-01] MEDS: Potassium Chloride 20 mEq SR Tablet PO SCH ×2 (09:23→23:32)
--- NOTE | 2017-01-01 11:38 | PCM.PNMED ---
Subjective Date of Service Jan 01, 2017 Subjective Patient's doing well overnight and diuresis really well with 3200 mL yesterday and already 3500 mL today. Patient's weight is also declined. Patient is better mood and denying additional dyspnea except for when he has a baseline. Does desat when he is talking and on nasal cannula. This can resolve with oxygen mask with increased oxygen up to 11 L. Patient has placement at [facility] Exam Vital Signs Vital Sign - Last Date Time Temp Pulse Resp B/P Pulse Ox O2 Delivery O2 Flow Rate FiO2 01/01/17 09:10 Supplement Oxygen CPAP/BIPAP 01/01/17 09:08 36.8 118 20 103/60 85 7.00 01/01/17 07:50 40 Intake and Output 12/31/16 12/31/16 01/01/17 Cumulative From/Thru 15:00 23:00 07:00 12/18/16 18:08 - 01/01/17 05:50 Intake Total 998 ml 1736 ml 200 ml 14667 ml Output Total 1950 ml 3525 ml 86181 ml Balance 998 ml -214 ml -3325 ml 5417 ml Intake Oral 1000 ml 200 ml 20574 ml IV Total 998 ml 736 ml 65375 ml Output Urine Total 1950 ml 3525 ml 36207 ml # Voids 6 # Bowel Movements 1 0 14 Exam General: Morbidly obese. Awake and alert with BiPAP in place. No acute distress HEENT: PERRLA Neck: supple Cardiovascular: RRR but distant and difficult to auscultate due to habitus Pulmonary: CTA with intermittent wheezing in bases Abdomen: Obese. Bowel tones present. Soft, nontender. Extremities: Pitting edema bilateral lower extremities up to hips. Skin: no rashes Psychiatric: Normal mood and affect. Alert and oriented to person, place, and time; conversive neuro: sensation intact throughout IVs and Medications Medications Reviewed: Medications were reviewed in detail Lab and Diagnostics Result Diagram: 01/01/1764401/01/17644 X-Rays, CTs and MRIs PROCEDURE: X-RAY CHEST ONE VIEW, PORTABLE IMPRESSION: Probable right lower lobe infiltrate with small effusion. Approved by: Can Santana M.D. on 12/18/2016 at 19:04 PROCEDURE: CT ANGIO CHEST PULMONARY EMBOLISM IMPRESSION: 1. No pulmonary embolus seen. 2. Right lower lobe pneumonia pattern 3. Small right pleural effusion. Approved by: Eladio Garcia M.D. on 12/19/2016 at 16:03 ADDENDUM: Please note, a filling defect is visualized within the subsegmental branches of the right lower lobe pulmonary artery suspicious for occlusive pulmonary embolus. This finding was discussed with Dr. Duran at 9:35 AM on 12/22/16. Dictated by: Rena Chowdhury M.D. on 12/22/2016 at 9:38 Approved by: Rena Chowdhury M.D. on 12/22/2016 at 9:39 PROCEDURE: X-RAY CHEST ONE VIEW, PORTABLE IMPRESSION: 1. Cardiomegaly redemonstrated. 2. Bibasilar pleural effusions and airspace opacities consistent with compressive atelectasis versus pneumonia which has increased on the left. Dictated by: Chalino Miller [facility] Interpreted: Cayla Marmolejo MD on 12/22/2016 at 10: 46 Transcribed by: AMAIRANI on 12/22/2016 at 10:50 Cardiac Echo Impressions Echocardiogram Report Interpretation Summary Left ventricular systolic function is likely mildly reduced with the ejection fraction grossly estimated to be 45 +/- 5% without obvious focal wall motion abnormalities noted although poor endocardial definition reduces the sensitivity for the detection of such. However, there is a flattened septum consistent with a probable right ventricular pressure overload condition and a significant dyssynchronous contraction pattern, consistent with a conduction abnormality. The left ventricle is grossly normal in size and diastolic function could not be accurately assessed due to tachycardia. The right ventricle is moderate to severely dilated and right ventricular systolic function is moderate to severely reduced with a probable thrombus noted in the right ventricular apex entrapped by the moderator band, seen by use of echo contrast, and measuring approximately 2.5 cm x 3.0 cm. Right ventricular systolic pressure is at least 30 mmHg plus the clinically estimated CVP and likely is significantly higher based on other echo findings, but the weakTR jet limits the accuracy of the estimate on this exam. The left atrial size is normal and the right atrium is moderately dilated. There is mild tricuspid regurgitation but no other significant valvular heart disease. There is a small to moderate loculated pericardial effusion predominantly posteriorly but there are no echocardiographic or Doppler indications for cardiac tamponade. Reading Physician:11:53 AM Echocardiogram Report Interpretation Summary There is a small to moderate pericardial effusion noted. There are no echocardiographic or Doppler indications for cardiac tamponade. The right ventricle is moderate to severely dilated. Right ventricular systolic function is moderately reduced. Right ventricular systolic function has increased since previous exam. A possible thrombus continues to be noted in the right ventricular apex measuring approximately 2.4 cm x 2.6. This is slightly smaller than the echo from 12/19/16. The right ventricular systolic pressure is estimated at 48 mmHg assuming a right atrial pressure of 15 mm Hg. Reading Physician: JEANIE Additional Diagnostics DateTimeAnalyzed 03:57:26 -_ pH ____7.392 - pCO2 ___83.9__ -mmHg pO2 ___57.7__ -mmHg HCO3- ___51.1__ -mmol/L ABE ___22.8__ -mmol/L tHb ___14.4__ -g/dL O2Hb ___87.4__ -% COHb ____2.2__ -% MetHb ____0.0__ -% sO2 ___89.4__ -% FIO2 ___44.0__ -% Drawn By MM - Date/Time Notified____ 04:05:00 -_ Spontaneous_RR 22 -b/min Liter_Flow ____6.00_ -L/min Oxygen Device 1 __CANNULA - Notified Whom RN - B 755 -mmHg K+ ____4.4__ -mmol/L tO2 ___17.7__ -Vol% Emeka test N/A - Assessment & Plan 51-year-old male patient with a history of COPD, congestive heart failure, and hyperventilation secondary to obesity presented to the ER with complaint of worsening dyspnea and weakness. He was briefly in the ICU due to severe hypotension thought to be from either sepsis or cardiogenic shock from decrease the patient's required preload due to right heart failure. Patient continues to be difficult to treat due to sensitive renal function. Recurrent Acute Kidney injury; recurrent; resolved - Likely due to intravascular depletion due to cor pulmonale and third spacing - Per nephrology, pt place on lasix drip and smart placed; will continue Lasix drip through today and possibly tomorrow - Dr. Arechiga (nephro) following. appreciate her assistance Acute on presumed chronic Cor pulmonale with systolic left heart failure, present on admission, ongoing - Echocardiogram as above, EF 40-50%, right ventricle systolic function is moderate to severely reduced; current etiology is somewhat unclear although there is significantly elevated right ventricular pressure suggesting pulmonary hypertension due to hypoventilation syndrome and expected untreated SUNDAY. It is hard to identify exact pulmonary artery pressures due to poor study secondary to obesity - Held lisinopril 10mg daily 12/30/16 -Lopressor 50 mg BID for better heart rate control and less blood pressure effect -Discussed length and aggressiveness of diuresis with nephrology team this am and concern for overdiuresis Anasarca secondary to right heart failure; present on admission; ongoing - Patient is now 12 kg heavier then when he first presented. Attempts at diuresis have been either too aggressive or futile; will proceed with caution - Nephrology monitoring urine output and managing insulin drip; appreciate their assistance - Increase compression on leg wraps and extend above the knee. Noticeable improvement in LE edema and urine output Acute on chronic hypercapnic and hypoxic respiratory failure, present on admission, improved from admit - Secondary to chronic conditions of COPD, obesity hypoventilation, obstructive sleep apnea, and pulmonary hypertension. Acutely, patient has a pulmonary embolism and right lower lobe pneumonia, - Patient requires nocturnal and daytime BiPAP; Trilogy is recommended. Not on home O2 previously - Trilogy has been arranged prior to discharge and once close to ok, SW will help to finish paperwork - Continue BiPAP as needed - Lasix drip running - Some concern for pneumonia but patient has had more than adequate coverage over the last 2 weeks with persistent leukocytosis and indeterminant procalcitonin; CXR is improving but has not been able to firmly establish a infiltrate vs CHF - Pt has chronic resp acidosis with compensating metabolic alkalosis that is increasing, likely due to diuresis Sinus tachycardia, acute, present on admission. stable -Patient reported being on propranolol for a fast heart rate. His outside records do not mention atrial fibrillation or any arrhythmia. He was on metoprolol tartrate 25 mg BID as of April 2016. -Underlying sinus tachy that is currently exacerbated by pulmonary embolism and probable decreased cardiac output from CHF -Increased metoprolol to 50mg bid with instructions to watch BP Transaminitis, present on admission, resolving -Likely secondary to hepatic congestion from decompensation of CHF, hypoperfusion to liver, or possible fatty liver, with intravascular volume depletion -Continue to evaluate with a.m. labs questionable HCAP; poa; ongoing - antibiotics broadened to zosyn and azithromycin; discontinue today - Procal stable adn leukocytosis decreasing today; will likely be back tomorrow as below Persistent leukocytosis of unknown significance; poa; ongoing - patient has shown leukocytosis that seems to cycle - procalcitonin indeterminant; other signs of infection also questionable - completed full course of abx with ceftriaxone and azithro, and then full week of zosyn - Continue to follow and monitor for fevers which have been absent so far during this stay Resolved/resolving Problems Probable acute septic vs cardiogenic shock due to HCAP . Resolved -Met criteria with HR >90, WBC 14.5, hypotension and continued hypotension despite adequate fluid resuscitation on 12/22/2016. Source of infection right lower lobe pneumonia. WBC continues to be elevated. Possible cardiogenic due to overdiuresis in patient with cor pulmonale. -Initially continued azithromycin -Switch ceftriaxone to IV piperacillin/tazobactam on 12/23/16; stopped 12/30/16 Possible COPD exacerbation present on admission, resolved -COPD exacerbation is possible given increased sputum production and worsening of cough and new supplemental oxygen requirement -Azithromycin 250 mg PO daily resumed 12/21/16; discontinued -Duoneb q4h while awake, albuterol nebulizers q2h PRN -Supplemental oxygen, with O2 goals of 88-92% -125 mg of Solu-Medrol; discontinued Hypotension, acute, not present on admission. Resolved. -Initially thought due to BP meds and diuretics but persists after fluid given and meds held .likely due to septic shock due to HCAP. Repeat echocardiogram did not show worsening pericardial effusion. -discussed with cardiology, second echo doesn't show acute/new right heart strain, patient not a candidate for thrombolysis -Norepinephrine drip discontinued -Continue to monitor Acute pulmonary embolism and possible RV thrombus, poa; resolving - seen on second review of prior CTA by radiologist - continue Hep gtt with heparin bridging and warfarin - Discontinue heparin today once warfarin is again therapeutic - Started on warfarin on 12/21/16 with pharmacy dosing. - Patient may need a work-up for an underlying malignancy as an outpatient. Pericardial effusion, chronicity unknown, stable -Differential diagnosis includes but not limited to infection, post-NH, uremia, malignancy, or idiopathic -Stable on repeat echocardiogram, no signs of cardiac tamponade - TSH normal Acute kidney injury, present on admission, resolved. -Likely secondary to CHF exacerbation. -Patient has reported decreased urine output prior to admission for a few days -Nephrology consulted and following. Their time and recommendations were appreciated Morbid obesity -BMI 61 -Likely contributing to a chronic hypoventilation -Heart healthy diet ordered and discussed with patient about portion control rather than skipping meals Dispo: Patient improving with extremely good diuresis being orchestrated by nephrology. Edema is resolving with lower leg wraps and elevated patient's legs in bed. Likely 1-2 days before patient can be seriously considered for discharge to SNF. Patient seen and examined . Plan of care discussed with residential energy auditor : Gilberto Reeves The above documentation reviewed and edited where applicable Case discussed at length during ,multidisciplinary round . VTE Prophylaxis: Sub-Q Heparin (Unfractionated) VTE Mechanical Devices: Intermittant Pneumatic CD Resuscitation Status: CPR: Attempt Resuscitation Jaun Reeves DO Jan 01, 2017 11:38 Molina Jorge MD Jan 02, 2017 08:02
--- NOTE | 2017-01-01 11:53 | PCM.PHAPRO ---
Progress Date of Service: Jan 01, 2017 Warfarin dosing INR = 2.02, hgb/hct = 11.1/38.9, plts 196. Pt continues on warfarin for thrombus right ventricle. INR therapeutic at 2.02 today. Will give another dose of warfarin 7.5mg tonight. INR ordered for am. Pharmacy will follow this patient's warfarin therapy. Rylie Urbano PharmD Jan 01, 2017 11:53
--- NOTE | 2017-01-01 14:52 | NUR ---
Wound Care Reassessed patient today and skin at buttocks and groin continues to show return to normalized quality, recommend continued sidelying as much as tolerated by patient.
--- NOTE | 2017-01-01 14:59 | PCM.PNNEPH ---
Subjective Date of Service Jan 01, 2017 Subjective breathing better, serum creatinine trended. Exam Vital Signs Vital Sign - Last Date Time Temp Pulse Resp B/P Pulse Ox O2 Delivery O2 Flow Rate FiO2 01/01/17 14:05 Mask 01/01/17 12:39 114 16 95 40 01/01/17 12:07 36.9 107/67 01/01/17 09:08 7.00 Intake and Output 12/31/16 12/31/16 01/01/17 Cumulative From/Thru 14:59 22:59 06:59 12/18/16 18:08 - 01/01/17 05:50 Intake Total 998 ml 1736 ml 200 ml 97678 ml Output Total 1950 ml 3525 ml 79329 ml Balance 998 ml -214 ml -3325 ml 5417 ml Intake Oral 1000 ml 200 ml 51928 ml IV Total 998 ml 736 ml 90791 ml Output Urine Total 1950 ml 3525 ml 56689 ml # Voids 6 # Bowel Movements 1 0 14 Exam General appearance: Obese, mild distress on BiPAP. Awake, alert. Cooperative. Obese. HEENT: Atraumatic. Moist mucous membranes. PERRLA. No pallor, no jaundice. Heart: Regular rhythm. Normal S1, S2. Distant heart sounds. Lungs: Fine crackles at the bases. Decreased BS at bases. Abdomen: Soft, obese. Active bowel sounds. Nontender. Nondistended. Extremities: 3+ edema on the lower extremities up to the sacral area. : scrotal swelling, smart cath in place with yellowish urine. Lab and Diagnostics Result Diagram: 01/01/17 0645 01/01/17 0645 X-Rays, CTs and MRIs PROCEDURE: X-RAY CHEST ONE VIEW, PORTABLE IMPRESSION: Probable right lower lobe infiltrate with small effusion. Approved by: Can Santana M.D. on 12/18/2016 at 19:04 PROCEDURE: CT ANGIO CHEST PULMONARY EMBOLISM IMPRESSION: 1. No pulmonary embolus seen. 2. Right lower lobe pneumonia pattern 3. Small right pleural effusion. Approved by: Eladio Garcia M.D. on 12/19/2016 at 16:03 ADDENDUM: Please note, a filling defect is visualized within the subsegmental branches of the right lower lobe pulmonary artery suspicious for occlusive pulmonary embolus. This finding was discussed with Dr. Duran at 9:35 AM on 12/22/16. Dictated by: Rena Chowdhury M.D. on 12/22/2016 at 9:38 Approved by: Rena Chowdhury M.D. on 12/22/2016 at 9:39 PROCEDURE: X-RAY CHEST ONE VIEW, PORTABLE IMPRESSION: 1. Cardiomegaly redemonstrated. 2. Bibasilar pleural effusions and airspace opacities consistent with compressive atelectasis versus pneumonia which has increased on the left. Dictated by: Chalino Miller RR Interpreted: Cayla Marmolejo MD on 12/22/2016 at 10: 46 Transcribed by: AMAIRANI on 12/22/2016 at 10:50 Cardiac Echo Impressions Echocardiogram Report Interpretation Summary Left ventricular systolic function is likely mildly reduced with the ejection fraction grossly estimated to be 45 +/- 5% without obvious focal wall motion abnormalities noted although poor endocardial definition reduces the sensitivity for the detection of such. However, there is a flattened septum consistent with a probable right ventricular pressure overload condition and a significant dyssynchronous contraction pattern, consistent with a conduction abnormality. The left ventricle is grossly normal in size and diastolic function could not be accurately assessed due to tachycardia. The right ventricle is moderate to severely dilated and right ventricular systolic function is moderate to severely reduced with a probable thrombus noted in the right ventricular apex entrapped by the moderator band, seen by use of echo contrast, and measuring approximately 2.5 cm x 3.0 cm. Right ventricular systolic pressure is at least 30 mmHg plus the clinically estimated CVP and likely is significantly higher based on other echo findings, but the weakTR jet limits the accuracy of the estimate on this exam. The left atrial size is normal and the right atrium is moderately dilated. There is mild tricuspid regurgitation but no other significant valvular heart disease. There is a small to moderate loculated pericardial effusion predominantly posteriorly but there are no echocardiographic or Doppler indications for cardiac tamponade. Reading Physician:11:53 AM Echocardiogram Report Interpretation Summary There is a small to moderate pericardial effusion noted. There are no echocardiographic or Doppler indications for cardiac tamponade. The right ventricle is moderate to severely dilated. Right ventricular systolic function is moderately reduced. Right ventricular systolic function has increased since previous exam. A possible thrombus continues to be noted in the right ventricular apex measuring approximately 2.4 cm x 2.6. This is slightly smaller than the echo from 2/25/17. The right ventricular systolic pressure is estimated at 48 mmHg assuming a right atrial pressure of 15 mm Hg. Reading Physician: PM Additional Diagnostics DateTimeAnalyzed 03:57:26 -_ pH ____7.392 - pCO2 ___83.9__ -mmHg pO2 ___57.7__ -mmHg HCO3- ___51.1__ -mmol/L ABE ___22.8__ -mmol/L tHb ___14.4__ -g/dL O2Hb ___87.4__ -% COHb ____2.2__ -% MetHb ____0.0__ -% sO2 ___89.4__ -% FIO2 ___44.0__ -% Drawn By MM - Date/Time Notified____ 04:05:00 -_ Spontaneous_RR 22 -b/min Liter_Flow ____6.00_ -L/min Oxygen Device 1 __CANNULA - Notified Whom RN - B 755 -mmHg K+ ____4.4__ -mmol/L tO2 ___17.7__ -Vol% Emeka test N/A - Plan Impression 1. New onset Acute kidney injury. - improving. 2. Acute on presumed chronic Cor pulmonale with systolic left heart failure 3. Acute pulmonary embolism and possible RV thrombus. 4. Morbid obesity with hypoventilation syndrome. 5. Chronic obstructive pulmonary disease exacerbation with underlying disease of tobacco abuse. 6. Mixed respiratory acidosis and metabolic alkalosis. PLAN: 1. continue lasix to 10mg /hr. 2. add metolazone. 3. Kiki Zavaleta MD Jan 01, 2017 14:59
--- NOTE | 2017-01-01 18:37 | NUR ---
Lower Extremity Edema/Respiratory Pts. lower extremity edema keep improving with HONEY wraps around them. Pt. is cooperative with laying on hi side through shift to help heal his bottom. Pt. is tolerating well his legs at heart level or above as well. Pt. was able to stand up with PT today at bedside and use his own strength to do so. Pt. is continuing to use BIPAP intermittently and oxymask and NC throughout the day. Pt. states no SOB or CP.
[2017-01-02] VITALS (16 sets, daily range): BP systolic 78–105; BP diastolic 52–63; PULSE 105–128; RESP 15–22; O2SAT 87–96
[2017-01-02] MEDS: Albuterol-Ipratropium 3 mL Inhalation Solution NEB SCH ×5 (05:11→20:05)
[2017-01-02] MEDS: Heparin 25K Unit/500mL 0.45 NS 25,000 UNIT in IV Premix 1 EACH IV SCH (06:22)
[2017-01-02] MEDS: Furosemide Inj 100 MG in 0.9% Sodium Chloride 90 ML IVPUSH SCH ×2 (06:22→15:31)
[2017-01-02 06:39] LABS: INR 2.66 ratio
--- NOTE | 2017-01-02 07:39 | NUR ---
Respiratory/Cardiac Pt was able to tolerate using the BiPAP all night with the exception of when taking PO medications. Pt's HR remained 100s-110s even though the continuous pulse ox read 200s-210s at times. There was an instance when pt's HR did increase to 120s-130s but pt's HR did not sustain in the 120s-130s and went back down to 100s-110s.
--- NOTE | 2017-01-02 08:01 | PCM.PHAPRO ---
Progress Warfarin dosing -Jan 01-Jan 02-Dec 1.43 2.02 2.66 0.11 0.59 0.64 7.5 7.5 5 Michael Bettencourt Jan 02, 2017 08:01
[2017-01-02] MEDS: Insulin LISPRO 300 Unit/3 mL Inj SUBQ SCH ×2 (08:30→20:30)
--- NOTE | 2017-01-02 09:25 | NUR ---
[facility] Signed
[2017-01-02] MEDS: Nystatin 100,000 Unit/Gm 15 Gm Powder TOPICAL SCH ×2 (10:08→21:25)
--- NOTE | 2017-01-02 10:54 | NUR ---
Social Work: Readiness for Discharge D: Pt discussed in am rounds. pt is not medically stable for discharge at this time but is expected to discharge on Wednesday if he continues to make progress. BREAKER MACHINE OPERATOR met with pt at bedside to reassess and discuss any unmet needs. Discharge plan reviewed. Pt understands he will need skilled rehab and has been accepted at [facility]. Pt states he was hoping for [facility] but understands that they are not able to accept him at this time. He has no further needs at this time. Pt continues to work with pt and only tolerating 2-3 steps from bedside without buckling. Pt continues to be rehab appropriate based on his current clinical status. PPW and PASSR on the chart. PASSR Faxed to [facility] t/c to [facility]; left message with admissions to notify that pt is expected to discharge on Wednesday. t/c to Marcia Levy with [facility]; notified her that pt is expected to discharge to [facility] on Wednesday so they can arrange for Trilogy delivery. She will contact their RT who will assist pt with this on Wednesday. A: Pt who will require skilled rehab for continued strengthening and functional mobility improvement. P: Anticipate pt to discharge to [facility] via cabulance on Wednesday; BREAKER MACHINE OPERATOR to continue to follow pt's clinical course. KENDRICK Sidhu
[2017-01-02 11:29] LABS: BASOPHILS % (AUTO) 0.2 % (0-3); EOSINOPHILS % (AUTO) 1.8 % (0-5); Mean Corpuscular Volume 93.8 fL (81-100); NEUTROPHILS % (AUTO) 75.4 % (40-74); Platelet Count 218 bil/L (150-400)
--- NOTE | 2017-01-02 11:59 | PCM.PNMED ---
Subjective Date of Service Jan 02, 2017 Subjective Patient doing well this morning with continued diuresis about 7 L over the last 48 hours. Patient's breathing really improved a lot but his weight is decreasing and is able to participate in physical therapy. Patient continues stays short of breath but does state that he feels better overall. Patient continues to eat and requests on time meals. Exam Vital Signs Vital Sign - Last Date Time Temp Pulse Resp B/P Pulse Ox O2 Delivery O2 Flow Rate FiO2 01/02/17 09:34 110 01/02/17 09:20 36.7 22 105/61 91 Nasal Cannula 6.00 01/02/17 08:30 40 Intake and Output 01/01/17 01/01/17 01/02/17 Cumulative From/Thru 15:00 23:00 07:00 12/18/16 18:08 - 01/02/17 05:34 Intake Total 908 ml 1873 ml 100 ml 71746 ml Output Total 1950 ml 1200 ml 77393 ml Balance 908 ml -77 ml -1100 ml 5148 ml Intake Oral 1000 ml 100 ml 09220 ml IV Total 908 ml 873 ml 71314 ml Output Urine Total 1950 ml 1200 ml 06145 ml # Voids 6 # Bowel Movements 1 0 15 Exam General: Morbidly obese. Awake and alert with BiPAP in place. No acute distress HEENT: PERRLA Neck: supple Cardiovascular: RRR but distant and difficult to auscultate due to habitus Pulmonary: CTA with intermittent wheezing in bases Abdomen: Obese. Bowel tones present. Soft, nontender; asymmetric edema of the abdominal wall likely due to patient recently lying on his side Extremities: Significantly less edema in the lower extremities, still some pitting edema in the thighs but improved Skin: 3-4 abrasions on his knees bilaterally from recent fall. Psychiatric: Normal mood and affect. Alert and oriented to person, place, and time; conversive neuro: sensation intact throughout IVs and Medications Medications Reviewed: Medications were reviewed in detail Lab and Diagnostics Result Diagram: 01/01/1764401/01/17644 X-Rays, CTs and MRIs PROCEDURE: X-RAY CHEST ONE VIEW, PORTABLE IMPRESSION: Probable right lower lobe infiltrate with small effusion. Approved by: Can Santana M.D. on 12/18/2016 at 19:04 PROCEDURE: CT ANGIO CHEST PULMONARY EMBOLISM IMPRESSION: 1. No pulmonary embolus seen. 2. Right lower lobe pneumonia pattern 3. Small right pleural effusion. Approved by: Eladio Garcia M.D. on 12/19/2016 at 16:03 ADDENDUM: Please note, a filling defect is visualized within the subsegmental branches of the right lower lobe pulmonary artery suspicious for occlusive pulmonary embolus. This finding was discussed with Dr. Duarn at 9:35 AM on 12/22/16. Dictated by: Rena Chowdhury M.D. on 12/22/2016 at 9:38 Approved by: Rena Chowdhury M.D. on 12/22/2016 at 9:39 PROCEDURE: X-RAY CHEST ONE VIEW, PORTABLE IMPRESSION: 1. Cardiomegaly redemonstrated. 2. Bibasilar pleural effusions and airspace opacities consistent with compressive atelectasis versus pneumonia which has increased on the left. Dictated by: Chalino Miller RRA Interpreted: Cayla Marmolejo MD on 12/22/2016 at 10: 46 Transcribed by: AMAIRANI on 12/22/2016 at 10:50 Cardiac Echo Impressions Echocardiogram Report Interpretation Summary Left ventricular systolic function is likely mildly reduced with the ejection fraction grossly estimated to be 45 +/- 5% without obvious focal wall motion abnormalities noted although poor endocardial definition reduces the sensitivity for the detection of such. However, there is a flattened septum consistent with a probable right ventricular pressure overload condition and a significant dyssynchronous contraction pattern, consistent with a conduction abnormality. The left ventricle is grossly normal in size and diastolic function could not be accurately assessed due to tachycardia. The right ventricle is moderate to severely dilated and right ventricular systolic function is moderate to severely reduced with a probable thrombus noted in the right ventricular apex entrapped by the moderator band, seen by use of echo contrast, and measuring approximately 2.5 cm x 3.0 cm. Right ventricular systolic pressure is at least 30 mmHg plus the clinically estimated CVP and likely is significantly higher based on other echo findings, but the weakTR jet limits the accuracy of the estimate on this exam. The left atrial size is normal and the right atrium is moderately dilated. There is mild tricuspid regurgitation but no other significant valvular heart disease. There is a small to moderate loculated pericardial effusion predominantly posteriorly but there are no echocardiographic or Doppler indications for cardiac tamponade. Reading Physician:11:53 AM Echocardiogram Report Interpretation Summary There is a small to moderate pericardial effusion noted. There are no echocardiographic or Doppler indications for cardiac tamponade. The right ventricle is moderate to severely dilated. Right ventricular systolic function is moderately reduced. Right ventricular systolic function has increased since previous exam. A possible thrombus continues to be noted in the right ventricular apex measuring approximately 2.4 cm x 2.6. This is slightly smaller than the echo from 12/19/16. The right ventricular systolic pressure is estimated at 48 mmHg assuming a right atrial pressure of 15 mm Hg. Reading Physician: PM Additional Diagnostics DateTimeAnalyzed 03:57:26 -_ pH ____7.392 - pCO2 ___83.9__ -mmHg pO2 ___57.7__ -mmHg HCO3- ___51.1__ -mmol/L ABE ___22.8__ -mmol/L tHb ___14.4__ -g/dL O2Hb ___87.4__ -% COHb ____2.2__ -% MetHb ____0.0__ -% sO2 ___89.4__ -% FIO2 ___44.0__ -% Drawn By MM - Date/Time Notified____ 04:05:00 -_ Spontaneous_RR 22 -b/min Liter_Flow ____6.00_ -L/min Oxygen Device 1 __CANNULA - Notified Whom RN - B 755 -mmHg K+ ____4.4__ -mmol/L tO2 ___17.7__ -Vol% Emeka test N/A - Assessment & Plan 51-year-old male patient with a history of COPD, congestive heart failure, and hyperventilation secondary to obesity presented to the ER with complaint of worsening dyspnea and weakness. He was briefly in the ICU due to severe hypotension thought to be from either sepsis or cardiogenic shock from decrease the patient's required preload due to right heart failure. Patient continues to be difficult to treat due to sensitive renal function. Recurrent Acute Kidney injury; recurrent; resolved - Likely due to intravascular depletion due to cor pulmonale and third spacing - Per nephrology, pt place on lasix drip and smart placed; will continue Lasix drip through today - Dr. Arechiga (nephro) following. appreciate her assistance Acute on presumed chronic Cor pulmonale with systolic left heart failure, present on admission, ongoing -Echocardiogram as above, EF 40-50%, right ventricle systolic function is moderate to severely reduced; current etiology is somewhat unclear although there is significantly elevated right ventricular pressure suggesting pulmonary hypertension due to hypoventilation syndrome and expected untreated SUNDAY. It is hard to identify exact pulmonary artery pressures due to poor study secondary to obesity -Held lisinopril 10mg daily 12/30/16 -Lopressor 50 mg BID for better heart rate control and less blood pressure effect -We will stop diuresis today pending nephrology; will start lisinopril again tomorrow Anasarca secondary to right heart failure; present on admission; ongoing - Patient is now 12 kg heavier then when he first presented. Attempts at diuresis have been either too aggressive or futile; will proceed with caution - Nephrology monitoring urine output and managing insulin drip; appreciate their assistance - Continue lower extremity compression; increased wraps up to Smart Acute on chronic hypercapnic and hypoxic respiratory failure, present on admission, improved from admit - Secondary to chronic conditions of COPD, obesity hypoventilation, obstructive sleep apnea, and pulmonary hypertension. Acutely, patient has a pulmonary embolism and right lower lobe pneumonia, - Patient requires nocturnal and daytime BiPAP; Trilogy is recommended. Not on home O2 previously - Trilogy has been arranged prior to discharge and once close to tn, SW will help to finish paperwork - Continue BiPAP as needed - Some concern for pneumonia but patient has had more than adequate coverage over the last 2 weeks with persistent leukocytosis and indeterminant procalcitonin; CXR is improving but has not been able to firmly establish a infiltrate vs CHF - Pt has chronic resp acidosis with over compensating metabolic alkalosis that is increasing, likely second to diuresis Sinus tachycardia, acute, present on admission. stable -Patient reported being on propranolol for a fast heart rate. His outside records do not mention atrial fibrillation or any arrhythmia. He was on metoprolol tartrate 25 mg BID as of April 2016. -Underlying sinus tachy that is currently exacerbated by pulmonary embolism and probable decreased cardiac output from CHF -Increased metoprolol to 50mg bid with instructions to watch BP; patient responded well and rate controlled Transaminitis, present on admission, resolved -Likely secondary to hepatic congestion from decompensation of CHF, hypoperfusion to liver, or possible fatty liver, with intravascular volume depletion -Continue to evaluate with a.m. labs questionable HCAP; poa; ongoing - antibiotics broadened to zosyn and azithromycin for 7 days and stopped - Procal stable and leukocytosis decreasing - See above and below for additional information Persistent leukocytosis of unknown significance; poa; ongoing - patient has shown leukocytosis that seems to cycle - procalcitonin indeterminant; other signs of infection also questionable - completed full course of abx with ceftriaxone and azithro, and then full week of zosyn - Continue to follow and monitor for fevers which have been absent so far during this stay Resolved/resolving Problems Probable acute septic vs cardiogenic shock due to HCAP . Resolved -Met criteria with HR >90, WBC 14.5, hypotension and continued hypotension despite adequate fluid resuscitation on 12/22/2016. Source of infection right lower lobe pneumonia. WBC continues to be elevated. Possible cardiogenic due to overdiuresis in patient with cor pulmonale. -Initially continued azithromycin -Switch ceftriaxone to IV piperacillin/tazobactam on 12/23/16; stopped 12/30/16 Possible COPD exacerbation present on admission, resolved -COPD exacerbation is possible given increased sputum production and worsening of cough and new supplemental oxygen requirement -Azithromycin 250 mg PO daily resumed 12/21/16; discontinued -Duoneb q4h while awake, albuterol nebulizers q2h PRN -Supplemental oxygen, with O2 goals of 88-92% -125 mg of Solu-Medrol; discontinued Hypotension, acute, not present on admission. Resolved. -Initially thought due to BP meds and diuretics but persists after fluid given and meds held .likely due to septic shock due to HCAP. Repeat echocardiogram did not show worsening pericardial effusion. -discussed with cardiology, second echo doesn't show acute/new right heart strain, patient not a candidate for thrombolysis -Norepinephrine drip discontinued -Continue to monitor Acute pulmonary embolism and possible RV thrombus, poa; resolving - seen on second review of prior CTA by radiologist - continue Hep gtt with heparin bridging and warfarin - Discontinue heparin today once warfarin is again therapeutic - Started on warfarin on 12/21/16 with pharmacy dosing. - Patient may need a work-up for an underlying malignancy as an outpatient. Pericardial effusion, chronicity unknown, stable -Differential diagnosis includes but not limited to infection, post-WV, uremia, malignancy, or idiopathic -Stable on repeat echocardiogram, no signs of cardiac tamponade - TSH normal Acute kidney injury, present on admission, resolved. -Likely secondary to CHF exacerbation. -Patient has reported decreased urine output prior to admission for a few days -Nephrology consulted and following. Their time and recommendations were appreciated Morbid obesity -BMI 61 -Likely contributing to a chronic hypoventilation -Heart healthy diet ordered and discussed with patient about portion control rather than skipping meals Dispo: He is currently plan is to continue diuresis for today, restart home heart failure medications tomorrow, anticipate discharge Wednesday. VTE Prophylaxis: Sub-Q Heparin (Unfractionated) VTE Mechanical Devices: Intermittant Pneumatic CD Resuscitation Status: CPR: Attempt Resuscitation Jaun Reeves DO Jan 02, 2017 11:58 Case discussed at length during ,multidisciplinary round . VTE Prophylaxis: Sub-Q Heparin (Unfractionated) VTE Mechanical Devices: Intermittant Pneumatic CD Resuscitation Status: CPR: Attempt Resuscitation Jaun Reeves DO Jan 02, 2017 11:58 Jaun Reeves DO Jan 02, 2017 11:58
--- NOTE | 2017-01-02 13:51 | NUR ---
Oxymask Pt on oxymask this morning and before breakfast. Pt refuses to leave oxymask on for lunch, after many conversations and educational teaching to leave mask on while chewing food. Pt desatted to high 70s, replaced mask onto face and reminded pt to leave on. Pt argumentative with care, states he is fine. Education again regarding SPO2 in high 70s without oxymask. Pt finally agreed to keep mask on.
--- NOTE | 2017-01-02 15:33 | NUR ---
Bipap Pt sleeping off and on throughout day, on bipap 45% SPO2 92%. Pt tolerating new mask from RT this shift. Care continues.
--- NOTE | 2017-01-02 18:21 | NUR ---
Tachy Per court monitor pt slowing increasing HR to now 127, pt denies chest pain. MD notified.
[2017-01-03] VITALS (9 sets, daily range): BP systolic 88–106; BP diastolic 56–69; PULSE 106–113; RESP 16–18; O2SAT 90–94
[2017-01-03] MEDS: Furosemide Inj 100 MG in 0.9% Sodium Chloride 90 ML IVPUSH SCH (01:11)
[2017-01-03] MEDS: Albuterol 2.5 mg/3 mL Inhalation Solution NEB PRN (01:37)
[2017-01-03 05:09] LABS: BASOPHILS % (AUTO) 0.2 % (0-3); EOSINOPHILS % (AUTO) 1.5 % (0-5); MONOCYTES % (AUTO) 10.2 % (4-12); Mean Corpuscular Hemoglobin 26.6 pg (27.0-35.0); Mean Corpuscular Volume 93.7 fL (81-100); NEUTROPHILS % (AUTO) 75.7 % (40-74); Platelet Count 192 bil/L (150-400)
[2017-01-03 05:27] LABS: INR 2.94 ratio
--- NOTE | 2017-01-03 06:35 | NUR ---
Respiratory/BPs Pt had removed his own BiPAP and had on 7L oxymask on when RN first entered room. Pt c/o mouth and skin around mouth and nose feeling really dry when pt uses oxymask so moisture was added and O2 was increased to 9L due to pt SpO2 <88% at times while on oxymask. When pt did return to using BiPAP the FiO2 was at 45% and pt SpO2 was >94%. Pt was titrated down to FiO2 40% on the BiPAP and was able to remain within the SpO2 range suggested for the pt of 88-92%. Pt's BP remained hypotensive throughout the shift with SBP ranging from 88-106. There was one BP with SBP 78 recorded during VS check but the pt had his arm above his head for a long period of time immediately prior to having BP checked. When BP rechecked the SBP was 88. Pt's MAP remained >60 and pt remained asymptomatic.
[2017-01-03] MEDS: Albuterol-Ipratropium 3 mL Inhalation Solution NEB SCH ×2 (07:25→11:18)
--- NOTE | 2017-01-03 07:27 | PCM.PHAPRO ---
Progress Warfarin dosing -Jan 02-Jan 03-Dec 2.02 2.66 2.94 0.59 0.64 0.28 7.5 5 4 Michael Bettencourt Jan 03, 2017 07:27
[2017-01-03] MEDS: Insulin LISPRO 300 Unit/3 mL Inj SUBQ SCH (08:30)
[2017-01-03] MEDS: Nystatin 100,000 Unit/Gm 15 Gm Powder TOPICAL SCH (08:30)
--- NOTE | 2017-01-03 08:30 | NUR ---
Breakfast Pt refusing breakfast this shift, stated he was not hungry. Care continues.
--- NOTE | 2017-01-03 12:37 | NUR ---
Social Work: Discharge D: Pt discussed in am rounds. Pt is medically stable for discharge to [facility]. VICE PRESIDENT DIVERSITY met with pt at bedside to confirm discharge plan and that he agrees with discharge to [facility] if they can accept him. He agrees. VICE PRESIDENT DIVERSITY spoke with Lindsay at [facility]. She has a bariatric bed and BSC for the pt available. She has confirmed that [facility] has bariatric van and w/c to transport the pt. Transportation has been arranged between 2:00-2:30pm. VICE PRESIDENT DIVERSITY updated bedside Pt, RN and MD. Orders, prescriptions and PASSR faxed. t/c to [facility]; left Message for Marcia Levy to notify of pt's discharge. VICE PRESIDENT DIVERSITY spoke with RT Frandy Brown who states that they will send someone to [facility] today to setup the Trilogy Machine after pt discharges. A: Pt who will require skilled rehab for further gait training, strengthening and functional mobility. P: Pt to discharge to [facility] today with Dr. Ann to follow at 2:00-2:30 via cabulance. KENDRICK Sidhu
--- NOTE | 2017-01-03 12:49 | PCM.DIMED ---
Discharge Instructions Date of Service Jan 03, 2017 Dates of Hospitalization Dec 18, 2016 at 20:12 Discharge Diagnosis Discharge Diagnosis Acute on chronic systolic heart failure, COR pulmonale, HCAP, Acute kidney injury, sinus tachycardia, acute hypercapnic respiratory failure, Morbid obesity , h/o PE on Coumadin, pericardial effusion ( Chronic?) Diet Low fat, Low Sodium, Other (Low carb diet ) Activity No restrictions Call your provider Fever or Chills, Shortness of breath, Chest pain Patient Instructions Follow-up with PCP in: 1 week (Primary care doctor ) Molina Jorge MD Jan 03, 2017 12:49
[2017-01-03] MEDS ORDERED: WARF2TAB PO (12:51)
[2017-01-03] MEDS ORDERED: FURO40TA4 PO (12:51)
[2017-01-03] MEDS ORDERED: NYST1POW25 TOPICAL (12:51)
[2017-01-03] MEDS ORDERED: METO5TAB5 PO (12:51)
[2017-01-03] MEDS ORDERED: POLY17PO6 PO (12:51)
[2017-01-03] MEDS ORDERED: METO25TA6 PO (12:51)
[2017-01-03] MEDS ORDERED: FAMO20T PO (12:51)
--- NOTE | 2017-01-03 12:59 | PCM.DC.MED ---
Discharge Summary Date of Service Jan 03, 2017 Dates of Hospitalization Date of Hospital Admission Dec 18, 2016 at 20:12 Date of Discharge: Jan 03, 2017 Providers: Admitting Physician: Biju Montes De Oca MD Primary Care Physician: Montse Emerson MD Attending Physician: Biju Montes De Oca MD Diagnosis at Time of Discharge Diagnosis at Time of Discharge Acute on chronic systolic heart failure, COR pulmonale, HCAP, Acute kidney injury, sinus tachycardia, acute hypercapnic respiratory failure, Morbid obesity , h/o PE on Coumadin, pericardial effusion ( Chronic?) Consultations Nephrology, Infectious Disease, Physical therapy Procedures XRay, CTs & MRIs PROCEDURE: X-RAY CHEST ONE VIEW, PORTABLE IMPRESSION: Probable right lower lobe infiltrate with small effusion. Approved by: Can Santana M.D. on 12/18/2016 at 19:04 PROCEDURE: CT ANGIO CHEST PULMONARY EMBOLISM IMPRESSION: 1. No pulmonary embolus seen. 2. Right lower lobe pneumonia pattern 3. Small right pleural effusion. Approved by: Eladio Garcia M.D. on 12/19/2016 at 16:03 ADDENDUM: Please note, a filling defect is visualized within the subsegmental branches of the right lower lobe pulmonary artery suspicious for occlusive pulmonary embolus. This finding was discussed with Dr. Duran at 9:35 AM on 12/22/16. Dictated by: Rena Chowdhury M.D. on 12/22/2016 at 9:38 Approved by: Rena Chowdhury M.D. on 12/22/2016 at 9:39 PROCEDURE: X-RAY CHEST ONE VIEW, PORTABLE IMPRESSION: 1. Cardiomegaly redemonstrated. 2. Bibasilar pleural effusions and airspace opacities consistent with compressive atelectasis versus pneumonia which has increased on the left. Dictated by: Chalino MORTON Interpreted: Cayla Marmolejo MD on 12/22/2016 at 10: 46 Transcribed by: AMAIRANI on 12/22/2016 at 10:50 Cardiac Echo Impression Echocardiogram Report Interpretation Summary Left ventricular systolic function is likely mildly reduced with the ejection fraction grossly estimated to be 45 +/- 5% without obvious focal wall motion abnormalities noted although poor endocardial definition reduces the sensitivity for the detection of such. However, there is a flattened septum consistent with a probable right ventricular pressure overload condition and a significant dyssynchronous contraction pattern, consistent with a conduction abnormality. The left ventricle is grossly normal in size and diastolic function could not be accurately assessed due to tachycardia. The right ventricle is moderate to severely dilated and right ventricular systolic function is moderate to severely reduced with a probable thrombus noted in the right ventricular apex entrapped by the moderator band, seen by use of echo contrast, and measuring approximately 2.5 cm x 3.0 cm. Right ventricular systolic pressure is at least 30 mmHg plus the clinically estimated CVP and likely is significantly higher based on other echo findings, but the weakTR jet limits the accuracy of the estimate on this exam. The left atrial size is normal and the right atrium is moderately dilated. There is mild tricuspid regurgitation but no other significant valvular heart disease. There is a small to moderate loculated pericardial effusion predominantly posteriorly but there are no echocardiographic or Doppler indications for cardiac tamponade. Reading Physician:11:53 AM Echocardiogram Report Interpretation Summary There is a small to moderate pericardial effusion noted. There are no echocardiographic or Doppler indications for cardiac tamponade. The right ventricle is moderate to severely dilated. Right ventricular systolic function is moderately reduced. Right ventricular systolic function has increased since previous exam. A possible thrombus continues to be noted in the right ventricular apex measuring approximately 2.4 cm x 2.6. This is slightly smaller than the echo from 12/19/16. The right ventricular systolic pressure is estimated at 48 mmHg assuming a right atrial pressure of 15 mm Hg. Reading Physician: PM Other Diagnostics DateTimeAnalyzed 03:57:26 -_ pH ____7.392 - pCO2 ___83.9__ -mmHg pO2 ___57.7__ -mmHg HCO3- ___51.1__ -mmol/L ABE ___22.8__ -mmol/L tHb ___14.4__ -g/dL O2Hb ___87.4__ -% COHb ____2.2__ -% MetHb ____0.0__ -% sO2 ___89.4__ -% FIO2 ___44.0__ -% Drawn By MM - Date/Time Notified____ 04:05:00 -_ Spontaneous_RR 22 -b/min Liter_Flow ____6.00_ -L/min Oxygen Device 1 __CANNULA - Notified Whom RN - B 755 -mmHg K+ ____4.4__ -mmol/L tO2 ___17.7__ -Vol% Emeka test N/A - Brief History Mr. Kruse is a 51-year-old gentleman with past medical history COPD (not on home O2), CHF and HTN who presented to the ED 5 days ago with increasing shortness of breath, weakness and lower extremity edema. Approximately one month ago patient discontinued taking his torsemide 60 mg daily secondary to financial concerns. After noticing an increasing amount of lower extremity edema he began to take double his diuretic dose without effect. During this time he also had become increasingly weak, lethargic SOB which affected him to the point where he was unable to walk across the room or get up even to eat. Patient also reported a productive cough during this time period with mostly clear sputum (though does endorse some blood streaks in phlegm). Also states Sx of sore throat, myalgias and decreased urination. Patient denied any fever chills nausea vomiting or diarrhea, denied any chest pain that felt cardiac in nature or palpitations. Patient is morbidly obese with BMI of 53 with a 30-40 pack year recent smoking history. Echocardiogram showed EF 45% with no focal wall motion abnormalities though probable right ventricular pressure overload and the synchronous contraction pattern. Severe right ventricular dilation with probable thrombus found in the right ventricular apex was entrapped by the moderator band. His thrombus measured 2.5 x 3 cm. Echo also showed a small to moderate loculated pericardial effusion predominantly posteriorly but no reported echocardiographic or Doppler indications for cardiac tamponade. Subsequent concerns for pulmonary embolism and initial CT angiogram showed no evidence of PE and right lower lobe pneumonia pattern with small right pleural effusion. However repeat evaluation of CT showed a filling defect visualized in the right lower lobe pulmonary artery which was suspicious for an occlusive pulmonary emboli. On admit patient was diuresed with Lasix however yesterday ABG showed increase in bicarbonate and Lasix was discontinued. Patient remained hypertensive, Coreg was increased and lisinopril was started Overnight became hypotensive and did not respond to fluid bolus or beta frank reversal with glucagon. Levophed was initiated with stabilization of pressures. Patient upgraded to ICU status where he remains today with pressor support. Cardiology asked to consult secondary to pericardial effusion seen on initial ECHO which has an unknown chronicity or source at this time. Repeat limited echo today showed no progression of pericardial effusion. Pertinent past medical history: COPD Congestive heart failure GERD Lower extremity edema History of collapsed/punctured lung at 21 years old Surgical history: Bilateral knee surgery Family history: Patient denies contributory family history Social history: Denies EtOH use Denies substance use Endorses tobacco use 2 packs per day 31 years (quit 3.5 months ago) Hospital Course 51-year-old male patient with a history of COPD, congestive heart failure, and hyperventilation secondary to obesity presented to the ER with complaint of worsening dyspnea and weakness. He was briefly in the ICU due to severe hypotension thought to be from either sepsis or cardiogenic shock from decrease the patient's required preload due to right heart failure. Patient continues to be difficult to treat due to sensitive renal function. Recurrent Acute Kidney injury; recurrent; resolved - Likely due to intravascular depletion due to cor pulmonale and third spacing - Treated with lasix drip - Dr. Arechiga (nephro) following. appreciate her assistance Acute on presumed chronic Cor pulmonale with systolic left heart failure, present on admission, ongoing -Echocardiogram as above, EF 40-50%, right ventricle systolic function is moderate to severely reduced; current etiology is somewhat unclear although there is significantly elevated right ventricular pressure suggesting pulmonary hypertension due to hypoventilation syndrome and expected untreated SUNDAY. It is hard to identify exact pulmonary artery pressures due to poor study secondary to obesity -On lisinopril 10mg daily and was held due to acute renal failure . To resume a lower dose now ( Lisonopril 2.5 mg Po daily) Anasarca secondary to right heart failure; present on admission; ongoing. Due to morbid obesity Acute on chronic hypercapnic and hypoxic respiratory failure, present on admission, improved from admit - Secondary to chronic conditions of COPD, obesity hypoventilation, obstructive sleep apnea, and pulmonary hypertension. Acutely, patient has a pulmonary embolism and right lower lobe pneumonia, - On nocturnal and daytime BiPAP; Trilogy is recommended. Not on home O2 previously - Trilogy has been arranged prior to discharge and once close to dc, SW will help to finish paperwork -BiPAP as needed Sinus tachycardia, acute, present on admission. stable -Patient reported being on propranolol for a fast heart rate. His outside records do not mention atrial fibrillation or any arrhythmia. On metoprolol tartrate 25 mg BID , down from 50 mg due to hypotension -Underlying sinus tachy that is currently exacerbated by pulmonary embolism and probable decreased cardiac output from CHF Transaminitis, present on admission, resolved HCAP - treated with antibiotics : zosyn and azithromycin for 7 days Resolved/resolving Problems Probable acute septic vs cardiogenic shock due to HCAP . Resolved Possible COPD exacerbation present on admission, resolved -COPD exacerbation is possible given increased sputum production and worsening of cough and new supplemental oxygen requirement -Azithromycin 250 mg PO daily resumed 12/21/16; discontinued -Duoneb q4h while awake, albuterol nebulizers q2h PRN -Supplemental oxygen, with O2 goals of 88-92% -Short term of Solumedrol Hypotension, acute, not present on admission. Resolved. -Initially thought due to BP meds and diuretics but persists after fluid given and meds held .likely due to septic shock due to HCAP. Repeat echocardiogram did not show worsening pericardial effusion. -discussed with cardiology, second echo doesn't show acute/new right heart strain, patient not a candidate for thrombolysis Acute pulmonary embolism and possible RV thrombus, poa; resolving - seen on second review of prior CTA by radiologist - On warfarin Pericardial effusion, chronicity unknown, stable -Differential diagnosis includes but not limited to infection, post-HI, uremia, malignancy, or idiopathic -Stable on repeat echocardiogram, no signs of cardiac tamponade - TSH normal Acute kidney injury, present on admission, resolved. -Likely secondary to CHF exacerbation. -Patient has reported decreased urine output prior to admission for a few days -Nephrology was consulted . Their time and recommendations were appreciated Morbid obesity -BMI 61 -Likely contributing to a chronic hypoventilation -Heart healthy diet ordered and discussed with patient about portion control rather than skipping meals Dispo: [facility] Exam Vital Signs (Last) Date Time Temp Pulse Resp B/P Pulse Ox O2 Delivery O2 Flow Rate FiO2 01/03/17 12:35 36.7 106 18 96/57 93 BiPAP 01/03/17 11:24 40 01/03/17 03:32 6.50 Exam General: Morbidly obese male. No acute distress HEENT: PERRLA, sclerae is anicteric Neck: supple , trachea is midline, no JVD Cardiovascular: S1S2, RRR but distant and difficult to auscultate due to habitus Lung : Decresed air entry b/l. No wheezes Abdomen: morbidly Obese. difficult palpation due to body habitus .Bowel tones present. Soft, nontender. Extremities: Pitting edema bilateral lower extremities up to hips. Psychiatric: Normal mood and affect. Alert and oriented to person, place, and time. Mood is irritable Neuro: Grossly intact Test 12/18/16 18:20 12/18/16 18:40 12/18/16 22:19 12/18/16 23:10 D-Dimer 7.8mg/L (<0.50) Troponin T < 0.010ug/L (0.0-0.011) Hold [place] Top Tube Received (Received) Urine Legionella pneumophilia Ag Negative (Negative) Ammonia 44ug/dL (18-53) Test 12/19/16 04:42 12/20/16 04:01 12/21/16 03:49 12/22/16 03:44 Triglycerides Level 133mg/dL (0-149) Cholesterol Level 126mg/dL (100-199) LDL Cholesterol, Calculated 94.400mg/dL (0-99) VLDL Cholesterol 26.600mg/dL HDL Cholesterol 5mg/dL (>39) Cholesterol/HDL Ratio 25.20 (0.0-4.4) Hemoglobin A1c 6.6% (4.8-5.6) Thyroid Stimulating Hormone (TSH) 2.620uIU/mL (0.450-4.500) Hematology Comments Test 12/22/16 06:30 12/22/16 18:50 12/30/16 04:55 12/30/16 06:17 Urine Ictotest Positive (Negative) Hold Urine Received (Received) Fungal Antibodies <31pg/mL (.) Pro-B-Type Natriuretic Peptide 6147pg/mL (0-121) Hold Blue Top Tube Received (Received) Test 12/30/16 16:15 12/31/16 02:39 01/01/17 06:45 01/03/17 05:00 Urine Color Dark yellow (YELLOW) Urine Appearance Slightly cloudy Urine pH 5.0 (5.0-8.0) Urine Specific [place] 1.025 (1.003-1.035) Urine Protein 30mg/dL (NEG,TRACE) Urine Glucose (UA) Negativemg/dL (NEGATIVE) Urine Ketones Tracemg/dL (NEGATIVE) Urine Occult Blood Small (NEGATIVE) Urine Nitrite Negative (NEGATIVE) Urine Bilirubin Negative (NEGATIVE) Urine Urobilinogen Normalmg/dL (NORMAL) Urine Leukocyte Esterase Trace (NEGATIVE) Urine RBC 0-2/hpf (0-2) Urine WBC 0-5/hpf (0-5) Urine Epithelial Cells Occasional/hpf (NONE-MOD) Urine Crystals Amorphous urates (NONE Urine Bacteria Few/hpf (NONE-FEW) Urine Hyaline Casts Rare/lpf (NONE) Urine Granular Casts Rare (NONE SEEN) Urine Waxy Casts None seen (NONE SEEN) Urine Red Blood Cell Casts None seen (NONE SEEN) Urine White Blood Cell Casts None seen (NONE SEEN) Urine Mucus Present (None Seen) Urine Trichomonas None seen (NONE SEEN) Urine Yeast None (NONE SEEN) Urinalysis Comment None Urine Culture Reflexed Not indicated Lactic Acid Level 0.8mmol/L (0.4-2.0) Phosphorus Level 3.5mg/dL (2.5-4.9) Magnesium Level 1.6mg/dL (1.6-2.6) White Blood Count 12.5th/mm3 (3.8-10.1) Red Blood Count 3.95mil/mm3 (4.40-5.80) Hemoglobin 10.5g/dL (13.8-17.2) Hematocrit 37.0% (41.0-50.0) Mean Corpuscular Volume 93.7fL (81-100) Mean Corpuscular Hemoglobin 26.6pg (27.0-35.0) Mean Corpuscular Hemoglobin Concent 28.4% (32.0-37.0) Red Cell Distribution Width 18.5% (12.3-15.4) Platelet Count 192bil/L (150-400) Neutrophils (%) (Auto) 75.7% (40-74) Lymphocytes (%) (Auto) 12.2% (14-46) Monocytes (%) (Auto) 10.2% (4-12) Eosinophils (%) (Auto) 1.5% (0-5) Basophils (%) (Auto) 0.2% (0-3) Prothrombin Time 32.2sec (8.1-12.5) Prothromb Time International Ratio 2.94ratio Activated Partial Thromboplast Time 36.4sec (22.8-33.0) Sodium Level 144mEq/L (134-144) Potassium Level 3.6mEq/L (3.5-5.2) Chloride Level 86mEq/L (97-108) Carbon Dioxide Level 49mmol/L (18-29) Blood Urea Nitrogen 19mg/dL (6-24) Creatinine 0.78mg/dL (0.76-1.27) Estimat Glomerular Filtration Rate 112mL/min (>59) Glucose Level 115mg/dL (60-99) Calcium Level 9.9mg/dL (8.5-10.1) Total Bilirubin 0.7mg/dL (0.0-1.2) Aspartate Amino Transf (AST/SGOT) 23U/L (0-50) Alanine Aminotransferase (ALT/SGPT) 31U/L (0-44) Alkaline Phosphatase 111U/L (25-150) Total Protein 6.3g/dL (6.4-8.4) Albumin 2.9g/dL (3.4-5.0) Procalcitonin 0.14ng/mL (0.00-0.08) Discharge Medications Discharge Medications Famotidine (Pepcid) 20 Mg Tablet 20 MG PO DAILY Prescribed by: JOHNATHON JORGE MD Furosemide (Furosemide) 40 Mg Tablet 40 MG PO BID Prescribed by: JOHNATHON JORGE MD Metolazone (Metolazone) 5 Mg Tablet 5 MG PO DAILY Prescribed by: JOHNATHON JORGE MD Metoprolol Tartrate (Metoprolol Tartrate) 25 Mg Tablet 25 MG PO BID Prescribed by: JOHNATHON JORGE MD Nystatin (Nystatin) 1 Each Powder.ea. 1 APPLIC TOPICAL BID Prescribed by: JOHNATHON JORGE MD Warfarin Sodium (Coumadin) 2 Mg Tablet 4 MG PO DAILY@17 Prescribed by: JOHNATHON JORGE MD As needed Albuterol Neb Soln (Albuterol Neb Soln) 2.5 Mg/3 Ml Vial.neb 3 ML INHALATION Q4 PRN PRN For Shortness of Breath (Reported) Albuterol Sulfate (Ventolin HFA Inhaler) 200 Puff/18 Gm Inhaler 1-2 PUFFS INHALATION Q4 PRN PRN For Shortness of Breath (Reported) Polyethylene Glycol 3350 (Miralax) 17 Gm Powd.pack 17 GM PO DAILY PRN PRN For Constipation Prescribed by: JOHNATHON JORGE MD Followup Plan Disposition: SNF Discharge Diet: Low fat, Low Sodium, Other (Low carb diet ) Discharge Activity: No restrictions Follow-up with PCP in: 1 week (Primary care doctor ) Time spent 35 minutes Johnathon Jorge MD Jan 03, 2017 12:59
[2017-01-03] MEDS ORDERED: Potassium Chloride 20 mEq SR Tablet PO SCH (13:45)
[2017-01-03] MEDS ORDERED: Furosemide 10 mg/mL 4 mL Inj IVPUSH SCH (13:50)
--- NOTE | 2017-01-03 13:51 | PCM.PNMED ---
Subjective Date of Service Jan 03, 2017 Subjective feeling much better today. Intake 1638 ml/output 5150 ml. Exam Vital Signs Vital Sign - Last Date Time Temp Pulse Resp B/P Pulse Ox O2 Delivery O2 Flow Rate FiO2 01/03/17 12:35 36.7 106 18 96/57 93 BiPAP 01/03/17 11:24 40 01/03/17 03:32 6.50 Intake and Output 01/02/17 01/02/17 01/03/17 Cumulative From/Thru 15:00 23:00 07:00 12/18/16 18:08 - 01/03/17 05:25 Intake Total 758 ml 780 ml 614 ml 37403 ml Output Total 1950 ml 2000 ml 2400 ml 42496 ml Balance -1192 ml -1220 ml -1786 ml 950 ml Intake Oral 780 ml 400 ml 43752 ml IV Total 758 ml 214 ml 56499 ml Output Urine Total 1950 ml 2000 ml 2400 ml 25644 ml # Voids 6 # Bowel Movements 0 15 Exam General appearance: Obese, mild distress on BiPAP. Awake, alert. Cooperative. Obese. HEENT: Atraumatic. Moist mucous membranes. PERRLA. No pallor, no jaundice. Heart: Regular rhythm. Normal S1, S2. Distant heart sounds. Lungs: Fine crackles at the bases. Decreased BS at bases. Abdomen: Soft, obese. Active bowel sounds. Nontender. Nondistended. Extremities: 1+ edema on the lower extremities up to the sacral area. : scrotal swelling, smart cath in place with yellowish urine. Lab and Diagnostics Result Diagram: 01/03/17 0500 01/03/17 0500 X-Rays, CTs and MRIs PROCEDURE: X-RAY CHEST ONE VIEW, PORTABLE IMPRESSION: Probable right lower lobe infiltrate with small effusion. Approved by: Can Santana M.D. on 12/18/2016 at 19:04 PROCEDURE: CT ANGIO CHEST PULMONARY EMBOLISM IMPRESSION: 1. No pulmonary embolus seen. 2. Right lower lobe pneumonia pattern 3. Small right pleural effusion. Approved by: Eladio Garcia M.D. on 12/19/2016 at 16:03 ADDENDUM: Please note, a filling defect is visualized within the subsegmental branches of the right lower lobe pulmonary artery suspicious for occlusive pulmonary embolus. This finding was discussed with Dr. Renee at 9:35 AM on 12/22/16. Dictated by: Rena Chowdhury M.D. on 12/22/2016 at 9:38 Approved by: Rena Chowdhury M.D. on 12/22/2016 at 9:39 PROCEDURE: X-RAY CHEST ONE VIEW, PORTABLE IMPRESSION: 1. Cardiomegaly redemonstrated. 2. Bibasilar pleural effusions and airspace opacities consistent with compressive atelectasis versus pneumonia which has increased on the left. Dictated by: Chalino Miller [facility] Interpreted: Cayla Marmolejo MD on 12/22/2016 at 10: 46 Transcribed by: AMAIRANI on 12/22/2016 at 10:50 Cardiac Echo Impressions Echocardiogram Report Interpretation Summary Left ventricular systolic function is likely mildly reduced with the ejection fraction grossly estimated to be 45 +/- 5% without obvious focal wall motion abnormalities noted although poor endocardial definition reduces the sensitivity for the detection of such. However, there is a flattened septum consistent with a probable right ventricular pressure overload condition and a significant dyssynchronous contraction pattern, consistent with a conduction abnormality. The left ventricle is grossly normal in size and diastolic function could not be accurately assessed due to tachycardia. The right ventricle is moderate to severely dilated and right ventricular systolic function is moderate to severely reduced with a probable thrombus noted in the right ventricular apex entrapped by the moderator band, seen by use of echo contrast, and measuring approximately 2.5 cm x 3.0 cm. Right ventricular systolic pressure is at least 30 mmHg plus the clinically estimated CVP and likely is significantly higher based on other echo findings, but the weakTR jet limits the accuracy of the estimate on this exam. The left atrial size is normal and the right atrium is moderately dilated. There is mild tricuspid regurgitation but no other significant valvular heart disease. There is a small to moderate loculated pericardial effusion predominantly posteriorly but there are no echocardiographic or Doppler indications for cardiac tamponade. Reading Physician:11:53 AM Echocardiogram Report Interpretation Summary There is a small to moderate pericardial effusion noted. There are no echocardiographic or Doppler indications for cardiac tamponade. The right ventricle is moderate to severely dilated. Right ventricular systolic function is moderately reduced. Right ventricular systolic function has increased since previous exam. A possible thrombus continues to be noted in the right ventricular apex measuring approximately 2.4 cm x 2.6. This is slightly smaller than the echo from 12/19/16. The right ventricular systolic pressure is estimated at 48 mmHg assuming a right atrial pressure of 15 mm Hg. Reading Physician: PM Additional Diagnostics DateTimeAnalyzed 03:57:26 -_ pH ____7.392 - pCO2 ___83.9__ -mmHg pO2 ___57.7__ -mmHg HCO3- ___51.1__ -mmol/L ABE ___22.8__ -mmol/L tHb ___14.4__ -g/dL O2Hb ___87.4__ -% COHb ____2.2__ -% MetHb ____0.0__ -% sO2 ___89.4__ -% FIO2 ___44.0__ -% Drawn By MM - Date/Time Notified____ 04:05:00 -_ Spontaneous_RR 22 -b/min Liter_Flow ____6.00_ -L/min Oxygen Device 1 __CANNULA - Notified Whom RN - B 755 -mmHg K+ ____4.4__ -mmol/L tO2 ___17.7__ -Vol% Emeka test N/A - Assessment & Plan 1. New onset Acute kidney injury secondary to CRS. - improving. 2. Acute on chronic cor pulmonale with systolic left heart failure 3. Acute pulmonary embolism and possible RV thrombus. 4. Morbid obesity with hypoventilation syndrome. 5. Chronic obstructive pulmonary disease exacerbation with underlying disease of tobacco abuse. 6. Mixed respiratory acidosis and metabolic alkalosis. PLAN: 1. d/c IV lasix gtt. 2. start IV lasix 40 mg q 8 hr. 3. add aldactone 25 mg daily. 4. replace K. VTE Prophylaxis: Sub-Q Heparin (Unfractionated) VTE Mechanical Devices: Intermittant Pneumatic CD Resuscitation Status: CPR: Attempt Resuscitation Kiki Flaherty MD Jan 03, 2017 13:51
--- NOTE | 2017-01-03 15:04 | NUR ---
Discharge Patient discharged at approximately 1445 to [facility] via transporter and two personnel, in bariatric wheelchair with oxygen. Pt on oxymask at 6L. PICC line DC'd by IV therapy, bioocclusive drsg applied. Pt transported with smart intact, bag emptied. Mehdi bandages removed from both legs per pt request. Transferred with all personal belongings. Report given to [facility] nurse Lindsay.
== END 2017-01-03 14:51 | DRG 291 ==
LOC: EDBD 17:41 → SED 17:41 → PCC 20:12 → CCU 12-22 01:02 → PCC 12-25 08:34
PROVIDERS: ADMIT Hospitalist; ATTEND Hospitalist
PROC: 4A033R1 Measurement of Arterial Saturation, Peripheral, Percutaneous Approach (ICD-10-PCS; principal; 2016-12-19)
PROC: 03HY32Z Insertion of Monitoring Device into Upper Artery, Percutaneous Approach (ICD-10-PCS; 2016-12-22)
DX: I50.23 Acute on chronic systolic (congestive) heart failure (principal); J96.21 Acute and chronic respiratory failure with hypoxia; J18.9 Pneumonia, unspecified organism; A41.9 Sepsis, unspecified organism; R65.21 Severe sepsis with septic shock; I26.09 Other pulmonary embolism with acute cor pulmonale; J96.02 Acute respiratory failure with hypercapnia; J44.1 Chronic obstructive pulmonary disease with (acute) exacerbation; N17.9 Acute kidney failure, unspecified; Z68.44 Body mass index [BMI] 60.0-69.9, adult; E66.2 Morbid (severe) obesity with alveolar hypoventilation; I31.3 Pericardial effusion (noninflammatory); E87.4 Mixed disorder of acid-base balance; R23.8 Other skin changes; I51.3 Intracardiac thrombosis, not elsewhere classified; E86.0 Dehydration; I10 Essential (primary) hypertension; Z87.891 Personal history of nicotine dependence; K21.9 Gastro-esophageal reflux disease without esophagitis

== ENCOUNTER 2017-01-03 20:15 | Inpatient (IN) | payer MEDICARE ==
[~2017-01-03] VITALS: Ht 193 cm; Wt 172.6 kg
[~2017-01-03 20:15] MED LIST: ALBU18HF INHALATION; ALBU2.5V4 INHALATION; FAMO20T PO; FURO40TA4 PO; METO25TA6 PO; METO5TAB5 PO; NYST1POW25 TOPICAL; POLY17PO6 PO; TORS20TA3 PO; WARF2TAB PO
--- NOTE | 2017-01-03 20:22 | ED.REPORT ---
HPI-General Illness Date of Service Jan 03, 2017 ED Provider: Luis Dukes MD The patient is a 51 year old male w/ a hx of PE on Coumadin, CHF, COPD, HTN, COR pulmonale, HCAP, who presents to the ED via EMS from [facility] due to SOB. He was discharged from the hospital today w/ a PE and taken to [facility]. Caretakers could not get his O2 sat over 83%. B/P on arrival is 118/65 and pulse is in the 130's. Unable to obtain ROS, due to his respiratory acuity. Nursing Notes Stated Complaint: HYPOXIA Nursing Notes Reviewed: Yes Allergies: Coded Allergies: No Known Allergies (Unverified , 12/18/16) Scheduled Famotidine (Pepcid) 20 Mg Tablet 20 MG PO DAILY Furosemide (Furosemide) 40 Mg Tablet 40 MG PO BID Metolazone (Metolazone) 5 Mg Tablet 5 MG PO DAILY Metoprolol Tartrate (Metoprolol Tartrate) 25 Mg Tablet 25 MG PO BID Nystatin (Nystatin) 1 Each Powder.ea. 1 APPLIC TOPICAL BID Warfarin Sodium (Coumadin) 2 Mg Tablet 4 MG PO DAILY@17 Scheduled PRN Albuterol Neb Soln (Albuterol Neb Soln) 2.5 Mg/3 Ml Vial.neb 3 ML INHALATION Q4 PRN PRN For Shortness of Breath Albuterol Sulfate (Ventolin HFA Inhaler) 200 Puff/18 Gm Inhaler 1-2 PUFFS INHALATION Q4 PRN PRN For Shortness of Breath Polyethylene Glycol 3350 (Miralax) 17 Gm Powd.pack 17 GM PO DAILY PRN PRN For Constipation General Time Seen by MD: 20:22 Chief Complaint Other (shortness of breath) Hx Obtained From: Patient Arrived By: Ambulance Sudden in Onset?: Yes Onset Occurred: Just prior to arrival Symptom Duration: Since onset Recent Healthcare: Recent doctor visit, Recent hospitalization Similar Sx Previous: Yes Past Medical History Past Medical History Reports: COPD, Congestive heart failure, Hypertension Past Surgical History None Smoking History Former Smoker Social History Other Social History: Review of Systems Unable to Obtain ROS Patient condition Physical Exam Vital Signs Vital Signs Date Time Temp Pulse Resp B/P Pulse Ox O2 Delivery O2 Flow Rate FiO2 01/03/17 20:50 130 20 97 Non-Rebreather 15 01/03/17 20:33 36.8 130 26 114/73 98 Non-Rebreather 15 Initial VS: Reviewed Abdomen / GI: Soft, Non-tender, No guarding, No rebound, No distention Back: No CVA tenderness Extremities: Vascular intact, Neuro intact, No tenderness Skin: Warm, Dry, No cyanosis Distress / Hydration: Positive: Distress moderate Appearance / Presentation: Positive: Obese, morbidly, Pale Head / Eyes: Normocephalic notable for pale sclera Mouth: Positive: Mucous membranes dry Respiratory / Chest: Breath sounds = bilat, No wheezing Resp Distress / Stridor: Positive: Resp distress moderate dyspneic chest was diminished Cardiovascular: No murmurs, No rubs Heart Rate / Rhythm: Positive: Tachycardia Lower Ext Edema: Positive: Bilateral 3+ (chronic) Interpretation & Diagnostics Interpretation & Diagnostics: CT ANGIOGRAM IMPRESSION: 1. Loculated appearing low density in right pleural effusion increased in size when compared with the study dated 12/19/16. The inferior portion of the right lower lobe is collapsed, increased in extent when compared with the prior study. 2. Near complete resolution of the previously visualized embolus on the study dated 12/19/16. Trace residual embolus remains. No new acute pulmonary embolus. 3. New small low-density pericardial effusion. Dictated by: Rena Chowdhury M.D. on 01/03/2017 at 21:39 Approved by: Rena Chowdhury M.D. on 01/03/2017 at 21:47 Lab Results Interpretation Result Diagram: 01/03/17205201/03/172052 Test 01/03/17 20:53 White Blood Count 14.8th/mm3 (3.8-10.1) Red Blood Count 4.28mil/mm3 (4.40-5.80) Hemoglobin 11.4g/dL (13.8-17.2) Hematocrit 39.7% (41.0-50.0) Mean Corpuscular Volume 92.8fL (81-100) Mean Corpuscular Hemoglobin 26.6pg (27.0-35.0) Mean Corpuscular Hemoglobin Concent 28.7% (32.0-37.0) Red Cell Distribution Width 18.6% (12.3-15.4) Platelet Count 276bil/L (150-400) Neutrophils (%) (Auto) 78.7% (40-74) Lymphocytes (%) (Auto) 9.8% (14-46) Monocytes (%) (Auto) 10.4% (4-12) Eosinophils (%) (Auto) 0.6% (0-5) Basophils (%) (Auto) 0.2% (0-3) Prothrombin Time 36.1sec (8.1-12.5) Prothromb Time International Ratio 3.29ratio Activated Partial Thromboplast Time 37.1sec (22.8-33.0) Sodium Level 141mEq/L (134-144) Potassium Level 3.4mEq/L (3.5-5.2) Chloride Level 81mEq/L (97-108) Carbon Dioxide Level 48mmol/L (18-29) Blood Urea Nitrogen 18mg/dL (6-24) Creatinine 0.77mg/dL (0.76-1.27) Estimat Glomerular Filtration Rate 114mL/min (>59) Glucose Level 116mg/dL (60-99) Calcium Level 10.4mg/dL (8.5-10.1) Magnesium Level 1.4mg/dL (1.6-2.6) Total Bilirubin 0.9mg/dL (0.0-1.2) Aspartate Amino Transf (AST/SGOT) 26U/L (0-50) Alanine Aminotransferase (ALT/SGPT) 33U/L (0-44) Alkaline Phosphatase 117U/L (25-150) Troponin T 0.055ug/L (0.0-0.011) Pro-B-Type Natriuretic Peptide 6575pg/mL (0-121) Total Protein 7.2g/dL (6.4-8.4) Albumin 3.1g/dL (3.4-5.0) Procalcitonin 0.13ng/mL (0.00-0.08) ECG Interpretation ECG Interpretation: nonspecific IVCD w/ LAD Time: 20:45 Interpreted by: ED physician Normal ECG Interpretation: No change from prior ECGs Rhythm / Conduction: Tachycardia (128) Re-Eval/Medical Decision Med Decision/Clinical Course 51-year-old with known prior pulmonary embolus, currently anticoagulated acutely for this episode. Her unable to keep him oxygenated at the snf after his arrival there today, and sent him back here for reevaluation. No evidence of recurrent pulmonary embolus on CT angiogram. He does appear to have some increased atelectasis or lobar collapse of lower right. May potentially be infectious. He has elevated BNP as before, and elevated troponin which may be strain or developing non-STEMI, and he is not readmitted to the hospital to the [facility] for trending of his troponins, and continued efforts to maintain his oxygen saturation. He appears to be doing better here than at the snf after respiratory treatments and high flow oxygen. He will need some diuresis after his dye load. Time of Eval: 22:26 Patient Status: Condition unchanged Re-Evaluation/Progress Note: Pt rechecked. Informed pt of need for admission. Pt understands and agrees with plan. All questions addressed. Counseled Regarding: Diagnosis, Lab results, Need for admission Discharge & Departure Primary Impression: Respiratory failure Chronicity: unspecified Respiratory failure complication: unspecified whether with hypoxia or hypercapnia Qualified Code: J96.90 - Respiratory failure, unspecified, unspecified whether with hypoxia or hypercapnia Additional Impressions: Hypoxemia Elevated troponin Congestive cardiac failure Congestive heart failure type: unspecified congestive heart failure type Congestive heart failure chronicity: acute on chronic Qualified Code: I50.9 - Heart failure, unspecified Disposition: ADMITTED TO HOSPITAL Discharge Condition All VS Reviewed: Yes Condition: Stable Referrals: Montse Emerson MD (PCP) Scribe Attestation Portion of this note were transcribed by Adri Granados. I, Dr. Dukes, personally performed the history, physical exam, and medical decision-making: I reviewed and confirmed the accuracy for the information in the transcribed note. Signed by: lilliam Hamilton, 01/03/17 2300 copies to: Montse Emerson MD, Christopher W MD Jan 03, 2017 20:22 Adri Granados Jan 03, 2017 20:30
[2017-01-03] MEDS ORDERED: 0.9% Sodium Chloride 1,000 ML IV ONE (20:26)
[2017-01-03] MEDS ORDERED: Albuterol-Ipratropium 3 mL Inhalation Solution NEB ONE (20:30)
[2017-01-03] MEDS ORDERED: Albuterol 2.5 mg/3 mL Inhalation Solution NEB ONE (20:30)
[2017-01-03 20:33] VITALS: BP 114/73; PULSE 130; RESP 26; O2SAT 98
[2017-01-03 20:50] VITALS: PULSE 130; RESP 20; O2SAT 97
[2017-01-03 21:05] LABS: BASOPHILS % (AUTO) 0.2 % (0-3); EOSINOPHILS % (AUTO) 0.6 % (0-5); MONOCYTES % (AUTO) 10.4 % (4-12); Mean Corpuscular Hemoglobin 26.6 pg (27.0-35.0); Mean Corpuscular Volume 92.8 fL (81-100); NEUTROPHILS % (AUTO) 78.7 % (40-74); Platelet Count 276 bil/L (150-400)
[2017-01-03 21:21] LABS: INR 3.29 ratio
[2017-01-03 21:44] LABS: Magnesium 1.4 mg/dL (1.6-2.6)
--- NOTE | 2017-01-03 21:48 | DRSVH ---
PROCEDURE: CT ANGIO CHEST PULMONARY EMBOLISM ([id number]) INDICATIONS: acute sob recent pulmonary emboli TECHNIQUE: After the administration of intravenous contrast, 2 mm thick sections acquired from the pulmonary api jeremy to the posterior costophrenic angles. 3-dimensional maximum intensity projection (MIP) coronal a nd sagittal reformats were then acquired through the thorax. For radiation dose reduction, the follo wing was used: automated exposure control, adjustment of mA and/or kV according to patient size. COMPARISON: FINDINGS: Image quality: Excellent. Pulmonary arteries: The main pulmonary arteries are normal in size and free of intraluminal filling d efects. There is likely a residual embolus within the subsegmental branches of the right lower lobe, decreased in extent when compared with the study dated 12/19/16. No new pulmonary embolus. Lungs and pleura: There is a large right low density pleural effusion which has a loculated appearanc e. This is increased in size when compared with the study dated 12/19/16. The inferior aspect of the r ight lower lobe is collapsed. An ill-defined 2.4 cm in diameter radiopacity is present at the base of the left lung (series 6, image 52). Mediastinum: Heart size is enlarged. There is a small low density pleural effusion which is new when compared with the prior study. No mediastinal or hilar adenopathy. Thoracic aorta is normal in cody kota and enhancement. Esophagus is normal in caliber, without hiatal hernia. Bones and chest wall: No suspicious bony lesions. Ribs and thoracic spine appear intact throughout. Thyroid gland is unremarkable. No axillary or supraclavicular adenopathy. Abdomen: Visualized upper abdominal solid organs appear normal in the early arterial phase of enhanc ement. IMPRESSION: 1. Loculated appearing low density in right pleural effusion increased in size when compared with the study dated 12/19/16. The inferior portion of the right lower lobe is collapsed, increased in extent when compared with the prior study. 2. Near complete resolution of the previously visualized embolus on the study dated 12/19/16. Trace re sidual embolus remains. No new acute pulmonary embolus. 3. New small low-density pericardial effusion. Dictated by: Rena Chowdhury M.D. on 01/03/2017 at 21:39 Approved by: Rena Chowdhury M.D. on 01/03/2017 at 21:47
[2017-01-03 21:54] LABS: TROPONIN T 0.055 ug/L (0.0-0.011)
--- NOTE | 2017-01-03 22:44 | ABG ---
DateTimeAnalyzed 22:41:00 -_ pH ____7.359 - 7.350 7.450 pCO2 101 -mmHg 35.0 45.0 pO2 102 -mmHg 69.0 116 HCO3- ___55.2__ -mmol/L 22.0 26.0 ABE ___25.2__ -mmol/L -2.0 2.0 tHb ___10.8__ -g/dL O2Hb ___95.1__ -% COHb ____1.7__ -% MetHb ____0.8__ -% sO2 ___97.5__ -% 25.0 FIO2 __100.0__ -% Drawn By BF - Date/Time Notified____ 22:44:00 -_ Liter_Flow ___10.0__ -L/min Oxygen Device 1 NON RE-JAMES - Notified By AF - Notified Whom ___Dr. Dukes - B 761 -mmHg tO2 ___14.5__ -Vol% OrderingPhysicianInitials CR - Emeka test _Positive -
[2017-01-03] MEDS ORDERED: Alum-Mag Hydrox-Simeth 30 mL Suspension PO PRN (22:55)
[2017-01-03] MEDS ORDERED: Polyethylene Glycol (PEG) 17 Gm Powder PO PRN ×2 (22:55)
[2017-01-03] MEDS ORDERED: Ondansetron 2 mg/mL 2 mL Inj IVPUSH PRN (22:55)
--- NOTE | 2017-01-03 23:13 | PCM.HPMED ---
Subjective Date of Service Jan 03, 2017 Primary Provider: Admitting Physician: Fouzia Morris MD Primary Care Physician: Montse Emerson MD Attending Physician: Fouzia Morris MD Admit Status: From the Emergency Department, Full Admit, [facility] Telemetry Chief Complaint: Patient was discharged today and was found to be hypoxic at [facility] History of Present Illness: 51-year-old morbidly obese male who has a history of hypoventilation syndrome along with a recent PE and is on Coumadin therapy. He has a history of cor pulmonale also he was discharged nervous today and was to be on a trilogy machine and was desaturating down to the 70s. He denies any chest pain. Denies fevers or chills. CTA PE protocol was done in the emergency room today and that did not show any pulmonary emboli. Review of Systems: All other review of systems are negative except for as in history of present illness. Allergies Coded Allergies: No Known Allergies (Unverified , 12/18/16) Home Medications Discharge Medications Famotidine (Pepcid) 20 Mg Tablet 20 MG PO DAILY Prescribed by: JOHNATHON OROZCO MD Furosemide (Furosemide) 40 Mg Tablet 40 MG PO BID Prescribed by: JOHNATHON OROZCO MD Metolazone (Metolazone) 5 Mg Tablet 5 MG PO DAILY Prescribed by: JOHNATHON OROZCO MD Metoprolol Tartrate (Metoprolol Tartrate) 25 Mg Tablet 25 MG PO BID Prescribed by: JOHNATHON OROZCO MD Nystatin (Nystatin) 1 Each Powder.ea. 1 APPLIC TOPICAL BID Prescribed by: JOHNATHON OROZCO MD Warfarin Sodium (Coumadin) 2 Mg Tablet 4 MG PO DAILY@17 Prescribed by: JOHNATHON OROZCO MD As needed Albuterol Neb Soln (Albuterol Neb Soln) 2.5 Mg/3 Ml Vial.neb 3 ML INHALATION Q4 PRN PRN For Shortness of Breath (Reported) Albuterol Sulfate (Ventolin HFA Inhaler) 200 Puff/18 Gm Inhaler 1-2 PUFFS INHALATION Q4 PRN PRN For Shortness of Breath (Reported) Polyethylene Glycol 3350 (Miralax) 17 Gm Powd.pack 17 GM PO DAILY PRN PRN For Constipation Prescribed by: JOHNATHON OROZCO MD [facility] Pertinent past medical history: COPD Congestive heart failure GERD Lower extremity edema History of collapsed/punctured lung at 21 years old Surgical history: Bilateral knee surgery Family History Denies cardiac or pulmonary history Social History Hx Alcohol Use: No Hx Substance Use: No Hx Tobacco Use: Yes Smoking Status: Former Smoker Living Arrangement: Care Home Facility Exam Vital Signs Vital Sign - Last Date Time Temp Pulse Resp B/P Pulse Ox O2 Delivery O2 Flow Rate FiO2 01/03/17 20:50 130 20 97 Non-Rebreather 15 01/03/17 20:33 36.8 114/73 Exam Constitutional: Morbidly obese man who is slightly short of breath Head: Normocephalic atraumatic Eyes: PERRLA DC EOMI Mouth: No lesions Chest: decreased breath sounds at his bases Cor: Tachycardic, regular rhythm S1-S2 Abdomen: Soft nontender bowel sounds present obese Extremities: 3+ lower extremity edema Neuro: Alert and oriented 3, motor strength is intact bilaterally Psych: Mood and affect are appropriate Lab and Diagnostics Labs Laboratory Tests 72 Hours Test 01/03/17 20:53 White Blood Count 14.8th/mm3 (3.8-10.1) Red Blood Count 4.28mil/mm3 (4.40-5.80) Hemoglobin 11.4g/dL (13.8-17.2) Hematocrit 39.7% (41.0-50.0) Mean Corpuscular Volume 92.8fL (81-100) Mean Corpuscular Hemoglobin 26.6pg (27.0-35.0) Mean Corpuscular Hemoglobin Concent 28.7% (32.0-37.0) Red Cell Distribution Width 18.6% (12.3-15.4) Platelet Count 276bil/L (150-400) Neutrophils (%) (Auto) 78.7% (40-74) Lymphocytes (%) (Auto) 9.8% (14-46) Monocytes (%) (Auto) 10.4% (4-12) Eosinophils (%) (Auto) 0.6% (0-5) Basophils (%) (Auto) 0.2% (0-3) Prothrombin Time 36.1sec (8.1-12.5) Prothromb Time International Ratio 3.29ratio Activated Partial Thromboplast Time 37.1sec (22.8-33.0) Sodium Level 141mEq/L (134-144) Potassium Level 3.4mEq/L (3.5-5.2) Chloride Level 81mEq/L (97-108) Carbon Dioxide Level 48mmol/L (18-29) Blood Urea Nitrogen 18mg/dL (6-24) Creatinine 0.77mg/dL (0.76-1.27) Estimat Glomerular Filtration Rate 114mL/min (>59) Glucose Level 116mg/dL (60-99) Calcium Level 10.4mg/dL (8.5-10.1) Magnesium Level 1.4mg/dL (1.6-2.6) Total Bilirubin 0.9mg/dL (0.0-1.2) Aspartate Amino Transf (AST/SGOT) 26U/L (0-50) Alanine Aminotransferase (ALT/SGPT) 33U/L (0-44) Alkaline Phosphatase 117U/L (25-150) Troponin T 0.055ug/L (0.0-0.011) Pro-B-Type Natriuretic Peptide 6575pg/mL (0-121) Total Protein 7.2g/dL (6.4-8.4) Albumin 3.1g/dL (3.4-5.0) Procalcitonin 0.13ng/mL (0.00-0.08) Result Diagram: 01/03/17205201/03/172052 X-Rays, CTs and MRIs Patient Name: KEN NORMAN MR#: [id number] Location: [facility] Ordering Phys: Luis Dukes MD Date of Service: 01/03/172025 PROCEDURE: CT ANGIO CHEST PULMONARY EMBOLISM ([id number]) INDICATIONS: acute sob recent pulmonary emboli TECHNIQUE: After the administration of intravenous contrast, 2 mm thick sections acquired from the pulmonary apices to the posterior costophrenic angles. 3-dimensional maximum intensity projection (MIP) coronal and sagittal reformats were then acquired through the thorax. For radiation dose reduction, the following was used: automated exposure control, adjustment of mA and/or kV according to patient size. COMPARISON: FINDINGS: Image quality: Excellent. Pulmonary arteries: The main pulmonary arteries are normal in size and free of intraluminal filling defects. There is likely a residual embolus within the subsegmental branches of the right lower lobe, decreased in extent when compared with the study dated 12/19/16. No new pulmonary embolus. Lungs and pleura: There is a large right low density pleural effusion which has a loculated appearance. This is increased in size when compared with the study dated 12/19/16. The inferior aspect of the right lower lobe is collapsed. An ill- defined 2.4 cm in diameter radiopacity is present at the base of the left lung ( series 6, image 52). Mediastinum: Heart size is enlarged. There is a small low density pleural effusion which is new when compared with the prior study. No mediastinal or hilar adenopathy. Thoracic aorta is normal in caliber and enhancement. Esophagus is normal in caliber, without hiatal hernia. Bones and chest wall: No suspicious bony lesions. Ribs and thoracic spine appear intact throughout. Thyroid gland is unremarkable. No axillary or supraclavicular adenopathy. Abdomen: Visualized upper abdominal solid organs appear normal in the early arterial phase of enhancement. IMPRESSION: 1. Loculated appearing low density in right pleural effusion increased in size when compared with the study dated 12/19/16. The inferior portion of the right lower lobe is collapsed, increased in extent when compared with the prior study. 2. Near complete resolution of the previously visualized embolus on the study dated 12/19/16. Trace residual embolus remains. No new acute pulmonary embolus. 3. New small low-density pericardial effusion. Dictated by: Rena Chowdhury M.D. on 01/03/2017 at 21:39 Approved by: Rena Chowdhury M.D. on 01/03/2017 at 21:47 Cardiac Echo Impressions Echocardiogram Report Name: KEN NORMAN TStudy Date : 12/25/2016 Height: 76 in Hospital Exam Location: [facility] Weight: 459 lb Gender: Male BSA: 3.2 m2 : 1965 Age: 51 yrs BP: 138/70 mmHg Reason For Study: PERICARDIAL EFFUSION Ordering Physician: HOSPITALIST SVHPerformed By: Enrique Gooden Referring Physician: Daphne MILLS Interpretation Summary There is a small to moderate pericardial effusion noted. There are no echocardiographic or Doppler indications for cardiac tamponade. The right ventricle is moderate to severely dilated. Right ventricular systolic function is moderately reduced. Right ventricular systolic function has increased since previous exam. A possible thrombus continues to be noted in the right ventricular apex measuring approximately 2.4 cm x 2.6. This is slightly smaller than the echo from 12/19/16. The right ventricular systolic pressure is estimated at 48 mmHg assuming a right atrial pressure of 15 mm Hg. Procedure: A two-dimensional transthoracic echocardiogram with color flow and Doppler was performed in limited views only. The study quality was technically difficult. Comparison is made with the echocardiogram of 12/22/16. A contrast injection of Definity was performed to improve assessment of LV function. The patient was in normal sinus rhythm during the exam. The patient had a heart rate of 107-113 beats per minute. Left Ventricle: The left ventricle is normal in size. There is normal left ventricular wall thickness. Regional wall motion abnormalities cannot be excluded due to limited visualization. Right Ventricle: The right ventricle is moderate to severely dilated. Right ventricular systolic function is moderately reduced. Right ventricular systolic function has increased since previous exam. A possible thrombus continues to be noted in the right ventricular apex measuring approximately 2.4 cm x 2.6. This is slightly smaller than the echo from 12/19/16. Atria: The left atrial size is normal. The right atrium is moderately dilated. Mitral Valve: The mitral valve is not well visualized. The mitral valve is grossly normal. The mitral valve chordae are thickened and/or calcified. Tricuspid Valve: The tricuspid valve is not well visualized, but is grossly normal. There is mild tricuspid regurgitation. The right ventricular systolic pressure is estimated at 48 mmHg assuming a right atrial pressure of 15 mm Hg. Great Vessels: The ascending aorta is normal in size. The IVC is dilated (diameter is greater than 2.1 cm) and it collapses less than 50% with a sniff. This suggests a high right atrial pressure of 15 mm Hg. The IVC has a measurement of 37 mm. Pericardium/ Pleura There is a small to moderate pericardial effusion noted. There are no echocardiographic or Doppler indications for cardiac tamponade. There is a large right-sided pleural effusion. MMode/2D Measurements & Calculations LVIDd: 5.2 cm RA long axis asc Aorta LVIDs: 3.7 cm LA A2 area: 21.9 cm Diam: 2.6 cm FS: 28.1 % LA A4 area: 22.6 cm RA area IVSd: 0.95 cm LA length (vol): 5.8 cm LVPWd: 1.0 cm LA vol: 72.1 ml : 30.8 cm LA vol index RA vol : 128.ml RA IVC diam: 3.7 cm : 40.7 mm2 LV mathias. diameter/BSA LV sys. diameter/BSA RVD1 (basal) RVD2 (mid) (cm/m^2): 1.7 (cm/m^2): 1.2 : 6.0 cm Doppler Measurements & Calculations MV E max nathan MV E/A: 208.1 TR max nathan MV V2 mean : 126.8 cm/sec Med Peak E' Nathan : 285.7 cm/sec : 79.7 cm/sec MV A max nathan TR max PG MV mean PG : 0.61 cm/sec E/E' med: 12.1 : 32.7 mmHg MV V2 VTI MV dec time : 0.10 sec Reading Physician:PM Assessment & Plan # Acute on chronic hypoxia, present on admission This occurred when patient was placed on traveling G machine after being transferred from [facility] to [facility]. CTA PE protocol did not reveal any acute abnormalities Proceed with placing on BiPAP and stabilizing patient Give IV Lasix twice a day and po metazolone as done at discharge # History of PE, chronic, present on admission Continue with by mouth warfarin and dosing per pharmacy # Acute on chronic respiratory failure with hypoxia, present on admission Placed on BiPAP Placed on IV Lasix Monitor I's and O's and daily weights # Morbid obesity, chronic, present on admission Review of importance of weight loss and proper nutrition # DVT prophylaxis On therapeutic warfarin #CODE STATUS Full code Resuscitation Status: CPR: Attempt Resuscitation Time spent 60 minutes Fouzia Morris MD Jan 03, 2017 23:13
[2017-01-04] VITALS (15 sets, daily range): BP systolic 97–123; BP diastolic 67–79; PULSE 100–118; RESP 18–28; O2SAT 91–97
[2017-01-04] MEDS: Furosemide 10 mg/mL 4 mL Inj IVPUSH SCH ×3 (02:00→16:46)
[2017-01-04] MEDS: Sodium Chloride LOK Flush 10 mL Syringe IVFLUSH SCH ×3 (02:00→16:46)
[2017-01-04 05:27] LABS: BASOPHILS % (AUTO) 0.2 % (0-3); EOSINOPHILS % (AUTO) 0.7 % (0-5); MONOCYTES % (AUTO) 10.4 % (4-12); Mean Corpuscular Hemoglobin 26.8 pg (27.0-35.0); Mean Corpuscular Volume 93.4 fL (81-100); NEUTROPHILS % (AUTO) 77.3 % (40-74); Platelet Count 255 bil/L (150-400)
--- NOTE | 2017-01-04 05:55 | NUR ---
Admission to [facility] Pt arrived approximately 0100 to room 2026 on a gurney with 11L non-rebreather and VSS. Pt was transferred to [facility] with the use of a transfer slide board and 4 caretakers. Pt was given 40mg Lasix IVP. Pt had a smart catheter still in from previous hospital admission and it is patent and draining luis urine to gravity. Due to pt's habitus auscultation was difficult and not much was heard. RT had pt's BiPAP set up in the room with FiO2 50%.
[2017-01-04 06:02] LABS: INR 3.83 ratio
[2017-01-04 06:06] LABS: TROPONIN T 0.054 ug/L (0.0-0.011)
[2017-01-04] MEDS: Nystatin 100,000 Unit/Gm 15 Gm Powder TOPICAL SCH ×2 (09:12→21:25)
[2017-01-04] MEDS: Albuterol 2.5 mg/3 mL Inhalation Solution NEB PRN ×2 (09:48→18:57)
--- NOTE | 2017-01-04 11:15 | PCM.PHAPRO ---
Progress Date of Service: Jan 04, 2017 INR = 3.83. Hgb = 38, plts = 255. Pt on warfarin therapy for thrombus righ ventricle. Goal INR = 2-3. Pt was discharged 01/03 to a SNF on warfarin 4mg PO qday then readmitted late on 01/03 for hypoxia with an INR of 3.29. Will hold warfarin today. INR ordered x 3 days. Pharmacy will follow this patient for warfarin therapy. Rylie Urbano PharmD Jan 04, 2017 11:15
[2017-01-04] MEDS ORDERED: Magnesium Sulf 4 Gm/100 mL H2O 4 GM in IV Premix 1 EACH IV ONE (12:00)
[2017-01-04] MEDS ORDERED: KCl 40 mEq/D5W 500 mL 40 MEQ in IV Premix 1 EACH IV ONE (12:00)
--- NOTE | 2017-01-04 12:01 | PCM.PNMED ---
Subjective Date of Service Jan 04, 2017 Subjective Patient bounced back from [facility] last night after prolonged desaturation that was not resolving with Trilogy. Attempts to contact the respiratory therapist have been unsuccessful. Patient returns in consistent BiPAP saying that last he is unable to breath. Voices displeasure that he is unable to do everything he wants to physically, including walking, or standing, all things he is able to do prior to leaving the hospital. He denies additional cough, fever, chills, nausea, vomiting, lightheadedness, dizziness, chest pain, and additional sputum production. Exam Vital Signs Vital Sign - Last Date Time Temp Pulse Resp B/P Pulse Ox O2 Delivery O2 Flow Rate FiO2 01/04/17 10:37 109 01/04/17 09:49 21 96 45 01/04/17 09:00 CPAP/BIPAP 01/04/17 08:23 36.6 119/79 01/04/17 01:00 11.00 Intake and Output 01/03/17 01/03/17 01/04/17 Cumulative From/Thru 15:00 23:00 07:00 01/03/17 20:33 - 01/04/17 06:07 Intake Total 1000 ml 20 ml 1020 ml Output Total 1100 ml 1100 ml Balance 1000 ml -1080 ml -80 ml Intake Oral 0 ml 0 ml IV Total 1000 ml 20 ml 1020 ml Output Urine Total 1100 ml 1100 ml # Bowel Movements 1 1 Exam General: Morbidly obese. Awake and alert with BiPAP in place. No acute distress HEENT: PERRLA Neck: supple Cardiovascular: RRR but distant and difficult to auscultate due to habitus Pulmonary: CTA ; no wheezing but distant breath sounds Abdomen: Obese. Soft, nontender; asymmetric edema of the abdominal wall likely due to patient recently lying on his side Extremities: Pitting edema to the thighs Skin: 3-4 abrasions on his knees bilaterally from recent fall. Psychiatric: Normal mood and affect. Alert and oriented to person, place, and time; conversive neuro: sensation intact throughout IVs and Medications Medications Reviewed: Medications were reviewed in detail Lab and Diagnostics Result Diagram: 01/04/17 0500 01/04/17 0500 X-Rays, CTs and MRIs Patient Name: KEN NORMAN MR#: [id number] Location: [facility] Ordering Phys: Luis Dukes MD Date of Service: 01/03/172025 PROCEDURE: CT ANGIO CHEST PULMONARY EMBOLISM ([id number]) INDICATIONS: acute sob recent pulmonary emboli TECHNIQUE: After the administration of intravenous contrast, 2 mm thick sections acquired from the pulmonary apices to the posterior costophrenic angles. 3-dimensional maximum intensity projection (MIP) coronal and sagittal reformats were then acquired through the thorax. For radiation dose reduction, the following was used: automated exposure control, adjustment of mA and/or kV according to patient size. COMPARISON: FINDINGS: Image quality: Excellent. Pulmonary arteries: The main pulmonary arteries are normal in size and free of intraluminal filling defects. There is likely a residual embolus within the subsegmental branches of the right lower lobe, decreased in extent when compared with the study dated 12/19/16. No new pulmonary embolus. Lungs and pleura: There is a large right low density pleural effusion which has a loculated appearance. This is increased in size when compared with the study dated 12/19/16. The inferior aspect of the right lower lobe is collapsed. An ill- defined 2.4 cm in diameter radiopacity is present at the base of the left lung ( series 6, image 52). Mediastinum: Heart size is enlarged. There is a small low density pleural effusion which is new when compared with the prior study. No mediastinal or hilar adenopathy. Thoracic aorta is normal in caliber and enhancement. Esophagus is normal in caliber, without hiatal hernia. Bones and chest wall: No suspicious bony lesions. Ribs and thoracic spine appear intact throughout. Thyroid gland is unremarkable. No axillary or supraclavicular adenopathy. Abdomen: Visualized upper abdominal solid organs appear normal in the early arterial phase of enhancement. IMPRESSION: 1. Loculated appearing low density in right pleural effusion increased in size when compared with the study dated 12/19/16. The inferior portion of the right lower lobe is collapsed, increased in extent when compared with the prior study. 2. Near complete resolution of the previously visualized embolus on the study dated 12/19/16. Trace residual embolus remains. No new acute pulmonary embolus. 3. New small low-density pericardial effusion. Dictated by: Rena Chowdhury M.D. on 01/03/2017 at 21:39 Approved by: Rena Chowdhuyr M.D. on 01/03/2017 at 21:47 Cardiac Echo Impressions Echocardiogram Report Name: KEN NORMAN TStudy Date : 12/25/2016 Height: 76 in Hospital Exam Location: [facility] Weight: 459 lb Gender: Male BSA: 3.2 m2 : 1965 Age: 51 yrs BP: 138/70 mmHg Reason For Study: PERICARDIAL EFFUSION Ordering Physician: HOSPITALIST LAKESHIAerformed By: Enrique Gooden Referring Physician: Daphne MILLS Interpretation Summary There is a small to moderate pericardial effusion noted. There are no echocardiographic or Doppler indications for cardiac tamponade. The right ventricle is moderate to severely dilated. Right ventricular systolic function is moderately reduced. Right ventricular systolic function has increased since previous exam. A possible thrombus continues to be noted in the right ventricular apex measuring approximately 2.4 cm x 2.6. This is slightly smaller than the echo from 12/19/16. The right ventricular systolic pressure is estimated at 48 mmHg assuming a right atrial pressure of 15 mm Hg. Procedure: A two-dimensional transthoracic echocardiogram with color flow and Doppler was performed in limited views only. The study quality was technically difficult. Comparison is made with the echocardiogram of 12/22/16. A contrast injection of Definity was performed to improve assessment of LV function. The patient was in normal sinus rhythm during the exam. The patient had a heart rate of 107-113 beats per minute. Left Ventricle: The left ventricle is normal in size. There is normal left ventricular wall thickness. Regional wall motion abnormalities cannot be excluded due to limited visualization. Right Ventricle: The right ventricle is moderate to severely dilated. Right ventricular systolic function is moderately reduced. Right ventricular systolic function has increased since previous exam. A possible thrombus continues to be noted in the right ventricular apex measuring approximately 2.4 cm x 2.6. This is slightly smaller than the echo from 12/19/16. Atria: The left atrial size is normal. The right atrium is moderately dilated. Mitral Valve: The mitral valve is not well visualized. The mitral valve is grossly normal. The mitral valve chordae are thickened and/or calcified. Tricuspid Valve: The tricuspid valve is not well visualized, but is grossly normal. There is mild tricuspid regurgitation. The right ventricular systolic pressure is estimated at 48 mmHg assuming a right atrial pressure of 15 mm Hg. Great Vessels: The ascending aorta is normal in size. The IVC is dilated (diameter is greater than 2.1 cm) and it collapses less than 50% with a sniff. This suggests a high right atrial pressure of 15 mm Hg. The IVC has a measurement of 37 mm. Pericardium/ Pleura There is a small to moderate pericardial effusion noted. There are no echocardiographic or Doppler indications for cardiac tamponade. There is a large right-sided pleural effusion. MMode/2D Measurements & Calculations LVIDd: 5.2 cm RA long axis asc Aorta LVIDs: 3.7 cm LA A2 area: 21.9 cm Diam: 2.6 cm FS: 28.1 % LA A4 area: 22.6 cm RA area IVSd: 0.95 cm LA length (vol): 5.8 cm LVPWd: 1.0 cm LA vol: 72.1 ml : 30.8 cm LA vol index RA vol : 128.ml RA IVC diam: 3.7 cm : 40.7 mm2 LV mathias. diameter/BSA LV sys. diameter/BSA RVD1 (basal) RVD2 (mid) (cm/m^2): 1.7 (cm/m^2): 1.2 : 6.0 cm Doppler Measurements & Calculations MV E max nathan MV E/A: 208.1 TR max nathan MV V2 mean : 126.8 cm/sec Med Peak E' Nathan : 285.7 cm/sec : 79.7 cm/sec MV A max nathan TR max PG MV mean PG : 0.61 cm/sec E/E' med: 12.1 : 32.7 mmHg MV V2 VTI MV dec time : 0.10 sec Reading Physician:PM Assessment & Plan 51-year-old male patient with a history of COPD, congestive heart failure, and hyperventilation secondary to obesity presented to the ER with complaint of worsening dyspnea and weakness. Patient bounced back from [facility] due to severe dyspnea. Acute on chronic hypoxic and hypercarbic respiratory failure, present on admission -This occurred when patient was placed on traveling G machine [place] [facility] [facility] -Patient has COPD, hypoventilation syndrome, untreated sleep apnea, and heart failure contributing to superior respiratory illness -CTA PE protocol did not reveal any new acute abnormalities -Patient placed on BiPAP upon arrival -Continue Lasix 40 mg IV every 8hr and Aldactone 25 mg daily -Monitor output and weights -2.17 cm mass was noted left lower lobe not presently identified; loculated effusion on right with atelectasis. Consider thoracentesis versus chest tube. Electrolyte disturbance second to diuresis; as on admission: Ongoing -Patient presents back with ABG and radicular respiratory acidosis that is compensated with bicarbonate. -Patient is now on BiPAP which will reduce his acidosis and will observe for metabolic alkalosis -Potassium and magnesium are also being replaced Mildly elevated troponins; present admission; assessment ongoing -Likely due to patient's severe hypoxia and tachycardia -Patient not reporting chest pain just difficulty breathing which is consistent with his prior dyspnea -Patient is having no pain now and EKG was a poor study due to habitus -We will continue to trend Anasarca secondary to right heart failure; present on admission; ongoing -On last admit attempts at diuresis were either too aggressive or futile at first; achieved good diuresis with IV Lasix at 10-15 mg an hour -Continue lower extremity compression; increased wraps up to Roper Sinus tachycardia, acute, present on admission. stable -Patient reported being on propranolol for a fast heart rate. His outside records do not mention atrial fibrillation or any arrhythmia. He was on metoprolol tartrate 25 mg BID as of April 2016. -Underlying sinus tachy -Metoprolol to 50mg bid History of PE, chronic, present on admission Continue with by mouth warfarin and dosing per pharmacy Morbid obesity, chronic, present on admission -Discussed at length DVT prophylaxis -On therapeutic warfarin Disposition: Patient will likely require 1-2 days depending on availability of trilogy to come and establish with patient and calibrate the machine. Awaiting callback from respiratory therapist on what occurred yesterday. Resuscitation Status: CPR: Attempt Resuscitation Jaun Reeves DO Jan 04, 2017 12:01
--- NOTE | 2017-01-04 14:45 | NUR ---
Wound Care [facility] Patient seen for evaluation of previously red and excoriated area to buttocks due to moisture rather than pressure being treated with Betadine during previous admission. Skin dry and flaking now and pink. RN reports Nystatin powder ordered and applied earlier today. Excoriation resolved and no further need for betadine application. Wounds to bilateral knees, trauma from fall, assessed. Right knee wound measures 2.1cmW x 2cmL x 0.1cm D with 95% yellow slough and 5% red tissue. Cleaned with NS with removal of minimal slough. Applied skin prep periwound and covered with Mepilex border foam. Wound with minimal serosanguineous drainage. Wound to left knee measures 1.4cm W x 1.0cm L x <0.1cm D with 100% red tissue and noted epithelializing well. Wound with no drainage noted. Cleaned with NS, skin prep periwound. Covered with small piece of 4x4 and small tegaderm. Recommend nursing change dressings as outlined above q48 hours and PRN soiling. Wound care to follow as needed.
--- NOTE | 2017-01-04 18:45 | NUR ---
Respiratory Pt. was weaned off BiPAP. Currently on Oxymask 5 L/min. SpO2 was maintained between 89 to 93%. SOB noted with minimal exertion.
--- NOTE | 2017-01-04 18:49 | NUR ---
Mehdi wrap Mehdi wraps applied to LEs as ordered by Dr. Reeves.
[2017-01-05] VITALS (12 sets, daily range): BP systolic 112–134; BP diastolic 70–86; PULSE 104–119; RESP 18–21; O2SAT 92–97
[2017-01-05] MEDS: Furosemide 10 mg/mL 4 mL Inj IVPUSH SCH ×3 (01:09→17:45)
[2017-01-05] MEDS: Sodium Chloride LOK Flush 10 mL Syringe IVFLUSH SCH ×4 (01:09→20:15)
[2017-01-05 05:30] LABS: BASOPHILS % (AUTO) 0.2 % (0-3); EOSINOPHILS % (AUTO) 1.2 % (0-5); MONOCYTES % (AUTO) 10.4 % (4-12); Mean Corpuscular Hemoglobin 26.9 pg (27.0-35.0); Mean Corpuscular Volume 95.4 fL (81-100); NEUTROPHILS % (AUTO) 81.7 % (40-74); Platelet Count 283 bil/L (150-400)
[2017-01-05 05:59] LABS: INR 4.9 ratio
--- NOTE | 2017-01-05 07:29 | NUR ---
Respiratory Pt utilizing BiPAP at 35% FIO2 throughout the NOC. Pt denies SOB. Pt is NPO status anticipating thoracentesis procedure or chest tube placement if appropriate.
[2017-01-05] MEDS: Potassium Chloride 20 mEq SR Tablet PO SCH (09:44)
[2017-01-05] MEDS: Albuterol 2.5 mg/3 mL Inhalation Solution NEB PRN (10:15)
--- NOTE | 2017-01-05 10:21 | NUR ---
[facility] Signed 1020AM
--- NOTE | 2017-01-05 12:00 | PCM.PNMED ---
Subjective Date of Service Jan 05, 2017 Subjective Patient doing well overnight. Edema is greatly greatly reduced. Breathing is still somewhat tentative as patient does not like being off of the BiPAP. He is saturating really well however and could probably do well with oxygen mask or nasal cannula. Exam Vital Signs Vital Sign - Last Date Time Temp Pulse Resp B/P Pulse Ox O2 Delivery O2 Flow Rate FiO2 01/05/17 11:19 105 01/05/17 10:15 18 97 35 01/05/17 09:35 CPAP/BIPAP 01/05/17 09:35 36.0 112/70 01/04/17 15:57 5.00 Intake and Output 01/04/17 01/04/17 01/05/17 Cumulative From/Thru 15:00 23:00 07:00 01/03/17 20:33 - 01/05/17 06:16 Intake Total 491 ml 400 ml 1911 ml Output Total 2850 ml 1200 ml 5150 ml Balance -2359 ml -800 ml -3239 ml Intake Oral 0 ml 400 ml 400 ml IV Total 491 ml 1511 ml Output Urine Total 2850 ml 1200 ml 5150 ml # Bowel Movements 0 1 Exam General: Morbidly obese. Awake and alert with BiPAP in place. No acute distress HEENT: PERRLA Neck: supple Cardiovascular: RRR but distant and difficult to auscultate due to habitus Pulmonary: CTA ; breath sounds are improving. Abdomen: Obese. Soft, nontender; edema improved Extremities: Edema is greatly improved, still mild to moderate edema in the thighs Skin: Healing wounds on her knees Psychiatric: Normal mood and affect. Alert and oriented to person, place, and time; conversive neuro: sensation intact throughout IVs and Medications Medications Reviewed: Medications were reviewed in detail Lab and Diagnostics Result Diagram: 01/05/17 0502 01/05/17 0502 X-Rays, CTs and MRIs Patient Name: KEN NORMAN MR#: [id number] Location: [facility] [place] Ordering Phys: Luis Dukes MD Date of Service: 01/03/172025 PROCEDURE: CT ANGIO CHEST PULMONARY EMBOLISM ([id number]) INDICATIONS: acute sob recent pulmonary emboli TECHNIQUE: After the administration of intravenous contrast, 2 mm thick sections acquired from the pulmonary apices to the posterior costophrenic angles. 3-dimensional maximum intensity projection (MIP) coronal and sagittal reformats were then acquired through the thorax. For radiation dose reduction, the following was used: automated exposure control, adjustment of mA and/or kV according to patient size. COMPARISON: FINDINGS: Image quality: Excellent. Pulmonary arteries: The main pulmonary arteries are normal in size and free of intraluminal filling defects. There is likely a residual embolus within the subsegmental branches of the right lower lobe, decreased in extent when compared with the study dated 12/19/16. No new pulmonary embolus. Lungs and pleura: There is a large right low density pleural effusion which has a loculated appearance. This is increased in size when compared with the study dated 12/19/16. The inferior aspect of the right lower lobe is collapsed. An ill- defined 2.4 cm in diameter radiopacity is present at the base of the left lung ( series 6, image 52). Mediastinum: Heart size is enlarged. There is a small low density pleural effusion which is new when compared with the prior study. No mediastinal or hilar adenopathy. Thoracic aorta is normal in caliber and enhancement. Esophagus is normal in caliber, without hiatal hernia. Bones and chest wall: No suspicious bony lesions. Ribs and thoracic spine appear intact throughout. Thyroid gland is unremarkable. No axillary or supraclavicular adenopathy. Abdomen: Visualized upper abdominal solid organs appear normal in the early arterial phase of enhancement. IMPRESSION: 1. Loculated appearing low density in right pleural effusion increased in size when compared with the study dated 12/19/16. The inferior portion of the right lower lobe is collapsed, increased in extent when compared with the prior study. 2. Near complete resolution of the previously visualized embolus on the study dated 12/19/16. Trace residual embolus remains. No new acute pulmonary embolus. 3. New small low-density pericardial effusion. Dictated by: Rena Chowdhury M.D. on 01/03/2017 at 21:39 Approved by: Rena Chowdhury M.D. on 01/03/2017 at 21:47 Cardiac Echo Impressions Echocardiogram Report Name: KEN NORMAN TStudy Date : 12/25/2016 Height: 76 in Hospital Exam Location: [facility] Weight: 459 lb Gender: Male BSA: 3.2 m2 : 1965 Age: 51 yrs BP: 138/70 mmHg Reason For Study: PERICARDIAL EFFUSION Ordering Physician: HOSPITALIST SVHPerformed By: Enrique Gooden Referring Physician: Daphne MILLS Interpretation Summary There is a small to moderate pericardial effusion noted. There are no echocardiographic or Doppler indications for cardiac tamponade. The right ventricle is moderate to severely dilated. Right ventricular systolic function is moderately reduced. Right ventricular systolic function has increased since previous exam. A possible thrombus continues to be noted in the right ventricular apex measuring approximately 2.4 cm x 2.6. This is slightly smaller than the echo from 12/19/16. The right ventricular systolic pressure is estimated at 48 mmHg assuming a right atrial pressure of 15 mm Hg. Procedure: A two-dimensional transthoracic echocardiogram with color flow and Doppler was performed in limited views only. The study quality was technically difficult. Comparison is made with the echocardiogram of 12/22/16. A contrast injection of Definity was performed to improve assessment of LV function. The patient was in normal sinus rhythm during the exam. The patient had a heart rate of 107-113 beats per minute. Left Ventricle: The left ventricle is normal in size. There is normal left ventricular wall thickness. Regional wall motion abnormalities cannot be excluded due to limited visualization. Right Ventricle: The right ventricle is moderate to severely dilated. Right ventricular systolic function is moderately reduced. Right ventricular systolic function has increased since previous exam. A possible thrombus continues to be noted in the right ventricular apex measuring approximately 2.4 cm x 2.6. This is slightly smaller than the echo from 12/19/16. Atria: The left atrial size is normal. The right atrium is moderately dilated. Mitral Valve: The mitral valve is not well visualized. The mitral valve is grossly normal. The mitral valve chordae are thickened and/or calcified. Tricuspid Valve: The tricuspid valve is not well visualized, but is grossly normal. There is mild tricuspid regurgitation. The right ventricular systolic pressure is estimated at 48 mmHg assuming a right atrial pressure of 15 mm Hg. Great Vessels: The ascending aorta is normal in size. The IVC is dilated (diameter is greater than 2.1 cm) and it collapses less than 50% with a sniff. This suggests a high right atrial pressure of 15 mm Hg. The IVC has a measurement of 37 mm. Pericardium/ Pleura There is a small to moderate pericardial effusion noted. There are no echocardiographic or Doppler indications for cardiac tamponade. There is a large right-sided pleural effusion. MMode/2D Measurements & Calculations LVIDd: 5.2 cm RA long axis asc Aorta LVIDs: 3.7 cm LA A2 area: 21.9 cm Diam: 2.6 cm FS: 28.1 % LA A4 area: 22.6 cm RA area IVSd: 0.95 cm LA length (vol): 5.8 cm LVPWd: 1.0 cm LA vol: 72.1 ml : 30.8 cm LA vol index RA vol : 128.ml RA IVC diam: 3.7 cm : 40.7 mm2 LV mathias. diameter/BSA LV sys. diameter/BSA RVD1 (basal) RVD2 (mid) (cm/m^2): 1.7 (cm/m^2): 1.2 : 6.0 cm Doppler Measurements & Calculations MV E max nathan MV E/A: 208.1 TR max nathan MV V2 mean : 126.8 cm/sec Med Peak E' Nathan : 285.7 cm/sec : 79.7 cm/sec MV A max nathan TR max PG MV mean PG : 0.61 cm/sec E/E' med: 12.1 : 32.7 mmHg MV V2 VTI MV dec time : 0.10 sec Reading Physician:PM Assessment & Plan 51-year-old male patient with a history of COPD, congestive heart failure, and hyperventilation secondary to obesity presented to the ER with complaint of worsening dyspnea and weakness. Patient bounced back from [facility] due to severe dyspnea. Acute on chronic hypoxic and hypercarbic respiratory failure, present on admission -This occurred when patient was placed on traveling G machine after being transferred from [facility] to [facility]. -Patient has COPD, hypoventilation syndrome, untreated sleep apnea, and heart failure contributing to superior respiratory illness -CTA PE protocol did not reveal any new acute abnormalities -Continue Lasix 40 mg IV every 8hr and Aldactone 25 mg daily -2.17 cm mass was noted left lower lobe not presently identified; loculated effusion on right with atelectasis. Ultrasound Order for Assessment of Fluid -Discussion with nursing home social worker today and they will set up trilogy to be placed on patient tomorrow, transported with the patient tomorrow, and adjusted once patient reaches [facility] Electrolyte disturbance second to diuresis; as on admission: Stable -Patient presents back with ABG and radicular respiratory acidosis that is compensated with bicarbonate. -Patient is now on BiPAP which will reduce his acidosis and will observe for metabolic alkalosis -Potassium and magnesium are also being replaced Mildly elevated troponins; present admission; resolving -Likely due to patient's severe hypoxia and tachycardia -Patient not reporting chest pain just difficulty breathing which is consistent with his prior dyspnea -Patient is having no pain now and EKG was a poor study due to habitus, but no noticeable concerning ST changes Anasarca secondary to right heart failure; present on admission; resolving -On last admit attempts at diuresis were either too aggressive or futile at first; achieved good diuresis with IV Lasix at 10-15 mg an hour -Continue lower extremity compression; increased wraps up to Roper Sinus tachycardia, acute, present on admission. stable -Patient reported being on propranolol for a fast heart rate. His outside records do not mention atrial fibrillation or any arrhythmia. He was on metoprolol tartrate 25 mg BID as of April 2016. -Underlying sinus tachy -Metoprolol to 50mg bid History of PE, chronic, present on admission Continue with by mouth warfarin and dosing per pharmacy Morbid obesity, chronic, present on admission -Discussed at length DVT prophylaxis -On therapeutic warfarin Disposition: Plan is for patient to be discharged tomorrow, stable on trilogy prior to departure and transported with trilogy to [facility]. We discussed this with nursing home social worker they are setting up the trilogy appointment. VTE Mechanical Devices: Intermittant Pneumatic CD Resuscitation Status: CPR: Attempt Resuscitation Attending Statement Agree with assessment and plan as above - pt seen and separately discussed with resident, Dr. Reeves. 40 minutes spent with evaluation and management Jaun Reeves DO Jan 05, 2017 12:00 Molina Castellon DO Jan 05, 2017 15:11
--- NOTE | 2017-01-05 13:25 | DRSVH ---
PROCEDURE: US CHEST/PLEURAL SONOGRAM INDICATIONS: pleural effusion COMPARISON: [facility], CT, CT ANGIO CHEST PE, 01/03/2017, 20:59. FINDINGS: Large, nonmobile multiloculated right pleural effusion is present. IMPRESSION: Multiloculated large right pleural effusion. Recommend surgical consultation. Dictated by: Chalino MORTON Interpreted: Cayla Marmolejo MD on 01/05/2017 at 13:21 Transcribed by: AMAIRANI on 01/05/2017 at 13:24 Approved by: Cayla Marmolejo M.D. on 01/05/2017 at 17:36
--- NOTE | 2017-01-05 14:43 | PCM.PHAPRO ---
Progress Date of Service: Jan 05, 2017 INR=4.9, hct=39.4, zwny=359 Pt continues on warfarin therapy for thrombus right ventricle. Goal INR = 2-3. Will hold warfarin tonight for supratherapeutic INR. INR ordered. Pharmacy will follow this pt's warfarin therapy. Rylie Urbano S PharmD Jan 05, 2017 14:43
[2017-01-05] MEDS: Nystatin 100,000 Unit/Gm 15 Gm Powder TOPICAL SCH ×2 (15:00→20:13)
--- NOTE | 2017-01-05 16:05 | NUR ---
Social Work Note: Initial Assessment Data& Assessment: EMR reviewed. TAJ met with pt at bedside to discuss discharge planning, SW role explained. Pt is a readmission. Bruno Kruse is a 51 year old male admitted on 01/03/2017 for dyspnea and elevated troponin. Pt has Medicare insurance coverage. Pt sees Elif Emerson MD for primary care. Pt was discharged on 01/03/2017 to [facility] but was desaturating on his Trilogy Machine and felt he could not breathe so he was brought to the ED in result. Per [facility], their respiratory therapist had attempted to adjust his Trilogy machine accordingly but it did not help the pt's respiratory status enough at that time. [employer] is planning on delivering pt Trilogy Machine to his bedside so pt is able to wear the machine during transport. PT eval pending. Pt otherwise has not had HH or SNF hx prior to this brief discharge to [facility]. Pt was previously independent at baseline prior to his recent hospitalizations this last month. Pt is hopeful to rehab and recover to a independent baseline as soon as possible. Pt does not have LTC insurance or VA benefits. Pt provided with DPOA/Advance Directive paperwork to review and complete when possible. Pt is hoping to return to [facility] when medically ready. TAJ spoke with Beatrice in Admissions at [facility] who explained they will continue to follow pt for return but would like PT to have another evaluation completed prior to accepting pt back again for sure. Pt denies any needs at this time. SW to continue to follow if any needs arise. Plan: Anticipated discharge back to [facility] for rehab pending acceptance and when pt is medically ready. Pt denies any needs at this time. SW to continue to follow if any needs arise. KENDRICK Hopkins Addendum: 01/05/17 at 1613 by MIKE HERRMANN Amended: Links added.
--- NOTE | 2017-01-05 17:52 | NUR ---
PLUM Patient on BiPAP most of shift saturations in low 90's, he doses fine on 4L NC when eating or visiting with friends. U/S done today on chest but appears to be to little fluid for thoracentesis. Plan is to have patient put on Trilogy here and then transfer to [facility]. Mehdi wraps rewrapped and compression added thigh. INR 4.8
[2017-01-06] VITALS (12 sets, daily range): BP systolic 110–125; BP diastolic 70–79; PULSE 100–110; RESP 19–28; O2SAT 92–95
[2017-01-06] MEDS: Furosemide 10 mg/mL 4 mL Inj IVPUSH SCH ×3 (00:15→16:38)
[2017-01-06] MEDS: Albuterol 2.5 mg/3 mL Inhalation Solution NEB PRN ×3 (00:42→18:34)
[2017-01-06 06:01] LABS: BASOPHILS % (AUTO) 0.2 % (0-3); MONOCYTES % (AUTO) 9.1 % (4-12); Mean Corpuscular Hemoglobin 27.2 pg (27.0-35.0); Mean Corpuscular Volume 95.7 fL (81-100); NEUTROPHILS % (AUTO) 82.6 % (40-74); Platelet Count 313 bil/L (150-400)
--- NOTE | 2017-01-06 06:02 | NUR ---
Bilateral LE leg wraps: pt tolerating dressing to legs majority of the night. Around 0300 pt requesting wraps be removed- stating that he could not tolerate them any more. message left for wound care.
[2017-01-06 06:15] LABS: INR 4.64 ratio
[2017-01-06] MEDS: Sodium Chloride LOK Flush 10 mL Syringe IVFLUSH SCH ×2 (07:50→16:37)
[2017-01-06] MEDS: Potassium Chloride 20 mEq SR Tablet PO SCH (07:50)
[2017-01-06] MEDS: Nystatin 100,000 Unit/Gm 15 Gm Powder TOPICAL SCH ×2 (07:51→19:58)
--- NOTE | 2017-01-06 07:54 | PCM.PHAPRO ---
Progress 12-Mar 13-Mar 14-Mar 15-Mar 2.94 3.83 4.90 4.64 0.28 0.89 1.07 -0.26 4 HOLD HOLD HOLD Michael Bettencourt Jan 06, 2017 07:54
--- NOTE | 2017-01-06 10:54 | NUR ---
Spoke with Rosy in admissions at [facility] [phone], she has access to patient and reviewed. They accept patient when ready if he would still like to come there. Updated KENDRICK and she is going to see patient at bedside and confirm ultimate preference. Per her conversation yesterday patient was planning on returning to [facility]. Patient can go to either facility at this point. Addendum: 01/06/17 at 1147 by DAVID LE CM Javier Barron in admissions at [facility] patient will be going to [facility] at discharge. Updated KENDRICK
--- NOTE | 2017-01-06 16:53 | PCM.PNMED ---
Subjective Date of Service Jan 06, 2017 Subjective Patient did well overnight. Mild rash appearing on his lower extremities due to Mehdi wrap. Patient still proposed with a BiPAP but is able to eat without desaturating. Assessment this current pneumonic effusion revealed a large loculated collection. Patient's INR is too high to safely do a thoracentesis. Exam Vital Signs Vital Sign - Last Date Time Temp Pulse Resp B/P Pulse Ox O2 Delivery O2 Flow Rate FiO2 01/06/17 16:01 37.6 100 20 114/73 93 BiPAP 40 01/04/17 15:57 5.00 Intake and Output 01/05/17 01/05/17 01/06/17 Cumulative From/Thru 14:59 22:59 06:59 01/03/17 20:33 - 01/06/17 05:03 Intake Total 50 ml 430 ml 2391 ml Output Total 1600 ml 700 ml 7450 ml Balance -1550 ml -270 ml -5059 ml Intake Oral 50 ml 430 ml 880 ml IV Total 1511 ml Output Urine Total 1600 ml 700 ml 7450 ml # Bowel Movements 0 0 1 Exam General: Morbidly obese. No acute distress HEENT: PERRLA Neck: supple Cardiovascular: Difficult to auscultate but sounds regular Pulmonary: Breath sounds are stable Abdomen: Obese. Soft, nontender; edema improved Extremities: Edema is mostly gone with only trace edema in his abdominal wall and lower tibial Skin: Healing abrasions Psychiatric: Normal mood and affect. Alert and oriented to person, place, and time neuro: sensation intact throughout IVs and Medications Medications Reviewed: Medications were reviewed in detail Lab and Diagnostics Result Diagram: 01/06/1752501/06/17525 X-Rays, CTs and MRIs Patient Name: KEN NORMAN MR#: [id number] Location: [facility] [place] Ordering Phys: Luis Dukes MD Date of Service: 01/03/172025 PROCEDURE: CT ANGIO CHEST PULMONARY EMBOLISM ([id number]) INDICATIONS: acute sob recent pulmonary emboli TECHNIQUE: After the administration of intravenous contrast, 2 mm thick sections acquired from the pulmonary apices to the posterior costophrenic angles. 3-dimensional maximum intensity projection (MIP) coronal and sagittal reformats were then acquired through the thorax. For radiation dose reduction, the following was used: automated exposure control, adjustment of mA and/or kV according to patient size. COMPARISON: FINDINGS: Image quality: Excellent. Pulmonary arteries: The main pulmonary arteries are normal in size and free of intraluminal filling defects. There is likely a residual embolus within the subsegmental branches of the right lower lobe, decreased in extent when compared with the study dated 12/19/16. No new pulmonary embolus. Lungs and pleura: There is a large right low density pleural effusion which has a loculated appearance. This is increased in size when compared with the study dated 12/19/16. The inferior aspect of the right lower lobe is collapsed. An ill- defined 2.4 cm in diameter radiopacity is present at the base of the left lung ( series 6, image 52). Mediastinum: Heart size is enlarged. There is a small low density pleural effusion which is new when compared with the prior study. No mediastinal or hilar adenopathy. Thoracic aorta is normal in caliber and enhancement. Esophagus is normal in caliber, without hiatal hernia. Bones and chest wall: No suspicious bony lesions. Ribs and thoracic spine appear intact throughout. Thyroid gland is unremarkable. No axillary or supraclavicular adenopathy. Abdomen: Visualized upper abdominal solid organs appear normal in the early arterial phase of enhancement. IMPRESSION: 1. Loculated appearing low density in right pleural effusion increased in size when compared with the study dated 12/19/16. The inferior portion of the right lower lobe is collapsed, increased in extent when compared with the prior study. 2. Near complete resolution of the previously visualized embolus on the study dated 12/19/16. Trace residual embolus remains. No new acute pulmonary embolus. 3. New small low-density pericardial effusion. Dictated by: Rena Chowdhury M.D. on 01/03/2017 at 21:39 Approved by: Rena Chowdhury M.D. on 01/03/2017 at 21:47 Cardiac Echo Impressions Echocardiogram Report Name: KEN NORMAN TStudy Date : 12/25/2016 Height: 76 in Hospital Exam Location: [facility] Weight: 459 lb Gender: Male BSA: 3.2 m2 : 1965 Age: 51 yrs BP: 138/70 mmHg Reason For Study: PERICARDIAL EFFUSION Ordering Physician: HOSPITALIST LAKESHIAerformed By: Enrique Gooden Referring Physician: Daphne MILLS Interpretation Summary There is a small to moderate pericardial effusion noted. There are no echocardiographic or Doppler indications for cardiac tamponade. The right ventricle is moderate to severely dilated. Right ventricular systolic function is moderately reduced. Right ventricular systolic function has increased since previous exam. A possible thrombus continues to be noted in the right ventricular apex measuring approximately 2.4 cm x 2.6. This is slightly smaller than the echo from 12/19/16. The right ventricular systolic pressure is estimated at 48 mmHg assuming a right atrial pressure of 15 mm Hg. Procedure: A two-dimensional transthoracic echocardiogram with color flow and Doppler was performed in limited views only. The study quality was technically difficult. Comparison is made with the echocardiogram of 12/22/16. A contrast injection of Definity was performed to improve assessment of LV function. The patient was in normal sinus rhythm during the exam. The patient had a heart rate of 107-113 beats per minute. Left Ventricle: The left ventricle is normal in size. There is normal left ventricular wall thickness. Regional wall motion abnormalities cannot be excluded due to limited visualization. Right Ventricle: The right ventricle is moderate to severely dilated. Right ventricular systolic function is moderately reduced. Right ventricular systolic function has increased since previous exam. A possible thrombus continues to be noted in the right ventricular apex measuring approximately 2.4 cm x 2.6. This is slightly smaller than the echo from 12/19/16. Atria: The left atrial size is normal. The right atrium is moderately dilated. Mitral Valve: The mitral valve is not well visualized. The mitral valve is grossly normal. The mitral valve chordae are thickened and/or calcified. Tricuspid Valve: The tricuspid valve is not well visualized, but is grossly normal. There is mild tricuspid regurgitation. The right ventricular systolic pressure is estimated at 48 mmHg assuming a right atrial pressure of 15 mm Hg. Great Vessels: The ascending aorta is normal in size. The IVC is dilated (diameter is greater than 2.1 cm) and it collapses less than 50% with a sniff. This suggests a high right atrial pressure of 15 mm Hg. The IVC has a measurement of 37 mm. Pericardium/ Pleura There is a small to moderate pericardial effusion noted. There are no echocardiographic or Doppler indications for cardiac tamponade. There is a large right-sided pleural effusion. MMode/2D Measurements & Calculations LVIDd: 5.2 cm RA long axis asc Aorta LVIDs: 3.7 cm LA A2 area: 21.9 cm Diam: 2.6 cm FS: 28.1 % LA A4 area: 22.6 cm RA area IVSd: 0.95 cm LA length (vol): 5.8 cm LVPWd: 1.0 cm LA vol: 72.1 ml : 30.8 cm LA vol index RA vol : 128.ml RA IVC diam: 3.7 cm : 40.7 mm2 LV mathias. diameter/BSA LV sys. diameter/BSA RVD1 (basal) RVD2 (mid) (cm/m^2): 1.7 (cm/m^2): 1.2 : 6.0 cm Doppler Measurements & Calculations MV E max nathan MV E/A: 208.1 TR max nathan MV V2 mean : 126.8 cm/sec Med Peak E' Nathan : 285.7 cm/sec : 79.7 cm/sec MV A max nathan TR max PG MV mean PG : 0.61 cm/sec E/E' med: 12.1 : 32.7 mmHg MV V2 VTI MV dec time : 0.10 sec Reading Physician:PM Assessment & Plan 51-year-old male patient with a history of COPD, congestive heart failure, and hyperventilation secondary to obesity presented to the ER with complaint of worsening dyspnea and weakness. Patient bounced back from [facility] due to severe dyspnea. Acute on chronic hypoxic and hypercarbic respiratory failure, present on admission -This occurred when patient was placed on traveling G machine after being transferred from [facility] to [facility]. -Patient has COPD, hypoventilation syndrome, untreated sleep apnea, and R/L heart failure contributing to respiratory illness -CTA PE protocol did not reveal any new acute abnormalities -Continue Lasix 40 mg IV every 8hr and Aldactone 25 mg daily -Loculated effusion will require evaluation; patient's INR is currently too high ; will wait 2 days and attempt thoracentesis Parapneumonic effusion; present on admission; ongoing -Initially seen on chest x-ray on last admission but has not resolved with diuresis; located in the right pleural space where she had recent pneumonia -Also seen on CT; ultrasound assessment yesterday revealed a large loculated effusion and suggested surgical follow-up -INR this morning was 4.64 due to his Coumadin for his right ventricular thrombus and PE -We will wait 2 days to see if INR results and perform a thoracentesis for evaluation. Sinus tachycardia, acute, present on admission. stable -Patient reported being on propranolol for a fast heart rate. His outside records do not mention atrial fibrillation or any arrhythmia. He was on metoprolol tartrate 25 mg BID as of April 2016. -Underlying sinus tachy, could be due to intravascular depletion, however his kidney function remains. -Metoprolol to 50mg bid Electrolyte disturbance second to diuresis; as on admission: Stable -Patient presents back with ABG and radicular respiratory acidosis that is compensated with bicarbonate. -Patient is now on BiPAP which will reduce his acidosis and will observe for metabolic alkalosis -Potassium and magnesium are also being replaced Anasarca secondary to right heart failure; present on admission; resolved -On last admit attempts at diuresis were either too aggressive or futile at first; achieved good diuresis with IV Lasix at 10-15 mg an hour -Continue lower extremity compression; increased wraps up to [employer] Mildly elevated troponins; present admission; resolved -Likely due to patient's severe hypoxia and tachycardia -Patient not reporting chest pain just difficulty breathing which is consistent with his prior dyspnea -Patient is having no pain now and EKG was a poor study due to habitus, but no noticeable concerning ST changes History of PE, chronic, present on admission Continue with by mouth warfarin and dosing per pharmacy Morbid obesity, chronic, present on admission -Discussed at length DVT prophylaxis -On therapeutic warfarin Disposition: Patient will be in the hospital for 2 more days as his INR corrects from 4.64 to 1.5 to allow us to evaluate his loculated parapneumonic effusion VTE Mechanical Devices: Intermittant Pneumatic CD Resuscitation Status: CPR: Attempt Resuscitation Time spent 40 minutes Attending Statement Patient seen and examined with house staff, agree with all attached documentation. Jaun Reeves DO Jan 06, 2017 16:53 Emeka Hines MD Jan 07, 2017 11:35
--- NOTE | 2017-01-06 17:05 | NUR ---
Social Work Note: Readiness for Discharge Data& Assessment: SW met with pt at bedside to discuss discharge planning and assess for any unmet needs. Pt explained that he would like to discharge to [facility] instead of back to [facility]. Pt explained his ex works at [facility]. [facility] has had access, reviewed pt and is able to accept pt when medically ready. Pt SW spoke with Marcia through [employer] who was going to confirm with their respiratory therapist about pt Trilogy Machine delivery to his room so he is able to have the machine during transport to SNF. Pt denies any other needs. No other discharge needs identified at this time. All updated and agreeable to plan. SW to continue to follow if any other needs arise. Plan: Anticipated discharge to [facility] when medically ready with his trilogy machine through [facility]. Pt denies any other needs. No other discharge needs identified at this time. All updated and agreeable to plan. SW to continue to follow if any other needs arise. KENDRICK Hopkins
--- NOTE | 2017-01-06 17:57 | NUR ---
Respiration Pt. states feeling SOB more often when he is off the BIPAP machine. Pt. states he needs the BIPAP machine on more often than before. With the BIPAP on Pt. states feeling no SOB.
[2017-01-07] VITALS (9 sets, daily range): BP systolic 102–113; BP diastolic 66–73; PULSE 98–117; RESP 18–22; O2SAT 89–96
[2017-01-07] MEDS: Sodium Chloride LOK Flush 10 mL Syringe IVFLUSH SCH ×4 (00:24→19:40)
[2017-01-07] MEDS: Furosemide 10 mg/mL 4 mL Inj IVPUSH SCH ×4 (00:24→19:40)
--- NOTE | 2017-01-07 00:33 | NUR ---
Using new trilogy, patient seems to be comfortable sats are 88-92% on 6L bleed in
[2017-01-07] MEDS: Albuterol 2.5 mg/3 mL Inhalation Solution NEB PRN ×2 (00:59→12:27)
--- NOTE | 2017-01-07 04:46 | NUR ---
Needed to increase to 8-10L bleed in to keep sats above 87%
--- NOTE | 2017-01-07 04:57 | NUR ---
Respiratory: Pt Tolerating Trilogy overnight. When sleeping o2 bleed in needing to be increased to 8-10L to maintain sp02 >87%. Vitals stable. Pt denies any pain.
[2017-01-07 05:51] LABS: BASOPHILS % (AUTO) 0.2 % (0-3); EOSINOPHILS % (AUTO) 3.2 % (0-5); MONOCYTES % (AUTO) 9.9 % (4-12); Mean Corpuscular Hemoglobin 27.1 pg (27.0-35.0); Mean Corpuscular Volume 95.7 fL (81-100); NEUTROPHILS % (AUTO) 78.8 % (40-74); Platelet Count 319 bil/L (150-400)
[2017-01-07] MEDS: Potassium Chloride 20 mEq SR Tablet PO SCH (08:32)
[2017-01-07] MEDS: Nystatin 100,000 Unit/Gm 15 Gm Powder TOPICAL SCH ×2 (08:33→19:40)
[2017-01-07] MEDS ORDERED: Potassium Chloride 20 mEq SR Tablet PO ONE (10:20)
--- NOTE | 2017-01-07 14:38 | PCM.PNMED ---
Subjective Date of Service Jan 07, 2017 Subjective Patient doing okay overnight but still prefers to have the BiPAP mask on. BiPAP support bedside. Patient states on the machine is removed he has increased trouble breathing and substernal chest pain that radiates into his left chest. This is also what happened when he went to the skilled nursing. Patient's INR still high or waiting for this to trend down so that he should have a thoracentesis performed. Exam Vital Signs Vital Sign - Last Date Time Temp Pulse Resp B/P Pulse Ox O2 Delivery O2 Flow Rate FiO2 01/07/17 12:27 107 40 01/07/17 11:37 36.6 18 104/69 96 triogy 01/07/17 08:23 8.00 Intake and Output 01/06/17 01/06/17 01/07/17 Cumulative From/Thru 15:00 23:00 07:00 01/03/17 20:33 - 01/07/17 05:09 Intake Total 400 ml 438 ml 3229 ml Output Total 1000 ml 1700 ml 04357 ml Balance -600 ml -1262 ml -6921 ml Intake Oral 400 ml 438 ml 1718 ml IV Total 1511 ml Output Urine Total 1000 ml 1700 ml 82104 ml # Bowel Movements 0 1 Exam General: Morbidly obese. No acute distress HEENT: PERRLA Neck: supple Cardiovascular: Difficult to auscultate but sounds regular Pulmonary: Breath sounds are distant and difficult to auscultate due to habitus Abdomen: Obese. Soft, nontender; edema improved Extremities: Very mild edema in the lower extremities Skin: Healing abrasions Psychiatric: Normal mood and affect. Alert and oriented to person, place, and time neuro: sensation intact throughout IVs and Medications Medications Reviewed: Medications were reviewed in detail Lab and Diagnostics Result Diagram: 01/07/1752601/07/17526 X-Rays, CTs and MRIs Patient Name: KEN NORMAN MR#: [id number] Location: [facility] [place] Ordering Phys: Luis Dukes MD Date of Service: 01/03/172025 PROCEDURE: CT ANGIO CHEST PULMONARY EMBOLISM ([id number]) INDICATIONS: acute sob recent pulmonary emboli TECHNIQUE: After the administration of intravenous contrast, 2 mm thick sections acquired from the pulmonary apices to the posterior costophrenic angles. 3-dimensional maximum intensity projection (MIP) coronal and sagittal reformats were then acquired through the thorax. For radiation dose reduction, the following was used: automated exposure control, adjustment of mA and/or kV according to patient size. COMPARISON: FINDINGS: Image quality: Excellent. Pulmonary arteries: The main pulmonary arteries are normal in size and free of intraluminal filling defects. There is likely a residual embolus within the subsegmental branches of the right lower lobe, decreased in extent when compared with the study dated 12/19/16. No new pulmonary embolus. Lungs and pleura: There is a large right low density pleural effusion which has a loculated appearance. This is increased in size when compared with the study dated 12/19/16. The inferior aspect of the right lower lobe is collapsed. An ill- defined 2.4 cm in diameter radiopacity is present at the base of the left lung ( series 6, image 52). Mediastinum: Heart size is enlarged. There is a small low density pleural effusion which is new when compared with the prior study. No mediastinal or hilar adenopathy. Thoracic aorta is normal in caliber and enhancement. Esophagus is normal in caliber, without hiatal hernia. Bones and chest wall: No suspicious bony lesions. Ribs and thoracic spine appear intact throughout. Thyroid gland is unremarkable. No axillary or supraclavicular adenopathy. Abdomen: Visualized upper abdominal solid organs appear normal in the early arterial phase of enhancement. IMPRESSION: 1. Loculated appearing low density in right pleural effusion increased in size when compared with the study dated 12/19/16. The inferior portion of the right lower lobe is collapsed, increased in extent when compared with the prior study. 2. Near complete resolution of the previously visualized embolus on the study dated 12/19/16. Trace residual embolus remains. No new acute pulmonary embolus. 3. New small low-density pericardial effusion. Dictated by: Rena Chowdhury M.D. on 01/03/2017 at 21:39 Approved by: Rena Chowdhury M.D. on 01/03/2017 at 21:47 Cardiac Echo Impressions Echocardiogram Report Name: KEN NORMAN TStudy Date : 12/25/2016 Height: 76 in Hospital Exam Location: [facility] Weight: 459 lb Gender: Male BSA: 3.2 m2 : 1965 Age: 51 yrs BP: 138/70 mmHg Reason For Study: PERICARDIAL EFFUSION Ordering Physician: HOSPITALIST SVHPerformed By: Enrique Gooden Referring Physician: Daphne MILLS Interpretation Summary There is a small to moderate pericardial effusion noted. There are no echocardiographic or Doppler indications for cardiac tamponade. The right ventricle is moderate to severely dilated. Right ventricular systolic function is moderately reduced. Right ventricular systolic function has increased since previous exam. A possible thrombus continues to be noted in the right ventricular apex measuring approximately 2.4 cm x 2.6. This is slightly smaller than the echo from 12/19/16. The right ventricular systolic pressure is estimated at 48 mmHg assuming a right atrial pressure of 15 mm Hg. Procedure: A two-dimensional transthoracic echocardiogram with color flow and Doppler was performed in limited views only. The study quality was technically difficult. Comparison is made with the echocardiogram of 12/22/16. A contrast injection of Definity was performed to improve assessment of LV function. The patient was in normal sinus rhythm during the exam. The patient had a heart rate of 107-113 beats per minute. Left Ventricle: The left ventricle is normal in size. There is normal left ventricular wall thickness. Regional wall motion abnormalities cannot be excluded due to limited visualization. Right Ventricle: The right ventricle is moderate to severely dilated. Right ventricular systolic function is moderately reduced. Right ventricular systolic function has increased since previous exam. A possible thrombus continues to be noted in the right ventricular apex measuring approximately 2.4 cm x 2.6. This is slightly smaller than the echo from 12/19/16. Atria: The left atrial size is normal. The right atrium is moderately dilated. Mitral Valve: The mitral valve is not well visualized. The mitral valve is grossly normal. The mitral valve chordae are thickened and/or calcified. Tricuspid Valve: The tricuspid valve is not well visualized, but is grossly normal. There is mild tricuspid regurgitation. The right ventricular systolic pressure is estimated at 48 mmHg assuming a right atrial pressure of 15 mm Hg. Great Vessels: The ascending aorta is normal in size. The IVC is dilated (diameter is greater than 2.1 cm) and it collapses less than 50% with a sniff. This suggests a high right atrial pressure of 15 mm Hg. The IVC has a measurement of 37 mm. Pericardium/ Pleura There is a small to moderate pericardial effusion noted. There are no echocardiographic or Doppler indications for cardiac tamponade. There is a large right-sided pleural effusion. MMode/2D Measurements & Calculations LVIDd: 5.2 cm RA long axis asc Aorta LVIDs: 3.7 cm LA A2 area: 21.9 cm Diam: 2.6 cm FS: 28.1 % LA A4 area: 22.6 cm RA area IVSd: 0.95 cm LA length (vol): 5.8 cm LVPWd: 1.0 cm LA vol: 72.1 ml : 30.8 cm LA vol index RA vol : 128.ml RA IVC diam: 3.7 cm : 40.7 mm2 LV mathias. diameter/BSA LV sys. diameter/BSA RVD1 (basal) RVD2 (mid) (cm/m^2): 1.7 (cm/m^2): 1.2 : 6.0 cm Doppler Measurements & Calculations MV E max nathan MV E/A: 208.1 TR max nathan MV V2 mean : 126.8 cm/sec Med Peak E' Nathan : 285.7 cm/sec : 79.7 cm/sec MV A max nathan TR max PG MV mean PG : 0.61 cm/sec E/E' med: 12.1 : 32.7 mmHg MV V2 VTI MV dec time : 0.10 sec Reading Physician:PM Assessment & Plan 51-year-old male patient with a history of COPD, congestive heart failure, and hyperventilation secondary to obesity presented to the ER with complaint of worsening dyspnea and weakness. Patient bounced back from [facility] due to severe dyspnea. Acute on chronic hypoxic and hypercarbic respiratory failure, present on admission -This occurred when patient was placed on traveling G machine after being [place] [facility] [place] [facility]. -Patient has COPD, hypoventilation syndrome, untreated sleep apnea, and R/L heart failure contributing to respiratory illness -CTA PE protocol did not reveal any new acute abnormalities -Hold today: Lasix 40 mg IV every 8hr and Aldactone 25 mg daily Intermittent substernal chest pain; present admission; resolved -Likely due to patient's severe hypoxia and tachycardia; mild troponin elevation on admit -Patient seen on BiPAP due to substernal chest pain on BiPAP is removed -No change on EKG during admission; troponins are resolving -Limited echo today to evaluate for right ventricular and left ventricular function as well as right ventricular thrombus resolution -Troponin ordered Parapneumonic effusion; present on admission; ongoing -Initially seen on chest x-ray on last admission but has not resolved with diuresis; located in the right pleural space where she had recent pneumonia -Also seen on CT; ultrasound assessment yesterday revealed a large loculated effusion and suggested surgical follow-up -INR this morning was 4.00 due to his Coumadin for his right ventricular thrombus and PE -We will wait 2 days to see if INR results and perform a thoracentesis for evaluation. Sinus tachycardia, acute, present on admission. stable -Patient has underlying sinus tachycardia previously on metoprolol 25 mg by mouth twice a day -Underlying sinus tachy, could be due to intravascular depletion, however his kidney function remains. -On last admit patient was increased to metoprolol 50 twice a day with good control; on readmission he was only on 25 twice a day and this has been increased Electrolyte disturbance second to diuresis; as on admission: Stable -Patient presents back with ABG and radicular respiratory acidosis that is compensated with bicarbonate. -Metabolic alkalosis due to contraction; contraction was relatively quick with a substantial amount of fluid -Hold afternoon diuretics today and will consider whether we should restart them tomorrow. Patient's edema is markedly improved Anasarca secondary to right heart failure; present on admission; resolved -On last admit attempts at diuresis were either too aggressive or futile at first; achieved good diuresis with IV Lasix at 10-15 mg an hour -Continue lower extremity compression; increased wraps up to [employer] History of PE, chronic, present on admission Continue with by mouth warfarin and dosing per pharmacy Morbid obesity, chronic, present on admission -Discussed at length DVT prophylaxis -On therapeutic warfarin Disposition: Patient is stable. Timeline for discharge is a little tentative right now as patient is thoracentesis and has ongoing cardiac workup. VTE Mechanical Devices: Intermittant Pneumatic CD Resuscitation Status: CPR: Attempt Resuscitation Time spent 30 min Attending Statement Patient seen and examined with house staff, agree with all attached documentation. Jaun Reeves DO Jan 07, 2017 14:38 Emeka Hines MD Jan 08, 2017 07:34
--- NOTE | 2017-01-07 16:56 | NUR ---
NUTRITION ASSESSMENT Assess: 51 yo M w/ acute respiratory failure and anasarca. Pt to have thoracentesis pending INR. Pt w/ minimal PO intake since admission until this morning. He states that he has no appetite and feels he has lots of fat to burn through. BiPAP is also making it difficult for him to take PO. PMHx: COPD, CHF, GERD, DILEEP, Punctured lung LABS: Na 145, K 3.2, Cl 83, Co2 52, Cr 0.54, Glu 100, Albumin 2.9 MEDICATIONS: Spironolactone DIET: Heart Healthy/Consistent Carb, PO 0% of most meals (100% of breakfast this morning) NUTRITION FOCUSED PHYSICAL ASSESSMENT: GI symptoms/stool: BM x 1 01/04Braden: 17 Skin integrity: No issues noted Overall Appearance: Obese man lying in bed w/ BiPAP in place. ANTHROPOMETRICS: Current Wt: 189.8 kg BMI: 50.9 kg Admit Wt: 198.7 kg IBW: 91.8 kg Adj BW: 116.3 kg Recent wt changes: None noted ESTIMATED NEEDS: BMI/COPD Calories: 7862-6350 kcal/d (30-35 kcal/kg/d Adj BW) Protein: 140-210 g/d (1.2-1.8 g/kg/d Adj BW) NUTRITION DIAGNOSIS: 1) Inadequate oral intake related to fluid accumulations and acute illness as evidenced by anasarca and poor PO intake. INTERVENTION: 1) Discussed importance of adequate calorie/protein intake for preservation of LBM 2) Will send Glucerna BID MONITOR/EVALUATE: PO intake, Labs, Wt, Nutrition status, POC. Will follow per moderate nutrition risk guidelines.
--- NOTE | 2017-01-07 17:57 | NUR ---
Respiratory Pt. is on trilogy most of the day, 8L bleed in since this morning because Pts. SpO2 was 85%-86% on 6L-7L bleed in. Pt. still states feeling SOB whenever he is off the trilogy and on 7L oxymask or NC.
[2017-01-08] VITALS (14 sets, daily range): BP systolic 103–113; BP diastolic 66–73; PULSE 83–104; RESP 12–22; O2SAT 90–98
[2017-01-08] MEDS: Albuterol 2.5 mg/3 mL Inhalation Solution NEB PRN ×3 (03:25→21:44)
--- NOTE | 2017-01-08 05:17 | NUR ---
Respiratory / Skin Pt on Trilogy with 8L bleed for most of shift; intermittent use of oxymask when needed for oral intake. Pt tolerates both Trilogy and oxymask well with SpO2 approx. 93-97% throughout shift. During change in oxygenation device, pt desaturates to approx. 70% with recovery only after replacement of oxygen supplementation. Pt reports dyspnea at baseline, no acute worsening but no improvement. Some brown/cindy sputum this shift. Nystatin applied to groin, perineum, sacrum, and thighs; pt refused turning interventions despite education. VSS. Tele AV IVCD 90s-100s.
[2017-01-08 08:43] LABS: BASOPHILS % (AUTO) 0.3 % (0-3); EOSINOPHILS % (AUTO) 2.7 % (0-5); MONOCYTES % (AUTO) 12.7 % (4-12); Mean Corpuscular Hemoglobin 27.1 pg (27.0-35.0); Mean Corpuscular Volume 94.3 fL (81-100); NEUTROPHILS % (AUTO) 75.8 % (40-74); Platelet Count 340 bil/L (150-400)
[2017-01-08 09:07] LABS: INR 2.78 ratio
[2017-01-08] MEDS: Potassium Chloride 20 mEq SR Tablet PO SCH (09:16)
[2017-01-08] MEDS: Sodium Chloride LOK Flush 10 mL Syringe IVFLUSH SCH ×2 (09:16→16:36)
[2017-01-08] MEDS: Nystatin 100,000 Unit/Gm 15 Gm Powder TOPICAL SCH ×2 (09:17→21:02)
--- NOTE | 2017-01-08 11:50 | CONS ---
[address] [address] CONSULTATION REPORT PATIENT: EKN NORMAN : 1965 MR#: [id number] ADMIT: 01/03/2017 JOB ID: [id number] DATE OF SERVICE: 01/08/2017 CHIEF COMPLAINT: Right-sided pleural effusion. HISTORY OF PRESENT ILLNESS: The patient is a 51-year-old male with a BMI of 50.9 who has right-sided pleural effusion for the past month or so. The patient was last hospitalized here at [facility] on December 18. INCOMPLETE DICTATION: "Dictation ends here."
--- NOTE | 2017-01-08 12:02 | CONS ---
[address] [address] CONSULTATION REPORT PATIENT: KEN NORMAN : 1965 MR#: [id number] ADMIT: 01/03/2017 JOB ID: [id number] DATE OF SERVICE: 01/08/2017 CHIEF COMPLAINT: Right-sided parapneumonic effusion. HISTORY OF PRESENT ILLNESS: The patient is a 51-year-old male who has been here since December 18 due to pneumonia and shortness of breath. The patient was hospitalized on December 18 and on January 03 was actually discharged to [facility], but the patient came right back on the same day due to hypoxia. We were consulted by the hospitalist service today due to findings of a right-sided loculated pleural effusion seen on both the CT scan and on an ultrasound examination. The patient has a history of PE and is on Coumadin and his INR has been coming down from 4 down to 2.78 today. The patient also has a BMI of 50.9. PAST MEDICAL HISTORY: Morbid obesity, COPD, CHF, GERD, bilateral knee surgeries, and history of collapsed lung at 21 years old. MEDICATIONS: At this time include inhalers, metoprolol, diuretics. SOCIAL AND FAMILY HISTORY: Please refer to his H and P from the hospitalist service. PHYSICAL EXAMINATION: The patient is currently on the 2nd floor on a BiPAP machine. His temperature is 36.7, blood pressure 111/73, pulse is 83. His BMI is 50.9. Head is normocephalic, atraumatic. Neck is supple. Heart is in regular rate. Lungs are diminished on the right. Abdomen is obese and protuberant but nontender. Extremities show no clubbing and no cyanosis. Neurologically, the patient is awake and alert and able to provide me with a history and answers questions. LABORATORY: Today shows a white blood count of 11.5, hematocrit 36.5, and platelet count 340. Sodium is 144, potassium 3.5, creatinine 0.51. His procalcitonin is 0.09. He did have elevated troponins of 0.055 back on January 03. His INR on the was 3.29 and today it is 2.78. The CT scan of the chest done on January 03 shows loculated appearing fluid in the right chest with the inferior portion of the right lobe collapsed. An ultrasound examination of the right chest done on January 05 was read out as multiloculated large right pleural effusion. ASSESSMENT: This is a 51-year-old morbidly obese male who is anticoagulated and has a multiloculated right-sided para-pneumonic effusion probably over the past 2-3 weeks. Options were discussed with the patient in terms of chest tube placement versus VATS, versus thoracotomy, versus needle aspiration. I did inform the patient that needle aspiration is most likely not going to be effective and he has already been turned down by the radiology service. The patient will think about his options and choices. We will allow his INR to continue to fall prior to intervening. If the patient were to require VATS or thoracotomy, it will need to be done at a different hospital. CHARLY
[2017-01-08] MEDS: acetaZOLAMIDE 250 mg Tablet PO SCH ×2 (13:15→21:00)
--- NOTE | 2017-01-08 13:31 | PCM.PNMED ---
Subjective Date of Service Jan 08, 2017 Subjective Overnight pt did well with no events. Pt does desaturate to 70's when off oxygen ; Bipap is most comfortable for him, but he tolerates oxymask just as well when eating. Exam Vital Signs Vital Sign - Last Date Time Temp Pulse Resp B/P Pulse Ox O2 Delivery O2 Flow Rate FiO2 01/08/17 05:39 103 01/08/17 03:31 36.4 22 110/72 98 OxyMask 10.00 01/07/17 12:27 40 Intake and Output 01/07/17 01/07/17 01/08/17 Cumulative From/Thru 15:00 23:00 07:00 01/03/17 20:33 - 01/08/17 05:02 Intake Total 1112 ml 518 ml 4859 ml Output Total 1200 ml 800 ml 66603 ml Balance -88 ml -282 ml -7291 ml Intake Oral 1112 ml 518 ml 3348 ml IV Total 1511 ml Output Urine Total 1200 ml 800 ml 31825 ml # Bowel Movements 0 1 Exam General: Morbidly obese. No acute distress Cardiovascular: Difficult to auscultate but sounds regular Pulmonary: Breath sounds are distant and difficult to auscultate due to habitus Abdomen: Obese. Soft, nontender; edema improved Extremities: Very mild edema in the lower extremities IVs and Medications Medications Reviewed: Medications were reviewed in detail Lab and Diagnostics Result Diagram: 01/07/1752601/07/17526 X-Rays, CTs and MRIs Patient Name: KEN NORMAN MR#: [id number] Location: [facility] [place] Ordering Phys: Luis Dukes MD Date of Service: 01/03/172025 PROCEDURE: CT ANGIO CHEST PULMONARY EMBOLISM ([id number]) INDICATIONS: acute sob recent pulmonary emboli TECHNIQUE: After the administration of intravenous contrast, 2 mm thick sections acquired from the pulmonary apices to the posterior costophrenic angles. 3-dimensional maximum intensity projection (MIP) coronal and sagittal reformats were then acquired through the thorax. For radiation dose reduction, the following was used: automated exposure control, adjustment of mA and/or kV according to patient size. COMPARISON: FINDINGS: Image quality: Excellent. Pulmonary arteries: The main pulmonary arteries are normal in size and free of intraluminal filling defects. There is likely a residual embolus within the subsegmental branches of the right lower lobe, decreased in extent when compared with the study dated 12/19/16. No new pulmonary embolus. Lungs and pleura: There is a large right low density pleural effusion which has a loculated appearance. This is increased in size when compared with the study dated 12/19/16. The inferior aspect of the right lower lobe is collapsed. An ill- defined 2.4 cm in diameter radiopacity is present at the base of the left lung ( series 6, image 52). Mediastinum: Heart size is enlarged. There is a small low density pleural effusion which is new when compared with the prior study. No mediastinal or hilar adenopathy. Thoracic aorta is normal in caliber and enhancement. Esophagus is normal in caliber, without hiatal hernia. Bones and chest wall: No suspicious bony lesions. Ribs and thoracic spine appear intact throughout. Thyroid gland is unremarkable. No axillary or supraclavicular adenopathy. Abdomen: Visualized upper abdominal solid organs appear normal in the early arterial phase of enhancement. IMPRESSION: 1. Loculated appearing low density in right pleural effusion increased in size when compared with the study dated 12/19/16. The inferior portion of the right lower lobe is collapsed, increased in extent when compared with the prior study. 2. Near complete resolution of the previously visualized embolus on the study dated 12/19/16. Trace residual embolus remains. No new acute pulmonary embolus. 3. New small low-density pericardial effusion. Dictated by: Rena Chowdhury M.D. on 01/03/2017 at 21:39 Approved by: Rena Chowdhury M.D. on 01/03/2017 at 21:47 Cardiac Echo Impressions Echocardiogram Report Name: KEN NORMAN TStudy Date : 12/25/2016 Height: 76 in Hospital Exam Location: [facility] Weight: 459 lb Gender: Male BSA: 3.2 m2 : 1965 Age: 51 yrs BP: 138/70 mmHg Reason For Study: PERICARDIAL EFFUSION Ordering Physician: HOSPITALIST SVHPerformed By: Enrique Gooden Referring Physician: Daphne MILLS Interpretation Summary There is a small to moderate pericardial effusion noted. There are no echocardiographic or Doppler indications for cardiac tamponade. The right ventricle is moderate to severely dilated. Right ventricular systolic function is moderately reduced. Right ventricular systolic function has increased since previous exam. A possible thrombus continues to be noted in the right ventricular apex measuring approximately 2.4 cm x 2.6. This is slightly smaller than the echo from 12/19/16. The right ventricular systolic pressure is estimated at 48 mmHg assuming a right atrial pressure of 15 mm Hg. Procedure: A two-dimensional transthoracic echocardiogram with color flow and Doppler was performed in limited views only. The study quality was technically difficult. Comparison is made with the echocardiogram of 12/22/16. A contrast injection of Definity was performed to improve assessment of LV function. The patient was in normal sinus rhythm during the exam. The patient had a heart rate of 107-113 beats per minute. Left Ventricle: The left ventricle is normal in size. There is normal left ventricular wall thickness. Regional wall motion abnormalities cannot be excluded due to limited visualization. Right Ventricle: The right ventricle is moderate to severely dilated. Right ventricular systolic function is moderately reduced. Right ventricular systolic function has increased since previous exam. A possible thrombus continues to be noted in the right ventricular apex measuring approximately 2.4 cm x 2.6. This is slightly smaller than the echo from 12/19/16. Atria: The left atrial size is normal. The right atrium is moderately dilated. Mitral Valve: The mitral valve is not well visualized. The mitral valve is grossly normal. The mitral valve chordae are thickened and/or calcified. Tricuspid Valve: The tricuspid valve is not well visualized, but is grossly normal. There is mild tricuspid regurgitation. The right ventricular systolic pressure is estimated at 48 mmHg assuming a right atrial pressure of 15 mm Hg. Great Vessels: The ascending aorta is normal in size. The IVC is dilated (diameter is greater than 2.1 cm) and it collapses less than 50% with a sniff. This suggests a high right atrial pressure of 15 mm Hg. The IVC has a measurement of 37 mm. Pericardium/ Pleura There is a small to moderate pericardial effusion noted. There are no echocardiographic or Doppler indications for cardiac tamponade. There is a large right-sided pleural effusion. MMode/2D Measurements & Calculations LVIDd: 5.2 cm RA long axis asc Aorta LVIDs: 3.7 cm LA A2 area: 21.9 cm Diam: 2.6 cm FS: 28.1 % LA A4 area: 22.6 cm RA area IVSd: 0.95 cm LA length (vol): 5.8 cm LVPWd: 1.0 cm LA vol: 72.1 ml : 30.8 cm LA vol index RA vol : 128.ml RA IVC diam: 3.7 cm : 40.7 mm2 LV mathias. diameter/BSA LV sys. diameter/BSA RVD1 (basal) RVD2 (mid) (cm/m^2): 1.7 (cm/m^2): 1.2 : 6.0 cm Doppler Measurements & Calculations MV E max nathan MV E/A: 208.1 TR max nathan MV V2 mean : 126.8 cm/sec Med Peak E' Nathan : 285.7 cm/sec : 79.7 cm/sec MV A max nathan TR max PG MV mean PG : 0.61 cm/sec E/E' med: 12.1 : 32.7 mmHg MV V2 VTI MV dec time : 0.10 sec Reading Physician:PM Assessment & Plan 51-year-old male patient with a history of COPD, congestive heart failure, and hyperventilation secondary to obesity presented to the ER with complaint of worsening dyspnea and weakness. Patient bounced back from [facility] due to severe dyspnea. Acute non-Chronic hypoxic and hypercarbic respiratory failure, present on admission -Acute desaturation when patient was placed on traveling BiPAP after being transferred from [facility] to [facility]. -Patient has COPD, hypoventilation syndrome, untreated sleep apnea, recent pulmonary embolism and R/L heart failure contributing to respiratory illness -CTA PE protocol did not reveal any new acute abnormalities -ABG today Parapneumonic effusion; present on admission; ongoing -Initially seen on chest x-ray on last admission but has not resolved with diuresis; located in the right pleural space where she had recent pneumonia -Also seen on CT; ultrasound assessment yesterday revealed a large loculated effusion and suggested surgical follow-up -INR this morning was 4.00 due to his Coumadin for his right ventricular thrombus and PE -Surgery consulted today: Dr. Mccracken was kind enough to evaluate and recommends VATS or thoracotomy, which cannot be done here due to complexity of the patient ; recommended Dr. Valdez at [facility] -PROBABLE CHEST TUBE TOMORROW; REVERSING INR WITH VIT K AND FFP Sinus tachycardia, acute, present on admission. stable -Patient has underlying sinus tachycardia previously on metoprolol 25 mg by mouth twice a day -Underlying sinus tachy, could be due to intravascular depletion, however his kidney function remains. -Metoprolol 50mg BID Hypercarbia second to diuresis; as on admission: Stable -Patient presents back with ABG and radicular respiratory acidosis that is compensated with bicarbonate. -Metabolic alkalosis due to contraction of fluid from diuresis -Changed to Diamox 250mg BID and Torsemide 20mg daily Intermittent substernal chest pain; present admission; resolved -Likely due to patient's severe hypoxia and tachycardia; mild troponin elevation on admit -Patient seen on BiPAP due to substernal chest pain on BiPAP is removed -No change on EKG during admission; troponins are resolving -ECHO pending Anasarca secondary to right heart failure; present on admission; resolved -On last admit attempts at diuresis were either too aggressive or futile at first; achieved good diuresis with IV Lasix at 10-15 mg an hour -Continue lower extremity compression; increased wraps up to [employer] History of PE, chronic, present on admission Continue with by mouth warfarin and dosing per pharmacy Morbid obesity, chronic, present on admission -Discussed at length DVT prophylaxis -On therapeutic warfarin Disposition: Patient stable. Echo is pending. Will need transfer to [facility] cleanout of loculated parapneumonic effusion. VTE Mechanical Devices: Intermittant Pneumatic CD Resuscitation Status: CPR: Attempt Resuscitation Time spent 30 min Attending Statement Patient was seen and examined with housestaff. Agree with all attached documentation. Jaun Reeves DO Jan 08, 2017 07:44 Emeka Hines MD Jan 09, 2017 13:57
--- NOTE | 2017-01-08 14:12 | DRSVH ---
[facility] [address] [place] [address] Echocardiogram Report Name: KEN NORMAN TStudy Date : 01/08/2017 Height: 76 in Hospital Exam Location: [facility] Weight: 418 lb Gender: Male BSA: 3.0 m2 : 1965 Age: 51 yrs BP: 10/72 mmHg Reason For Study: Dyspnea Ordering Physician: Performed By: Ranjana MelendrezWamego Health CenterIST [facility] Interpretation Summary LV was limited visualized. Overall, the LVEF is preserved. Cannot assess LV wall motion. The right ventricle is moderate to severely dilated. Cannot confidently exclude RV apical thrombus due to shadowing artifact, however it appears there is no gross evidence of RV apical thrombus or at least it has decreased in size. Consider other image modality such as JOVANNA if clinically warranted. Right ventricular systolic function is moderately reduced. The right ventricular systolic pressure is estimated at 43 mmHg assuming a right atrial pressure of 15 mm Hg. The IVC is dilated (diameter is greater than 2.1 cm) and it collapses less than 50% with a sniff. This suggests a high right atrial pressure of 15 mm Hg. There is a small to moderate pericardial effusion noted. There has been no significant change since the previous study. Procedure: A two-dimensional transthoracic echocardiogram with color flow and Doppler was performed in limited views only. Comparison is made with the echocardiogram of 12-25-16. A contrast injection of Definity was performed to improve assessment of LV function. The patient was in normal sinus rhythm during the exam. Left Ventricle: LV was limited visualized. Overall, the LVEF is preserved. Cannot assess LV wall motion. Flattened septum is consistent with RV pressure/volume overload. Right Ventricle: The right ventricle is moderate to severely dilated. Cannot confidently exclude RV apical thrombus due to shadowing artifact, however it appears there is no gross evidence of RV apical thrombus. Consider other image modality such as JOVANNA if clinically warranted. Right ventricular systolic function is moderately reduced. Mitral Valve: The mitral valve is grossly normal. Aortic Valve: The aortic valve is normal in structure and function. Tricuspid Valve: The tricuspid valve leaflets are thin and pliable. There is mild tricuspid regurgitation. The right ventricular systolic pressure is estimated at 43 mmHg assuming a right atrial pressure of 15 mm Hg. Great Vessels: The IVC is dilated (diameter is greater than 2.1 cm) and it collapses less than 50% with a sniff. This suggests a high right atrial pressure of 15 mm Hg. Pericardium/ Pleura There is a small to moderate pericardial effusion noted. There has been no significant change since the previous study. There is no pleural effusion. MMode/2D Measurements & Calculations LVIDd IVC diam LV mathias. diameter/BSA LV sys. diameter/BSA : 5.3 cm : 3.1 cm (cm/m^2): 1.7 (cm/m^2): 1.3 LVIDs : 3.9 cm FS: 25.2 % IVSd : 0.9cm LVPWd : 0.7cm Doppler Measurements & Calculations TR max olivia: 265.5 cm/sec MV V2 mean: 79.0 cm/sec TR max P.2 mmHg MV mean P.2 mmHg MV V2 VTI: 20.8 cm Reading Physician:JEANIE
--- NOTE | 2017-01-08 15:16 | PCM.CHPMED ---
Subjective Date of Service: Jan 08, 2017 Provider requesting consult: Emeka Hines MD Primary Physician: Admitting Physician: Fouzia Morris MD Primary Care Physician: Montse Emerson MD Attending Physician: Fouzia Morris MD Admit Status: From the Emergency Department, Full Admit Chief Complaint: Chief Complaint: Complex Parapneumonic Effusion. . History of Present Illness: Pulmonology Consultation Note: Attending Dr. Pema Kruse is a 51-year-old male patient with a past medical history of COPD, cor pulmonale with decompensated right heart failure, and obesity hypoventilation syndrome on Trilogy who presented to the [facility] Emergency Department with worsening dyspnea and weakness and was re-admitted on the same day for a complex parapneumonic effusion for which we were consulted. Hospital day #6. The patient was recently hospitalized for PE and is now on warfarin therapy. The patient is lying in bed with triology mask in place. He is rather somnolent , therefore, subjective exam and review of systems is rather limited. The patient is able to report that he came back to the hospital for worsening shortness of breath and weakness. He denies chest pain. He denies recent fever or cough for which is the extent of our conversation due to somnolence. . Review of Systems: A comprehensive review of systems was not obtainable due to the patient's status. . PMH Past Medical History Per EMR records: 1. Hypertension. 2. Hospitalized at [facility] in [place] four years ago for respiratory issues and started on diuretics. 3. Super morbid obesity. 4. COPD. 5. Obesity hypoventilation syndrome. 6. Decompensated right heart failure. 7. Recent right lower lobe segmental pulmonary embolism. 8. Recent right lower lobe pneumonia. . Surgical History Per EMR records: Bilateral knee surgery. . Home Medications Per EMR records: Albuterol Neb Soln 3 mL inhaled every 4 hours for shortness of breath. Famotidine 20 mg daily. Furosemide 40 mg twice a day. Metolazone 5 mg daily. Metoprolol tartrate 25 mg twice a day. MiraLAX 17 g daily as needed for constipation. Nystatin 1 application topically twice a day. Ventolin HFA Inhaler 1-2 puffs every 4 hours as needed for shortness of breath. Warfarin 4 mg daily. . Allergies: Coded Allergies: No Known Allergies (Unverified , 12/18/16) Family History Family History Unknown as he is adopted. . 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 . Exam Vital Signs Vital Sign - Last Date Time Temp Pulse Resp B/P Pulse Ox O2 Delivery O2 Flow Rate FiO2 01/08/17 13:09 36.9 89 20 108/73 97 Trilogy 01/08/17 09:58 10.00 01/07/17 12:27 40 Intake and Output 01/07/17 01/07/17 01/08/17 Cumulative From/Thru 15:00 23:00 07:00 01/03/17 20:33 - 01/08/17 05:02 Intake Total 1112 ml 518 ml 4859 ml Output Total 1200 ml 800 ml 31048 ml Balance -88 ml -282 ml -7291 ml Intake Oral 1112 ml 518 ml 3348 ml IV Total 1511 ml Output Urine Total 1200 ml 800 ml 68483 ml # Bowel Movements 0 1 General: Alert, Cooperative Head: Normal Eyes: PERRLA, EOMI Mouth: Mouth Normal Neck: Supple Chest & Lungs: Diminished breath sounds, Coarse breath sounds Cardiovascular: Regular Rate/Rhythm, Normal S1, Normal S2, No Murmurs/Rubs/ Gallops Abdomen: Obese Extremities: Other (lymphedema to knees bilaterally, no cyanosis or clubbing) Neurological: Grossly Neurologically Intact Lab and Diagnostics Labs Item Value Date Time Urine Color Dark yellow 12/30/161614 Urine Appearance Slightly cloudy 12/30/161614 Urine pH 5.0 12/30/161614 Urine Specific [place] 1.025 12/30/161614 Urine Protein 30 mg/dL 12/30/161614 Urine Glucose (UA) Negative mg/dL 12/30/161614 Urine Ketones Trace mg/dL 12/30/161614 Urine Occult Blood Small 12/30/161614 Urine Nitrite Negative 12/30/161614 Urine Bilirubin Negative 12/30/161614 Urine Urobilinogen Normal mg/dL 3/8/17 1615 Urine Leukocyte Esterase Trace 12/30/16 1615 Urine RBC 0-2 /hpf 12/30/16 1615 Urine WBC 0-5 /hpf 12/30/16 1615 Urine Epithelial Cells Occasional /hpf 12/30/16 1615 Urine Crystals Amorphous urates 12/30/16 1615 Urine Bacteria Few /hpf 12/30/16 1615 Urine Hyaline Casts Rare /lpf 12/30/16 1615 Urine Granular Casts Rare 12/30/16 1615 Urine Waxy Casts None seen 12/30/16 1615 Urine Red Blood Cell Casts None seen 12/30/16 1615 Urine White Blood Cell Casts None seen 12/30/16 1615 Urine Mucus Present 12/30/16 1615 Urine Trichomonas None seen 12/30/16 1615 Urine Yeast None 12/30/16 1615 Urinalysis Comment None 12/30/16 1615 Urine Culture Reflexed Not indicated 12/30/16 1615 Item Value Date Time Prothrombin Time 30.4 sec H 01/08/17 0810 Prothromb Time International Ratio 2.78 ratio 01/08/17 0810 Item Value Date Time Procalcitonin 0.11 ng/mL H 01/07/17 0527 Procalcitonin 0.09 ng/mL H 01/08/17 0810 Item Value Date Time Calcium Level 9.6 mg/dL 01/08/17 0810 Total Bilirubin 0.8 mg/dL 01/08/17 0810 Aspartate Amino Transf (AST/SGOT) 24 U/L 01/08/17 0810 Alanine Aminotransferase (ALT/SGPT) 22 U/L 01/08/17 0810 Alkaline Phosphatase 100 U/L 01/08/17 0810 Total Protein 6.1 g/dL L 01/08/17 0810 Albumin 2.9 g/dL L 01/08/17 0810 Microbiology: Sputum culture grew pansensitive Pseudomonas aeruginosa. . Result Diagram: 01/08/17 0810 01/08/17 0810 X-Rays, CTs and MRIs US CHEST/PLEURAL SONOGRAM IMPRESSION: Multiloculated large right pleural effusion. Recommend surgical consultation. Dictated by: Chalino MORTON Interpreted: Cayla Marmolejo MD on 01/05/2017 at 13: 21 CT ANGIO CHEST PULMONARY EMBOLISM IMPRESSION: 1. Loculated appearing low density in right pleural effusion increased in size when compared with the study dated 12/19/16. The inferior portion of the right lower lobe is collapsed, increased in extent when compared with the prior study. 2. Near complete resolution of the previously visualized embolus on the study dated 12/19/16. Trace residual embolus remains. No new acute pulmonary embolus. 3. New small low-density pericardial effusion. Dictated by: Rena Chowdhury M.D. on 01/03/2017 at 21:39 Approved by: Rena Chowdhury M.D. on 01/03/2017 at 21:47 . Additional Diagnostics: ABG on admission: PH 7.359. PCO2 101. PO2 102. HCO3 55.2. On nonrebreather with an FiO2 of 100%. Echocardiogram Interpretation Summary: LV was limited visualized. Overall, the LVEF is preserved. Cannot assess LV wall motion. The right ventricle is moderate to severely dilated. Cannot confidently exclude RV apical thrombus due to shadowing artifact, however it appears there is no gross evidence of RV apical thrombus or at least it has decreased in size. Consider other image modality such as JOVANNA if clinically warranted. Right ventricular systolic function is moderately reduced. The right ventricular systolic pressure is estimated at 43 mmHg assuming a right atrial pressure of 15 mm Hg. The IVC is dilated (diameter is greater than 2.1 cm) and it collapses less than 50% with a sniff. This suggests a high right atrial pressure of 15 mm Hg. There is a small to moderate pericardial effusion noted. There has been no significant change since the previous study. Reading Physician:PM . Assessment & Plan Assessment Bruno Kruse is a 51-year-old male patient with a past medical history of COPD, cor pulmonale with decompensated right heart failure, and obesity hypoventilation syndrome on Trilogy who presented to the [facility] Emergency Department with worsening dyspnea and weakness and was re-admitted on the same day for a complex parapneumonic effusion for which we were consulted. Hospital day #6. Assessment: 1. Complex parapneumonic effusion. 2. Obesity hypoventilation syndrome. 3. Cor pulmonale and decompensated right heart failure. 4. Morbid obesity. Impression: This is a super morbid obese gentleman with BMI of 50 presenting with acute on chronic hypercarbic respiratory failure and decompensated right heart failure with complex parapneumonic effusion. Of biggest concern right now his complex parapneumonic effusion. We are going to plan to reverse his INR and possibly place a chest tube if the patient is amenable. Of note, the patient has pseudomonas growing in his sputum but per the primary hospital team, who discussed the patient with Dr. Villarreal of infectious disease,the patient is likely just colonized and non-infectious as his infectious markers are not elevated and he is afebrile. Recommendations: 1. Reverse patient's INR to <1.5 with FFP and vitamin K. 2. Discussed the patient with general surgery, Dr. Kip Mccracken, who agreed to insert chest tube once patient's INR is <1.5, however, the patient is not yet amenable and needs time to contemplate this procedure. 3. Continue Triology. 4. Continue diuresis for cor pulmonale and complex parapneumonic effusion. . Problems: VTE Mechanical Devices: Intermittant Pneumatic CD Resuscitation Status: CPR: Attempt Resuscitation Attending Statement I have seen and examined this patient with the resident physician. Vital signs , labs, imaging have been reviewed. I agree with the assessment and plan above. Please refer to my separately dictated progress note for any modifications to above. Desiree Mcadams M.D. Pulmonary and Critical Care medicine Pager [phone] Shi Bryan DO Jan 08, 2017 15:16 Desiree Mcadams MD Jan 08, 2017 18:22
[2017-01-08] MEDS ORDERED: Phytonadione (Adult) 10 MG in Dextrose 5%-Pha MIX 50 ML IV ONE (15:30)
[2017-01-08] MEDS ORDERED: Phytonadione (Adult) 10 mg/1 mL Inj PO ONE (15:40)
[2017-01-08] MEDS ORDERED: 0.9% Sodium Chloride 250 ML ONE (15:52)
--- NOTE | 2017-01-08 16:30 | ABG ---
DateTimeAnalyzed 16:26:00 -_ pH ____7.407 - pCO2 ___94.0__ -mmHg pO2 ___36.0__ -mmHg HCO3- ___58.0__ -mmol/L ABE ___28.0__ -mmol/L tHb ___10.9__ -g/dL O2Hb ___62.4__ -% COHb ____2.7__ -% MetHb ____1.0__ -% sO2 ___64.8__ -% FIO2 ___60.0__ -% Drawn By as - Date/Time Notified____ 16:29:00 -_ Spontaneous_RR ___14.0__ -b/min Liter_Flow ___10.0__ -L/min Oxygen Device 1 __trilogy - Notified By ams - Notified Whom dr mandi galloway - B 754 -mmHg tO2 ____9.6__ -Vol% Emeka test N/A -
--- NOTE | 2017-01-08 18:44 | CONS ---
[address] [address] CONSULTATION REPORT PATIENT: KEN NORMAN : 1965 MR#: [id number] ADMIT: 01/03/2017 JOB ID: [id number] DATE OF SERVICE: 01/08/2017 PULMONARY CONSULTATION NOTE: The patient is a 51-year-old man seen in consultation at the request of Dr. Jaun Reeves for evaluation of a right pleural effusion. The patient was seen and evaluated with resident physician, Shi Bryan DO. Please refer to her separate detailed note for additional information. The following is a brief note. This 51-year-old man was just seen by me in consultation a few weeks ago when he was hospitalized for obesity, hypoventilation syndrome, and right heart failure secondary to that. Hospital course was complicated by discovery of a right ventricular thrombus ? as well as a small right lower lobe segmental PE. He was started on anticoagulation and also a Trilogy noninvasive ventilator and diuresed. He also developed a right lower lobe pneumonia with septic shock that resolved with antibiotics. He was eventually discharged but rebounded and was readmitted within hours with worsening respiratory symptoms. He denies fevers, chills, sweats, etc, but does have cough with sputum and some chest discomfort. Imaging revealed a loculated right pleural effusion. Past medical history, social history, family history, review of systems is per Dr. Bryan's note. Also, complete physical exam is per Dr. Bryan's note. On my exam, he is afebrile, temperature 36.8, pulse 99, respirations 20, BP 113/70 sats 95% on 6-10 L OxyMask, alternating with BiPAP. Morbidly obese gentleman. He is alert, appropriate. Chest has decreased breath sounds at the right lung base. LABORATORIES: Reviewed. WBC 11.5. Chemistry is reviewed. Procalcitonin is 0.09. Cultures: Sputum culture with Pseudomonas aeruginosa from January 05 which is pansensitive, heavy growth. IMAGING: Chest x-ray, as well as CT angiography of the chest from January [address] chest shows a loculated right pleural effusion. ASSESSMENT/RECOMMENDATIONS: 1. Complicated right parapneumonic effusion. 2. Obesity hypoventilation syndrome. 3. Morbid obesity. 4. Right heart failure. 5. Right ventricular thrombus and small right lower lobe segmental pulmonary embolism on anticoagulation. This 51-year-old man was recently hospitalized with multiple issues as detailed above and is now readmitted with a complex right pleural effusion that is most likely due to his recent pneumonia. He really not acting toxic and I doubt that this is an empyema, but at the very least, this needs drainage. With his morbid obesity and likely pulmonary hypertension with right heart failure, he would be at high risk for surgical decortication. On discussion with the surgeon I think our best option at this point would be chest tube placement and possibly tPA if the fluid is very thick. The patient agrees with this. At this point his INR was 2.6, so this needs to be reversed before chest tube can be placed especially because he is quite stable and not acting septic. Likely plan will be for General Surgery to place a right-sided chest tube tomorrow once the INR has normalized. With regards to the Pseudomonas in his sputum culture, I am really not sure what to make of that. He does not have any significant pulmonary infiltrate to suggest Pseudomonas pneumonia. Also his procalcitonin is negative. It is a heavy growth of Pseudomonas so we should be careful and watch the patient for any signs of infection. Frankly I think the safer option might be to start antibiotics to cover this given that it is a heavy growth and we are dealing with a complex pleural effusion. Since the organism is pansensitive, I think we could go with a fluoroquinolone or with cefepime and I recommend starting this. Dr. Arriola is available over the weekend for any questions but will not plan on seeing the patient every day. CHARLY
--- NOTE | 2017-01-08 19:29 | NUR ---
Respiratory Pt's SPO2 sats in the low 90s on trilogy with 8L bleed in, Pt removed trilogy for medication administration and SPO2 sats dropped to the upper 70s in the brief time Pt's had mask off. Pt reports breathing to be ~same as yesterday.
--- NOTE | 2017-01-08 23:56 | NUR ---
respiratory patient dyspneic and hypoxic when eating dinner earlier this evening. oxygen sats 70% per bedside monitor. patient eating dinner without nc oxygen on. oxygen saturations immediately improved with trilogy. 10 liter bleed. explained to patient the signifigance of activity without oxygen. patient verbalized understanding. care ongoing.
[2017-01-09] VITALS (14 sets, daily range): BP systolic 97–122; BP diastolic 63–79; PULSE 90–121; RESP 12–25; O2SAT 86–97
[2017-01-09] MEDS: Sodium Chloride LOK Flush 10 mL Syringe IVFLUSH SCH ×3 (03:33→16:02)
--- NOTE | 2017-01-09 07:13 | NUR ---
sleep patient slept well. no hypoxic events kept trilogy on through the night. care ongoing. fall precautions in place.
[2017-01-09] MEDS: Potassium Chloride 20 mEq SR Tablet PO SCH (07:48)
[2017-01-09] MEDS: acetaZOLAMIDE 250 mg Tablet PO SCH ×2 (07:48→20:02)
[2017-01-09] MEDS: Nystatin 100,000 Unit/Gm 15 Gm Powder TOPICAL SCH ×2 (07:50→20:03)
[2017-01-09 10:18] LABS: INR 1.37 ratio
--- NOTE | 2017-01-09 12:05 | DRSVH ---
PROCEDURE: X-RAY CHEST ONE VIEW, PORTABLE ([id number]) INDICATIONS: f/u effusion TECHNIQUE: One view of the chest was acquired. COMPARISON: [facility], CR, XR CHEST 1VW (PORTABLE), 01/01/2017, 5:20. FINDINGS: Surgical changes and devices: None. Lungs and pleura: Small right-sided pleural fluid collection is noted. Patchy airspace opacities in the right lung base have decreased in size compared to prior examination, but not completely resolve d. Mediastinum: Mediastinal contours appear normal. Heart size is enlarged. Bones and chest wall: No suspicious bony lesions. Overlying soft tissues appear unremarkable. IMPRESSION: Right basilar opacities and small right-sided pleural fluid collection persist likely re lated to pneumonia. Dictated by: Radha Galeano MD, PhD on 01/09/2017 at 12:03 Approved by: Radha Galeano MD, PhD on 01/09/2017 at 12:04
--- NOTE | 2017-01-09 12:43 | PCM.PNMED ---
Subjective Date of Service Jan 09, 2017 Subjective He is doing well today. He is psychologically prepared for a chest tube. He denies any nausea. His last bowel movement was yesterday. He still is using his breathing device most of the time. He becomes acutely short of breath of several minutes and coming off it. His lower extremity edema is improved his legs are rewrapped today. No pain. No fevers or chills. Exam Vital Signs Vital Sign - Last Date Time Temp Pulse Resp B/P Pulse Ox O2 Delivery O2 Flow Rate FiO2 01/09/17 12:07 36.7 91 20 97/64 90 trilogy 10.00 01/07/17 12:27 40 Intake and Output 01/08/17 01/08/17 01/09/17 Cumulative From/Thru 15:00 23:00 07:00 01/03/17 20:33 - 01/09/17 05:20 Intake Total 1065 ml 50 ml 5974 ml Output Total 1275 ml 1200 ml 06651 ml Balance -210 ml -1150 ml -8651 ml Intake Oral 775 ml 50 ml 4173 ml IV Total 70 ml 1581 ml FFP 220 ml 220 ml Output Urine Total 1275 ml 1200 ml 05718 ml # Bowel Movements 1 Exam Obese. No distress, fluent speech Anicteric sclerae Lungs are clear with normal rate and effort. Heart is regular without murmur Abdomen is distended but nontender. Extremities with 2+ edema, both legs are wrapped. Good radial pulses. IVs and Medications Medications Reviewed: Medications were reviewed in detail Lab and Diagnostics Result Diagram: 01/08/17 0810 01/08/17 0810 X-Rays, CTs and MRIs Patient Name: KEN NORMAN MR#: [id number] [place] [facility] [place] Ordering Phys: Luis Dukes MD Date of Service: 01/03/172025 PROCEDURE: CT ANGIO CHEST PULMONARY EMBOLISM ([id number]) INDICATIONS: acute sob recent pulmonary emboli TECHNIQUE: After the administration of intravenous contrast, 2 mm thick sections acquired from the pulmonary apices to the posterior costophrenic angles. 3-dimensional maximum intensity projection (MIP) coronal and sagittal reformats were then acquired through the thorax. For radiation dose reduction, the following was used: automated exposure control, adjustment of mA and/or kV according to patient size. COMPARISON: FINDINGS: Image quality: Excellent. Pulmonary arteries: The main pulmonary arteries are normal in size and free of intraluminal filling defects. There is likely a residual embolus within the subsegmental branches of the right lower lobe, decreased in extent when compared with the study dated 12/19/16. No new pulmonary embolus. Lungs and pleura: There is a large right low density pleural effusion which has a loculated appearance. This is increased in size when compared with the study dated 12/19/16. The inferior aspect of the right lower lobe is collapsed. An ill- defined 2.4 cm in diameter radiopacity is present at the base of the left lung ( series 6, image 52). Mediastinum: Heart size is enlarged. There is a small low density pleural effusion which is new when compared with the prior study. No mediastinal or hilar adenopathy. Thoracic aorta is normal in caliber and enhancement. Esophagus is normal in caliber, without hiatal hernia. Bones and chest wall: No suspicious bony lesions. Ribs and thoracic spine appear intact throughout. Thyroid gland is unremarkable. No axillary or supraclavicular adenopathy. Abdomen: Visualized upper abdominal solid organs appear normal in the early arterial phase of enhancement. IMPRESSION: 1. Loculated appearing low density in right pleural effusion increased in size when compared with the study dated 12/19/16. The inferior portion of the right lower lobe is collapsed, increased in extent when compared with the prior study. 2. Near complete resolution of the previously visualized embolus on the study dated 12/19/16. Trace residual embolus remains. No new acute pulmonary embolus. 3. New small low-density pericardial effusion. Dictated by: Rena Chowdhury M.D. on 01/03/2017 at 21:39 Approved by: Rena Chowdhury M.D. on 01/03/2017 at 21:47 Cardiac Echo Impressions Echocardiogram Report Name: KEN NORMAN TStudy Date : 12/25/2016 Height: 76 in Hospital Exam Location: [facility] Weight: 459 lb Gender: Male BSA: 3.2 m2 : 1965 Age: 51 yrs BP: 138/70 mmHg Reason For Study: PERICARDIAL EFFUSION Ordering Physician: HOSPITALIST SVHPerformed By: Enrique Gooden Referring Physician: Daphne MILLS Interpretation Summary There is a small to moderate pericardial effusion noted. There are no echocardiographic or Doppler indications for cardiac tamponade. The right ventricle is moderate to severely dilated. Right ventricular systolic function is moderately reduced. Right ventricular systolic function has increased since previous exam. A possible thrombus continues to be noted in the right ventricular apex measuring approximately 2.4 cm x 2.6. This is slightly smaller than the echo from 12/19/16. The right ventricular systolic pressure is estimated at 48 mmHg assuming a right atrial pressure of 15 mm Hg. Procedure: A two-dimensional transthoracic echocardiogram with color flow and Doppler was performed in limited views only. The study quality was technically difficult. Comparison is made with the echocardiogram of 12/22/16. A contrast injection of Definity was performed to improve assessment of LV function. The patient was in normal sinus rhythm during the exam. The patient had a heart rate of 107-113 beats per minute. Left Ventricle: The left ventricle is normal in size. There is normal left ventricular wall thickness. Regional wall motion abnormalities cannot be excluded due to limited visualization. Right Ventricle: The right ventricle is moderate to severely dilated. Right ventricular systolic function is moderately reduced. Right ventricular systolic function has increased since previous exam. A possible thrombus continues to be noted in the right ventricular apex measuring approximately 2.4 cm x 2.6. This is slightly smaller than the echo from 12/19/16. Atria: The left atrial size is normal. The right atrium is moderately dilated. Mitral Valve: The mitral valve is not well visualized. The mitral valve is grossly normal. The mitral valve chordae are thickened and/or calcified. Tricuspid Valve: The tricuspid valve is not well visualized, but is grossly normal. There is mild tricuspid regurgitation. The right ventricular systolic pressure is estimated at 48 mmHg assuming a right atrial pressure of 15 mm Hg. Great Vessels: The ascending aorta is normal in size. The IVC is dilated (diameter is greater than 2.1 cm) and it collapses less than 50% with a sniff. This suggests a high right atrial pressure of 15 mm Hg. The IVC has a measurement of 37 mm. Pericardium/ Pleura There is a small to moderate pericardial effusion noted. There are no echocardiographic or Doppler indications for cardiac tamponade. There is a large right-sided pleural effusion. MMode/2D Measurements & Calculations LVIDd: 5.2 cm RA long axis asc Aorta LVIDs: 3.7 cm LA A2 area: 21.9 cm Diam: 2.6 cm FS: 28.1 % LA A4 area: 22.6 cm RA area IVSd: 0.95 cm LA length (vol): 5.8 cm LVPWd: 1.0 cm LA vol: 72.1 ml : 30.8 cm LA vol index RA vol : 128.ml RA IVC diam: 3.7 cm : 40.7 mm2 LV mathias. diameter/BSA LV sys. diameter/BSA RVD1 (basal) RVD2 (mid) (cm/m^2): 1.7 (cm/m^2): 1.2 : 6.0 cm Doppler Measurements & Calculations MV E max nathan MV E/A: 208.1 TR max nathan MV V2 mean : 126.8 cm/sec Med Peak E' Nathan : 285.7 cm/sec : 79.7 cm/sec MV A max nathan TR max PG MV mean PG : 0.61 cm/sec E/E' med: 12.1 : 32.7 mmHg MV V2 VTI MV dec time : 0.10 sec Reading Physician:PM Assessment & Plan 51-year-old male patient with a history of COPD, congestive heart failure, and hyperventilation secondary to obesity presented to the ER with complaint of worsening dyspnea and weakness. Patient bounced back from [facility] due to severe dyspnea. 1. Acute non-Chronic hypoxic and hypercarbic respiratory failure, present on admission -Acute desaturation when patient was placed on traveling BiPAP after [place] [facility] [place] [facility]. -Patient has COPD, hypoventilation syndrome, untreated sleep apnea, recent pulmonary embolism and R/L heart failure contributing to respiratory illness He continues to be relatively stable. He is still using his BiPAP a fair amount of time. He is set up to have endocrinology at the time of discharge which she will likely used frequently and roughly at night continuously. 2. Parapneumonic effusion; present on admission; ongoing -Initially seen on chest x-ray on last admission but has not resolved with diuresis; located in the right pleural space where she had recent pneumonia -Also seen on CT; ultrasound assessment yesterday revealed a large loculated effusion and suggested surgical follow-up -INR this morning was 4.00 due to his Coumadin for his right ventricular thrombus and PE -Surgery consulted today: Dr. Mccracken was kind enough to evaluate and recommends VATS or thoracotomy, which cannot be done here due to complexity of the patient ; recommended Dr. Valdez at [place] - Today Dr. Park chair of surgery has agreed to and recommended a chest tube thoracostomy. The patient will undergo conscious sedation with anesthesia later today for this. The chest tube will likely be left in for acute depending on what kind of drainage and what the fluid analysis looks like. 3. Sinus tachycardia, acute, present on admission. stable -Patient has underlying sinus tachycardia previously on metoprolol 25 mg by mouth twice a day -Underlying sinus tachy, could be due to intravascular depletion, however his kidney function remains. -Metoprolol 50mg BID 4. Metabolic alkalosis second to diuresis; as on admission: Stable -Patient presents back with ABG and radicular respiratory acidosis that is compensated with bicarbonate. -Metabolic alkalosis due to contraction of fluid from diuresis -Changed to Diamox 250mg BID and Torsemide 20mg daily 5. Intermittent substernal chest pain; present admission; resolved -Likely due to patient's severe hypoxia and tachycardia; mild troponin elevation on admit -Patient seen on BiPAP due to substernal chest pain on BiPAP is removed -No change on EKG during admission; troponins are resolving -ECHO pending 6. Anasarca secondary to right heart failure; present on admission; resolved -On last admit attempts at diuresis were either too aggressive or futile at first; achieved good diuresis with IV Lasix at 10-15 mg an hour -Continue lower extremity compression; increased wraps up to [employer] 7. History of PE, chronic, present on admission Continue with by mouth warfarin and dosing per pharmacy 8. Morbid obesity, chronic, present on admission -Discussed at length DVT prophylaxis -On therapeutic warfarin Pain Evaluation: Adequate Pain Control VTE Mechanical Devices: Intermittant Pneumatic CD Resuscitation Status: CPR: Attempt Resuscitation Time spent 20 minutes Emeka Hines MD Jan 09, 2017 12:42
--- NOTE | 2017-01-09 13:36 | NUR ---
[facility] Signed
[2017-01-09] MEDS ORDERED: Propofol 10,000 mCg/mL 20 mL Inj ONE (13:55)
--- NOTE | 2017-01-09 15:55 | PROG NOTE ---
[address] [address] PROGRESS NOTE PATIENT: KEN NORMAN : 1965 MR#: [id number] ADMIT: 01/03/2017 JOB ID: [id number] DATE: 01/09/2017 The patient was seen yesterday in consultation by Dr. Mccracken. After discussion between Dr. Mccracken and Dr. Mcadams, it was decided that he should have a right tube thoracostomy for drainage of this loculated pleural fluid once his INR reached reasonable level. This morning his INR is 1.37. His chest x-ray shows continued right-sided pleural effusion. I have met the patient, reviewed with him the plans for right-sided tube thoracostomy including risks, benefits, and possible complications. Due to his respiratory status and minimal reserve, I will ask Dr. Hernandez from anesthesia to provide bedside sedation for the procedure as well as monitoring his airway. Patient agrees to proceed.
--- NOTE | 2017-01-09 16:54 | NUR ---
Chest tube: R chest tube placed at bedside, by Surgery with Anesthesia present. Pt tolerated well, O2 sats 88-93% with Trilogy machine in place continuously. Pt a/o, some drowsiness noted, asking and answering appropriate questions. Report to Hermelindo Duffy RN.
--- NOTE | 2017-01-09 17:27 | DRSVH ---
PROCEDURE: X-RAY CHEST ONE VIEW, PORTABLE ([id number]) INDICATIONS: s/p chest tube TECHNIQUE: One view of the chest was acquired. COMPARISON: [facility], CR, XR CHEST 1VW (PORTABLE), 01/09/2017, 11:14. FINDINGS: Surgical changes and devices: Right-sided chest tube has been placed. Lungs and pleura: Small right-sided pleural effusion is slightly decreased in size. Patchy opacity in the right lung base is stable. Mediastinum: Mediastinal contours appear normal. Heart size is normal. Bones and chest wall: No suspicious bony lesions. Overlying soft tissues appear unremarkable. IMPRESSION: Status post right-sided chest tube placement. Right basilar opacity and small right-deo ed pleural fluid collection not significantly changed compared to prior examination. Dictated by: Radha Galeano MD, PhD on 01/09/2017 at 17:24 Approved by: Radha Galeano MD, PhD on 01/09/2017 at 17:25
--- NOTE | 2017-01-09 17:36 | PCM.ANEP1 ---
Post Anesthesia Phase 1 PACU Phase 1 Assessment Date of Service: Jan 09, 2017 (1600) Vital Signs Vital Signs Date Time Temp Pulse Resp B/P Pulse Ox O2 Delivery O2 Flow Rate FiO2 01/09/17 16:56 97 12 105/63 93 trilogy 10.00 01/09/17 16:52 95 19 107/65 91 trilogy 10.00 01/09/17 16:46 97 16 118/79 92 trilogy 10.00 01/09/17 16:40 96 14 111/73 89 trilogy 10.00 01/09/17 16:30 91 25 107/64 86 trilogy 10.00 01/09/17 16:24 95 18 108/64 97 trilogy 10.00 01/09/17 12:07 36.7 91 20 97/64 90 trilogy 10.00 01/09/17 10:15 90 Anesthetic Administered: GA, MAC Level of Alertness: Awake, talking MCCONNELL's with Equal Strength: Yes Pain: No Nausea or Vomiting: No Oxygen Delivery: BiPAP Lungs: Diminished Dermatome Level: Full Sensation Summary vital signs stable, see nursing notes Jaun Hernandez MD Jan 09, 2017 17:36
--- NOTE | 2017-01-09 17:36 | PCM.ANEP2 ---
Post Anesthesia Evaluation ASA/CMS Post Anesthesia VS in Patient's Normal Range?: Yes Resp Stable; Airway Patent?: Yes CV Function & Hydration Stable: Yes Mental Status Recovered?: Yes Pain control Satisfactory?: Yes N/V Control Satisfactory?: Yes Jaun Hernandez MD Jan 09, 2017 17:36
--- NOTE | 2017-01-09 17:36 | PCM.HPANE ---
Patient Data Date of Service: Jan 09, 2017 (1600) Surgeon Admitting Provider:Fouzia Morris MD Attending Provider:Fouzia Morris MD Primary Care Physician:Montse Emerson MD Other Provider: Reason for Visit Dyspnea, Elevated Troponin, Hypoxemia Ht/WT & BMI Height (Feet): 6 Height (Inches): 4.00 Weight (Kilograms): 185.400 Body Mass Index 53.34 Allergies Coded Allergies: No Known Allergies (Unverified , 12/18/16) Past Anesthesia History Anesthesia History: Denies:: Anesthesia Reactions Diabetes History Hx Diabetes?: No MRSA MRSA: No Medications Active Scripts Metoprolol Tartrate 25 Mg [id number] Mg PO BID #30 TABLET Ref 0 Prov:Molina Jorge MD 01/03/17 Furosemide 40 Mg Trhiok95 Mg PO BID 30 Days Prov:Molina Jorge MD 01/03/17 Warfarin Sodium (Coumadin)2 Mg Tablet4 Mg PO DAILY@17 #14 TABLET Prov:Molina Jorge MD 01/03/17 Polyethylene Glycol 3350 (Miralax)17 Gm Powd.pack17 Gm PO DAILY PRN For Constipation #30 Prov:Molina Jorge MD 01/03/17 Nystatin 1 Each Powder.ea.1 Applic TOPICAL BID #7 Prov:Molina Jorge MD 01/03/17 Famotidine (Pepcid)20 Mg Abxgmc88 Mg PO DAILY #30 TABLET Prov:Molina Jorge MD 01/03/17 Metolazone 5 Mg Tablet5 Mg PO DAILY #30 TABLET Prov:Molina Jorge MD 01/03/17 Reported Medications Albuterol Sulfate (Ventolin HFA Inhaler)200 Puff/18 Gm Inhaler1-2 Puffs INHALATION Q4 PRN For Shortness of Breath 12/18/16 Albuterol Neb Soln 2.5 Mg/3 Ml Vial.neb3 Ml INHALATION Q4 PRN For Shortness of Breath 12/18/16 Discontinued Reported Medications Metoprolol Tartrate 25 Mg Tzyjln80 Mg PO DAILY PRN HTN/tachycardia 12/18/16 Torsemide 20 Mg Vzjjsu63 Mg PO QAM 12/18/16 History History of ENT Problems?: No Cardiovascular History: Positive for:: Congestive Heart Failure Edema Hypertension Hx of Respiratory Problem?: Yes Respiratory History: Positive for:: COPD Dyspnea Pneumonia (current admitting dx) Denies:: Tuberculosis Hx Neurologic Problems?: No Hx of GI Problems?: No Hx of Problems?: No Male Hx: Denies:: Prostate Problems Scrotal Mass Testicular Surgery Other Skin Pertinent History: pt does have a current yeast infection in groin area and in sacral area. Hx Musculoskeletal Problems?: No Hx of Psycho/Social Problems?: No Hx Surgeries?: Yes (bilateral knee) Hx Any Other Health Problems?: No Other History: Denies:: Cancer Hospitalization Thyroid Disease History Blood Transfusions: Positive for:: Accept Blood Products? Denies:: Blood Transfusions Hx Diabetes: No Hx Alcohol Use: NoHx Substance Use: No Smoking Status: Former Smoker (quit 3-1/2 months ago, smoked for 31 years, up to 2 packs per day) Have You Smoked inLast 12 mo: Yes Stop/Bang Treated for Sleep Apnea?: Yes Do You Have a CPAP Machine?: Yes (pt has a trilogy at [facility] that still needs to be brought) S-Snoring: Do You Snore Loudly: Yes T-Tired: feel tired, fatigued: Yes O-Obsered: Observed not breath: Yes P-Blood Pressure: treated: No B- Body Mass Index > 35 kg/m2: Yes A- Age over 50: No N- Neck Large Circumference: Yes G- Gender Male: Yes SUNDAY Total Score: 7 SUNDAY Category 2: Yes Risk Assessment Category Category 1A: Patient has history of documented sleep apnea, and HAS NOT received any narcotic, sedative or anesthesia administration during this stay. Category 1B: Patient has history of documented sleep apnea, and HAS received any narcotic , sedative or anesthesia administration during this stay Category 2: Patient has SUSPECTED Obstructive Sleep Apnea, and HAS received any narcotic , sedative or anesthesia administration during this stay. Category 3: Patient has SUSPECTED Obstructive Sleep Apnea and HAS NOT received narcotic, sedative or anesthesia administration during this stay. Category 4: Outpatient in Procedural Areas with known sleep apnea or who screen positive for High Risk via the STOP/BANG questionnaire. Exam Exam Vital Signs Vital Signs Date Time Temp Pulse Resp B/P Pulse Ox O2 Delivery O2 Flow Rate FiO2 01/09/17 16:56 97 12 105/63 93 trilogy 10.00 01/09/17 16:52 95 19 107/65 91 trilogy 10.00 01/09/17 16:46 97 16 118/79 92 trilogy 10.00 3/18/17 16:40 96 14 111/73 89 trilogy 10.00 01/09/17 16:30 91 25 107/64 86 trilogy 10.00 01/09/17 16:24 95 18 108/64 97 trilogy 10.00 01/09/17 12:07 36.7 91 20 97/64 90 trilogy 10.00 01/09/17 10:15 90 General Appearance: Alert, Oriented X3, Cooperative, Moderate Distress (SOB) HEENT/AIRWAY: MP 2, Neck Movement (FROM), Mouth Opening (3 FBMO) Lungs: Diminished Heart: Regular Rate/Rhythm Meds/Labs/Diagnostics Admission Meds Current Medications Torsemide (Demadex) 20 mg DAILY PO Last administered on 01/09/17t 07:48; Start 01/09/17 at 08:30 Labs Test 01/03/17 20:53 01/07/17 05:45 01/08/17 08:10 01/08/17 15:00 Activated Partial Thromboplast Time 37.1sec (22.8-33.0) Magnesium Level 1.4mg/dL (1.6-2.6) Pro-B-Type Natriuretic Peptide 6575pg/mL (0-121) Troponin T 0.022ug/L (0.0-0.011) White Blood Count 11.5th/mm3 (3.8-10.1) Red Blood Count 3.87mil/mm3 (4.40-5.80) Hemoglobin 10.5g/dL (13.8-17.2) Hematocrit 36.5% (41.0-50.0) Mean Corpuscular Volume 94.3fL (81-100) Mean Corpuscular Hemoglobin 27.1pg (27.0-35.0) Mean Corpuscular Hemoglobin Concent 28.8% (32.0-37.0) Red Cell Distribution Width 18.7% (12.3-15.4) Platelet Count 340bil/L (150-400) Neutrophils (%) (Auto) 75.8% (40-74) Lymphocytes (%) (Auto) 8.3% (14-46) Monocytes (%) (Auto) 12.7% (4-12) Eosinophils (%) (Auto) 2.7% (0-5) Basophils (%) (Auto) 0.3% (0-3) Sodium Level 144mEq/L (134-144) Potassium Level 3.5mEq/L (3.5-5.2) Chloride Level 85mEq/L (97-108) Carbon Dioxide Level 52mmol/L (18-29) Blood Urea Nitrogen 16mg/dL (6-24) Creatinine 0.51mg/dL (0.76-1.27) Estimat Glomerular Filtration Rate 184mL/min (>59) Glucose Level 101mg/dL (60-99) Calcium Level 9.6mg/dL (8.5-10.1) Total Bilirubin 0.8mg/dL (0.0-1.2) Aspartate Amino Transf (AST/SGOT) 24U/L (0-50) Alanine Aminotransferase (ALT/SGPT) 22U/L (0-44) Alkaline Phosphatase 100U/L (25-150) Total Protein 6.1g/dL (6.4-8.4) Albumin 2.9g/dL (3.4-5.0) Procalcitonin 0.09ng/mL (0.00-0.08) Test 01/09/17 09:40 Prothrombin Time 14.8sec (8.1-12.5) Prothromb Time International Ratio 1.37ratio Plan Impression Patient chart reviewed, patient interviewed and anesthestic plan with risks, benefits, and alternatives discussed, and informed consent obtained. NPO Status: > 8 hrs ASA Physical Status: ASA4 Life Threatening Anesthetic Plan: GA, MAC Bene/Risks/Altern/Consents: Yes HP Complete Prior to Induction: Yes Jaun Hernandez MD Jan 09, 2017 17:36
--- NOTE | 2017-01-09 18:35 | OP ---
[address] [address] OPERATIVE REPORT PATIENT: KEN NORMAN : 1965 MR#: [id number] ADMIT: 01/03/2017 JOB ID: [id number] DATE OF SURGERY: 01/09/2017 PREOPERATIVE DIAGNOSIS(ES): Right chest loculated pleural effusion. POSTOPERATIVE DIAGNOSIS(ES): Right chest loculated pleural effusion. PROCEDURE: Right chest tube thoracostomy. SURGEON: Molina Munroe MD. INDICATIONS: A 51-year-old man with a loculated right-sided pleural effusion. Decision was made with pulmonary and general surgery yesterday to reverse his anticoagulation and place a chest tube. His INR is 1.36. Procedure is done at the bedside today after informed consent. I have asked Dr. Gregorio Hernandez of anesthesia to administer sedation and be available if there are any airway problems. The procedure is done in the progressive care unit at the bedside. FINDINGS: See below. PROCEDURE: The patient was in his room in the progressive care unit. Surgical consent was obtained. Right chest was prepped and draped in sterile fashion. Dr. Hernandez administered intravenous sedation. I used 40 cc of 1% lidocaine with epinephrine first to numb up the skin and later to administer in the periosteal area around the ribs. Incision was made in the anterior axillary line on the right chest at roughly the 5th intercostal space. I dissected down to the ribs. I bluntly spread between the ribs but initially did not enter the pleural space. However, I had cleared a space in the intercostal muscles but the membrane deeper to this was quite dense and thick, denser than the normal pleura. I re-examined where I was in the patient's chest wall to be certain that I was not so low that I was somehow getting into the peritoneum, but I felt this was definitely thickened pleura and I entered through this cavity into space where I could palpate with my finger. There was only a small amount of bloody fluid and I aspirated this out including some small clots and fibrinous tissue and sent this off to microbiology for Gram stain and culture. I probed the cavity with my finger. There was not a lot of fluid. There were some dense adhesions within it. I felt that I could palpate an open pleural space going upward that I could not continue downward along the chest wall and that this is all consistent with being in the pleural space and not in the abdominal cavity. I was a bit distressed that there was not much fluid but what I could feel in my fingertips did not feel like the capsule of the liver or even the parenchyma of the liver but felt like congealed pleural contents. I cleared off the space as much as I could, trying to break up the loculations and I placed a 36-Vietnamese bent chest tube into the pleural space and directed it posteriorly and downward. This was then secured to the skin with two 2-0 nylons and placed to minus 20 cm of suction. The tube was secured. Dressing was applied. The patient tolerated the procedure well. Tube was placed to minus 20 cm of suction and there was no air leak. Chest x-ray documented that the tube was above the diaphragm and appears to be in the pleural space.
--- NOTE | 2017-01-09 19:19 | NUR ---
Post-procedure Pt had chest tube place on right in room today, RN Cassia Canela assisted MD at bedside for procedure, see her note for more details. Pt reports tolerating procedure well, denies pain in site, SPO2 sats on trilogy unchanged from prior to procedure, Pt denied increase in SOB, chest tube to low continuous suction with min sanguineous drainage.
[2017-01-09] MEDS: Albuterol 2.5 mg/3 mL Inhalation Solution NEB PRN (19:44)
[2017-01-10] VITALS (10 sets, daily range): BP systolic 89–105; BP diastolic 59–76; PULSE 85–109; RESP 16–18; O2SAT 88–95
[2017-01-10] MEDS: HYDROcodone-APAP 5-325 mg Tablet PO PRN ×3 (00:18→17:54)
[2017-01-10] MEDS: Sodium Chloride LOK Flush 10 mL Syringe IVFLUSH SCH ×3 (00:18→16:45)
--- NOTE | 2017-01-10 04:46 | NUR ---
Chest tube/Pain Patient reported pain at the chest tube site "like I got stabbed with something." PRN vicodin given per orders and patient noted to be sleeping afterwards. Chest tube putting out small amount of sanguineous drainage over course of shift. Continue to monitor.
[2017-01-10] MEDS: acetaZOLAMIDE 250 mg Tablet PO SCH ×2 (08:50→19:49)
[2017-01-10] MEDS: Potassium Chloride 20 mEq SR Tablet PO SCH (08:50)
[2017-01-10] MEDS: Nystatin 100,000 Unit/Gm 15 Gm Powder TOPICAL SCH ×2 (08:52→19:49)
[2017-01-10] MEDS ORDERED: Alteplase (Cathflo) 1 mg/mL 2 mL Inj INTRACATH ONE (09:40)
[2017-01-10] MEDS ORDERED: ALTEPLASE INTRACATH ONE (10:05)
[2017-01-10] MEDS ORDERED: SODIUM CHLORIDE 0.9% INTRACATH ONE (10:05)
--- NOTE | 2017-01-10 10:27 | PCM.PNMED ---
Subjective Date of Service Jan 10, 2017 Subjective He is doing elevated better today. He is mostly using the Trilogy with 8 L bleed in oxygen. Minimal cough. Some chest pain from the right chest tube. No abdominal pain nausea or diarrhea. His edema is about the same. Exam Vital Signs Vital Sign - Last Date Time Temp Pulse Resp B/P Pulse Ox O2 Delivery O2 Flow Rate FiO2 01/10/17 09:58 85 01/10/17 08:42 36.9 18 105/76 94 trilogy 7.00 01/07/17 12:27 40 Intake and Output 01/09/17 01/09/17 01/10/17 Cumulative From/Thru 15:00 23:00 07:00 01/03/17 20:33 - 01/10/17 05:23 Intake Total 200 ml 280 ml 6454 ml Output Total 1700 ml 1155 ml 94807 ml Balance -1500 ml -875 ml -84194 ml Intake Oral 200 ml 250 ml 4623 ml IV Total 30 ml 1611 ml FFP 220 ml Output Urine Total 1700 ml 1100 ml 85120 ml Chest Tube Drainage Total 55 ml 55 ml # Bowel Movements 1 Exam Morbidly obese. No distress, fluent speech Anicteric sclera Lungs are clear anteriorly with normal rate and effort. Heart regular without murmur gallop or rub. Abdomen is distended nontender Extremities with 23+ edema, wrapped bilaterally Skin is free of lesions. There is a right anterolateral chest tube in place. Serosanguineous drainage. Trilogy at bedside. IVs and Medications Medications Reviewed: Medications were reviewed in detail Lab and Diagnostics Result Diagram: 01/08/17 0810 01/08/17 0810 X-Rays, CTs and MRIs Patient Name: KEN NORMAN MR#: [id number] [place] [facility] [place]ing Phys: Luis Dukes MD Date of Service: 01/03/172025 PROCEDURE: CT ANGIO CHEST PULMONARY EMBOLISM ([id number]) INDICATIONS: acute sob recent pulmonary emboli TECHNIQUE: After the administration of intravenous contrast, 2 mm thick sections acquired from the pulmonary apices to the posterior costophrenic angles. 3-dimensional maximum intensity projection (MIP) coronal and sagittal reformats were then acquired through the thorax. For radiation dose reduction, the following was used: automated exposure control, adjustment of mA and/or kV according to patient size. COMPARISON: FINDINGS: Image quality: Excellent. Pulmonary arteries: The main pulmonary arteries are normal in size and free of intraluminal filling defects. There is likely a residual embolus within the subsegmental branches of the right lower lobe, decreased in extent when compared with the study dated 12/19/16. No new pulmonary embolus. Lungs and pleura: There is a large right low density pleural effusion which has a loculated appearance. This is increased in size when compared with the study dated 12/19/16. The inferior aspect of the right lower lobe is collapsed. An ill- defined 2.4 cm in diameter radiopacity is present at the base of the left lung ( series 6, image 52). Mediastinum: Heart size is enlarged. There is a small low density pleural effusion which is new when compared with the prior study. No mediastinal or hilar adenopathy. Thoracic aorta is normal in caliber and enhancement. Esophagus is normal in caliber, without hiatal hernia. Bones and chest wall: No suspicious bony lesions. Ribs and thoracic spine appear intact throughout. Thyroid gland is unremarkable. No axillary or supraclavicular adenopathy. Abdomen: Visualized upper abdominal solid organs appear normal in the early arterial phase of enhancement. IMPRESSION: 1. Loculated appearing low density in right pleural effusion increased in size when compared with the study dated 12/19/16. The inferior portion of the right lower lobe is collapsed, increased in extent when compared with the prior study. 2. Near complete resolution of the previously visualized embolus on the study dated 12/19/16. Trace residual embolus remains. No new acute pulmonary embolus. 3. New small low-density pericardial effusion. Dictated by: Rena Chowdhury M.D. on 01/03/2017 at 21:39 Approved by: Rena Chowdhury M.D. on 01/03/2017 at 21:47 Cardiac Echo Impressions Echocardiogram Report Name: KEN NORMAN TStudy Date : 12/25/2016 Height: 76 in Hospital Exam Location: [facility] Weight: 459 lb Gender: Male BSA: 3.2 m2 : 1965 Age: 51 yrs BP: 138/70 mmHg Reason For Study: PERICARDIAL EFFUSION Ordering Physician: HOSPITALIST LAKESHIAerformed By: Enrique Gooden Referring Physician: Daphne MILLS Interpretation Summary There is a small to moderate pericardial effusion noted. There are no echocardiographic or Doppler indications for cardiac tamponade. The right ventricle is moderate to severely dilated. Right ventricular systolic function is moderately reduced. Right ventricular systolic function has increased since previous exam. A possible thrombus continues to be noted in the right ventricular apex measuring approximately 2.4 cm x 2.6. This is slightly smaller than the echo from 12/19/16. The right ventricular systolic pressure is estimated at 48 mmHg assuming a right atrial pressure of 15 mm Hg. Procedure: A two-dimensional transthoracic echocardiogram with color flow and Doppler was performed in limited views only. The study quality was technically difficult. Comparison is made with the echocardiogram of 12/22/16. A contrast injection of Definity was performed to improve assessment of LV function. The patient was in normal sinus rhythm during the exam. The patient had a heart rate of 107-113 beats per minute. Left Ventricle: The left ventricle is normal in size. There is normal left ventricular wall thickness. Regional wall motion abnormalities cannot be excluded due to limited visualization. Right Ventricle: The right ventricle is moderate to severely dilated. Right ventricular systolic function is moderately reduced. Right ventricular systolic function has increased since previous exam. A possible thrombus continues to be noted in the right ventricular apex measuring approximately 2.4 cm x 2.6. This is slightly smaller than the echo from 12/19/16. Atria: The left atrial size is normal. The right atrium is moderately dilated. Mitral Valve: The mitral valve is not well visualized. The mitral valve is grossly normal. The mitral valve chordae are thickened and/or calcified. Tricuspid Valve: The tricuspid valve is not well visualized, but is grossly normal. There is mild tricuspid regurgitation. The right ventricular systolic pressure is estimated at 48 mmHg assuming a right atrial pressure of 15 mm Hg. Great Vessels: The ascending aorta is normal in size. The IVC is dilated (diameter is greater than 2.1 cm) and it collapses less than 50% with a sniff. This suggests a high right atrial pressure of 15 mm Hg. The IVC has a measurement of 37 mm. Pericardium/ Pleura There is a small to moderate pericardial effusion noted. There are no echocardiographic or Doppler indications for cardiac tamponade. There is a large right-sided pleural effusion. MMode/2D Measurements & Calculations LVIDd: 5.2 cm RA long axis asc Aorta LVIDs: 3.7 cm LA A2 area: 21.9 cm Diam: 2.6 cm FS: 28.1 % LA A4 area: 22.6 cm RA area IVSd: 0.95 cm LA length (vol): 5.8 cm LVPWd: 1.0 cm LA vol: 72.1 ml : 30.8 cm LA vol index RA vol : 128.ml RA IVC diam: 3.7 cm : 40.7 mm2 LV mathias. diameter/BSA LV sys. diameter/BSA RVD1 (basal) RVD2 (mid) (cm/m^2): 1.7 (cm/m^2): 1.2 : 6.0 cm Doppler Measurements & Calculations MV E max nathan MV E/A: 208.1 TR max nathan MV V2 mean : 126.8 cm/sec Med Peak E' Nathan : 285.7 cm/sec : 79.7 cm/sec MV A max nathan TR max PG MV mean PG : 0.61 cm/sec E/E' med: 12.1 : 32.7 mmHg MV V2 VTI MV dec time : 0.10 sec Reading Physician:PM Assessment & Plan 51-year-old male patient with a history of COPD, congestive heart failure, and hyperventilation secondary to obesity presented to the ER with complaint of worsening dyspnea and weakness. Patient bounced back from [facility] due to severe dyspnea. 1. Acute non-Chronic hypoxic and hypercarbic respiratory failure, present on admission -Acute desaturation when patient was placed on traveling BiPAP after being transferred from [facility] to [facility]. -Patient has COPD, hypoventilation syndrome, untreated sleep apnea, recent pulmonary embolism and R/L heart failure contributing to respiratory illness He continues to make minimal progress and is really using the Trilogy 98% time. He states he can be off for a short period of time but then became short of breath again or anxious. His chest x-rays have been relatively static. He continues to be on diuretics. 2. Parapneumonic effusion; present on admission; ongoing -Initially seen on chest x-ray on last admission but has not resolved with diuresis; located in the right pleural space where she had recent pneumonia A chest tube was placed yesterday by surgery. There is mostly serosanguineous drainage. Today they are going to put TPA into the chest cavity see if this improves drainage. In control is reasonable. 3. Sinus tachycardia, acute, present on admission. stable -Patient has underlying sinus tachycardia previously on metoprolol 25 mg by mouth twice a day -Underlying sinus tachy, could be due to intravascular depletion, however his kidney function remains. -Metoprolol 50mg BID, this is stable no changes. 4. Metabolic alkalosis second to diuresis; as on admission: Stable -Patient presents back with ABG and radicular respiratory acidosis that is compensated with bicarbonate. -Metabolic alkalosis due to contraction of fluid from diuresis -Changed to Diamox 250mg BID and Torsemide 20mg daily 5. Anasarca secondary to right heart failure; present on admission; resolved -On last admit attempts at diuresis were either too aggressive or futile at first; achieved good diuresis with IV Lasix at 10-15 mg an hour -Continue lower extremity compression; increased wraps up to [employer] 7. Pulmonary embolism and DVT. POA. Patient's Coumadin was reversed for his procedure. This point well resume Coumadin and bridge him with Lovenox given his high risk for recurrent I DVT. 8. Morbid obesity, chronic, present on admission -Discussed at length Pain Evaluation: Adequate Pain Control VTE Mechanical Devices: Intermittant Pneumatic CD Resuscitation Status: CPR: Attempt Resuscitation Time spent 30 minutes Emeka Hines MD Jan 10, 2017 10:27
[2017-01-10 13:17] LABS: INR 1.16 ratio
[2017-01-10] MEDS: ENOXAPARIN SUBQ SCH ×2 (14:22)
--- NOTE | 2017-01-10 16:04 | PROG NOTE ---
[address] [address] PROGRESS NOTE PATIENT: KEN NORMAN : 1965 MR#: [id number] ADMIT: 01/03/2017 JOB ID: [id number] DATE: The patient remains afebrile with stable vital signs over the course of the night. His chest tube output has been minimal. Therefore, today, I instilled 4 mg of tPA and 50 cc of sterile normal saline into his chest tube and kept it clamped for 2 hours. I have just taken the clamp off and put back to -20 cm of suction. Chest x-ray will be ordered for tomorrow. I have looked for the microbiology review of the specimen that I sent yesterday, but they have not even performed a Gram stain, and I will follow up as the reason behind that.
--- NOTE | 2017-01-10 18:23 | NUR ---
Breathing Pt's chest tube infused with cath-maximiliano in 50mL of sterile NS by Dr. Munroe at bedside today and then clamped, chest tube unclamped by Dr. Munroe ~2 hours afterwards. Pt's chest tube output ~100mL sanguineous fluid this shift. At the end of the shift, Pt reported feeling as though he could take deeper breaths than earlier in the shift. Pt's SPO2 sats still quickly decrease to the low 80s when off trilogy with 7L bleed-in and recover when mask placed back on. Addendum: 01/10/17 at 1840 by ROD FRANCOIS RN Pt's chest tube output an additional 15mL by shift change for a total of 115mL this shift.
[2017-01-11] VITALS (11 sets, daily range): BP systolic 91–106; BP diastolic 53–72; PULSE 86–106; RESP 17–20; O2SAT 92–99
[2017-01-11] MEDS: Sodium Chloride LOK Flush 10 mL Syringe IVFLUSH SCH ×4 (01:06→23:08)
[2017-01-11] MEDS: ENOXAPARIN SUBQ SCH ×4 (01:06→14:38)
[2017-01-11 03:50] LABS: Mean Corpuscular Hemoglobin 26.7 pg (27.0-35.0); Mean Corpuscular Volume 93.4 fL (81-100)
[2017-01-11 04:03] LABS: INR 1.17 ratio
[2017-01-11] MEDS: Albuterol 2.5 mg/3 mL Inhalation Solution NEB PRN ×3 (04:36→19:54)
--- NOTE | 2017-01-11 04:36 | NUR ---
Chest Tube/Respiratory Patient's chest tube continues to put out small amounts of sanguineous drainage. Dressing was changed by day shift on 01/10/17, dressing remains clean, dry, and intact. Patient using his trilogy with 7L O2 bleed in, maintaining SpO2 in the low to mid 90s. Continue to monitor.
[2017-01-11] MEDS: Potassium Chloride 20 mEq SR Tablet PO SCH (08:57)
[2017-01-11] MEDS: HYDROcodone-APAP 5-325 mg Tablet PO PRN ×2 (08:57→17:53)
[2017-01-11] MEDS: acetaZOLAMIDE 250 mg Tablet PO SCH ×2 (08:58→19:49)
[2017-01-11] MEDS: Nystatin 100,000 Unit/Gm 15 Gm Powder TOPICAL SCH ×2 (08:58→19:49)
--- NOTE | 2017-01-11 10:19 | NUR ---
verbal consent to REBEKAH
--- NOTE | 2017-01-11 10:54 | PCM.PHAPRO ---
Progress Complex Parapneumonic Effusion. . O/ RPh gsf GSF GSF gsf RWP RWP RWP RWP WLG RWP RTM RTM [facility] RTM DFF GSF Date Dec 21-Dec 22 1-Mar 2-Mar 3-Mar 4-Mar 5-Mar 6-Mar 7-Mar 8-Mar 9-Dec 10-Dec 11-Dec 12-Dec 13-Dec 14-Dec 15-Dec 16-Dec 17-Dec 18-Dec 19-Dec 20-Dec 21- Dec 22-Dec 23-Dec 24-Dec 25-Dec INR 1.25 1.19 1.18 1.28 1.37 2.04 2.84 1.86 1.95 1.32 1.43 2.02 2.66 2.94 3.83 4.90 4.64 4.00 2.78 1.37 1.16 1.17 Warf Dose 5mg 5mg/d 5 6 6 7.5 2.5 1 5 5 7.5 7.5 7.5 5 4 HOLD HOLD HOLD HOLD VITAMIN K 5MG 5 5 A/ Day3 post Vit K, likely resistant to warfarin for a few more days. Bridging with ENOX. Appears that 4-5 mg is likely final dose. P/ 5mg today and follow Leonel Diaz Pharm D Jan 11, 2017 10:54
--- NOTE | 2017-01-11 16:23 | NUR ---
Social Work Note: Continued Discharge Planning Data& Assessment: SW attempted to check in with pt at bedside and assess for any unmet needs. Pt was sleeping and was not easily woken. Per PT, pt had a good session with them today and pt is motivated to gain strength. Pt had chest tube placement over the weekend. Pt is not medically ready at this time per MD in morning rounds. SW to continue to follow and check in with pt regarding any unmet needs. Plan: Anticipated discharge to [facility] when medically ready with Trilogy through [facility]. SW to continue to follow and check in with pt regarding any unmet needs. KENDRICK Hopkins
--- NOTE | 2017-01-11 16:34 | PCM.PNMED ---
Subjective Date of Service Jan 11, 2017 Subjective He is doing well today. He did better with physical therapy. He is still having some right-sided chest pain from his chest tube. No cough. The dyspnea is about the same. No fevers or chills. No abdominal pain. Exam Vital Signs Vital Sign - Last Date Time Temp Pulse Resp B/P Pulse Ox O2 Delivery O2 Flow Rate FiO2 01/11/17 12:52 Mask 01/11/17 12:50 36.0 86 18 91/53 97 9.00 01/07/17 12:27 40 Intake and Output 01/10/17 01/10/17 01/11/17 Cumulative From/Thru 15:00 23:00 07:00 01/03/17 20:33 - 01/11/17 06:39 Intake Total 1040 ml 130 ml 7624 ml Output Total 1365 ml 780 ml 00315 ml Balance -325 ml -650 ml -15737 ml Intake Oral 1040 ml 100 ml 5763 ml IV Total 30 ml 1641 ml FFP 220 ml Output Urine Total 1250 ml 700 ml 46748 ml Chest Tube Drainage Total 115 ml 80 ml 250 ml # Bowel Movements 1 Exam Alert and oriented: 3, in no distress. Fluent speech. Anicteric sclera. Neck supple lungs are clear from left to right. Heart is regular without murmur Abdomen distended without focal tenderness. Extremities with 2-3+ edema bilaterally. IVs and Medications Medications Reviewed: Medications were reviewed in detail Lab and Diagnostics Result Diagram: 01/11/1732401/11/17324 X-Rays, CTs and MRIs Patient Name: KEN NORMAN MR#: [id number] Location: [facility] [place] Ordering Phys: Luis Dukes MD Date of Service: 01/03/172025 PROCEDURE: CT ANGIO CHEST PULMONARY EMBOLISM ([id number]) INDICATIONS: acute sob recent pulmonary emboli TECHNIQUE: After the administration of intravenous contrast, 2 mm thick sections acquired from the pulmonary apices to the posterior costophrenic angles. 3-dimensional maximum intensity projection (MIP) coronal and sagittal reformats were then acquired through the thorax. For radiation dose reduction, the following was used: automated exposure control, adjustment of mA and/or kV according to patient size. COMPARISON: FINDINGS: Image quality: Excellent. Pulmonary arteries: The main pulmonary arteries are normal in size and free of intraluminal filling defects. There is likely a residual embolus within the subsegmental branches of the right lower lobe, decreased in extent when compared with the study dated 12/19/16. No new pulmonary embolus. Lungs and pleura: There is a large right low density pleural effusion which has a loculated appearance. This is increased in size when compared with the study dated 12/19/16. The inferior aspect of the right lower lobe is collapsed. An ill- defined 2.4 cm in diameter radiopacity is present at the base of the left lung ( series 6, image 52). Mediastinum: Heart size is enlarged. There is a small low density pleural effusion which is new when compared with the prior study. No mediastinal or hilar adenopathy. Thoracic aorta is normal in caliber and enhancement. Esophagus is normal in caliber, without hiatal hernia. Bones and chest wall: No suspicious bony lesions. Ribs and thoracic spine appear intact throughout. Thyroid gland is unremarkable. No axillary or supraclavicular adenopathy. Abdomen: Visualized upper abdominal solid organs appear normal in the early arterial phase of enhancement. IMPRESSION: 1. Loculated appearing low density in right pleural effusion increased in size when compared with the study dated 12/19/16. The inferior portion of the right lower lobe is collapsed, increased in extent when compared with the prior study. 2. Near complete resolution of the previously visualized embolus on the study dated 12/19/16. Trace residual embolus remains. No new acute pulmonary embolus. 3. New small low-density pericardial effusion. Dictated by: Rena Chowdhury M.D. on 01/03/2017 at 21:39 Approved by: Rena Chowdhury M.D. on 01/03/2017 at 21:47 Cardiac Echo Impressions Echocardiogram Report Name: KEN NORMAN TStudy Date : 12/25/2016 Height: 76 in Hospital Exam Location: [facility] Weight: 459 lb Gender: Male BSA: 3.2 m2 : 1965 Age: 51 yrs BP: 138/70 mmHg Reason For Study: PERICARDIAL EFFUSION Ordering Physician: HOSPITALIST SVHPerformed By: Enrique Gooden Referring Physician: Daphne MILLS Interpretation Summary There is a small to moderate pericardial effusion noted. There are no echocardiographic or Doppler indications for cardiac tamponade. The right ventricle is moderate to severely dilated. Right ventricular systolic function is moderately reduced. Right ventricular systolic function has increased since previous exam. A possible thrombus continues to be noted in the right ventricular apex measuring approximately 2.4 cm x 2.6. This is slightly smaller than the echo from 12/19/16. The right ventricular systolic pressure is estimated at 48 mmHg assuming a right atrial pressure of 15 mm Hg. Procedure: A two-dimensional transthoracic echocardiogram with color flow and Doppler was performed in limited views only. The study quality was technically difficult. Comparison is made with the echocardiogram of 12/22/16. A contrast injection of Definity was performed to improve assessment of LV function. The patient was in normal sinus rhythm during the exam. The patient had a heart rate of 107-113 beats per minute. Left Ventricle: The left ventricle is normal in size. There is normal left ventricular wall thickness. Regional wall motion abnormalities cannot be excluded due to limited visualization. Right Ventricle: The right ventricle is moderate to severely dilated. Right ventricular systolic function is moderately reduced. Right ventricular systolic function has increased since previous exam. A possible thrombus continues to be noted in the right ventricular apex measuring approximately 2.4 cm x 2.6. This is slightly smaller than the echo from 12/19/16. Atria: The left atrial size is normal. The right atrium is moderately dilated. Mitral Valve: The mitral valve is not well visualized. The mitral valve is grossly normal. The mitral valve chordae are thickened and/or calcified. Tricuspid Valve: The tricuspid valve is not well visualized, but is grossly normal. There is mild tricuspid regurgitation. The right ventricular systolic pressure is estimated at 48 mmHg assuming a right atrial pressure of 15 mm Hg. Great Vessels: The ascending aorta is normal in size. The IVC is dilated (diameter is greater than 2.1 cm) and it collapses less than 50% with a sniff. This suggests a high right atrial pressure of 15 mm Hg. The IVC has a measurement of 37 mm. Pericardium/ Pleura There is a small to moderate pericardial effusion noted. There are no echocardiographic or Doppler indications for cardiac tamponade. There is a large right-sided pleural effusion. MMode/2D Measurements & Calculations LVIDd: 5.2 cm RA long axis asc Aorta LVIDs: 3.7 cm LA A2 area: 21.9 cm Diam: 2.6 cm FS: 28.1 % LA A4 area: 22.6 cm RA area IVSd: 0.95 cm LA length (vol): 5.8 cm LVPWd: 1.0 cm LA vol: 72.1 ml : 30.8 cm LA vol index RA vol : 128.ml RA IVC diam: 3.7 cm : 40.7 mm2 LV mathias. diameter/BSA LV sys. diameter/BSA RVD1 (basal) RVD2 (mid) (cm/m^2): 1.7 (cm/m^2): 1.2 : 6.0 cm Doppler Measurements & Calculations MV E max nathan MV E/A: 208.1 TR max nathan MV V2 mean : 126.8 cm/sec Med Peak E' Nathna : 285.7 cm/sec : 79.7 cm/sec MV A max nathan TR max PG MV mean PG : 0.61 cm/sec E/E' med: 12.1 : 32.7 mmHg MV V2 VTI MV dec time : 0.10 sec Reading Physician:PM Assessment & Plan 51-year-old male patient with a history of COPD, congestive heart failure, and hyperventilation secondary to obesity presented to the ER with complaint of worsening dyspnea and weakness. Patient bounced back from [facility] due to severe dyspnea. 1. Acute non-Chronic hypoxic and hypercarbic respiratory failure, present on admission -Acute desaturation when patient was placed on traveling BiPAP after being transferred from [facility] to [facility]. -Patient has COPD, hypoventilation syndrome, untreated sleep apnea, recent pulmonary embolism and R/L heart failure contributing to respiratory illness clinically he is about the same, no changes to current medical plan. 2. Parapneumonic effusion; present on admission; ongoing I His effusion is culture negative. His chest tube has had intermediate drainage which is also serous. The current discussion is whether or not the chest tube should stay in or whether or not he require more therapy such as a VATS. We will repeat chest x-ray today. 3. SUNDAY with secondary pulmonary hypertension and consequent right ventricular failure with Anasarca secondary to right heart failure; present on admission; resolved -Continue diuretics. -Continue lower extremity compression; increased wraps up to [employer]. 7. Pulmonary embolism and DVT. POA. Patient's Coumadin was reversed for his procedure. This point well resume Coumadin and bridge him with Lovenox given his high risk for recurrent I DVT. 8. Morbid obesity, chronic, present on admission -Discussed at length Pain Evaluation: Adequate Pain Control VTE Mechanical Devices: Intermittant Pneumatic CD Resuscitation Status: CPR: Attempt Resuscitation Time spent 30 minute Emeka Hines MD Jan 11, 2017 16:34
[2017-01-11] MEDS ORDERED: Potassium Chloride 20 mEq SR Tablet PO ONE (16:35)
--- NOTE | 2017-01-11 16:59 | DRSVH ---
PROCEDURE: X-RAY CHEST ONE VIEW, PORTABLE ([id number]) INDICATIONS: dyspnea TECHNIQUE: One view of the chest was acquired. COMPARISON: [facility], CR, XR CHEST 1VW (PORTABLE), 12/31/2016, 5:21. [facility], CR, XR CHEST 1VW (PORTABLE), 01/09/2017, 11:14. [facility], CR, XR CHEST 1VW (PORT ABLE), 01/09/2017, 16:56. FINDINGS: Surgical changes and devices: Stable positioning of right pleural drain. Lungs and pleura: Trace right pleural effusion is present in the mid/basilar airspace opacity. Left lung is clear. No pneumothorax. Mediastinum: Mediastinal contours appear normal. Heart size is normal. Bones and chest wall: No suspicious bony lesions. Overlying soft tissues appear unremarkable. IMPRESSION: 1. Right pleural drain in position and no right pneumothorax is present. 2. Small right pleural effusion and mid/basilar airspace opacity are unchanged consistent with atelec tasis versus pneumonia. Dictated by: Chalino Miller A Interpreted: Marisol Duarte MD on 01/11/2017 at 16:57 Transcribed by: RAJINDER on 01/11/2017 at 16:59 Approved by: Marisol Duarte M.D. on 01/12/2017 at 7:52
--- NOTE | 2017-01-11 18:35 | NUR ---
pain/chest tube output pt c/o 7-8/10 pain at chest tube insertion site twice during day shift. Medicated with 10mg Oxycodone each time. Pt resting with eyes closed with first reassessment. Stating pain down to a 4/10 on second reassessment. Chest tube only put out 50ml of sanguineous drainage.
--- NOTE | 2017-01-11 20:03 | PROG NOTE ---
[address] [address] PROGRESS NOTE PATIENT: KEN NORMAN : 1965 MR#: [id number] ADMIT: 01/03/2017 JOB ID: [id number] DATE: 01/11/2017 The patient is seen in followup of the right-sided chest tube. He has had very little out, only 80 cc so far today; 170 cc yesterday. He has not had any new imaging today. Dr. Munroe discussed a thoracoscopy with anesthesia yesterday, but because of his obesity, BMI approximately 50, that Anesthesia will not do one-lung ventilation on him. I explained this in detail to the patient. I also discussed this again with Dr. Taylor. I would recommend that if there is no improvement on his imaging studies for tomorrow, then I would recommend that he be transferred to a higher facility for higher level of care, meaning availability of Anesthesia willing to do one-lung ventilation to allow a thoracoscopy. I answered all questions that the patient had, and at the end, he stated that he understood the plan and reasons for it.
[2017-01-12] VITALS (9 sets, daily range): BP systolic 94–112; BP diastolic 55–74; PULSE 89–106; RESP 17–20; O2SAT 91–98
[2017-01-12] MEDS: ENOXAPARIN SUBQ SCH ×4 (02:09→13:31)
--- NOTE | 2017-01-12 02:42 | NUR ---
Chest Tube: Upon initial assessment Large blood clot noted in chest tube area most proximal to the Pt. Surgery paged- Dr. Hines notified and aware of large clot clogging chest tube. Order received to Strip the tube in attempts to relieve clot- however clot is located in area where chest tube is hard and not playable. MD aware of present clot. no new orders at this time states he will address it today.
[2017-01-12 03:51] LABS: Mean Corpuscular Hemoglobin 26.7 pg (27.0-35.0); Mean Corpuscular Volume 93.1 fL (81-100)
[2017-01-12 04:01] LABS: INR 1.16 ratio
[2017-01-12] MEDS: HYDROcodone-APAP 5-325 mg Tablet PO PRN ×2 (08:45→23:32)
[2017-01-12] MEDS: Sodium Chloride LOK Flush 10 mL Syringe IVFLUSH SCH ×3 (08:46→23:29)
[2017-01-12] MEDS: Potassium Chloride 20 mEq SR Tablet PO SCH (08:46)
[2017-01-12] MEDS: Nystatin 100,000 Unit/Gm 15 Gm Powder TOPICAL SCH ×2 (08:47→20:17)
--- NOTE | 2017-01-12 08:48 | NUR ---
Social Work Note: Continued Discharge Planning SW requested [facility] screen pt for Medicaid eligibility. Per [facility], pt is over income for Medicaid and is not eligible. KENDRICK Hopkins
[2017-01-12] MEDS: acetaZOLAMIDE 250 mg Tablet PO SCH ×2 (09:25→20:16)
[2017-01-12] MEDS: Albuterol 2.5 mg/3 mL Inhalation Solution NEB PRN ×2 (11:47→20:59)
--- NOTE | 2017-01-12 13:40 | NUR ---
NUTRITION FOLLOW UP Assess: 51 YO M with acute respiratory failure and anasarca. Pt with variable PO intake. Pt with right chest tube for parapneumonic effusion. PMHx: COPD, CHF, GERD, DILEEP, Punctured lung LABS: K+ 3.4, Cr 0.73, Alb 2.9 MEDICATIONS: Coumadin. DIET: Heart Healthy/Consistent Carb, PO intake refusal-100%. GI: BM x 1 (01/04) SKIN: No issues note ANTHROPOMETRICS: Current Wt: 184.0 kg, BMI: 49.4 kg, Admit Wt: 198.7 kg, IBW: 91.8 kg Adj BW: 116.3 kg. ESTIMATED NEEDS: BMI/COPD Calories: 5677-8393 kcal/day (30-35 kcal/kg Adj BW) Protein: 140-210 g/day (1.2-1.8 g/kg Adj BW) NUTRITION DIAGNOSIS: 1) Inadequate oral intake related to fluid accumulations and acute illness as evidenced by anasarca and poor PO intake.---PERSISTS. INTERVENTION: 1) Continue current diet and supplements as ordered. 2) Previous RD discussed importance of adequate calorie/protein intake for preservation of LBM on 01/07. MONITOR/EVALUATE: PO intake, labs, wt, nutrition status, POC. Follow per moderate nutrition risk guidelines.
--- NOTE | 2017-01-12 13:47 | DRSVH ---
PROCEDURE: X-RAY CHEST ONE VIEW, PORTABLE ([id number]) INDICATIONS: dyspnea TECHNIQUE: One view of the chest was acquired. COMPARISON: Located [facility], CR, XR CHEST 1VW (PORTABLE), 01/11/2017, 16:29. FINDINGS: Surgical changes and devices: Stable positioning of right pleural drain. Lungs and pleura: Trace right pleural effusion is present in the mid/basilar airspace opacity. Left lung is clear. No pneumothorax. Mediastinum: Mediastinal contours appear normal. Heart size is normal. Bones and chest wall: No suspicious bony lesions. Overlying soft tissues appear unremarkable. IMPRESSION: 1. Dual position right pleural drain. 2. Small right pleural effusion/basilar airspace opacity unchanged consistent with atelectasis versus pneumonia. Dictated by: Chalino Miller [facility] Interpreted: Eladio Garcia MD on 01/12/2017 at 13:46 Transcribed by: LUIS on 01/12/2017 at 13:47 Approved by: Eladio Garcia M.D. on 01/12/2017 at 17:13
--- NOTE | 2017-01-12 15:14 | PCM.PNMED ---
Subjective Date of Service Jan 12, 2017 Subjective He is doing well. His breathing is about the same. He is using Trilogy most of the time. No nausea or chest pain. No abdominal pain. Some pain from the right-sided chest tube. Exam Vital Signs Vital Sign - Last Date Time Temp Pulse Resp B/P Pulse Ox O2 Delivery O2 Flow Rate FiO2 01/12/17 12:33 36.7 98 18 101/68 94 OxyMask 6.00 01/07/17 12:27 40 Intake and Output 01/11/17 01/11/17 01/12/17 Cumulative From/Thru 15:00 23:00 07:00 01/03/17 20:33 - 01/12/17 05:29 Intake Total 680 ml 300 ml 8604 ml Output Total 1200 ml 1000 ml 34391 ml Balance -520 ml -700 ml -54185 ml Intake Oral 680 ml 300 ml 6743 ml IV Total 1641 ml FFP 220 ml Output Urine Total 1000 ml 38418 ml Urine/Stool Mix 1200 ml 1200 ml Chest Tube Drainage Total 250 ml # Bowel Movements 0 1 Exam There are oriented no acute distress, fluent speech Anicteric sclera. Neck is supple Lungs are clear with fairly normal effort and rate Heart is regular without murmur gallop or rub. Abdomen is distended but nontender. Extremities with 3+ edema. Good radial pulses. No bruising or ecchymosis. IVs and Medications Medications Reviewed: Medications were reviewed in detail Lab and Diagnostics Result Diagram: 01/12/17 0330 01/12/17 0330 X-Rays, CTs and MRIs Patient Name: KEN NORMAN MR#: [id number] Location: [facility] [place] Ordering Phys: Luis Dukes MD Date of Service: 01/03/172025 PROCEDURE: CT ANGIO CHEST PULMONARY EMBOLISM ([id number]) INDICATIONS: acute sob recent pulmonary emboli TECHNIQUE: After the administration of intravenous contrast, 2 mm thick sections acquired from the pulmonary apices to the posterior costophrenic angles. 3-dimensional maximum intensity projection (MIP) coronal and sagittal reformats were then acquired through the thorax. For radiation dose reduction, the following was used: automated exposure control, adjustment of mA and/or kV according to patient size. COMPARISON: FINDINGS: Image quality: Excellent. Pulmonary arteries: The main pulmonary arteries are normal in size and free of intraluminal filling defects. There is likely a residual embolus within the subsegmental branches of the right lower lobe, decreased in extent when compared with the study dated 12/19/16. No new pulmonary embolus. Lungs and pleura: There is a large right low density pleural effusion which has a loculated appearance. This is increased in size when compared with the study dated 12/19/16. The inferior aspect of the right lower lobe is collapsed. An ill- defined 2.4 cm in diameter radiopacity is present at the base of the left lung ( series 6, image 52). Mediastinum: Heart size is enlarged. There is a small low density pleural effusion which is new when compared with the prior study. No mediastinal or hilar adenopathy. Thoracic aorta is normal in caliber and enhancement. Esophagus is normal in caliber, without hiatal hernia. Bones and chest wall: No suspicious bony lesions. Ribs and thoracic spine appear intact throughout. Thyroid gland is unremarkable. No axillary or supraclavicular adenopathy. Abdomen: Visualized upper abdominal solid organs appear normal in the early arterial phase of enhancement. IMPRESSION: 1. Loculated appearing low density in right pleural effusion increased in size when compared with the study dated 12/19/16. The inferior portion of the right lower lobe is collapsed, increased in extent when compared with the prior study. 2. Near complete resolution of the previously visualized embolus on the study dated 12/19/16. Trace residual embolus remains. No new acute pulmonary embolus. 3. New small low-density pericardial effusion. Dictated by: Rena Chowdhury M.D. on 01/03/2017 at 21:39 Approved by: Rena Chowdhury M.D. on 01/03/2017 at 21:47 Cardiac Echo Impressions Echocardiogram Report Name: KEN NORMAN TStudy Date : 12/25/2016 Height: 76 in Hospital Exam Location: [facility] Weight: 459 lb Gender: Male BSA: 3.2 m2 : 1965 Age: 51 yrs BP: 138/70 mmHg Reason For Study: PERICARDIAL EFFUSION Ordering Physician: HOSPITALIST SVHPerformed By: Enrique Gooden Referring Physician: Daphne MILLS Interpretation Summary There is a small to moderate pericardial effusion noted. There are no echocardiographic or Doppler indications for cardiac tamponade. The right ventricle is moderate to severely dilated. Right ventricular systolic function is moderately reduced. Right ventricular systolic function has increased since previous exam. A possible thrombus continues to be noted in the right ventricular apex measuring approximately 2.4 cm x 2.6. This is slightly smaller than the echo from 12/19/16. The right ventricular systolic pressure is estimated at 48 mmHg assuming a right atrial pressure of 15 mm Hg. Procedure: A two-dimensional transthoracic echocardiogram with color flow and Doppler was performed in limited views only. The study quality was technically difficult. Comparison is made with the echocardiogram of 12/22/16. A contrast injection of Definity was performed to improve assessment of LV function. The patient was in normal sinus rhythm during the exam. The patient had a heart rate of 107-113 beats per minute. Left Ventricle: The left ventricle is normal in size. There is normal left ventricular wall thickness. Regional wall motion abnormalities cannot be excluded due to limited visualization. Right Ventricle: The right ventricle is moderate to severely dilated. Right ventricular systolic function is moderately reduced. Right ventricular systolic function has increased since previous exam. A possible thrombus continues to be noted in the right ventricular apex measuring approximately 2.4 cm x 2.6. This is slightly smaller than the echo from 12/19/16. Atria: The left atrial size is normal. The right atrium is moderately dilated. Mitral Valve: The mitral valve is not well visualized. The mitral valve is grossly normal. The mitral valve chordae are thickened and/or calcified. Tricuspid Valve: The tricuspid valve is not well visualized, but is grossly normal. There is mild tricuspid regurgitation. The right ventricular systolic pressure is estimated at 48 mmHg assuming a right atrial pressure of 15 mm Hg. Great Vessels: The ascending aorta is normal in size. The IVC is dilated (diameter is greater than 2.1 cm) and it collapses less than 50% with a sniff. This suggests a high right atrial pressure of 15 mm Hg. The IVC has a measurement of 37 mm. Pericardium/ Pleura There is a small to moderate pericardial effusion noted. There are no echocardiographic or Doppler indications for cardiac tamponade. There is a large right-sided pleural effusion. MMode/2D Measurements & Calculations LVIDd: 5.2 cm RA long axis asc Aorta LVIDs: 3.7 cm LA A2 area: 21.9 cm Diam: 2.6 cm FS: 28.1 % LA A4 area: 22.6 cm RA area IVSd: 0.95 cm LA length (vol): 5.8 cm LVPWd: 1.0 cm LA vol: 72.1 ml : 30.8 cm LA vol index RA vol : 128.ml RA IVC diam: 3.7 cm : 40.7 mm2 LV mathias. diameter/BSA LV sys. diameter/BSA RVD1 (basal) RVD2 (mid) (cm/m^2): 1.7 (cm/m^2): 1.2 : 6.0 cm Doppler Measurements & Calculations MV E max nathan MV E/A: 208.1 TR max nathan MV V2 mean : 126.8 cm/sec Med Peak E' Nathan : 285.7 cm/sec : 79.7 cm/sec MV A max nathan TR max PG MV mean PG : 0.61 cm/sec E/E' med: 12.1 : 32.7 mmHg MV V2 VTI MV dec time : 0.10 sec Reading Physician:PM Assessment & Plan 51-year-old male patient with a history of COPD, congestive heart failure, and hyperventilation secondary to obesity presented to the ER with complaint of worsening dyspnea and weakness. Patient bounced back from [facility] due to severe dyspnea. 1. Acute non-Chronic hypoxic and hypercarbic respiratory failure, present on admission -Acute desaturation when patient was placed on traveling BiPAP after being transferred from [facility] to [facility]. -Patient has COPD, hypoventilation syndrome, untreated sleep apnea, recent pulmonary embolism and Right heart failure contributing to illness clinically he is about the same, no changes to current medical plan. 2. Parapneumonic effusion (pneumonia treated); present on admission; ongoing I His effusion is culture negative. His chest tube has had intermediate drainage which is also serous. The current discussion is whether or not the chest tube should stay in or whether or not he require more therapy such as a VATS. We will repeat chest x-ray today. The chest tube is clogged and there is a high probability that surgery will pull it today. We will repeat a chest x-ray tomorrow morning. If there is still a significant residual parapneumonic fluid collection the consensus from surgery seems to be that transfer to [facility] for a VATS procedure would be warranted. The patient is aware that this is the working plan. 3. SUNDAY with secondary pulmonary hypertension and consequent right ventricular failure with Anasarca secondary to right heart failure; present on admission; resolved -Continue diuretics. -Continue lower extremity compression; increased wraps up to [employer]. 4. Pulmonary embolism and DVT. POA. Patient's Coumadin was reversed for his procedure. This point well resume Coumadin and bridge him with Lovenox given his high risk for recurrent I DVT. 5. Morbid obesity, chronic, present on admission VTE Mechanical Devices: Intermittant Pneumatic CD Resuscitation Status: CPR: Attempt Resuscitation Time spent 30 minutes Emeka Hines MD Jan 12, 2017 15:14
--- NOTE | 2017-01-12 16:56 | PCM.PNSURG ---
Subjective Date of Service: Jan 12, 2017 Date of Service: Jan 12, 2017 Visit Information: Reason for Visit Dyspnea, Elevated Troponin, Hypoxemia Surgery/Surgery Date Post-Op Day # Date of Admission: Jan 03, 2017 at 23:03 Hospital Day # Subjective: Patient is seen in surgical follow-up. He is postprocedure day #3 for right chest tube thoracostomy for loculated pleural effusion. He is doing reasonably well, he feels that he can take deeper breaths. His chest tube was thought to be clogged earlier today but now is draining freely and has had 50 mL out during the day shift. His chest tube seems to be in good position on his chest x-ray. Chest x-ray will be ordered for tomorrow morning. No acute changes. Patient reports that he would like to avoid transfer for VATS procedure if possible as he is not excited about having any surgical procedure. Objective Objective Morbidly obese male, on oxygen mask, speaking in complete sentences and in no acute distress Vital Sign- Last 8 Hours Date Time Temp Pulse Resp B/P Pulse Ox O2 Delivery O2 Flow Rate FiO2 01/12/17 16:39 36.9 102 20 99/55 97 OxyMask 6.00 01/12/17 12:33 36.7 98 18 101/68 94 OxyMask 6.00 01/12/17 11:12 104 Intake and Output- Last 8 Hour 01/12/17 Cumulative From/Thru 07:00 01/03/17 20:33 - 01/12/17 05:29 Intake Total 300 ml 8604 ml Output Total 1000 ml 68129 ml Balance -700 ml -43224 ml Intake Oral 300 ml 6743 ml IV Total 1641 ml FFP 220 ml Output Urine Total 1000 ml 21965 ml Urine/Stool Mix 1200 ml Chest Tube Drainage Total 250 ml # Bowel Movements 0 1 General: Alert, Oriented X3, Cooperative, No Acute Distress Lungs: Diminished, Wheezes (end expiratory, bilaterally worse on the right.) Heart: Regular Rate/Rhythm Neuro: Grossly Neurologically Intact, Normal Speech Result Diagram: 01/12/1732901/12/17329 Assessment & Plan Impression 51-year-old male with morbid obesity and COPD with a loculated right pleural effusion that needed chest tube thoracostomy on 01/09. He is tolerating this well, chest tube is in good position and draining, therefore I would leave it in place at this point. We will reassess patient tomorrow with chest x-ray and follow chest tube output. Depending on how patient is progressing and chest tube output, we will reassess for chest tube removal. If VATS becomes necessary , as stated above, he will need transfer to outside facility. Problems: (1) Acute exacerbation of chronic obstructive pulmonary disease (COPD) Status: Acute ICD Code: J44.1 (2) Hypoxia Status: Acute ICD Code: R09.02 (3) Pneumonia Status: Acute ICD Code: J18.9 (4) Respiratory failure Qualifiers: Chronicity: unspecified Respiratory failure complication: unspecified whether with hypoxia or hypercapnia Qualified Code: J96.90 - Respiratory failure, unspecified, unspecified whether with hypoxia or hypercapnia Status: Acute ICD Code: J96.90 Plan 1. Chest x-ray in the a.m. 2. Monitor chest tube output 3. If need a VATS, transferred to outside facility Resuscitation Status: CPR: Attempt Resuscitation Angela Huertas [facility] Jan 12, 2017 16:56
--- NOTE | 2017-01-12 18:19 | NUR ---
Chest tube Patient chest tube not draining this AM, appeared to have large clot in it. Throughout day clot slowly made way down tube until I was able to clear it. Chest tube set to high suction and draining dark red fluid.
[2017-01-13] VITALS (9 sets, daily range): BP systolic 90–106; BP diastolic 50–66; PULSE 81–93; RESP 12–22; O2SAT 95–98
[2017-01-13] MEDS: Albuterol 2.5 mg/3 mL Inhalation Solution NEB PRN ×3 (00:27→20:49)
[2017-01-13] MEDS: ENOXAPARIN SUBQ SCH ×4 (01:45→12:25)
[2017-01-13 04:12] LABS: INR 1.3 ratio
[2017-01-13] MEDS: Potassium Chloride 20 mEq SR Tablet PO SCH (09:13)
[2017-01-13] MEDS: HYDROcodone-APAP 5-325 mg Tablet PO PRN ×2 (09:13→15:16)
[2017-01-13] MEDS: Sodium Chloride LOK Flush 10 mL Syringe IVFLUSH SCH ×2 (09:14→16:57)
[2017-01-13] MEDS: acetaZOLAMIDE 250 mg Tablet PO SCH ×2 (09:14→20:58)
[2017-01-13] MEDS: Nystatin 100,000 Unit/Gm 15 Gm Powder TOPICAL SCH ×2 (09:15→20:57)
--- NOTE | 2017-01-13 09:58 | PROG NOTE ---
[address] [address] PROGRESS NOTE PATIENT: KEN NORMAN : 1965 MR#: [id number] ADMIT: 01/03/2017 JOB ID: [id number] DATE: 01/13/2017 SUBJECTIVE: The patient is seen in followup. His chest tube is putting out nothing. He still is having fevers. His chest x-ray yesterday shows the right pleural effusion and pleural basilar airspace opacity unchanged. IMPRESSION: It is still unclear whether he needs to have a thoracoscopy. I am going to repeat a chest CT scan. If there is no or minimal pleural effusion, the chest tube can come out and he does not need to be transferred. If he has a complex right basilar pleural effusion, again he needs to get transferred as anesthesia will not do one lung ventilation on him because of his obesity.
--- NOTE | 2017-01-13 10:46 | PCM.PHAPRO ---
Progress Complex Parapneumonic Effusion. . WARFARIN DOSING Hx of recent dosing: RWP MH RTM RTM MH MH RTM DFF GSF GSF GSF 9-Dec 10-Dec 11-Dec 12-Dec 13-Dec 14-Dec 15-Dec 16-Dec 17-Dec 18-Dec 19-Dec 20- Dec 21-Dec 22-Dec 1.43 2.02 2.66 2.94 3.83 4.90 4.64 4.00 2.78 1.37 1.16 1.17 1.16 1.3 7.5 7.5 5 4 HOLD HOLD HOLD vit K 5mg 5 5 5 5 a/ Remains resistant 2/2 Vitamin K admin on , however this influence should be ebbing, note 1st sign of ramping INR today Likely final dose will be ~ 4mg/day p/ Continue at 5mg today, likely decrease tomorrow. Leonel Diaz Pharm D Jan 13, 2017 10:46
--- NOTE | 2017-01-13 14:43 | DRSVH ---
PROCEDURE: CT CHEST WITH CONTRAST ([id number]) INDICATIONS: right pleural effusion TECHNIQUE: After the administration of intravenous contrast, 5 mm thick sections acquired from the pulmonary api jeremy to the posterior costophrenic angles. 7 mm thick coronal and sagittal MIP reformats were acquire d. For radiation dose reduction, the following was used: automated exposure control, adjustment of mA and/or kV according to patient size. COMPARISON: [facility], CT, CT ANGIO CHEST PE, 01/03/2017, 20:59. [facility] , CR, XR CHEST 1VW (PORTABLE), 01/11/2017, 16:29. FINDINGS: Image quality: Excellent. Lungs and pleura: A new right-sided chest tube is present, tip of which appears to be in the inferior aspect of the right major fissure. The multiloculated right pleural effusion has decreased, and is n ow small to moderate. There is a dominant loculation present postero-inferiorly, measuring roughly 15 .2 cm. Airspace opacity within the right mid and lower lung is present, as before, indicating pneumon ia. Spiculated nodular density within the right middle lobe anteriorly measuring 12 mm is unchanged. 2 adjacent nodular densities within the left posterior lung base are present, measuring 17 mm, which were previously obscured by atelectasis. Central and peripheral airways are patent and normal in cody kota. Mediastinum: Heart size is normal. Decreased, small pericardial effusion. No change in mildly promin ent 11 mm short axis right paratracheal lymph node. No change in mildly prominent 14 mm short axis riley bcarinal lymph node. Thoracic aorta and central pulmonary arteries are normal in size. Esophagus is normal in caliber. No hiatal hernia. Bones and chest wall: No suspicious bony lesions. No change in chronic right anterolateral 1st and 2 nd rib fractures. No vertebral body compression fractures. No axillary or supraclavicular adenopath y by size criteria. Thyroid gland is within normal limits as visualized. Abdomen: Visualized upper abdominal solid organs appear normal. Upper abdominal bowel loops are nor mal in caliber. IMPRESSION: 1. The tip of the right-sided chest tube appear to be within the lower aspect of the right major fiss ure. 2. Decreased loculated right pleural effusion, with dominant loculation remaining posteriorly. 3. Decreased, small pericardial effusion. 4. Right mid and lower lobe pneumonia. 5. Right middle lobe and left posterior costophrenic angle nodular densities. Followup chest CT in 3 months is recommended to ensure resolution, and to exclude underlying malignancy. 6. Findings discussed with Dr. Hines on 01.13.17 at 14:41. Dictated by: Venkat Curran M.D. on 01/13/2017 at 14:23 Approved by: Venkat Curran M.D. on 01/13/2017 at 14:41
--- NOTE | 2017-01-13 15:22 | PCM.PROC ---
Procedure Note Date of Service: Jan 13, 2017 Pre Procedure Diagnosis: Right loculated pleural effusion Post Procedure Diagnosis: Same Procedure: Removal of Right Chest tube Provider and Header Boss: Emiliana Kelly Indication for Procedure: No longer draining Findings: 400 cc Total output; No A/L Procedural Analgesia: NONE Procedure Details: The patient remained in bed in supine position on C-pap. Took a deep breath with cough, no A/L, therefore chest removed on sustained inspiration. Vaseline gauze occlusive dressing applied with foam tape Specimen: NONE Post Procedure Plan: Dressing to remain until discharge. Emiliana Kelly PA-C Jan 13, 2017 15:22
--- NOTE | 2017-01-13 17:45 | PCM.PNMED ---
Subjective Date of Service Jan 13, 2017 Subjective Patient is resting comfortably in bed. Exam Vital Signs Vital Sign - Last Date Time Temp Pulse Resp B/P Pulse Ox O2 Delivery O2 Flow Rate FiO2 01/13/17 12:40 36.5 91 16 90/53 97 Trilogy 7.00 01/07/17 12:27 40 Intake and Output 01/12/17 01/12/17 01/13/17 Cumulative From/Thru 15:00 23:00 07:00 01/03/17 20:33 - 01/13/17 05:28 Intake Total 1200 ml 400 ml 59806 ml Output Total 1400 ml 900 ml 88842 ml Balance -200 ml -500 ml -83128 ml Intake Oral 1200 ml 400 ml 8343 ml IV Total 1641 ml FFP 220 ml Output Urine Total 1400 ml 900 ml 74810 ml Urine/Stool Mix 1200 ml Chest Tube Drainage Total 0 ml 250 ml # Bowel Movements 1 Exam Constitutional: Morbidly obese male resting Head: Normocephalic atraumatic Chest: Decreased breath sounds at bases Cor: Regular rate and rhythm S1-S2 Abdomen: Soft nontender bowel sounds present Extremities: 2+ bilateral lower extremity edema Lab and Diagnostics Laboratory Tests 72 Hours Test 01/11/17 03:25 01/12/17 03:30 01/13/17 03:40 White Blood Count 9.7th/mm3 (3.8-10.1) 8.5th/mm3 (3.8-10.1) Red Blood Count 3.93mil/mm3 (4.40-5.80) 3.75mil/mm3 (4.40-5.80) Hemoglobin 10.5g/dL (13.8-17.2) 10.0g/dL (13.8-17.2) Hematocrit 36.7% (41.0-50.0) 34.9% (41.0-50.0) Mean Corpuscular Volume 93.4fL (81-100) 93.1fL (81-100) Mean Corpuscular Hemoglobin 26.7pg (27.0-35.0) 26.7pg (27.0-35.0) Mean Corpuscular Hemoglobin Concent 28.6% (32.0-37.0) 28.7% (32.0-37.0) Red Cell Distribution Width 18.8% (12.3-15.4) 19.2% (12.3-15.4) Platelet Count 362bil/L (150-400) 353bil/L (150-400) Prothrombin Time 12.6sec (8.1-12.5) 12.4sec (8.1-12.5) 14.0sec (8.1-12.5) Prothromb Time International Ratio 1.17ratio 1.16ratio 1.30ratio Sodium Level 138mEq/L (134-144) 140mEq/L (134-144) Potassium Level 3.3mEq/L (3.5-5.2) 3.4mEq/L (3.5-5.2) Chloride Level 87mEq/L (97-108) 89mEq/L (97-108) Carbon Dioxide Level 41mmol/L (18-29) 41mmol/L (18-29) Blood Urea Nitrogen 21mg/dL (6-24) 20mg/dL (6-24) Creatinine 0.67mg/dL (0.76-1.27) 0.73mg/dL (0.76-1.27) Estimat Glomerular Filtration Rate 134mL/min (>59) 121mL/min (>59) Glucose Level 107mg/dL (60-99) 98mg/dL (60-99) Calcium Level 9.8mg/dL (8.5-10.1) 9.9mg/dL (8.5-10.1) Total Bilirubin 0.7mg/dL (0.0-1.2) 0.6mg/dL (0.0-1.2) Aspartate Amino Transf (AST/SGOT) 24U/L (0-50) 19U/L (0-50) Alanine Aminotransferase (ALT/SGPT) 19U/L (0-44) 16U/L (0-44) Alkaline Phosphatase 106U/L (25-150) 104U/L (25-150) Total Protein 7.1g/dL (6.4-8.4) 7.1g/dL (6.4-8.4) Albumin 2.9g/dL (3.4-5.0) 2.9g/dL (3.4-5.0) Result Diagram: 01/12/1732901/12/17329 X-Rays, CTs and MRIs Patient Name: KEN NORMAN MR#: [id number] [place] [facility] [place] Ordering Phys: Luis Dukes MD Date of Service: 01/03/172025 PROCEDURE: CT ANGIO CHEST PULMONARY EMBOLISM ([id number]) INDICATIONS: acute sob recent pulmonary emboli TECHNIQUE: After the administration of intravenous contrast, 2 mm thick sections acquired from the pulmonary apices to the posterior costophrenic angles. 3-dimensional maximum intensity projection (MIP) coronal and sagittal reformats were then acquired through the thorax. For radiation dose reduction, the following was used: automated exposure control, adjustment of mA and/or kV according to patient size. COMPARISON: FINDINGS: Image quality: Excellent. Pulmonary arteries: The main pulmonary arteries are normal in size and free of intraluminal filling defects. There is likely a residual embolus within the subsegmental branches of the right lower lobe, decreased in extent when compared with the study dated 12/19/16. No new pulmonary embolus. Lungs and pleura: There is a large right low density pleural effusion which has a loculated appearance. This is increased in size when compared with the study dated 12/19/16. The inferior aspect of the right lower lobe is collapsed. An ill- defined 2.4 cm in diameter radiopacity is present at the base of the left lung ( series 6, image 52). Mediastinum: Heart size is enlarged. There is a small low density pleural effusion which is new when compared with the prior study. No mediastinal or hilar adenopathy. Thoracic aorta is normal in caliber and enhancement. Esophagus is normal in caliber, without hiatal hernia. Bones and chest wall: No suspicious bony lesions. Ribs and thoracic spine appear intact throughout. Thyroid gland is unremarkable. No axillary or supraclavicular adenopathy. Abdomen: Visualized upper abdominal solid organs appear normal in the early arterial phase of enhancement. IMPRESSION: 1. Loculated appearing low density in right pleural effusion increased in size when compared with the study dated 12/19/16. The inferior portion of the right lower lobe is collapsed, increased in extent when compared with the prior study. 2. Near complete resolution of the previously visualized embolus on the study dated 12/19/16. Trace residual embolus remains. No new acute pulmonary embolus. 3. New small low-density pericardial effusion. Dictated by: Rena Chowdhury M.D. on 01/03/2017 at 21:39 Approved by: Rena Chowdhury M.D. on 01/03/2017 at 21:47 Patient Name: KEN NORMAN MR#: [id number] Location: [facility] Ordering Phys: Akshat Hines MD Date of Service: 01/13/17 0854 PROCEDURE: CT CHEST WITH CONTRAST ([id number]) INDICATIONS: right pleural effusion TECHNIQUE: After the administration of intravenous contrast, 5 mm thick sections acquired from the pulmonary apices to the posterior costophrenic angles. 7 mm thick coronal and sagittal MIP reformats were acquired. For radiation dose reduction , the following was used: automated exposure control, adjustment of mA and/or kV according to patient size. COMPARISON: [facility], CT, CT ANGIO CHEST PE, 01/03/2017, 20:59. [facility], CR, XR CHEST 1VW (PORTABLE), 01/11/2017, 16:29. FINDINGS: Image quality: Excellent. Lungs and pleura: A new right-sided chest tube is present, tip of which appears to be in the inferior aspect of the right major fissure. The multiloculated right pleural effusion has decreased, and is now small to moderate. There is a dominant loculation present postero-inferiorly, measuring roughly 15.2 cm. Airspace opacity within the right mid and lower lung is present, as before, indicating pneumonia. Spiculated nodular density within the right middle lobe anteriorly measuring 12 mm is unchanged. 2 adjacent nodular densities within the left posterior lung base are present, measuring 17 mm, which were previously obscured by atelectasis. Central and peripheral airways are patent and normal in caliber. Mediastinum: Heart size is normal. Decreased, small pericardial effusion. No change in mildly prominent 11 mm short axis right paratracheal lymph node. No change in mildly prominent 14 mm short axis subcarinal lymph node. Thoracic aorta and central pulmonary arteries are normal in size. Esophagus is normal in caliber. No hiatal hernia. Bones and chest wall: No suspicious bony lesions. No change in chronic right anterolateral 1st and 2nd rib fractures. No vertebral body compression fractures. No axillary or supraclavicular adenopathy by size criteria. Thyroid gland is within normal limits as visualized. Abdomen: Visualized upper abdominal solid organs appear normal. Upper abdominal bowel loops are normal in caliber. IMPRESSION: 1. The tip of the right-sided chest tube appear to be within the lower aspect of the right major fissure. 2. Decreased loculated right pleural effusion, with dominant loculation remaining posteriorly. 3. Decreased, small pericardial effusion. 4. Right mid and lower lobe pneumonia. 5. Right middle lobe and left posterior costophrenic angle nodular densities. Followup chest CT in 3 months is recommended to ensure resolution, and to exclude underlying malignancy. 6. Findings discussed with Dr. Hines on 01.13.17 at 14:41. Dictated by: Venkat Curran M.D. on 01/13/2017 at 14:23 Approved by: Venkat Curran M.D. on 01/13/2017 at 14:41 Cardiac Echo Impressions Echocardiogram Report Name: KEN NORMAN TStudy Date : 12/25/2016 Height: 76 in Hospital Exam Location: [facility] Weight: 459 lb Gender: Male BSA: 3.2 m2 : 1965 Age: 51 yrs BP: 138/70 mmHg Reason For Study: PERICARDIAL EFFUSION Ordering Physician: HOSPITALARMEN WARNERHPerformed By: Enrique Gooden Referring Physician: Daphne MILLS Interpretation Summary There is a small to moderate pericardial effusion noted. There are no echocardiographic or Doppler indications for cardiac tamponade. The right ventricle is moderate to severely dilated. Right ventricular systolic function is moderately reduced. Right ventricular systolic function has increased since previous exam. A possible thrombus continues to be noted in the right ventricular apex measuring approximately 2.4 cm x 2.6. This is slightly smaller than the echo from 12/19/16. The right ventricular systolic pressure is estimated at 48 mmHg assuming a right atrial pressure of 15 mm Hg. Procedure: A two-dimensional transthoracic echocardiogram with color flow and Doppler was performed in limited views only. The study quality was technically difficult. Comparison is made with the echocardiogram of 12/22/16. A contrast injection of Definity was performed to improve assessment of LV function. The patient was in normal sinus rhythm during the exam. The patient had a heart rate of 107-113 beats per minute. Left Ventricle: The left ventricle is normal in size. There is normal left ventricular wall thickness. Regional wall motion abnormalities cannot be excluded due to limited visualization. Right Ventricle: The right ventricle is moderate to severely dilated. Right ventricular systolic function is moderately reduced. Right ventricular systolic function has increased since previous exam. A possible thrombus continues to be noted in the right ventricular apex measuring approximately 2.4 cm x 2.6. This is slightly smaller than the echo from 12/19/16. Atria: The left atrial size is normal. The right atrium is moderately dilated. Mitral Valve: The mitral valve is not well visualized. The mitral valve is grossly normal. The mitral valve chordae are thickened and/or calcified. Tricuspid Valve: The tricuspid valve is not well visualized, but is grossly normal. There is mild tricuspid regurgitation. The right ventricular systolic pressure is estimated at 48 mmHg assuming a right atrial pressure of 15 mm Hg. Great Vessels: The ascending aorta is normal in size. The IVC is dilated (diameter is greater than 2.1 cm) and it collapses less than 50% with a sniff. This suggests a high right atrial pressure of 15 mm Hg. The IVC has a measurement of 37 mm. Pericardium/ Pleura There is a small to moderate pericardial effusion noted. There are no echocardiographic or Doppler indications for cardiac tamponade. There is a large right-sided pleural effusion. MMode/2D Measurements & Calculations LVIDd: 5.2 cm RA long axis asc Aorta LVIDs: 3.7 cm LA A2 area: 21.9 cm Diam: 2.6 cm FS: 28.1 % LA A4 area: 22.6 cm RA area IVSd: 0.95 cm LA length (vol): 5.8 cm LVPWd: 1.0 cm LA vol: 72.1 ml : 30.8 cm LA vol index RA vol : 128.ml RA IVC diam: 3.7 cm : 40.7 mm2 LV mathias. diameter/BSA LV sys. diameter/BSA RVD1 (basal) RVD2 (mid) (cm/m^2): 1.7 (cm/m^2): 1.2 : 6.0 cm Doppler Measurements & Calculations MV E max nathan MV E/A: 208.1 TR max nathan MV V2 mean : 126.8 cm/sec Med Peak E' Nathan : 285.7 cm/sec : 79.7 cm/sec MV A max nathan TR max PG MV mean PG : 0.61 cm/sec E/E' med: 12.1 : 32.7 mmHg MV V2 VTI MV dec time : 0.10 sec Reading Physician:PM Assessment & Plan 51-year-old male patient with a history of COPD, congestive heart failure, and hyperventilation secondary to obesity presented to the ER with complaint of worsening dyspnea and weakness. Patient bounced back from [facility] due to severe dyspnea. 1. Acute non-Chronic hypoxic and hypercarbic respiratory failure, present on admission -Acute desaturation when patient was placed on traveling BiPAP after being transferred from [facility] to [facility]. -Patient has COPD, hypoventilation syndrome, untreated sleep apnea, recent pulmonary embolism and Right heart failure contributing to illness clinically he is about the same, no changes to current medical plan. Continue with Trilogy management. Will need possible placement at [facility]. 2. Parapneumonic effusion (pneumonia treated); present on admission; ongoing I His effusion is culture negative. His chest tube has had intermediate drainage which is also serous. The current discussion is whether or not the chest tube should stay in or whether or not he require more therapy such as a VATS. We will repeat chest x-ray today. The chest tube is clogged and there is a high probability that surgery will pull it today. We will repeat a chest x-ray tomorrow morning. If there is still a significant residual parapneumonic fluid collection the consensus from surgery seems to be that transfer to [facility] for a VATS procedure would be warranted. The patient is aware that this is the working plan. Patient today had repeat CT of chest and had chest tube pulled. Report of CT of chest report is in diagnostic imaging section. Awaiting further recommendations per general surgery. 3. SUNDAY with secondary pulmonary hypertension and consequent right ventricular failure with Anasarca secondary to right heart failure; present on admission; resolved -Continue diuretics. -Continue lower extremity compression; increased wraps. 4. Pulmonary embolism and DVT. POA. Patient's Coumadin was reversed for his procedure. This point well resume Coumadin and bridge him with Lovenox given his high risk for recurrent I DVT. 5. Morbid obesity, chronic, present on admission VTE Mechanical Devices: Intermittant Pneumatic CD Resuscitation Status: CPR: Attempt Resuscitation Time spent 30 minutes Fouzia Morris MD Jan 13, 2017 17:45
--- NOTE | 2017-01-13 19:13 | NUR ---
Chest tube Pt's chest tube removed at bedside this afternoon, Pt denied increase in SOB, SPO2 sats remain in the low to mid 90s on trilogy with 7L bleed-in. Pt reported increased pain in the incision site post-removal, Pt given PRN vicodin which he reported as effective for the pain.
[2017-01-14] VITALS (12 sets, daily range): BP systolic 104–109; BP diastolic 55–67; PULSE 84–102; RESP 12–23; O2SAT 90–96
[2017-01-14] MEDS: Sodium Chloride LOK Flush 10 mL Syringe IVFLUSH SCH ×3 (00:32→16:58)
[2017-01-14] MEDS: ENOXAPARIN SUBQ SCH ×4 (00:33→12:29)
[2017-01-14 04:18] LABS: INR 1.55 ratio
--- NOTE | 2017-01-14 05:32 | NUR ---
respiratory pts chest tube was removed yesterday, reinforced site, pt states he feels like he is breathing better , pt denies any pain this shift, trilogy in place with a 7L oxygen bleed in , STONE GLUER in place, pt de-sated to mid 80s a few times r/t mask moving up over pts bottom lip once mask back in place pts SpO2 back up
[2017-01-14] MEDS: acetaZOLAMIDE 250 mg Tablet PO SCH ×2 (08:16→20:19)
[2017-01-14] MEDS: Potassium Chloride 20 mEq SR Tablet PO SCH (08:16)
[2017-01-14] MEDS: Nystatin 100,000 Unit/Gm 15 Gm Powder TOPICAL SCH ×2 (08:17→20:19)
[2017-01-14] MEDS: Albuterol 2.5 mg/3 mL Inhalation Solution NEB PRN ×2 (09:01→15:22)
--- NOTE | 2017-01-14 11:44 | PROG NOTE ---
[address] [address] PROGRESS NOTE PATIENT: KEN NORMAN : 1965 MR#: [id number] ADMIT: 01/03/2017 JOB ID: [id number] DATE: 01/14/2017 SUBJECTIVE: The patient is seen in followup. His chest tube was removed yesterday. It was above the loculated right basilar effusion. That effusion has decreased but the basilar portion remains. The tube was also in the major fissure heading towards the hilum and potentially could have eroded but it has now been removed and nothing was coming out of it. He. DATE: IMPRESSION: He still has a loculated right basilar pleural effusion. If he continues to have evidence of an unresolved inflammatory process and if further drainage of the pleural effusion needs to be done, he needs to get transferred to a facility that can do one lung ventilation on a man with a BMI of 50. Our anesthesiologists will not do that here. I would recommend the [facility] or [facility], but the decision will be left up to his hospitalist team. We will not actively follow. Our recommendation has not changed since last weekend.
[2017-01-14] MEDS: HYDROcodone-APAP 5-325 mg Tablet PO PRN ×2 (12:30→20:21)
--- NOTE | 2017-01-14 13:54 | NUR ---
Spoke with Wilberto at [facility] and he will need to get mattress for penny bed prior to patient coming. Read surgery note and there seems to be no change in recommendation for this patient. Per note does not appear patient will discharge today. Updated BIOINFORMATICS ENGINEER
--- NOTE | 2017-01-14 13:55 | NUR ---
Social Work: Readiness for Discharge D: Pt discussed in am rounds. Pt's chest tubes were pulled 01/13. Pt is improving and is anticipated to discharge tomorrow to [facility]. ELECTRICAL AND ELECTRONIC ASSEMBLER spoke with Wilberto from [facility] to provide update on anticipated d/c. They will need to get the pt's bariatric hospital bed prior to d/c. MACHINE STRAP BUCKLER met with pt at bedside to confirm discharge plan. Pt agrees with plan to go to [facility] when medically stable. He voices no concerns or other needs. A: Pt who will require skilled rehab for continued strengthening. P: Anticipate pt to discharge to [facility] when medically stable; MACHINE STRAP BUCKLER to continue to follow. KENDRICK Sidhu
--- NOTE | 2017-01-14 14:02 | PCM.PNMED ---
Subjective Date of Service Jan 14, 2017 Subjective Patient is currently resting comfortably. Denies any chest pain or change in shortness of breath. Exam Vital Signs Vital Sign - Last Date Time Temp Pulse Resp B/P Pulse Ox O2 Delivery O2 Flow Rate FiO2 01/14/17 13:16 101 Mask 4.00 01/14/17 09:02 14 95 01/14/17 08:08 36.7 107/61 Intake and Output 01/13/17 01/13/17 01/14/17 Cumulative From/Thru 15:00 23:00 07:00 01/03/17 20:33 - 01/14/17 06:15 Intake Total 800 ml 240 ml 66704 ml Output Total 1500 ml 1000 ml 46904 ml Balance -700 ml -760 ml -89765 ml Intake Oral 800 ml 240 ml 9383 ml IV Total 1641 ml FFP 220 ml Output Urine Total 1500 ml 1000 ml 56710 ml Urine/Stool Mix 1200 ml Chest Tube Drainage Total 250 ml # Bowel Movements 1 Exam Constitutional: Middle-aged male currently wearing his Trilogy respiratory mask Head: Normocephalic and medical Chest: Some scant expiratory wheezes diffusely Cor: Regular rate and rhythm S1-S2 Abdomen: Soft obese nontender bowel sounds present Extremities exam 2+ bilateral lower extremity edema but appears improved from previous admissions Neuro: Alert and oriented 3, motor strength is intact bilaterally Lab and Diagnostics Result Diagram: 01/12/17 0330 01/12/17 0330 X-Rays, CTs and MRIs Patient Name: KEN NORMAN MR#: [id number] [place] [facility] [place] Phys: Luis Dukes MD Date of Service: 01/03/172025 PROCEDURE: CT ANGIO CHEST PULMONARY EMBOLISM ([id number]) INDICATIONS: acute sob recent pulmonary emboli TECHNIQUE: After the administration of intravenous contrast, 2 mm thick sections acquired from the pulmonary apices to the posterior costophrenic angles. 3-dimensional maximum intensity projection (MIP) coronal and sagittal reformats were then acquired through the thorax. For radiation dose reduction, the following was used: automated exposure control, adjustment of mA and/or kV according to patient size. COMPARISON: FINDINGS: Image quality: Excellent. Pulmonary arteries: The main pulmonary arteries are normal in size and free of intraluminal filling defects. There is likely a residual embolus within the subsegmental branches of the right lower lobe, decreased in extent when compared with the study dated 12/19/16. No new pulmonary embolus. Lungs and pleura: There is a large right low density pleural effusion which has a loculated appearance. This is increased in size when compared with the study dated 12/19/16. The inferior aspect of the right lower lobe is collapsed. An ill- defined 2.4 cm in diameter radiopacity is present at the base of the left lung ( series 6, image 52). Mediastinum: Heart size is enlarged. There is a small low density pleural effusion which is new when compared with the prior study. No mediastinal or hilar adenopathy. Thoracic aorta is normal in caliber and enhancement. Esophagus is normal in caliber, without hiatal hernia. Bones and chest wall: No suspicious bony lesions. Ribs and thoracic spine appear intact throughout. Thyroid gland is unremarkable. No axillary or supraclavicular adenopathy. Abdomen: Visualized upper abdominal solid organs appear normal in the early arterial phase of enhancement. IMPRESSION: 1. Loculated appearing low density in right pleural effusion increased in size when compared with the study dated 12/19/16. The inferior portion of the right lower lobe is collapsed, increased in extent when compared with the prior study. 2. Near complete resolution of the previously visualized embolus on the study dated 12/19/16. Trace residual embolus remains. No new acute pulmonary embolus. 3. New small low-density pericardial effusion. Dictated by: Rena Chowdhury M.D. on 01/03/2017 at 21:39 Approved by: Rena Chowdhury M.D. on 01/03/2017 at 21:47 Patient Name: KEN NORMAN MR#: [id number] Location: [facility] Ordering Phys: Akshat Hines MD Date of Service: 01/13/17 0854 PROCEDURE: CT CHEST WITH CONTRAST ([id number]) INDICATIONS: right pleural effusion TECHNIQUE: After the administration of intravenous contrast, 5 mm thick sections acquired from the pulmonary apices to the posterior costophrenic angles. 7 mm thick coronal and sagittal MIP reformats were acquired. For radiation dose reduction , the following was used: automated exposure control, adjustment of mA and/or kV according to patient size. COMPARISON: [facility], CT, CT ANGIO CHEST PE, 01/03/2017, 20:59. [facility], CR, XR CHEST 1VW (PORTABLE), 01/11/2017, 16:29. FINDINGS: Image quality: Excellent. Lungs and pleura: A new right-sided chest tube is present, tip of which appears to be in the inferior aspect of the right major fissure. The multiloculated right pleural effusion has decreased, and is now small to moderate. There is a dominant loculation present postero-inferiorly, measuring roughly 15.2 cm. Airspace opacity within the right mid and lower lung is present, as before, indicating pneumonia. Spiculated nodular density within the right middle lobe anteriorly measuring 12 mm is unchanged. 2 adjacent nodular densities within the left posterior lung base are present, measuring 17 mm, which were previously obscured by atelectasis. Central and peripheral airways are patent and normal in caliber. Mediastinum: Heart size is normal. Decreased, small pericardial effusion. No change in mildly prominent 11 mm short axis right paratracheal lymph node. No change in mildly prominent 14 mm short axis subcarinal lymph node. Thoracic aorta and central pulmonary arteries are normal in size. Esophagus is normal in caliber. No hiatal hernia. Bones and chest wall: No suspicious bony lesions. No change in chronic right anterolateral 1st and 2nd rib fractures. No vertebral body compression fractures. No axillary or supraclavicular adenopathy by size criteria. Thyroid gland is within normal limits as visualized. Abdomen: Visualized upper abdominal solid organs appear normal. Upper abdominal bowel loops are normal in caliber. IMPRESSION: 1. The tip of the right-sided chest tube appear to be within the lower aspect of the right major fissure. 2. Decreased loculated right pleural effusion, with dominant loculation remaining posteriorly. 3. Decreased, small pericardial effusion. 4. Right mid and lower lobe pneumonia. 5. Right middle lobe and left posterior costophrenic angle nodular densities. Followup chest CT in 3 months is recommended to ensure resolution, and to exclude underlying malignancy. 6. Findings discussed with Dr. Hines on 01.13.17 at 14:41. Dictated by: Venkat Curran M.D. on 01/13/2017 at 14:23 Approved by: Venkat Curran M.D. on 01/13/2017 at 14:41 Cardiac Echo Impressions Echocardiogram Report Name: KEN NORMAN TStudy Date : 12/25/2016 Height: 76 in Hospital Exam Location: [facility] Weight: 459 lb Gender: Male BSA: 3.2 m2 : 1965 Age: 51 yrs BP: 138/70 mmHg Reason For Study: PERICARDIAL EFFUSION Ordering Physician: HOSPITALIST TIMMYHPerformed By: Enrique Gooden Referring Physician: Daphne MILLS Interpretation Summary There is a small to moderate pericardial effusion noted. There are no echocardiographic or Doppler indications for cardiac tamponade. The right ventricle is moderate to severely dilated. Right ventricular systolic function is moderately reduced. Right ventricular systolic function has increased since previous exam. A possible thrombus continues to be noted in the right ventricular apex measuring approximately 2.4 cm x 2.6. This is slightly smaller than the echo from 12/19/16. The right ventricular systolic pressure is estimated at 48 mmHg assuming a right atrial pressure of 15 mm Hg. Procedure: A two-dimensional transthoracic echocardiogram with color flow and Doppler was performed in limited views only. The study quality was technically difficult. Comparison is made with the echocardiogram of 12/22/16. A contrast injection of Definity was performed to improve assessment of LV function. The patient was in normal sinus rhythm during the exam. The patient had a heart rate of 107-113 beats per minute. Left Ventricle: The left ventricle is normal in size. There is normal left ventricular wall thickness. Regional wall motion abnormalities cannot be excluded due to limited visualization. Right Ventricle: The right ventricle is moderate to severely dilated. Right ventricular systolic function is moderately reduced. Right ventricular systolic function has increased since previous exam. A possible thrombus continues to be noted in the right ventricular apex measuring approximately 2.4 cm x 2.6. This is slightly smaller than the echo from 12/19/16. Atria: The left atrial size is normal. The right atrium is moderately dilated. Mitral Valve: The mitral valve is not well visualized. The mitral valve is grossly normal. The mitral valve chordae are thickened and/or calcified. Tricuspid Valve: The tricuspid valve is not well visualized, but is grossly normal. There is mild tricuspid regurgitation. The right ventricular systolic pressure is estimated at 48 mmHg assuming a right atrial pressure of 15 mm Hg. Great Vessels: The ascending aorta is normal in size. The IVC is dilated (diameter is greater than 2.1 cm) and it collapses less than 50% with a sniff. This suggests a high right atrial pressure of 15 mm Hg. The IVC has a measurement of 37 mm. Pericardium/ Pleura There is a small to moderate pericardial effusion noted. There are no echocardiographic or Doppler indications for cardiac tamponade. There is a large right-sided pleural effusion. MMode/2D Measurements & Calculations LVIDd: 5.2 cm RA long axis asc Aorta LVIDs: 3.7 cm LA A2 area: 21.9 cm Diam: 2.6 cm FS: 28.1 % LA A4 area: 22.6 cm RA area IVSd: 0.95 cm LA length (vol): 5.8 cm LVPWd: 1.0 cm LA vol: 72.1 ml : 30.8 cm LA vol index RA vol : 128.ml RA IVC diam: 3.7 cm : 40.7 mm2 LV mathias. diameter/BSA LV sys. diameter/BSA RVD1 (basal) RVD2 (mid) (cm/m^2): 1.7 (cm/m^2): 1.2 : 6.0 cm Doppler Measurements & Calculations MV E max nathan MV E/A: 208.1 TR max nathan MV V2 mean : 126.8 cm/sec Med Peak E' Nathan : 285.7 cm/sec : 79.7 cm/sec MV A max nathan TR max PG MV mean PG : 0.61 cm/sec E/E' med: 12.1 : 32.7 mmHg MV V2 VTI MV dec time : 0.10 sec Reading Physician:PM Assessment & Plan 51-year-old male patient with a history of COPD, congestive heart failure, and hyperventilation secondary to obesity presented to the ER with complaint of worsening dyspnea and weakness. Patient bounced back from [facility] due to severe dyspnea. 1. Acute non-Chronic hypoxic and hypercarbic respiratory failure, present on admission -Acute desaturation when patient was placed on traveling BiPAP after being transferred [place] [facility] [place] [facility]. -Patient has COPD, hypoventilation syndrome, untreated sleep apnea, recent pulmonary embolism and Right heart failure contributing to illness clinically he is about the same, no changes to current medical plan. Continue with Trilogy management. Will need possible placement at [facility]. 2. Parapneumonic effusion (pneumonia treated); present on admission; ongoing I His effusion is culture negative. His chest tube has had intermediate drainage which is also serous. The current discussion is whether or not the chest tube should stay in or whether or not he require more therapy such as a VATS. We will repeat chest x-ray today. The chest tube is clogged and there is a high probability that surgery will pull it today. We will repeat a chest x-ray tomorrow morning. If there is still a significant residual parapneumonic fluid collection the consensus from surgery seems to be that transfer to [facility] for a VATS procedure would be warranted. The patient is aware that this is the working plan. Patient today had repeat CT of chest and had chest tube pulled. Report of CT of chest report is in diagnostic imaging section. Awaiting further recommendations per general surgery. Clinically is doing well we will repeat a chest x-ray today to ensure no further fluid collection. Consider discharge to [facility] [place] tomorrow. 3. SUNDAY with secondary pulmonary hypertension and consequent right ventricular failure with Anasarca secondary to right heart failure; present on admission; resolved -Continue diuretics. -Continue lower extremity compression; increased wraps. 4. Pulmonary embolism and DVT. POA. Patient's Coumadin was reversed for his procedure. This point well resume Coumadin and bridge him with Lovenox given his high risk for recurrent I DVT. 5. Morbid obesity, chronic, present on admission VTE Mechanical Devices: Intermittant Pneumatic CD Resuscitation Status: CPR: Attempt Resuscitation Time spent 30 minutes Kubisty,Fouzia A MD Jan 14, 2017 14:02
--- NOTE | 2017-01-14 18:19 | NUR ---
O2/Activity Pt's SPO2 sats in the upper 90s on 7L via oxymask, attempted to ween Pt's O2 from 7L down to 3L, Pt's SPO2 sats maintained in the low 90s for several minutes, Pt placed back on trilogy and bleed-in titrated down to 3L, RT then gave Pt breathing Tx and reported needing to increase Pt's bleed-in back to 7L as Pt's SPO2 sats dropped to upper 70s when Pt fell asleep. Pt worked with PT today and able to ambulate with FWW, see PT note for details.
[2017-01-15] MEDS: ENOXAPARIN SUBQ SCH ×4 (00:38→12:51)
[2017-01-15] MEDS: Sodium Chloride LOK Flush 10 mL Syringe IVFLUSH SCH ×2 (00:39→07:39)
[2017-01-15] MEDS: Albuterol 2.5 mg/3 mL Inhalation Solution NEB PRN ×2 (01:06→08:02)
[2017-01-15 01:08] VITALS: PULSE 95; RESP 16; O2SAT 95
[2017-01-15 03:39] VITALS: BP 119/82; PULSE 84; RESP 20; O2SAT 97
[2017-01-15 05:38] LABS: INR 2.02 ratio
--- NOTE | 2017-01-15 06:03 | NUR ---
knee/chest tube dsg changed knee dsg and changed outer DCd chest tube site dsg. pt with some pain at beginning of shift and received 2 Vicodin which were effective. pt with a restless night of sleep he states because he is anxious about discharging to [facility] today. trilogy with 7L oxygen bleed in pts SpO2 mid 90s
[2017-01-15 07:29] VITALS: BP 108/67; PULSE 95; RESP 16; O2SAT 97
[2017-01-15] MEDS: Potassium Chloride 20 mEq SR Tablet PO SCH (07:36)
[2017-01-15] MEDS: acetaZOLAMIDE 250 mg Tablet PO SCH (07:38)
[2017-01-15] MEDS: Nystatin 100,000 Unit/Gm 15 Gm Powder TOPICAL SCH ×2 (07:38→14:03)
[2017-01-15 08:00] VITALS: PULSE 93
[2017-01-15 08:04] VITALS: PULSE 85; RESP 16; O2SAT 94
--- NOTE | 2017-01-15 09:31 | DRSVH ---
PROCEDURE: X-RAY CHEST ONE VIEW, PORTABLE ([id number]) INDICATIONS: pleural effusion TECHNIQUE: One view of the chest was acquired. COMPARISON: [facility], CR, XR CHEST 1VW (PORTABLE), 01/12/2017, 11:21. FINDINGS: Surgical changes and devices: None. Lungs and pleura: No pneumothorax and mid/basilar airspace opacity is unchanged. Left lung is clear. Mediastinum: Mediastinal contours appear normal. Heart size is normal. Bones and chest wall: No suspicious bony lesions. Overlying soft tissues appear unremarkable. IMPRESSION: 1. Persistent small right pleural effusion and right basilar airspace opacity unchanged. Dictated by: Chalino Miller RRA Interpreted: Radha Galeano MD on 01/15/2017 at 9:30 Transcribed by: STACY on 01/15/2017 at 9:31 Approved by: Radha Galeano MD, PhD on 01/15/2017 at 17:05
--- NOTE | 2017-01-15 10:30 | NUR ---
Spoke with Rosy at [facility] and they will ordered need equipment for patient and plan for transfer today. Patient has trilogy here and is planning to leave with that, patient decompensates when off it. Will arrange appropriate transport to include this. Updated LAMINATED PLASTICS ASSEMBLER AND GLUER
--- NOTE | 2017-01-15 11:42 | PCM.DIMED ---
Discharge Instructions Date of Service Jan 15, 2017 Dates of Hospitalization Jan 03, 2017 at 23:03 Discharge Diagnosis Discharge Diagnosis Right pleural effusion requiring chest tube drainage, acute on chronic respiratory failure with hypoxia, pneumonia, chronic cor pulmonale Diet Low fat, Low Sodium Activity Other (as tolerated) Call your provider Fever or Chills, Shortness of breath, Bleeding, Chest pain, Vomitting, Excessive diarrhea, Weakness (unilateral) Fouzia Morris MD Jan 15, 2017 11:42
[2017-01-15] MEDS ORDERED: ACET250T4 PO (11:48)
[2017-01-15] MEDS ORDERED: FAMO20T PO (11:48)
[2017-01-15] MEDS ORDERED: HYDR-4003 PO (11:48)
[2017-01-15] MEDS ORDERED: METO25TA6 PO (11:48)
[2017-01-15] MEDS ORDERED: TORS20TA PO (11:48)
[2017-01-15] MEDS ORDERED: POTA20TA16 PO (11:48)
[2017-01-15] MEDS ORDERED: Acetaminophen PO (11:48)
[2017-01-15 12:22] VITALS: BP 103/61; PULSE 85; RESP 20; O2SAT 98
--- NOTE | 2017-01-15 13:11 | PCM.DC.MED ---
Discharge Summary Date of Service Jan 15, 2017 Dates of Hospitalization Date of Hospital Admission Jan 03, 2017 at 23:03 Date of Discharge: Jan 15, 2017 Providers: Admitting Physician: Fouzia Morris MD Primary Care Physician: Montse Emerson MD Attending Physician: Fouzia Morris MD Diagnosis at Time of Discharge Diagnosis at Time of Discharge Right pleural effusion requiring chest tube drainage, acute on chronic respiratory failure with hypoxia, pneumonia, chronic cor pulmonale Consultations Gen. surgery,Pulmonary Procedures XRay, CTs & MRIs Patient Name: KEN NORMAN MR#: [id number] Location: [facility] [place] Ordering Phys: Luis Dukes MD Date of Service: 01/03/172025 PROCEDURE: CT ANGIO CHEST PULMONARY EMBOLISM ([id number]) INDICATIONS: acute sob recent pulmonary emboli TECHNIQUE: After the administration of intravenous contrast, 2 mm thick sections acquired from the pulmonary apices to the posterior costophrenic angles. 3-dimensional maximum intensity projection (MIP) coronal and sagittal reformats were then acquired through the thorax. For radiation dose reduction, the following was used: automated exposure control, adjustment of mA and/or kV according to patient size. COMPARISON: FINDINGS: Image quality: Excellent. Pulmonary arteries: The main pulmonary arteries are normal in size and free of intraluminal filling defects. There is likely a residual embolus within the subsegmental branches of the right lower lobe, decreased in extent when compared with the study dated 12/19/16. No new pulmonary embolus. Lungs and pleura: There is a large right low density pleural effusion which has a loculated appearance. This is increased in size when compared with the study dated 12/19/16. The inferior aspect of the right lower lobe is collapsed. An ill- defined 2.4 cm in diameter radiopacity is present at the base of the left lung ( series 6, image 52). Mediastinum: Heart size is enlarged. There is a small low density pleural effusion which is new when compared with the prior study. No mediastinal or hilar adenopathy. Thoracic aorta is normal in caliber and enhancement. Esophagus is normal in caliber, without hiatal hernia. Bones and chest wall: No suspicious bony lesions. Ribs and thoracic spine appear intact throughout. Thyroid gland is unremarkable. No axillary or supraclavicular adenopathy. Abdomen: Visualized upper abdominal solid organs appear normal in the early arterial phase of enhancement. IMPRESSION: 1. Loculated appearing low density in right pleural effusion increased in size when compared with the study dated 12/19/16. The inferior portion of the right lower lobe is collapsed, increased in extent when compared with the prior study. 2. Near complete resolution of the previously visualized embolus on the study dated 12/19/16. Trace residual embolus remains. No new acute pulmonary embolus. 3. New small low-density pericardial effusion. Dictated by: Rena Chowdhury M.D. on 01/03/2017 at 21:39 Approved by: Rena Chowdhury M.D. on 01/03/2017 at 21:47 Patient Name: KEN NORMAN MR#: [id number] Location: [facility] Ordering Phys: Akshat Hines MD Date of Service: 01/13/17 0854 PROCEDURE: CT CHEST WITH CONTRAST ([id number]) INDICATIONS: right pleural effusion TECHNIQUE: After the administration of intravenous contrast, 5 mm thick sections acquired from the pulmonary apices to the posterior costophrenic angles. 7 mm thick coronal and sagittal MIP reformats were acquired. For radiation dose reduction , the following was used: automated exposure control, adjustment of mA and/or kV according to patient size. COMPARISON: [facility], CT, CT ANGIO CHEST PE, 01/03/2017, 20:59. [facility], CR, XR CHEST 1VW (PORTABLE), 01/11/2017, 16:29. FINDINGS: Image quality: Excellent. Lungs and pleura: A new right-sided chest tube is present, tip of which appears to be in the inferior aspect of the right major fissure. The multiloculated right pleural effusion has decreased, and is now small to moderate. There is a dominant loculation present postero-inferiorly, measuring roughly 15.2 cm. Airspace opacity within the right mid and lower lung is present, as before, indicating pneumonia. Spiculated nodular density within the right middle lobe anteriorly measuring 12 mm is unchanged. 2 adjacent nodular densities within the left posterior lung base are present, measuring 17 mm, which were previously obscured by atelectasis. Central and peripheral airways are patent and normal in caliber. Mediastinum: Heart size is normal. Decreased, small pericardial effusion. No change in mildly prominent 11 mm short axis right paratracheal lymph node. No change in mildly prominent 14 mm short axis subcarinal lymph node. Thoracic aorta and central pulmonary arteries are normal in size. Esophagus is normal in caliber. No hiatal hernia. Bones and chest wall: No suspicious bony lesions. No change in chronic right anterolateral 1st and 2nd rib fractures. No vertebral body compression fractures. No axillary or supraclavicular adenopathy by size criteria. Thyroid gland is within normal limits as visualized. Abdomen: Visualized upper abdominal solid organs appear normal. Upper abdominal bowel loops are normal in caliber. IMPRESSION: 1. The tip of the right-sided chest tube appear to be within the lower aspect of the right major fissure. 2. Decreased loculated right pleural effusion, with dominant loculation remaining posteriorly. 3. Decreased, small pericardial effusion. 4. Right mid and lower lobe pneumonia. 5. Right middle lobe and left posterior costophrenic angle nodular densities. Followup chest CT in 3 months is recommended to ensure resolution, and to exclude underlying malignancy. 6. Findings discussed with Dr. Hines on 01.13.17 at 14:41. Dictated by: Venkat Curran M.D. on 01/13/2017 at 14:23 Approved by: Venkat Curran M.D. on 01/13/2017 at 14:41 Cardiac Echo Impression Echocardiogram Report Name: KEN NORMAN TStudy Date : 12/25/2016 Height: 76 in Hospital Exam Location: [facility] Weight: 459 lb Gender: Male BSA: 3.2 m2 : 1965 Age: 51 yrs BP: 138/70 mmHg Reason For Study: PERICARDIAL EFFUSION Ordering Physician: HOSPITALIST SVHPerformed By: Enrique Gooden Referring Physician: Daphne MILLS Interpretation Summary There is a small to moderate pericardial effusion noted. There are no echocardiographic or Doppler indications for cardiac tamponade. The right ventricle is moderate to severely dilated. Right ventricular systolic function is moderately reduced. Right ventricular systolic function has increased since previous exam. A possible thrombus continues to be noted in the right ventricular apex measuring approximately 2.4 cm x 2.6. This is slightly smaller than the echo from 12/19/16. The right ventricular systolic pressure is estimated at 48 mmHg assuming a right atrial pressure of 15 mm Hg. Procedure: A two-dimensional transthoracic echocardiogram with color flow and Doppler was performed in limited views only. The study quality was technically difficult. Comparison is made with the echocardiogram of 12/22/16. A contrast injection of Definity was performed to improve assessment of LV function. The patient was in normal sinus rhythm during the exam. The patient had a heart rate of 107-113 beats per minute. Left Ventricle: The left ventricle is normal in size. There is normal left ventricular wall thickness. Regional wall motion abnormalities cannot be excluded due to limited visualization. Right Ventricle: The right ventricle is moderate to severely dilated. Right ventricular systolic function is moderately reduced. Right ventricular systolic function has increased since previous exam. A possible thrombus continues to be noted in the right ventricular apex measuring approximately 2.4 cm x 2.6. This is slightly smaller than the echo from 12/19/16. Atria: The left atrial size is normal. The right atrium is moderately dilated. Mitral Valve: The mitral valve is not well visualized. The mitral valve is grossly normal. The mitral valve chordae are thickened and/or calcified. Tricuspid Valve: The tricuspid valve is not well visualized, but is grossly normal. There is mild tricuspid regurgitation. The right ventricular systolic pressure is estimated at 48 mmHg assuming a right atrial pressure of 15 mm Hg. Great Vessels: The ascending aorta is normal in size. The IVC is dilated (diameter is greater than 2.1 cm) and it collapses less than 50% with a sniff. This suggests a high right atrial pressure of 15 mm Hg. The IVC has a measurement of 37 mm. Pericardium/ Pleura There is a small to moderate pericardial effusion noted. There are no echocardiographic or Doppler indications for cardiac tamponade. There is a large right-sided pleural effusion. MMode/2D Measurements & Calculations LVIDd: 5.2 cm RA long axis asc Aorta LVIDs: 3.7 cm LA A2 area: 21.9 cm Diam: 2.6 cm FS: 28.1 % LA A4 area: 22.6 cm RA area IVSd: 0.95 cm LA length (vol): 5.8 cm LVPWd: 1.0 cm LA vol: 72.1 ml : 30.8 cm LA vol index RA vol : 128.ml RA IVC diam: 3.7 cm : 40.7 mm2 LV mathias. diameter/BSA LV sys. diameter/BSA RVD1 (basal) RVD2 (mid) (cm/m^2): 1.7 (cm/m^2): 1.2 : 6.0 cm Doppler Measurements & Calculations MV E max nathan MV E/A: 208.1 TR max nathan MV V2 mean : 126.8 cm/sec Med Peak E' Nathan : 285.7 cm/sec : 79.7 cm/sec MV A max nathan TR max PG MV mean PG : 0.61 cm/sec E/E' med: 12.1 : 32.7 mmHg MV V2 VTI MV dec time : 0.10 sec Reading Physician:PM Brief History Pulmonology Consultation Note: Attending Dr. Pema Norman is a 51-year-old male patient with a past medical history of COPD, cor pulmonale with decompensated right heart failure, and obesity hypoventilation syndrome on Trilogy who presented to the [facility] Emergency Department with worsening dyspnea and weakness and was re-admitted on the same day for a complex parapneumonic effusion for which we were consulted. Hospital day #6. The patient was recently hospitalized for PE and is now on warfarin therapy. The patient is lying in bed with triology mask in place. He is rather somnolent , therefore, subjective exam and review of systems is rather limited. The patient is able to report that he came back to the hospital for worsening shortness of breath and weakness. He denies chest pain. He denies recent fever or cough for which is the extent of our conversation due to somnolence. . Hospital Course 51-year-old male patient with a history of COPD, congestive heart failure, and hyperventilation secondary to obesity presented to the ER with complaint of worsening dyspnea and weakness. Patient bounced back from [facility] due to severe dyspnea. 1. Acute non-Chronic hypoxic and hypercarbic respiratory failure, present on admission -Acute desaturation when patient was placed on traveling BiPAP after being [place] [facility] [place] [facility]. -Patient has COPD, hypoventilation syndrome, untreated sleep apnea, recent pulmonary embolism and Right heart failure contributing to illness clinically he is about the same, no changes to current medical plan. Continue with Trilogy management. Will need possible placement at [facility]. 2. Parapneumonic effusion (pneumonia treated); present on admission; ongoing I His effusion is culture negative. His chest tube has had intermediate drainage which is also serous. The current discussion is whether or not the chest tube should stay in or whether or not he require more therapy such as a VATS. We will repeat chest x-ray today. The chest tube is clogged and there is a high probability that surgery will pull it today. We will repeat a chest x-ray tomorrow morning. If there is still a significant residual parapneumonic fluid collection the consensus from surgery seems to be that transfer to [facility] for a VATS procedure would be warranted. The patient is aware that this is the working plan. Patient today had repeat CT of chest and had chest tube pulled. Report of CT of chest report is in diagnostic imaging section. Awaiting further recommendations per general surgery. Clinically is doing well we will repeat a chest x-ray today to ensure no further fluid collection. Consider discharge to [facility] [place] tomorrow. Repeat chest x-ray does not show any increase in change in the right basilar lung so will discharge to [place] today 3. SUNDAY with secondary pulmonary hypertension and consequent right ventricular failure with Anasarca secondary to right heart failure; present on admission; resolved -Continue diuretics. -Continue lower extremity compression; increased wraps. 4. Pulmonary embolism and DVT. POA. Patient's Coumadin was reversed for his procedure. This point well resume Coumadin and bridge him with Lovenox given his high risk for recurrent I DVT. 5. Morbid obesity, chronic, present on admission Exam Vital Signs (Last) Date Time Temp Pulse Resp B/P Pulse Ox O2 Delivery O2 Flow Rate FiO2 01/15/17 12:22 36.7 85 20 103/61 98 OxyMask 5.00 Exam Constitutional: Middle-aged male currently wearing his Trilogy respiratory mask Head: Normocephalic and medical Chest: Some scant expiratory wheezes diffusely Cor: Regular rate and rhythm S1-S2 Abdomen: Soft obese nontender bowel sounds present Extremities exam 2+ bilateral lower extremity edema but appears improved from previous admissions Neuro: Alert and oriented 3, motor strength is intact bilaterally Test 01/03/17 20:53 01/07/17 05:45 01/08/17 08:10 01/08/17 15:00 Activated Partial Thromboplast Time 37.1sec (22.8-33.0) Magnesium Level 1.4mg/dL (1.6-2.6) Pro-B-Type Natriuretic Peptide 6575pg/mL (0-121) Troponin T 0.022ug/L (0.0-0.011) Neutrophils (%) (Auto) 75.8% (40-74) Lymphocytes (%) (Auto) 8.3% (14-46) Monocytes (%) (Auto) 12.7% (4-12) Eosinophils (%) (Auto) 2.7% (0-5) Basophils (%) (Auto) 0.3% (0-3) Procalcitonin 0.09ng/mL (0.00-0.08) Vitamin K1 Level 0.22ng/mL (0.13-1.88) Test 01/12/17 03:30 01/15/17 05:04 White Blood Count 8.5th/mm3 (3.8-10.1) Red Blood Count 3.75mil/mm3 (4.40-5.80) Hemoglobin 10.0g/dL (13.8-17.2) Hematocrit 34.9% (41.0-50.0) Mean Corpuscular Volume 93.1fL (81-100) Mean Corpuscular Hemoglobin 26.7pg (27.0-35.0) Mean Corpuscular Hemoglobin Concent 28.7% (32.0-37.0) Red Cell Distribution Width 19.2% (12.3-15.4) Platelet Count 353bil/L (150-400) Sodium Level 140mEq/L (134-144) Potassium Level 3.4mEq/L (3.5-5.2) Chloride Level 89mEq/L (97-108) Carbon Dioxide Level 41mmol/L (18-29) Blood Urea Nitrogen 20mg/dL (6-24) Creatinine 0.73mg/dL (0.76-1.27) Estimat Glomerular Filtration Rate 121mL/min (>59) Glucose Level 98mg/dL (60-99) Calcium Level 9.9mg/dL (8.5-10.1) Total Bilirubin 0.6mg/dL (0.0-1.2) Aspartate Amino Transf (AST/SGOT) 19U/L (0-50) Alanine Aminotransferase (ALT/SGPT) 16U/L (0-44) Alkaline Phosphatase 104U/L (25-150) Total Protein 7.1g/dL (6.4-8.4) Albumin 2.9g/dL (3.4-5.0) Prothrombin Time 21.9sec (8.1-12.5) Prothromb Time International Ratio 2.02ratio Discharge Medications Discharge Medications Acetazolamide (Acetazolamide) 250 Mg Tablet 250 MG PO BID Prescribed by: FOUZIA MORRIS MD Famotidine (Pepcid) 20 Mg Tablet 20 MG PO DAILY Prescribed by: FOUZIA MORRIS MD Metolazone (Metolazone) 5 Mg Tablet 5 MG PO DAILY Prescribed by: JOHNATHON OROZCO MD Metoprolol Tartrate (Metoprolol Tartrate) 25 Mg Tablet 50 MG PO BID Prescribed by: FOUZIA MORRIS MD Nystatin (Nystatin) 1 Each Powder.ea. 1 APPLIC TOPICAL BID Prescribed by: JOHNATHON OROZCO MD Potassium Chloride (Potassium Chloride) 20 Meq Tab.er.prt 20 MEQ PO DAILYWM Prescribed by: FOUZIA MORRIS MD Torsemide (Demadex) 20 Mg Tablet 20 MG PO DAILY Prescribed by: FOUZIA MORRIS MD Warfarin Sodium (Coumadin) 2 Mg Tablet 4 MG PO DAILY@17 Prescribed by: JOHNATHON OROZCO MD As needed ([Acetaminophen]) 325 MG TABLET 650 MG PO Q4H PRN PRN For Pain Prescribed by: FOUZIA MORRIS MD Albuterol Neb Soln (Albuterol Neb Soln) 2.5 Mg/3 Ml Vial.neb 3 ML INHALATION Q4 PRN PRN For Shortness of Breath (Reported) Albuterol Sulfate (Ventolin HFA Inhaler) 200 Puff/18 Gm Inhaler 1-2 PUFFS INHALATION Q4 PRN PRN For Shortness of Breath (Reported) Hydrocodone-Acetaminophen 5-325 mg (Hydrocodone-Acetaminophen 5-325 mg) 1 Each Tablet 2 TABLET PO Q4H PRN PRN For Moderate Pain Prescribed by: FOUZIA MORRIS MD Polyethylene Glycol 3350 (Miralax) 17 Gm Powd.pack 17 GM PO DAILY PRN PRN For Constipation Prescribed by: JOHNATHON OROZCO MD Followup Plan Disposition: [facility] [place] Discharge Diet: Low fat, Low Sodium Discharge Activity: Other (as tolerated) Time spent 60 minutes Fouzia Morris MD Jan 15, 2017 13:11
--- NOTE | 2017-01-15 13:23 | PCM.PHAPRO ---
Progress Complex Parapneumonic Effusion. . WARFARIN DOSING Hx of recent dosing: DFF GSF GSF GSF R GSF 18-Dec 19-Jan 11-Jan 12-Jan 13-Dec 23-Dec 24-Dec 1.37 1.16 1.17 1.16 1.3 1.55 2.02 -1.41 -0.21 0.01 -0.01 0.14 0.25 0.47 5 5 5 5 4 0 a/ No longer under influence of vitamin K administration. INR jump almost 0.5 with 4mg dose, p/ Hold x1 day, likely resume at 2-3mg tomorrow Leonel Diaz Pharm D Jan 15, 2017 13:23
--- NOTE | 2017-01-15 14:13 | NUR ---
Social Work: Discharge D: Pt discussed in am rounds. pt is medically stable for discharge. Pt has been accepted at [facility] with Dr. Dave to follow. EVENT ORGANIZER met with pt at bedside to confirm discharge plan. He agrees that he still wishes to go to [facility] and is agreeable to ALS transport knowing that he could potentially get a private pay bill if not authorized by Medicare. Pt currently with Trilogy and requiring this for transport. [facility] is arranging for ALS transport. t/c to Frandy Brown with [facility] to inform that pt is discharging to [facility]; he will meet the pt there. PPW, PASSR and orders faxed. A: Pt who will require SNF for further strengthening and functional mobility training. P: Pt to discharge to [facility] today via ALS; [facility] is arranging transport and will update EVENT ORGANIZER when finalized KENDRICK Sidhu
--- NOTE | 2017-01-15 16:21 | NUR ---
Discharge Pt. was discharged to [facility] Adiel Crews and left room 2026 PCC at about 1540. Pt. took all his belongings with him including his trilogy machine and masks. Pt. had no c/o SOB, CP or any other pain prior to leaving. Dressing on right side of chest where pre-existing chest tube was placed was C/D/I. Report was given to [facility] Adiel Crews RN. Personal from [facility] to set up Pts. trilogy at facility was called and he stated he will meet the Pt. at [facility].
== END 2017-01-15 16:00 | DRG 189 ==
LOC: EDBD 20:15 → SED 20:15 → PCC 23:03
PROVIDERS: ADMIT Specialist; ATTEND Specialist
PROC: 5A09457 Assistance with Respiratory Ventilation, 24-96 Consecutive Hours, Continuous Positive Airway Pressure (ICD-10-PCS; principal; 2017-01-03)
PROC: 4A033R1 Measurement of Arterial Saturation, Peripheral, Percutaneous Approach (ICD-10-PCS; 2017-01-03)
PROC: 0W9930Z Drainage of Right Pleural Cavity with Drainage Device, Percutaneous Approach (ICD-10-PCS; 2017-01-09)
PROC: 3E0L3GC Introduction of Other Therapeutic Substance into Pleural Cavity, Percutaneous Approach (ICD-10-PCS; 2017-01-10)
DX: J96.21 Acute and chronic respiratory failure with hypoxia (principal); J18.9 Pneumonia, unspecified organism; Z68.43 Body mass index [BMI] 50.0-59.9, adult; I27.82 Chronic pulmonary embolism; E66.2 Morbid (severe) obesity with alveolar hypoventilation; J90 Pleural effusion, not elsewhere classified; E87.2 Acidosis; J96.22 Acute and chronic respiratory failure with hypercapnia; Z71.3 Dietary counseling and surveillance; I50.9 Heart failure, unspecified; Z79.01 Long term (current) use of anticoagulants; Z87.891 Personal history of nicotine dependence; R00.0 Tachycardia, unspecified; I27.81 Cor pulmonale (chronic)